=== PATIENT | female | born 1980 | race Caucasian/White ===

== ENCOUNTER → 2018-02-12 09:01 | Outpatient (CLI) | payer BC, SELFPAY ==
--- NOTE | 2018-02-12 09:05 | RAD_ITS ---
STUDY: X-RAY CHEST REASON FOR EXAM: Female, 37 years old. Congestion. TECHNIQUE: PA and lateral views of the chest. COMPARISON: None. FINDINGS: The lungs are clear and expanded. There is no demonstrated pleural abnormality. Normal size heart. Normal mediastinum and juanis. Normal visualized pulmonary arteries. Normal visualized aortic arch and descending thoracic aorta. Normal visualized thoracic spine. Normal visualized ribs, clavicles, and shoulders. There is no demonstrated abnormality of the visualized soft tissue structures of the upper abdomen. RAD/Chest PA and Lateral IMPRESSION: Normal x-ray examination of the chest. Electronically Signed: Braydon Mahoney DO at 16:53 EDT Tel [phone], Service support ,
== END ==
PROVIDERS: Family Provider Internal Medicine; PCP Internal Medicine; Visit Provider Nurse Practitioner Gerontology
DX: R05 Cough (principal)
CPT/HCPCS: 71046

== ENCOUNTER → 2018-10-23 10:59 | Outpatient (CLI) | payer BC, SELFPAY ==
[2018-10-27 09:40] LABS: HPV Reflexed? NOT INDICATED
== END ==
PROVIDERS: Visit Provider Obstetrics & Gynecology
DX: Z12.4 Encounter for screening for malignant neoplasm of cervix (principal)
CPT/HCPCS: 88175; G0145

== ENCOUNTER → 2019-03-04 | Outpatient (CLI) | payer BC, SELFPAY ==
[2019-03-04 11:04] LABS: Progesterone Level 2.41 ng/mL (See Comment)
[2019-03-04 11:06] LABS: Estradiol 112.7 pg/mL
== END | disposition home or self-care (01) ==
LOC: WOBLAB 09:42
PROVIDERS: Visit Provider Obstetrics & Gynecology
DX: N92.5 Other specified irregular menstruation (principal); N92.6 Irregular menstruation, unspecified
CPT/HCPCS: 36415; 82670; 84144

== ENCOUNTER → 2019-07-05 09:12 | Outpatient (CLI) | payer BC, SELFPAY ==
[2019-07-05 11:03] LABS: Progesterone Level 6.29 ng/mL (See Comment)
== END ==
PROVIDERS: Visit Provider Obstetrics & Gynecology
DX: E28.8 Other ovarian dysfunction (principal); N92.6 Irregular menstruation, unspecified
CPT/HCPCS: 36415; 84144

== ENCOUNTER → 2020-05-17 09:42 | Outpatient (CLI) | payer BC, SELFPAY ==
[2020-05-17 11:43] LABS: hCG Titer Quant., Serum 31 mIU/mL (1-3)
[2020-05-17 13:48] LABS: Chlamydia Trachomatis by PCR Negative (Negative); Neisserai gonorrhoeae by PCR Negative (Negative); Probe Check PASS; Sample Adequacy Control PASS; Specimen Processing Control PASS
== END ==
PROVIDERS: Visit Provider Obstetrics & Gynecology
DX: Z12.4 Encounter for screening for malignant neoplasm of cervix (principal); N92.6 Irregular menstruation, unspecified
CPT/HCPCS: 36415; 84702; 87491; 87591

== ENCOUNTER → 2020-05-19 09:40 | Outpatient (CLI) | payer BC, SELFPAY ==
[2020-05-19 10:37] LABS: hCG Titer Quant., Serum 40 mIU/mL (1-3)
== END ==
PROVIDERS: Visit Provider Obstetrics & Gynecology
DX: N92.6 Irregular menstruation, unspecified (principal); Z32.01 Encounter for pregnancy test, result positive
CPT/HCPCS: 36415; 84702

== ENCOUNTER → 2020-05-26 08:35 | Outpatient (CLI) | payer BC, SELFPAY ==
[2020-05-26 11:02] LABS: hCG Titer Quant., Serum 1 mIU/mL (1-3)
== END ==
PROVIDERS: Visit Provider Obstetrics & Gynecology
DX: N92.6 Irregular menstruation, unspecified (principal); Z32.01 Encounter for pregnancy test, result positive
CPT/HCPCS: 36415; 84702

== ENCOUNTER → 2020-08-29 08:40 | Outpatient (CLI) | payer BC, SELFPAY ==
[2020-08-29 13:08] LABS: Progesterone Level 23.74 ng/mL (See Comment)
== END ==
PROVIDERS: Visit Provider Obstetrics & Gynecology
DX: Z34.81 Encounter for supervision of other normal pregnancy, first trimester (principal); Z79.899 Other long term (current) drug therapy
CPT/HCPCS: 36415; 84144

== ENCOUNTER → 2020-09-01 15:48 | Outpatient (CLI) | payer BC, SELFPAY ==
[2020-09-01 17:00] LABS: Absolute Lymphocyte Count 3.16 X10^3/uL (0.83-4.51); Absolute Neutrophil Count 8.6 X10^3/uL (2.0-7.7); Basophil# 0.05 X10^3/uL; Basophil% 0.4 % (0-1); Eosinophil# 0.12 X10^3/uL; Eosinophils% 0.9 % (0-5); Hematocrit 40.1 % (37-47); Hemoglobin 12.9 g/dL (12.0-15.0); Lymphocyte # 3.16 X10^3/ul (4.0); Mean Corp Hgb Conc 32.2 g/dL (32-36); Mean Corpuscular Hgb 28.5 pg (27.0-32.0); Mean Corpuscular Volume 88.5 fL (81-99); Mean Platelet Vol. 9.7 fl (6.2-12.0); Monocyte# 1.12 X10^3/uL; Monocyte% 8.5 % (0-10); NRBC Flagged by Analyzer 0 % (0-5); Neutrophil # 8.59 X10^3/uL (2.7-7.7); Neutrophil % 65.4 % (47-70); Platelet Count 406 K/mm3 (150-450); RBC Distribution Width CV 15.5 % (11.6-14.6); RBC Distribution Width SD 50.5 fl (35.1-43.9); Red Blood Count 4.53 M/mm3 (4.2-5.4); White Blood Count 13.2 K/mm3 (4.4-11.0)
[2020-09-01 17:03] LABS: Color, Urine Yellow (Yellow); Glucose, Dipstick Normal (Normal); Ketone-Dipstick Negative (Negative); Leukocyte Esterase-Dipstick Negative /ul (Negative); Nitrite-Dipstick Negative (Negative); Occult Blood-Urine 150 /ul (Negative); Protein-Dipstick Negative (Negative); Specific Gravity, Urine 1.015 (1.002-1.030); Urine Bilirubin Dipstick Negative (Negative); Urine Clarity Sl. Cloudy (Clear); Urine Urobilinogen Normal (Normal)
[2020-09-01 17:41] LABS: Amphetamine Urine VISTA NEGATIVE (<1000 ng/mL); Barbiturate Urine VISTA NEGATIVE (< 200 ng/mL); Benzodiazepine Urine VISTA NEGATIVE (< 200 ng/mL); Cocaine Urine VISTA NEGATIVE (< 300 ng/mL); Ecstacy Urine VISTA NEGATIVE (< 500 ng/mL); Methadone Urine VISTA NEGATIVE (< 300 ng/mL); PCP Urine VISTA NEGATIVE (< 25 ng/mL); THC Urine VISTA NEGATIVE (< 50 ng/mL); Vista UDS pH Range 6
[2020-09-01 17:44] LABS: Thyroid Stim Hormone (TSH) 0.22 uIU/mL (0.358-3.74)
[2020-09-02 10:13] LABS: HIV - WCH Non-Reactive (Nonreactive); Hepatitis B Surface Antigen Non-Reactive (Nonreactive); Hepatitis C Antibody Non-Reactive (Nonreactive); Rubella IgG 216.9 IU/mL
[2020-09-07 03:02] LABS: Prenatal RPR NONREACTIVE (NONREACTIVE)
[2020-09-08 09:08] LABS: Chlamydia By Nucleic Acid AMP Negative (Negative)
[2020-09-08 09:43] LABS: Gonococcus By Nucleic Acid AMP Negative (Negative)
== END ==
PROVIDERS: Visit Provider Obstetrics & Gynecology
DX: Z34.81 Encounter for supervision of other normal pregnancy, first trimester (principal); Z11.3 Encounter for screening for infections with a predominantly sexual mode of transmission
CPT/HCPCS: 36415; 80307; 81002; 84443; 85025; 86703; 86762; 86803; 87340; 87491; 87591

== ENCOUNTER → 2020-09-15 08:37 | Outpatient (CLI) | payer BC, SELFPAY ==
[2020-09-15 11:03] LABS: Free T3 2.7 pg/mL (2.18-3.98); T4 Free Direct 0.95 ng/dL (0.76-1.46); Thyroid Stim Hormone (TSH) 0.35 uIU/mL (0.358-3.74)
== END ==
PROVIDERS: Visit Provider Obstetrics & Gynecology
DX: Z34.81 Encounter for supervision of other normal pregnancy, first trimester (principal); R94.6 Abnormal results of thyroid function studies
CPT/HCPCS: 36415; 84439; 84443; 84481

== ENCOUNTER → 2020-09-29 14:28 | Outpatient (CLI) | payer BC, SELFPAY ==
[2020-09-29 16:16] LABS: Glucose Challenge Gest 1H 50g 181 mg/dL (70-140)
== END ==
PROVIDERS: Visit Provider Obstetrics & Gynecology
DX: Z34.82 Encounter for supervision of other normal pregnancy, second trimester (principal)
CPT/HCPCS: 36415; 82950

== ENCOUNTER → 2020-10-11 06:45 | Outpatient (CLI) | payer BC, SELFPAY ==
[2020-10-11 08:19] LABS: Glucose GTT-Gestational 1 Hr 161 mg/dL (<190)
[2020-10-11 08:33] LABS: Glucose GTT-Gestation. Fasting 87 mg/dL (<105)
[2020-10-11 09:30] LABS: Glucose GTT-Gestational 2 Hr 159 mg/dL (<165)
[2020-10-11 10:58] LABS: Glucose GTT-Gestational 3 Hr 132 L (<145)
== END ==
PROVIDERS: Referring Provider Obstetrics & Gynecology; Visit Provider Obstetrics & Gynecology
DX: O24.912 Unspecified diabetes mellitus in pregnancy, second trimester (principal); Z3A.00 Weeks of gestation of pregnancy not specified
CPT/HCPCS: 36415; 82951; 82952

== ENCOUNTER → 2021-01-05 14:30 | Outpatient (CLI) | payer OTHER, SELFPAY ==
[2021-01-05 15:40] LABS: Hematocrit 34.3 % (37-47); Mean Corp Hgb Conc 32.1 g/dL (32-36); Mean Corpuscular Hgb 27.4 pg (27.0-32.0); Mean Corpuscular Volume 85.5 fL (81-99); Mean Platelet Vol. 10.2 fl (6.2-12.0); Platelet Count 373 K/mm3 (150-450); RBC Distribution Width CV 15.4 % (11.6-14.6); RBC Distribution Width SD 47.6 fl (35.1-43.9); Red Blood Count 4.01 M/mm3 (4.2-5.4); White Blood Count 8.7 K/mm3 (4.4-11.0)
[2021-01-05 15:48] LABS: Glucose Challenge Gest 1H 50g 184 mg/dL (70-140)
== END ==
PROVIDERS: Visit Provider Student in an Organized Health Care Education/Training Program
DX: Z34.83 Encounter for supervision of other normal pregnancy, third trimester (principal)
CPT/HCPCS: 36415; 82950; 85027

== ENCOUNTER → 2021-03-02 | Outpatient (CLI) | payer OTHER, SELFPAY | END | disposition home or self-care (01) | LOC: LABSPEC 15:41 | PROVIDERS: Visit Provider Student in an Organized Health Care Education/Training Program | DX: Z36.85 Encounter for antenatal screening for Streptococcus B (principal) | CPT/HCPCS: 87077; 87081; 87186 ==

== ENCOUNTER → 2021-03-12 17:16 | Outpatient (CLI) | payer OTHER, SELFPAY | PROVIDERS: Referring Provider Student in an Organized Health Care Education/Training Program; Visit Provider Student in an Organized Health Care Education/Training Program | DX: Z03.818 Encounter for observation for suspected exposure to other biological agents ruled out (principal) | CPT/HCPCS: 87635; C9803; U0002 ==

== ENCOUNTER 2021-03-21 05:10 | Inpatient (IN) | payer OTHER, SELFPAY ==
[2021-03-21] VITALS (23 sets, daily range): BP systolic 105–153; BP diastolic 55–85; PULSE 94–127; RESP 12–25; TEMP 36.2–36.8; O2SAT 95–100; BMI 45.2
[2021-03-21] MEDS: Lactated Ringers 1,000 ML 999 ML IV (05:35)
[2021-03-21] MEDS: Acetaminophen 500 MG Tablet 1000 MG PO ×3 (05:55→17:47)
[2021-03-21 06:01] LABS: Absolute Lymphocyte Count 1.81 X10^3/uL (0.83-4.51); Absolute Neutrophil Count 4.6 X10^3/uL (2.0-7.7); Basophil# 0.03 X10^3/uL; Basophil% 0.4 % (0-1); Eosinophils% 1.3 % (0-5); Hematocrit 36.6 % (37-47); Hemoglobin 11.7 g/dL (12.0-15.0); Lymphocyte # 1.81 X10^3/ul (0.83-4.51); Lymphocyte % 24.3 % (19-41); Mean Corpuscular Hgb 27.5 pg (27.0-32.0); Mean Corpuscular Volume 85.9 fL (81-99); Mean Platelet Vol. 10.4 fl (6.2-12.0); Monocyte# 0.81 X10^3/uL; Monocyte% 10.9 % (0-10); NRBC Flagged by Analyzer 0 % (0-5); Neutrophil % 61.8 % (47-70); Platelet Count 288 K/mm3 (150-450); RBC Distribution Width SD 53.4 fl (35.1-43.9); Red Blood Count 4.26 M/mm3 (4.2-5.4); White Blood Count 7.5 K/mm3 (4.4-11.0)
[2021-03-21 06:11] LABS: Bedside Glucose 171 mg/dL (70-110)
[2021-03-21] MEDS: Lactated Ringers 1,000 ML 150 ML IV (06:45)
[2021-03-21] MEDS: Sodium Citrate/Citric Acid 30 ML UDC PO (07:13)
--- NOTE | 2021-03-21 07:15 | PCM.HP.OB ---
HPI - General General Date of Admission: 03/21/21 HPI Narrative 40-year-old G3, P1 at 39/0 weeks, MILAGRO 03/28/2021 by LMP, admitted for repeat section and bilateral tubal sterilization. Denies leaking of fluid, contractions, vaginal bleeding. Reports movement. Denies headache, vision changes, chest pain, dyspnea, nausea or vomiting, diarrhea/constipation, fevers. complicated by: advanced maternal age, elevated 1 hour refused 3-hour treated as GDMA1, polyhydramnios, GBS positive, obesity OB History G1: 40w c/s G2: SAB G3: current [facility] Medical History (Updated 03/21/21 @ 07:[address] Leigh Brito, DO) Gestational diabetes Home Medications elderberry fruit [Elderberry] PO DAILY 03/21/21 [History Last Taken 03/20/21] magnesium 500 mg PO DAILY 03/21/21 [History Last Taken 03/19/21] Allergy/AdvReac Type Severity Reaction Status Date / Time codeine AdvReac Nausea/Vom/ Verified 03/21/21 05:34 Diarrhea oxycodone HCl [From Percocet] AdvReac Nausea/Vom/ Verified 03/21/21 05:34 Diarrhea Surgical History Previous section Social History Smoking Status: Former smoker History 3 Elective abortions Hx Para 1 Spontaneous abortions 1 Hx # Term Pregnancies 1 Ectopic pregnancies Hx # Pregnancies Multiple births # of living children 1 NST FHR Rate Baby A Baseline: Pending ROS Constitutional Constitutional: Reports systems reviewed and no addt'l complaints, except as documented Eyes Eyes: Reports systems reviewed and no addt'l complaints, except as documented ENT HEENT: Reports systems reviewed and no addt'l complaints, except as documented Cardiovascular Cardiovascular: Reports systems reviewed and no addt'l complaints, except as documented Respiratory/Chest Respiratory/Chest: Reports systems reviewed and no addt'l complaints, except as documented Gastrointestinal Gastrointestinal: Reports systems reviewed and no addt'l complaints, except as documented Genitourinary Genitourinary: Reports systems reviewed and no addt'l complaints, except as documented Musculoskeletal Musculoskeletal: Reports systems reviewed and no addt'l complaints, except as documented Neurologic Neurologic: Reports systems reviewed and no addt'l complaints, except as documented Psychiatric Psychiatric: Reports systems reviewed and no addt'l complaints, except as documented Hematologic/Lymphatic Hematologic/Lymphatic: Reports systems reviewed and no addt'l complaints, except as documented Allergic/Immunologic Allergic/Immunologic: Reports systems reviewed and no addt'l complaints, except as documented Vital Signs Vital Signs Vital Signs: 03/21/21 05:57 Temperature 97.8 F Temperature Source Temporal Pulse Rate 105 H Respiratory Rate 16 Blood Pressure 153/85 H Blood Pressure Mean 107 Blood Pressure Source Monitor Blood Pressure Position Semi-Fowlers Blood Pressure Location Left Arm Pulse Ox 96 Oxygen Delivery Method Room Air Physical Exam Const alert, oriented x3 and no apparent distress HEENT normocephalic Head and Scalp: atraumatic Eyes PERRL Neck full ROM Resp normal respiratory effort and clear to auscultation bilaterally Cardio regular rate and regular rhythm GI normal to inspection, nondistended, normoactive bowel sounds GI Narrative: gravid Extremity normal to inspection, full ROM and no pedal edema Skin no rashes or lesions noted Psych mental status grossly normal and affect normal Assessment & Plan Assessment/Plan (1) Obesity affecting : Status: Acute Code(s): O99.210 - Obesity complicating , unspecified trimester Plan: 40-year-old G3, P1 at 39/0 weeks, MIL[place]RO 03/28/2021 by LMP, admitted for repeat section and bilateral tubal sterilization. 2 gm ancef preop. GDMA1 - glucose testing per protocol. (2) Advanced maternal age (AMA), 40 years or greater: Status: Acute
--- NOTE | 2021-03-21 07:23 | PCM.OPRPT ---
Report of Operation Date of Procedure: 03/21/21 Pre-Operative Diagnosis: Arcos intrauterine at term, gestational diabetes A1, advanced maternal age, desires tubal sterilization Post-Operative Diagnosis: Arcos intrauterine at term, gestational diabetes A1, advanced maternal age, desires tubal sterilization Surgery/Procedure Performed:: Repeat section and bilateral salpingectomy Type of Anesthesia: Spinal Specimen's removed: Bilateral fallopian tubes Estimated Blood Loss (mL): 800cc Fluids Replaced: 1000cc Description of Procedure: Indications/Risks/Benefits: 40 yo at 39/0w presenting for repeat section and bilateral tubal ligation. Risks/benefits/alternatives discussed. Risks include, but are not limited to: risk of bleeding to the point of transfusion, infection, injury to surrounding tissues (bowel/bladder requiring prolonged sorensen catheter use), VTE, ICU admission, risk of regret of tubal sterilization. Patient aware and consented. Procedure: Patient taken to the operating room and spinal anesthesia placed. Placed in supine position with left lateral tilt. Prepped and draped in the usual sterile fashion. Pfannensteil incision made with scalpel and carried down through subcutaneous tissue. Fascia knicked on either side of the midline and extended bilaterally with Dave scissors. Diane clamps used to grasp superior fascial edge which was tented up and underlying rectus muscle was dissected off bluntly and using Dave scissors. Clamps moved to inferior fascial edge which was tented up and underlying rectus muscles dissected off in similar fashion. Rectus muscles at midline with hemostats and peritoneum entered with Metzenbaum scissors, extended bluntly. Bladder blade placed. Vesicouterine peritoneum identified and bladder flap created with Metzenbaum scissors. Low transverse uterine incision made with scalpel extended bluntly, amniotomy clear fluid. Hand placed into the uterus, head elevated in the with the assistance of gentle fundal pressure delivered followed by body. Nuchal cord x1 loose, delivered through. Cord clamped and cut baby handed to nursing. Spontaneous delivery of placenta. Uterus exteriorized and cleared of all clots with a lap. Uterine incision closed with running locking stitch and second horizontal imbricating stitch. Right fallopian tube identified from cornua to fimbriated end. Fallopian tube removed with LigaSure. Left fallopian tube identified from cornua to fimbriated end and removed with LigaSure. Hemostatic mesosalpinx. Uterine incision was hemostatic. Uterus replaced into the abdomen. Pelvis cleared of all clots. Peritoneum closed with a running stitch. Fascia closed with running stitch. Subcutaneous tissue closed with running stitch. Skin closed with a running subcuticular stitch. The end of the procedure all needle lap and sponge counts were correct x3. Urine output: 100 cc clear urine. Apgars: 8/9 Complications None Admit VTE Documentation VTE Mechan Device Prophylaxis: SCD's
--- NOTE | 2021-03-21 07:24 | PCM.DC ---
Discharge Instructions Outpatient Procedure Reason For Visit: CSECTION/DELIVERY Diet Discharge Diet: No restrictions Activity Discharge Activity: Return to Normal Activity, May not drive while taking narcotic pain medications. and May Shower May resume sexual activity in: 4-6 weeks Weight Bearing Status: Weight bearing as tolerated Lifting Restrictions: no more than 20-25 pounds Dressing / Incision Call your doctor if your incision/area has: Continuous Slow Oozing, Sudden Increased Bleeding, Increased Pain/ Swelling, Increased Redness and Foul Smelling Discharge Call your doctor if you observe: Fever of 101 or Higher, Inability to urinate, Inability to have a bowel movement, Using more than one pad per hour, Shortness of breath, Swelling in the ankles and Uncontrolled pain Remove Dressing in: 1 week Cleanse incision/area with: Soap & Water and Keep Dressing Clean & Dry Follow Up Care Please Follow Up With: Leigh Brito When: 2 week post operative, 6 week Test Results: Test results from this visit will be discussed in further detail at your follow-up appointment, if applicable. Discharge Plan Admission Admit Date/Time: 03/21/21 05:10 Primary Reason for Your Visit: Repeat section Attending Provider: Leigh Brito Primary Care Provider: Care Physician,No Primary Discharge Orders/Prescriptions Prescriptions: New tramadol 50 mg Tablet 50 mg PO Q6H PRN (Reason: Pain Score 6-10) 5 Days Qty: 20 RF: 0 Continued magnesium 500 mg Tablet 500 mg PO DAILY RF: 0 elderberry fruit 200 mg Capsule PO DAILY RF: 0 Referrals / Follow Up: Care Physician,No Primary [Primary Care Provider] - Disposition Disposition (needs filled in before D/C Order can be placed): Home, self care
[2021-03-21] MEDS: Oxytocin 30 units/NS 500 ml 30 UNITS/500 ML IV.SOLN 167 UNITS IV (09:05)
[2021-03-21] MEDS: Ketorolac 30 MG/ML Syringe IV ×3 (09:53→22:21)
[2021-03-21 10:20] LABS: Bedside Glucose 111 mg/dL (70-110)
--- NOTE | 2021-03-21 11:24 | FALS_PTH ---
PATIENT: KRYSTAL CHOI LOC: [facility] U#:[id number] AGE/SX: 40/F ROOM: WP005 RE03/21/[address]: Dr. Leigh Brito DO : 1980 BED: 1 DIS: 03/23/2021 SPEC #: [id number] RECD: 03/21/21 11:45 STATUS: CAROLANN REMary #: [id number] CASSANDRA: 03/21/21 11:[address]: Leigh Brito DEPT: SURGICAL PATHOLOGY RECD BY: Haris Yun ENTERED: 03/21/21 13:20 SP TYPE: FALL TUBES OTHR DR: Lashon Primary Care Phys Tissues: Fallopian tube Procedures: Surgery Specimen Level II HEADER OPERATION: Tubal ligation PRE-OP DIAGNOSIS: Sterilization TISSUE SUBMITTED: Fallopian tubes, suture in left tube MICROSCOPIC DIAGNOSIS Right and left fallopian tubes, bilateral salpingectomies: Right fallopian tube ? Complete section, no pathologic change. Left fallopian tube ? Complete section with benign paratubal cyst. AM:nadja 03/22/2021 MICROSCOPIC DESCRIPTION Slides are reviewed. GROSS DESCRIPTION Received in fixative is one container labeled with the patient's name and designated bilateral fallopian tubes, suture in left tube. The specimen consists of bilateral fallopian tubes including fimbrial ends. The right fallopian tube measures 6.5 cm in length and 0.5 cm in diameter and left fallopian tube measures 5 cm in length and 0.5 cm in diameter. Sections reveal unremarkable cut surfaces. Fixture Repairer Fabricator sections are submitted in two cassettes as follows: 1 ? right fallopian tube, 2 ? left fallopian tube. / PILI:nadja 03/21/21 TC:5 CPT: 31461,98949
[2021-03-21] MEDS: Senna/Docusate Sodium 1 Tablet PO (11:33)
[2021-03-21 11:47] LABS: Pathology Specimen OB SEE PATHOLOGY REPORT
[2021-03-21] MEDS: Lactated Ringers 1,000 ML 100 ML IV (12:16)
[2021-03-21] MEDS: 0.9% Saline Lock 10 ML Syringe IV ×2 (14:26→22:21)
[2021-03-22 00:34] VITALS: BP 115/52; PULSE 76; RESP 16; O2SAT 95
[2021-03-22] MEDS: Acetaminophen 500 MG Tablet 1000 MG PO ×5 (00:37→23:50)
[2021-03-22 03:44] VITALS: BP 100/51; PULSE 92; RESP 18; O2SAT 96
[2021-03-22] MEDS: Ketorolac 30 MG/ML Syringe IV (03:47)
[2021-03-22] MEDS: 0.9% Saline Lock 10 ML Syringe IV (03:48)
[2021-03-22 05:36] LABS: Bedside Glucose 77 mg/dL (70-110)
[2021-03-22 05:37] LABS: Hematocrit 30.2 % (37-47); Hemoglobin 9.5 g/dL (12.0-15.0); Mean Corp Hgb Conc 31.5 g/dL (32-36); Mean Corpuscular Hgb 27.3 pg (27.0-32.0); Mean Corpuscular Volume 86.8 fL (81-99); Mean Platelet Vol. 10.6 fl (6.2-12.0); Platelet Count 254 K/mm3 (150-450); RBC Distribution Width CV 17.1 % (11.6-14.6); RBC Distribution Width SD 54.3 fl (35.1-43.9); Red Blood Count 3.48 M/mm3 (4.2-5.4); White Blood Count 9.9 K/mm3 (4.4-11.0)
[2021-03-22 06:08] VITALS: PULSE 96; RESP 16; O2SAT 96
--- NOTE | 2021-03-22 07:32 | PCM.PN.OB ---
Subjective Subjective: Postop day 1. Feeling well, pain controlled. Bottle feeding. Objective Data Objective Data Vital Signs: Vital Signs Temp Pulse Resp BP Pulse Ox 97.3 F L 96 16 100/51 L 96 03/21/21 19:58 03/22/21 06:08 03/22/21 06:08 03/22/21 03:44 03/22/21 06:08 Oxygen Delivery Method Room Air Weight: 112.264 kg Body Mass Index (BMI) 45.2 Intake & Output: Intake and Output for Last 24 Hours 03/20/21 03/21/21 03/22/21 23:59 23:59 23:59 Intake Total 2793.33 / 2793.33 Output Total 1125 / 1125 Balance 1668.33 / 1668.33 Lab / Micro Data Result Diagrams: 03/22/21 05:25 Labs: Laboratory Results - last 24 hr 03/21/21 03/22/21 03/22/21 10:16 05:24 05:25 WBC 9.9 RBC 3.48 L Hgb 9.5 L Hct 30.2 L MCV 86.8 MCH 27.3 MCHC 31.5 L RDW Std Deviation 54.3 H RDW Coeff of Kelsey 17.1 H Plt Count 254 MPV 10.6 POC Glucose 111 H 77 ROS Constitutional Constitutional: Denies fever(s) Cardiovascular Cardiovascular: Denies chest pain or dyspnea Respiratory/Chest Respiratory/Chest: Denies tachypnea or wheezing Gastrointestinal Gastrointestinal: Denies constipation or diarrhea Musculoskeletal Musculoskeletal: Denies difficulty walking Physical Exam Const alert, oriented x3 and no apparent distress HEENT normocephalic Head and Scalp: atraumatic Resp normal respiratory effort Cardio regular rate GI normal to inspection, nondistended, normoactive bowel sounds GI Narrative: Uterus 2 cm below umbilicus. Dressing clean and dry. Extremity normal to inspection and no pedal edema Skin no rashes or lesions noted Neuro Motor Exam: muscle tone normal throughout Psych mental status grossly normal and affect normal Assessment & Plan (1) Gestational diabetes: (2) Advanced maternal age (AMA), 40 years or greater: (3) Obesity affecting : (4) Delivery by section: PLAN: Postop day 1 status post repeat section with bilateral salpingectomy. Complicated by gestational diabetes A1 (fasting glucose within normal limits this morning. Will need 2-hour GTT ), obesity. Acute blood loss anemia secondary to surgery. Vitals are stable. Home POD2 (5) Acute blood loss as cause of postoperative anemia:
[2021-03-22 07:58] VITALS: BP 117/63; PULSE 99; RESP 16; TEMP 36.9; O2SAT 100
[2021-03-22] MEDS: Ibuprofen 600 MG Tablet PO ×3 (09:56→21:30)
[2021-03-22] MEDS: Senna/Docusate Sodium 1 Tablet PO (09:57)
[2021-03-22] MEDS: Enoxaparin 40 MG/0.4 ML Syringe SC (09:58)
[2021-03-22] MEDS: traMADol 50 MG Tablet PO ×2 (13:37→21:30)
[2021-03-22 13:45] VITALS: BP 124/74; PULSE 90; RESP 18; TEMP 36.5; O2SAT 97
[2021-03-22 19:38] VITALS: BP 132/72; PULSE 92; RESP 16; TEMP 36.4; O2SAT 98
[2021-03-23 01:45] VITALS: BP 132/70; PULSE 89; RESP 18; TEMP 36.7; O2SAT 97
[2021-03-23] MEDS: Ibuprofen 600 MG Tablet PO ×2 (04:14→09:41)
[2021-03-23] MEDS: Acetaminophen 500 MG Tablet 1000 MG PO (05:51)
[2021-03-23 07:35] VITALS: BP 134/69; PULSE 91; RESP 18; TEMP 36.6; O2SAT 98
--- NOTE | 2021-03-23 08:20 | PCM.PN.OB ---
Subjective Subjective: POD#2. Pain controlled with medications. Lochia minimal. Objective Data Objective Data Vital Signs: Vital Signs Temp Pulse Resp BP Pulse Ox 98.0 F 89 18 132/70 H 97 03/23/21 01:45 03/23/21 01:45 03/23/21 01:45 03/23/21 01:45 03/23/21 01:45 Oxygen Delivery Method Room Air Weight: 112.264 kg Body Mass Index (BMI) 45.2 Intake & Output: Intake and Output for Last 24 Hours 03/21/21 03/22/21 03/23/21 23:59 23:59 23:59 Intake Total 2793.33 / 2793.33 Output Total 1125 / 1125 Balance 1668.33 / 1668.33 Lab / Micro Data Result Diagrams: 03/22/21 05:25 ROS Constitutional Constitutional: Denies fever(s) ENT HEENT: Denies dizziness Respiratory/Chest Respiratory/Chest: Denies cough or dyspnea Genitourinary Genitourinary: Denies difficulty urinating or dysuria Musculoskeletal Musculoskeletal: Denies muscle weakness Physical Exam Const alert, oriented x3 and no apparent distress HEENT normocephalic Head and Scalp: atraumatic Eyes PERRL Resp normal respiratory effort Cardio regular rate GI soft to palpation, non-tender and non-distended GI Narrative: dressing c/d, uterus 2 cm below umbilicus Extremity no pedal edema Skin no rashes or lesions noted Assessment & Plan (1) Acute blood loss as cause of postoperative anemia: (2) Delivery by section: (3) Gestational diabetes: (4) Advanced maternal age (AMA), 40 years or greater: (5) Obesity affecting : PLAN: POD#2 s/p repeat section and bilateral tubal ligation. Acute blood loss anemia secondary to surgery, vitals stable. Iron supplement at home. GDMA1 - will need 2hr GTT. Home today.
[2021-03-23] MEDS: Enoxaparin 40 MG/0.4 ML Syringe SC (09:40)
[2021-03-23] MEDS: Senna/Docusate Sodium 1 Tablet PO (09:42)
== END 2021-03-23 10:50 | disposition home or self-care (01) | DRG 784 ==
PROVIDERS: Admitting Provider Student in an Organized Health Care Education/Training Program; Visit Provider Student in an Organized Health Care Education/Training Program
PROC: 10D00Z1 Extraction of Products of Conception, Low, Open Approach (ICD-10-PCS; CPT 59514; principal; 2021-03-21 07:15)
DX: O34.219 Maternal care for unspecified type scar from previous cesarean delivery (principal); D62 Acute posthemorrhagic anemia; O24.420 Gestational diabetes mellitus in childbirth, diet controlled; O90.81 Anemia of the puerperium; O40.3XX0 Polyhydramnios, third trimester, not applicable or unspecified; O99.824 Streptococcus B carrier state complicating childbirth; O69.81X0 Labor and delivery complicated by cord around neck, without compression, not applicable or unspecified; O99.214 Obesity complicating childbirth; E66.9 Obesity, unspecified; Z3A.39 39 weeks gestation of pregnancy; Z37.0 Single live birth; Z79.82 Long term (current) use of aspirin; Z87.891 Personal history of nicotine dependence; Z30.2 Encounter for sterilization
CPT/HCPCS: 82962; 85025; 85027; 86850; 86900; 86901; 88302; 99218; J7120; A4216; G0378; J2405

== ENCOUNTER → 2021-10-10 | Outpatient (CLI) | payer OTHER, SELFPAY ==
[2021-10-17 11:40] LABS: HPV APTIMA, High Risk Negative (Negative)
== END | disposition home or self-care (01) ==
LOC: LABSPEC 09:39
PROVIDERS: Visit Provider Obstetrics & Gynecology
DX: Z12.4 Encounter for screening for malignant neoplasm of cervix (principal)
CPT/HCPCS: 87624; 88175; G0145

== ENCOUNTER → 2021-10-30 12:42 | Outpatient (CLI) | payer OTHER, SELFPAY ==
--- NOTE | 2021-10-30 12:44 | BI_ITS ---
MAMMOGRAPHY - BILATERAL SCREENING REASON FOR EXAM: Female, 41 years old. Routine annual screening examination. PERTINENT HISTORY: Aunt with breast cancer. TECHNIQUE: Digital bilateral breast tonja (3D mammographic acquisition) in the CC and MLO projections. 2-D mediolateral oblique (MLO) and craniocaudad (CC) views of both breasts were obtained. CAD: Full Field Digital Mammography with Computer Added Detection was performed. COMPARISON: Comparison is made with prior study dated 01/16/2017 FINDINGS: Breast Composition: The breasts are almost entirely fatty. There are no dominant masses or suspicious calcifications. Stable small benign-appearing bilateral axillary lymph nodes. No other significant abnormalities are identified. There has been no significant change since the prior study. BI/SCRN MAMM (CAD)W/TONJA BILAT IMPRESSION: Stable bilateral screening mammogram. Yearly follow-up mammogram recommended. (A) ASSESSMENT CATEGORY: BIRADS Category 2: Benign. A letter regarding these results will be sent to the patient by the facility within 30 days. Approximately 10% of breast cancers are not detected by mammography. A normal mammogram should not delay biopsy of a clinically suspicious abnormality. [id number] Electronically Signed: Kumar Riojas MD at 13:58 EST , Service support ,
== END ==
PROVIDERS: Referring Provider Obstetrics & Gynecology; Visit Provider Obstetrics & Gynecology
DX: Z12.31 Encounter for screening mammogram for malignant neoplasm of breast (principal); Z80.3 Family history of malignant neoplasm of breast
CPT/HCPCS: 77063; 77067

== ENCOUNTER 2022-02-12 16:31 | Outpatient (CLI) | payer BC, SELFPAY | END 2022-02-12 23:59 | disposition home or self-care (01) | PROVIDERS: Visit Provider Obstetrics & Gynecology | DX: Z12.4 Encounter for screening for malignant neoplasm of cervix (principal) | CPT/HCPCS: 88175; G0145 ==

== ENCOUNTER 2022-04-28 16:04 | Emergency (ER) | payer BC, SELFPAY ==
[2022-04-28 16:05] VITALS: BP 174/105; PULSE 125; RESP 14; TEMP 36.5; O2SAT 100; BMI 35.6
--- NOTE | 2022-04-28 16:20 | US_ITS ---
STUDY: ABDOMINAL ULTRASOUND - RIGHT UPPER QUADRANT REASON FOR VISIT: Female, 41 years old abdominal pain TECHNIQUE: Ultrasound evaluation of the right upper quadrant was performed with real-time and static barrett-scale imaging. TECHNICAL QUALITY: Adequate. COMPARISON: CT scan dated 09/12/2015 FINDINGS: This study is limited by the patient''s body habitus. Visualized liver parenchyma shows increased echogenicity. There is no gallbladder stone or polyp. No gallbladder wall thickening or pericholecystic fluid is seen. Sonographic Benoit''s sign has been reported negative. Common bile duct measures 0.3 cm in diameter. Visualized pancreatic head and portal vein are unremarkable. There is a questionable septated cystic lesion in the right kidney measuring up to 2.1 cm. No free fluid is seen in the Jang''s pouch. US/Gallbladder IMPRESSION: Limited study by the patient''s body habitus. Diffuse hepatic steatosis. No cholelithiasis. No biliary dilatation. A questionable 2.1 cm cystic lesion with internal septation in the right kidney. Dedicated MRI may be obtained to confirm. Electronically Signed: Maverick Jones MD at 18:18 EDT ,
--- NOTE | 2022-04-28 16:21 | EDS_ITS ---
HPI HPI - GI History of Present Illness Chief Complaint: Abd Pain Detail of Chief Complaint: Abdominal pain that started yesterday Informant: patient Abdominal Pain/Flank Pain Maximum Severity: 8/10 Narrative Narrative: Patient presents with abdominal pain that started yesterday. She states she is a continuous pain since yesterday afternoon that she rates an 8 out of 10. She has had nausea and dry heaves. She describes the pain as right upper quadrant radiating to the back and the right scapula. She has had similar pain in the past and has had some gallbladder attacks off and on. She saw a surgeon in 2019. Patient had a HIDA scan in 2015 that showed an ejection fraction of 10%. Patient states this pain does not seem to be made better or worse by eating. It is not positional. She has not had a fever. She denies urinary symptoms. Prior similar symptoms: Yes PFSH PFS Medical History (Updated 04/28/22 @ 20:[address] Herman Bustillo DO) Gestational diabetes Maternal anemia in , antepartum Spontaneous rupture of amiotic membranes Home Medications elderberry fruit PO DAILY 03/21/21 [History Last Taken 03/20/21] magnesium 500 mg PO DAILY 03/21/21 [History Last Taken 03/19/21] hydrocodone-acetaminophen 1 tab PO Q4H PRN PRN 2 Days #10 tablet 04/28/22 [Rx Last Taken Unknown] lorazepam [Ativan] 0.5 mg PO TID PRN 04/28/22 [History Last Taken Unknown] ondansetron 4 mg PO Q8H PRN PRN #10 tab 04/28/22 [Rx Last Taken Unknown] Allergy/AdvReac Type Severity Reaction Status Date / Time codeine AdvReac Nausea/Vom/ Verified 04/28/22 16:07 Diarrhea oxycodone HCl [From Percocet] AdvReac Nausea/Vom/ Verified 04/28/22 16:07 Diarrhea Surgical History Previous section Social History Smoking Status: Former smoker ROS ROS ED Constitutional Constitutional ED: Reports systems reviewed and no addt'l complaints, except as documented; Denies body ache(s), change in weight or chills Eyes Eyes: Denies acute decrease in peripheral vision, change in vision, double vision or loss of vision ENT ENT ED: Reports none; Denies ear pain, lip swelling, loss taste/smell, neck pain, otalgia or sore throat Cardiovascular Cardiovascular: Reports none; Denies abdominal pain, chest pain with activity, leg edema, lightheadedness, palpitations, rapid heart rate or syncope Respiratory/Chest Respiratory/Chest: Reports none; Denies change in mental status, dry cough, dyspnea, hemoptysis, shortness of breath at rest or shortness of breath with exertion Gastrointestinal Gastrointestinal: Reports none, abdominal pain and nausea; Denies change in stool character, diarrhea, hematemesis, hematochezia, melena, rectal bleeding or vomiting Genitourinary Genitourinary ED: Reports none; Denies abdominal discomfort, anuria, dysuria, genital pain or polyuria Musculoskeletal Musculoskeletal: Reports none; Denies arthralgias, back pain, difficulty walking, extremity pain, muscle weakness or myalgias Integumentary Reports none; Denies abscess or rash Neurologic Neurologic: Reports none; Denies abnormal gait, confusion, focal weakness, frequent falls, headache(s), loss of vision, numbness, paresthesias, radicular pain, vertigo or weakness Psychiatric Psychiatric: Reports systems reviewed and no addt'l complaints, except as documented and none; Denies behavioral changes, confusion, difficulty concentrating, hallucinations, suicidal ideation, tactile hallucinations or visual hallucinations Endocrine Endocrinology: Denies none, cold intolerance, excessive sweating, fatigue or heat intolerance Hematologic/Lymphatic Hematologic/Lymphatic: Reports none; Denies anemia, easy bleeding or easy bruising Allergic/Immunologic Allergic/Immunologic ED: Denies as per HPI, none, lip swelling, mouth swelling, throat swelling, tongue swelling or hives EXAM Physical Exam Const Vital Signs: 04/28/22 16:05 04/28/22 17:00 Temperature 97.7 F L Temperature Source Temporal Pulse Rate 125 H 115 H Respiratory Rate 14 16 Blood Pressure 174/105 H 158/84 H Blood Pressure Mean 128 108 Pulse Ox 100 100 Oxygen Delivery Method Room Air Room Air Positive well nourished and well developed General Appearance ED: well developed and NAD HEENT Reports TM's clear and moist mucous membranes normocephalic and atraumatic; Negative for trauma or tenderness Tympanic Membrane ED: Yes TM's clear Eyes PERRL and EOMs intact bilaterally General Eye ED: Negative for pale conjunctiva or scleral icterus Neck no lymphadenopathy, supple and no JVD General: Negative for tenderness Chest Wall inspection of chest normal and palpation of chest normal Chest: Negative for tenderness Resp normal respiratory effort and clear to auscultation bilaterally Effort and Inspection: Negative for respiratory distress or pain with movement Auscultation: Negative for rhonchi, wheezes or diminished lung sounds Cardio regular rate, regular rhythm, S1 normal heart sound, S2 normal heart sound and no murmurs Peripheral Pulses: pulses 2+ throughout GI normal to inspection, nondistended, normoactive bowel sounds, soft to palpation, non-distended and no masses GI Narrative: Tenderness palpation over the right upper quadrant with guarding. She got a positive Benoit sign. There is no rebound, rigidity, or frail signs. Palpation: tender Back/Spine no CVA tenderness and no thoracic nor lumbar tenderness Extremity normal to inspection General Extremety ED: Negative for edema General Extremity: Negative for edema Neuro oriented x3, CN's II-XII intact bilaterally, no sensory deficits noted and gait normal Sensorium / Orientation: awake, alert, oriented to person, oriented to place and oriented to time Motor Exam: strength 5/5 throughout and strength abnormal Psych mental status grossly normal Skin no rashes or lesions noted and no wounds MDM MDM MDM Narrative Medical decision making narrative: IV line established on arrival. Patient was given Dilaudid 1 mg IV. Patient had Zofran. Patient had good pain relief with that. Lab work-up was normal. LFTs were normal. Lipase was normal. Urinalysis was normal. Gallbladder ultrasound did not show gallstones or dilated bile ducts. Incidentally found to have possibly septated cyst on the right kidney for which an MRI was recommended. I did do a CT scan of the abdomen pelvis without contrast which showed some hepatic steatosis otherwise nothing significant. There is no evidence of cyst on CT. Case was discussed with general surgeon on-call whom the patient has seen in the past Dr. Carol Wakefield. At this point I will send patient home with a prescription for [place] for pain and some Zofran. Patient will follow up with Dr. Carol Wakefield if symptoms persist may need evaluated for cholecystectomy. Patient advised to return if fever, vomiting, worsening pain, or condition should worsen anyway. Lab Data Attestation: I reviewed the patient's lab results. Labs: Laboratory Results - last 24 hr 04/28/22 04/28/22 04/28/22 16:45 16:54 16:54 WBC 7.2 RBC 4.79 Hgb 12.8 Hct 40.1 MCV 83.7 MCH 26.7 L MCHC 31.9 L RDW Std Deviation 47.3 H RDW Coeff of Kelsey 15.5 H Plt Count 365 MPV 10.0 Immature Gran % (Auto) 0.400 Neut % (Auto) 62.9 Lymph % (Auto) 26.4 [place] % (Auto) 8.6 Eos % (Auto) 1.4 Baso % (Auto) 0.3 Absolute Neuts (auto) 4.5 Absolute Lymphs (auto) 1.90 Nucleated RBC % 0 Sodium 140 Potassium 4.3 Chloride 109 H Carbon Dioxide 23.0 Anion Gap 8 BUN 10 Creatinine 0.73 Estim Creat Clear Calc 80.21 Est GFR (MDRD) Af Amer 113 Est GFR (MDRD) Non-Af 94 BUN/Creatinine Ratio 13.8 Glucose 88 Calcium 8.9 Total Bilirubin 0.30 AST 28 ALT 21 Alkaline Phosphatase 82 Total Protein 7.2 Albumin 3.7 Globulin 3.5 Albumin/Globulin Ratio 1.1 Lipase 123 Serum , Qual Urine Color Yellow Urine Clarity Sl. Cloudy Urine pH 6.0 Ur Specific [place] 1.010 Urine Protein Negative Urine Glucose (UA) Normal Urine Ketones Negative Urine Occult Blood 50 H Urine Nitrite Negative Urine Bilirubin Negative Urine Urobilinogen Normal Ur Leukocyte Esterase Negative Urine RBC 0-5 SEEN Urine WBC 0 SEEN Ur Squamous Epith Cells 0-5 SEEN Urine Bacteria RARE Urine Mucus 0 SEEN 04/28/22 16:54 WBC RBC Hgb Hct MCV MCH MCHC RDW Std Deviation RDW Coeff of Kel[place] Plt Count MPV Immature Gran % (Auto) Neut % (Auto) Lymph % (Auto) [place] % (Auto) Eos % (Auto) Baso % (Auto) Absolute Neuts (auto) Absolute Lymphs (auto) Nucleated RBC % Sodium Potassium Chloride Carbon Dioxide Anion Gap BUN Creatinine Estim Creat Clear Calc Est GFR (MDRD) Af Amer Est GFR (MDRD) Non-Af BUN/Creatinine Ratio Glucose Calcium Total Bilirubin AST ALT Alkaline Phosphatase Total Protein Albumin Globulin Albumin/Globulin Ratio Lipase Serum , Qual NEGATIVE Urine Color Urine Clarity Urine pH Ur Specific [place] Urine Protein Urine Glucose (UA) Urine Ketones Urine Occult Blood Urine Nitrite Urine Bilirubin Urine Urobilinogen Ur Leukocyte Esterase Urine RBC Urine WBC Ur Squamous Epith Cells Urine Bacteria Urine Mucus Radiography Diagnostic Testing: Clinical Impression(s) from Imaging Studies Gallbladder Ultrasound 04/28/22 16:20 IMPRESSION: Limited study by the patient''s body habitus. Diffuse hepatic steatosis. No cholelithiasis. No biliary dilatation. A questionable 2.1 cm cystic lesion with internal septation in the right kidney. Dedicated MRI may be obtained to confirm. Electronically Signed: Maverick Jones MD at 18:18 EDT , Abdomen/Pelvis CT 04/28/22 18:27 IMPRESSION: Diffuse hepatic steatosis. Punctate nonobstructing stones in the bilateral kidneys. Electronically Signed: Maverick Jones MD at 19:53 EDT , Discharge Plan Triage Chief Complaint: Abd Pain ED Provider: Herman Bustillo Dx/Rx/DC Orders Clinical Impression: Abdominal pain Instructions: ED Abdominal Pain Unkn Cause Fem Prescriptions: New hydrocodone-acetaminophen [hydrocodone-acetaminophen] 1 TABLET tablet 1 tab PO Q4H PRN PRN (Reason: Pain) 2 Days Qty: 10 RF: 0 ondansetron [ondansetron] 4 MG tablet 4 mg PO Q8H PRN PRN (Reason: Nausea) Qty: 10 RF: 0 No Action magnesium 500 mg Tablet 500 mg PO DAILY RF: 0 elderberry fruit 200 mg Capsule PO DAILY RF: 0 lorazepam [Ativan] 0.5 mg Tablet 0.5 mg PO TID PRN (Reason: Anxiety) RF: 0 Primary Care Provider: Taty Pratt Referrals: Taty Pratt MD [Primary Care Provider] - Carol Wakefield MD [STAFF PHYSICIAN] - 3-5 Days
[2022-04-28 16:52] LABS: Color, Urine Yellow (Yellow); Glucose, Dipstick Normal (Normal); Ketone-Dipstick Negative (Negative); Leukocyte Esterase-Dipstick Negative /ul (Negative); Mucous, Urine 0 SEEN /hpf (<or=2+); Nitrite-Dipstick Negative (Negative); Occult Blood-Urine 50 /ul (Negative); Protein-Dipstick Negative (Negative); Urine Bilirubin Dipstick Negative (Negative); Urine Clarity Sl. Cloudy (Clear); Urine Urobilinogen Normal (Normal); White Blood Cells 0 SEEN /hpf (0-5)
[2022-04-28] MEDS: 0.9% Normal Saline 1,000 ML 125 ML IV (16:55)
[2022-04-28] MEDS: HYDROmorphone 1 MG/ML Syringe IV (16:56)
[2022-04-28] MEDS: Ondansetron 4 MG/2 ML Vial IV (16:56)
[2022-04-28 16:59] LABS: Bacteria RARE /hpf (None Seen); Red Blood Cells-Urine 0-5 SEEN /hpf (0-5); Squamous Epithelial Cells - UA 0-5 SEEN /hpf (5-10)
[2022-04-28 17:00] VITALS: BP 158/84; PULSE 115; RESP 16; O2SAT 100
[2022-04-28 17:00] LABS: Absolute Neutrophil Count 4.5 X10^3/uL (2.0-7.7); Basophil# 0.02 X10^3/uL; Basophil% 0.3 % (0-1); Eosinophils% 1.4 % (0-5); Hematocrit 40.1 % (37-47); Hemoglobin 12.8 g/dL (12.0-15.0); Lymphocyte % 26.4 % (19-41); Mean Corp Hgb Conc 31.9 g/dL (32-36); Mean Corpuscular Hgb 26.7 pg (27.0-32.0); Mean Corpuscular Volume 83.7 fL (81-99); Monocyte# 0.62 X10^3/uL; Monocyte% 8.6 % (0-10); NRBC Flagged by Analyzer 0 % (0-5); Neutrophil # 4.53 X10^3/uL (2.7-7.7); Neutrophil % 62.9 % (47-70); Platelet Count 365 K/mm3 (150-450); RBC Distribution Width CV 15.5 % (11.6-14.6); RBC Distribution Width SD 47.3 fl (35.1-43.9); Red Blood Count 4.79 M/mm3 (4.2-5.4); White Blood Count 7.2 K/mm3 (4.4-11.0)
[2022-04-28 17:20] LABS: Internal QC Validated? YES +Cl - CLEAR BKGD
[2022-04-28 17:24] LABS: Pregnancy, Serum, hCG Quali. NEGATIVE Negative
[2022-04-28 17:34] LABS: ALB/GLOB Ratio 1.1 RATIO (0.9-2.4); AST(SGOT) 28 U/L (15-37); Alanine Aminotransfer ALT/SGPT 21 U/L (13-56); Albumin, Serum 3.7 g/dL (3.2-5.0); Alkaline Phosphatase 82 U/L (45-117); Anion Gap 8 (5-15); BUN 10 mg/dL (7-18); BUN/Creat Ratio 13.8 RATIO (10-20); Calcium,Total 8.9 mg/dL (8.5-10.1); Chloride 109 mmol/L (98-107); Creatinine, Serum 0.73 mg/dL (0.55-1.02); EST Glomerular Filtration Rate 94 mL/min (>60); Est Glom Filt Rate - Afr Amer 113 mL/min (>60); Estimated Creatinine Clearance 80.21 ml/min; Globulin 3.5 g/dL (2.2-4.2); Glucose 88 mg/dL (74-106); Lipase 123 U/L (73-393); Potassium 4.3 mmol/L (3.5-5.1); Protein, Total 7.2 g/dL (6.4-8.2); Sodium Level 140 mmol/L (136-145)
--- NOTE | 2022-04-28 18:27 | CT_ITS ---
STUDY: CT ABDOMEN AND PELVIS WITHOUT CONTRAST REASON FOR EXAM: Female, 41 years old. abdominal pain RADIATION DOSAGE (If Supplied By Facility): CTDIvol = ( 21.16 ) mGy, DLP = ( 413670 ) mGycm TECHNIQUE: Transaxial images were obtained from the dome of the diaphragm to the symphysis pubis without oral contrast, and without intravenous contrast. Sagittal and coronal images were reconstructed. Individualized dose optimization techniques were used for this CT. COMPARISON: 09/12/2015 FINDINGS: Lung bases clear. Diffuse hepatic steatosis. Unremarkable spleen, pancreas, adrenals, and gallbladder on this unenhanced study. No definite cholelithiasis. Punctate nonobstructing stones in the bilateral kidneys. No radiopaque stone in the ureters. No hydroureteronephrosis on either side. Prior appendectomy. Bowel loops nonobstructed. No free air or free fluid. No adenopathy. No abdominal aortic aneurysm. Sections through the pelvis demonstrate no adnexal mass. No radiopaque stone in the urinary bladder. Mild multilevel thoracolumbar spondylosis. Small posterior disc bulges in the lower lumbar spine. CT/Abdomen/Pelvis without Cont IMPRESSION: Diffuse hepatic steatosis. Punctate nonobstructing stones in the bilateral kidneys. Electronically Signed: Maverick Jones MD at 19:53 EDT ,
[2022-04-28 20:21] VITALS: BP 142/92; PULSE 77; RESP 16; O2SAT 98
== END 2022-04-28 20:29 | disposition home or self-care (01) ==
LOC: ED 16:21
PROVIDERS: Emergency Provider Emergency Medicine; PCP Internal Medicine; Visit Provider Emergency Medicine
DX: R10.11 Right upper quadrant pain (principal); R11.2 Nausea with vomiting, unspecified; Z87.891 Personal history of nicotine dependence
CPT/HCPCS: 74176; 76705; 80053; 81001; 83690; 84703; 85025; 96361; 96374; 96375; 99282; J7030; A4216; J2405

== ENCOUNTER → 2022-05-15 | Outpatient (CLI) | payer BC, SELFPAY ==
--- NOTE | 2022-05-14 17:15 | ECC_PTH ---
PATIENT: KRYSTAL CHOI LOC: [facility] U#:[id number] AGE/SX: 41/F ROOM: RE05/15/[address]: Dr. Abril Pineda MD : 1980 BED: DIS: 05/15/2022 SPEC #: [id number] RECD: 05/15/22 11:08 STATUS: CAROLANN SHAH #: [id number] CASSANDRA: 05/14/22 17:[address]: Abril Healy DEPT: SURGICAL PATHOLOGY RECD BY: Haris Yun ENTERED: 05/15/22 11:29 SP TYPE: ECC OTHR DR: Dr. Taty Pratt MD Tissues: Endocervical Procedures: Surgery Specimen Level IV HEADER OPERATION: Colposcopy PRE-OP DIAGNOSIS: Unsatisfactory pap x2, negative HRHPV TISSUE SUBMITTED: Endocervical curettings MICROSCOPIC DIAGNOSIS Endocervix, curettings: Strips of benign superficial endocervix. AM:nadja 05/16/2022 MICROSCOPIC DESCRIPTION Slides are reviewed. GROSS DESCRIPTION Received is one container labeled with the patient's name and not further designated. The specimen consists of multiple irregular fragments of lyons mucoid tissue that in aggregate measure 2 x 2 x 0.1 cm. The specimen is totally submitted in one cassette. / SJ:nadja 05/15/2022 TC:5 [facility]: [id number]
== END | disposition home or self-care (01) ==
LOC: LABSPEC 10:10
PROVIDERS: PCP Internal Medicine; Visit Provider Obstetrics & Gynecology
DX: R87.615 Unsatisfactory cytologic smear of cervix (principal)
CPT/HCPCS: 88305

== ENCOUNTER → 2023-01-08 | Outpatient (CLI) | payer BC, SELFPAY ==
[2023-01-08 17:36] LABS: Estradiol 37.9 pg/mL; Follicle Stimulating Hormone 4.5 mIU/mL; Luteinizing Hormone 2.2 mIU/mL
[2023-01-08 18:22] LABS: HIV - WCH Non-Reactive (Nonreactive); Hepatitis B Surface Antibody Non-Reactive; Syphilis Antibodies Non-reactive
[2023-01-10 07:08] LABS: HEPATITIS B SURFACE AG Negative (Negative); Hep C Antibodies Non Reactive (Non Reactive); Hepatitis A IgM Antibody Negative (Negative); Hepatitis B Core AB IgM Negative (Negative)
[2023-01-10 19:51] LABS: Hepatitis A AB, Total Positive (Negative)
[2023-01-15 21:40] LABS: HPV APTIMA, High Risk Negative (Negative)
== END | disposition home or self-care (01) ==
LOC: WOBLAB 16:09
PROVIDERS: PCP Internal Medicine; Visit Provider Student in an Organized Health Care Education/Training Program
DX: Z12.4 Encounter for screening for malignant neoplasm of cervix (principal); Z11.3 Encounter for screening for infections with a predominantly sexual mode of transmission; R10.2 Pelvic and perineal pain
CPT/HCPCS: 36415; 80074; 82670; 83001; 83002; 84144; 86703; 86706; 86708; 86780; 87624; 88175; G0145

== ENCOUNTER → 2023-01-31 | Outpatient (CLI) | payer BC, SELFPAY ==
--- NOTE | 2023-01-30 16:36 | BI_ITS ---
MAMMOGRAPHY - BILATERAL SCREENING 3-D TOMOSYNTHESIS REASON FOR EXAM: Female, 42 years old. Routine screening PERTINENT HISTORY: Aunt with breast cancer.. TECHNIQUE: 2-D mammograms and 3-D Tomosynthesis of the breast (s) were performed. CAD was performed. COMPARISON: 10/30/2021 FINDINGS: The breast composition is almost entirely fat. Scattered benign calcifications are seen. No dense spiculated masses or suspicious microcalcifications are identified. No architectural distortion is identified. There is no skin thickening or retraction. There has been no significant change since the prior study. BI/SCRN MAMM (CAD)W/TONJA BILAT IMPRESSION: No mammographic signs of malignancy. Routine yearly mammograms recommended. ASSESSMENT CATEGORY: BIRADS Category 1: Negative. A letter regarding these results will be sent to the patient by the facility within 30 days. FOLLOW UP RECOMMENDATION: Yearly follow up mammogram recommended. (A) Approximately 10% of breast cancers are not detected by mammography. A normal mammogram should not delay biopsy of a clinically suspicious abnormality. Electronically Signed: Mark Song MD at 7:47 EDT ,
== END | disposition home or self-care (01) ==
LOC: OPBI 07:30
PROVIDERS: PCP Internal Medicine; Referring Provider Student in an Organized Health Care Education/Training Program; Visit Provider Student in an Organized Health Care Education/Training Program
DX: Z12.31 Encounter for screening mammogram for malignant neoplasm of breast (principal)
CPT/HCPCS: 77063; 77067

== ENCOUNTER 2023-06-08 05:05 | Emergency (ER) | payer BC, SELFPAY ==
[2023-06-08 05:05] VITALS: BP 155/88; PULSE 99; RESP 18; TEMP 36.7; O2SAT 99; BMI 41.5
--- NOTE | 2023-06-08 05:14 | CT_ITS ---
EXAM: CT ABDOMEN AND PELVIS WITHOUT INTRAVENOUS CONTRAST CLINICAL INDICATION: Kidney Stone TECHNIQUE: Helically acquired images were obtained of the abdomen and pelvis without intravenous contrast. This CT exam was performed using one or more of the following dose reduction techniques: automated exposure control, adjustment of the mA and/or kV according to patient size, and/or use of iterative reconstruction technique. RADIATION DOSE: CTDIvol = 21.88 mGy, DLP = 1055.01 mGy-cmContrast: COMPARISON: April 28, 2022. FINDINGS: LOWER THORAX: Unremarkable. Lung bases are clear. No cardiomegaly. No significant pericardial effusion. ABDOMEN: LIVER: Hepatomegaly, right lobe is 20.3 cm in length. GALLBLADDER AND BILE DUCTS: Unremarkable. No calcified gallstones. No gallbladder distention or wall edema. No intra- or extrahepatic biliary ductal dilation. PANCREAS: Unremarkable. No focal cystic mass. SPLEEN: Unremarkable. Normal size without focal cystic or solid mass. ADRENALS: Unremarkable. No nodules. KIDNEYS AND URETERS: Slight right hydronephrosis and 3.5 mm x 3.6 mm stone in the proximal left ureter. The stone was previously in the right upper pole kidney. Left renal pelvis is 1 cm AP. Unremarkable mid to distal ureters and bladder. Tiny nonobstructing stone in the lower pole of the left kidney. STOMACH AND BOWEL: Minimal new extensive material and gas in the stomach. Minimal small bowel content. Mild gas and stool in the right colon, multiple collapse segments of mid to distal colon, mild gas and stool in the rectosigmoid. No stomach or bowel distention. No focal inflammatory change. PELVIS: APPENDIX: Appendectomy clips. BLADDER: Unremarkable. REPRODUCTIVE: Unremarkable as visualized. No mass. ABDOMEN and PELVIS: INTRAPERITONEAL SPACE: Unremarkable. No ascites or other fluid collection. No free air. BONES/JOINTS: Vacuum disc and moderate disc space narrowing at L5-S1, minimal posterior spondylosis or bulging disc margin calcification at L4-5, stable. No suspicious lytic or blastic abnormality. SOFT TISSUES: Slight fat in the umbilicus. No discrete abdominal or pelvic wall hernia. VASCULATURE: Unremarkable. Abdominal aorta is non-dilated. LYMPH NODES: Unremarkable. No enlarged lymph nodes. CT/Abdomen/Pelvis without Cont IMPRESSION: 1. Slight acute right hydronephrosis to the level of a 3.6 mm stone in the proximal right ureter. The stone was previously in the right upper pole kidney. 2. Left nephrolithiasis, stable. 3. Stable hepatomegaly. Appendectomy. Mild degenerative spine changes. Electronically Signed: Henny Mix MD at 6:16 EDT ,
--- NOTE | 2023-06-08 05:14 | EX.ED.DYSGE1 ---
HPI History of Present Illness Chief Complaint: Flank Pain Detail of Chief Complaint: Right flank pain Informant: patient Onset/Context/Timing Onset: Today Context: Sudden Onset Timing: Waxes and wanes Current Severity: Severe Maximum Severity: Severe Narrative Narrative: Patient presents with right-sided back pain. She got up at 2 AM to do some work in her kitchen. She had sudden onset of nausea and severe pain to her right flank region. She had nausea but no vomiting. She took 2 Aleve and try to take a hot bath without improvement. She denies history of kidney stone. [facility] Medical History (Updated 06/08/23 @ 06:[address] Rachel Ward MD) Gestational diabetes Maternal anemia in , antepartum Spontaneous rupture of amiotic membranes Home Medications elderberry fruit 200 mg capsule PO DAILY supplement 03/21/21 [History Last Taken 03/20/21] magnesium 500 mg tablet 500 mg PO DAILY migraine prevention 03/21/21 [History Last Taken 03/19/21] hydrocodone-acetaminophen 5-325mg 5mg-325mg 1 tab PO Q4H PRN PRN Pain 2 days #10 TABLETS 04/28/22 [Rx Last Taken Unknown] lorazepam 0.5 mg tablet (Ativan) 0.5 mg PO TID PRN Anxiety 04/28/22 [History Last Taken Unknown] ondansetron 4 mg disintegrating tablet 4 mg PO Q8H PRN PRN Nausea #10 tabs 04/28/22 [Rx Last Taken Unknown] hydrocodone-acetaminophen 5-325mg 5mg-325mg 1 tab PO Q6H PRN PRN Pain 3 days #12 TABLETS 06/08/23 [Rx Last Taken Unknown] ibuprofen 800 mg tablet 800 mg PO Q8H PRN pain #20 tabs 06/08/23 [Rx Last Taken Unknown] ondansetron 4 mg disintegrating tablet 4 mg PO Q8H PRN PRN Nausea #10 tabs 06/08/23 [Rx Last Taken Unknown] tamsulosin 0.4 mg capsule (Flomax) 0.4 mg PO DAILY #10 caps 06/08/23 [Rx Last Taken Unknown] Allergy/AdvReac Type Severity Reaction Status Date / Time codeine AdvReac Nausea/Vom/ Verified 06/08/23 05:08 Diarrhea oxycodone HCl [From Percocet] AdvReac Nausea/Vom/ Verified 06/08/23 05:08 Diarrhea Surgical History (Updated 06/08/23 @ 05:[address] Rachel Ward MD) H/O bilateral salpingectomy Previous section Social History Smoking Status: Former smoker ROS ROS ED Constitutional Constitutional ED: Denies chills or fever(s) Eyes Eyes: Denies change in vision or discharge from eye(s) ENT ENT ED: Denies discharge from eye(s), rhinorrhea or sore throat Cardiovascular Cardiovascular: Denies chest pain or palpitations Respiratory/Chest Respiratory/Chest: Denies cough or dyspnea Gastrointestinal Gastrointestinal: Reports nausea; Denies abdominal pain or vomiting Genitourinary Genitourinary ED: Denies dysuria Musculoskeletal Musculoskeletal: Reports back pain; Denies extremity pain Integumentary Denies Abrasions or rash Neurologic Neurologic: Denies headache(s) or weakness Psychiatric Psychiatric: Denies anxiety or depression Allergic/Immunologic Allergic/Immunologic ED: Denies lip swelling or urticaria EXAM Physical Exam Const Vital Signs: 06/08/23 05:05 Temperature 98.1 F Temperature Source Oral Pulse Rate 99 Respiratory Rate 18 Blood Pressure 155/88 H Blood Pressure Mean 110 Pulse Ox 99 Oxygen Delivery Method Room Air Positive well nourished and well developed General Appearance ED: well developed HEENT Reports moist mucous membranes Eyes PERRL and EOMs intact bilaterally Neck no lymphadenopathy Chest Wall inspection of chest normal and palpation of chest normal Resp normal respiratory effort and clear to auscultation bilaterally Cardio regular rate and regular rhythm GI non-tender Auscultation: hypoactive bowel sounds Palpation: soft Back/Spine General Back: CVA tenderness right Extremity normal to inspection Neuro oriented x3 and no sensory deficits noted Motor Exam: strength 5/5 throughout Psych mental status grossly normal Skin no rashes or lesions noted MDM MDM MDM Narrative Medical decision making narrative: Patient is given Dilaudid, Toradol, Zofran, IV fluids. Labwork obtained to evaluate for leukocytosis, anemia, and electrolyte derangement. Urinalysis obtained to evaluate for infection/hematuria. CT flank obtained to evaluate for kidney stone. Lab Data Attestation: I reviewed the patient's lab results. Labs: Laboratory Results - last 24 hr 06/08/23 06/08/23 05:21 05:29 WBC 8.2 RBC 4.51 Hgb 12.2 Hct 37.4 MCV 82.9 MCH 27.1 MCHC 32.6 RDW Std Deviation 44.9 H RDW Coeff of Kelsey 14.9 H Plt Count 349 MPV 9.7 Immature Gran % (Auto) 0.500 Neut % (Auto) 62.8 Lymph % (Auto) 22.5 [place] % (Auto) 11.6 H Eos % (Auto) 2.1 Baso % (Auto) 0.5 Absolute Neuts (auto) 5.1 Absolute Lymphs (auto) 1.84 Nucleated RBC % 0 Sodium 139 Potassium 4.1 Chloride 109 H Carbon Dioxide 25.0 Anion Gap 5 BUN 15 Creatinine 0.81 Estim Creat Clear Calc 71.56 Est GFR (MDRD) Af Amer 100 Est GFR (MDRD) Non-Af 82 BUN/Creatinine Ratio 18.6 Glucose 108 H Calcium 8.9 Urine Color Yellow Urine Clarity Clear Urine pH 7.0 Ur Specific [place] 1.005 Urine Protein Negative Urine Glucose (UA) Normal Urine Ketones Negative Urine Occult Blood 250 H Urine Nitrite Negative Urine Bilirubin Negative Urine Urobilinogen Normal Ur Leukocyte Esterase Negative Urine RBC 0-5 SEEN Urine WBC 0 SEEN Ur Squamous Epith Cells 0-5 SEEN Urine Bacteria RARE Urine Mucus 0 SEEN Radiography Diagnostic Testing: Clinical Impression(s) from Imaging Studies Abdomen/Pelvis CT 06/08/23 05:14 IMPRESSION: 1. Slight acute right hydronephrosis to the level of a 3.6 mm stone in the proximal right ureter. The stone was previously in the right upper pole kidney. 2. Left nephrolithiasis, stable. 3. Stable hepatomegaly. Appendectomy. Mild degenerative spine changes. Electronically Signed: Henny Mix MD at 6:16 EDT , Treatment and Re-Evaluation :: CBC was normal white count 8.2 with a hemoglobin of 12.2. Chemistry studies unremarkable with normal renal function. Urinalysis reveals no evidence of infection. 0-5 red cells noted on microscopic exam. CT scan of flank reveals a 3.6 mm stone in the proximal right ureter with slight hydronephrosis. On repeat evaluation patient resting comfortably. Test results discussed with patient and at bedside. She will be given prescriptions for ibuprofen, [place], Zofran, and Flomax. She will be referred to Dr. Winter for follow-up as needed. Return instructions are given. Discharge Plan Triage Chief Complaint: Flank Pain ED Provider: Rachel Ward Dx/Rx/DC Orders Clinical Impression: Kidney stone on right side Instructions: ED Kidney Stone w/ Colic Prescriptions: New ibuprofen 800 mg tablet 800 mg PO Q8H PRN (Reason: pain) Qty: 20 0RF hydrocodone-acetaminophen 5-325 mg tablet 1 tab PO Q6H PRN PRN (Reason: Pain) 3 Days Qty: 12 0RF ondansetron 4 mg tablet,disintegrating 4 mg PO Q8H PRN PRN (Reason: Nausea) Qty: 10 0RF tamsulosin [Flomax] 0.4 mg capsule 0.4 mg PO DAILY Qty: 10 0RF No Action magnesium 500 mg Tablet 500 mg PO DAILY elderberry fruit 200 mg Capsule PO DAILY lorazepam [Ativan] 0.5 mg Tablet 0.5 mg PO TID PRN (Reason: Anxiety) hydrocodone-acetaminophen [hydrocodone-acetaminophen] 1 TABLET tablet 1 tab PO Q4H PRN PRN (Reason: Pain) 2 Days Qty: 10 0RF ondansetron [ondansetron] 4 MG tablet 4 mg PO Q8H PRN PRN (Reason: Nausea) Qty: 10 0RF Primary Care Provider: Taty Pratt Referrals: Taty Pratt MD [Primary Care Provider] - Bonny Winter MD [Med Staff - Active Staff] - As Needed Disposition Disposition: Home, Self Care
[2023-06-08] MEDS: Ondansetron 4 MG/2 ML Vial IV (05:20)
[2023-06-08] MEDS: 0.9% Normal Saline 1,000 ML 250 ML IV (05:20)
[2023-06-08] MEDS: Ketorolac 30 MG/ML Syringe IV (05:20)
[2023-06-08] MEDS: HYDROmorphone 0.5 MG/0.5 ML SYRINGE IV (05:21)
[2023-06-08 05:29] LABS: Absolute Lymphocyte Count 1.84 X10^3/uL (0.83-4.51); Absolute Neutrophil Count 5.1 X10^3/uL (2.0-7.7); Basophil# 0.04 X10^3/uL; Basophil% 0.5 % (0-1); Eosinophil# 0.17 X10^3/uL; Eosinophils% 2.1 % (0-5); Hematocrit 37.4 % (37-47); Hemoglobin 12.2 g/dL (12.0-15.0); Lymphocyte # 1.84 X10^3/ul (0.83-4.51); Lymphocyte % 22.5 % (19-41); Mean Corp Hgb Conc 32.6 g/dL (32-36); Mean Corpuscular Hgb 27.1 pg (27.0-32.0); Mean Corpuscular Volume 82.9 fL (81-99); Mean Platelet Vol. 9.7 fl (6.2-12.0); Monocyte# 0.95 X10^3/uL; Monocyte% 11.6 % (0-10); NRBC Flagged by Analyzer 0 % (0-5); Neutrophil # 5.12 X10^3/uL (2.7-7.7); Neutrophil % 62.8 % (47-70); Platelet Count 349 K/mm3 (150-450); RBC Distribution Width CV 14.9 % (11.6-14.6); RBC Distribution Width SD 44.9 fl (35.1-43.9); Red Blood Count 4.51 M/mm3 (4.2-5.4); White Blood Count 8.2 K/mm3 (4.4-11.0)
[2023-06-08 05:34] LABS: Mucous, Urine 0 SEEN /hpf (<or=2+); White Blood Cells 0 SEEN /hpf (0-5)
[2023-06-08 05:38] LABS: Color, Urine Yellow (Yellow); Glucose, Dipstick Normal (Normal); Ketone-Dipstick Negative (Negative); Leukocyte Esterase-Dipstick Negative /ul (Negative); Nitrite-Dipstick Negative (Negative); Occult Blood-Urine 250 /ul (Negative); Protein-Dipstick Negative (Negative); Specific Gravity, Urine 1.005 (1.002-1.030); Urine Bilirubin Dipstick Negative (Negative); Urine Clarity Clear (Clear); Urine Urobilinogen Normal (Normal)
[2023-06-08 06:10] LABS: Anion Gap 5 (5-15); BUN 15 mg/dL (7-18); BUN/Creat Ratio 18.6 RATIO (10-20); Calcium,Total 8.9 mg/dL (8.5-10.1); Chloride 109 mmol/L (98-107); Creatinine, Serum 0.81 mg/dL (0.55-1.02); EST Glomerular Filtration Rate 82 mL/min (>60); Est Glom Filt Rate - Afr Amer 100 mL/min (>60); Estimated Creatinine Clearance 71.56 ml/min; Glucose 108 mg/dL (74-106); Potassium 4.1 mmol/L (3.5-5.1); Sodium Level 139 mmol/L (136-145)
[2023-06-08 06:11] LABS: Bacteria RARE /hpf (None Seen); Red Blood Cells-Urine 0-5 SEEN /hpf (0-5); Squamous Epithelial Cells - UA 0-5 SEEN /hpf (5-10)
== END 2023-06-08 07:13 | disposition home or self-care (01) ==
PROVIDERS: Emergency Provider Emergency Medicine; PCP Internal Medicine; Visit Provider Emergency Medicine
DX: N13.2 Hydronephrosis with renal and ureteral calculous obstruction (principal); Z87.891 Personal history of nicotine dependence
CPT/HCPCS: 74176; 80048; 81001; 85025; 96361; 96374; 96375; 99283; J7030; J2405

== ENCOUNTER → 2024-11-02 | Outpatient (CLI) | payer BC, SELFPAY | END | disposition home or self-care (01) | LOC: LABSPEC 15:12 | PROVIDERS: PCP Internal Medicine; Referring Provider Otolaryngology; Visit Provider Otolaryngology | DX: J02.9 Acute pharyngitis, unspecified (principal) | CPT/HCPCS: 87070 ==

== ENCOUNTER 2024-11-12 11:19 | Emergency (ER) | payer BC, SELFPAY ==
[2024-11-12 11:19] VITALS: BP 183/101; PULSE 123; RESP 18; TEMP 36.6; O2SAT 99; BMI 42.8
--- NOTE | 2024-11-12 11:50 | CT_ITS ---
STUDY: CT ABDOMEN AND PELVIS WITHOUT CONTRAST REASON FOR EXAM: Female, 44 years old. Pain RADIATION DOSAGE (If Supplied By Facility): CTDIvol = ( 23.51 ) mGy, DLP = ( 1133.70 ) mGycm TECHNIQUE: Transaxial images were obtained from the dome of the diaphragm to the symphysis pubis without oral contrast, and without intravenous contrast. Sagittal and coronal images were reconstructed. Individualized dose optimization techniques were used for this CT. COMPARISON: June 08, 2023 FINDINGS: The visualized lung bases are unremarkable. The visualized portions of the heart are within normal limits. There is hepatomegaly with diffuse hepatic enlargement. Normal gallbladder and extrahepatic biliary system. Normal spleen. Normal pancreas. Normal bilateral adrenal glands. There is a 0.2 cm stone of the right kidney. There are 0.1 and 0.2 cm stones of the left kidney. There is mild left hydronephrosis and perinephric stranding. There is 0.2 cm left proximal ureteral stone. Normal visualized stomach. Normal small intestine. Normal colon. There are surgical clips in the region of the appendix consistent with a prior appendectomy. Normal abdominal aorta. Normal inferior vena cava. Normal retroperitoneum. Normal urinary bladder. There is an IUD in the uterus. There is no free fluid in the abdomen or pelvis. Normal abdominal wall. There is mild degenerative change of the spine. CT/Abdomen/Pelvis without Cont IMPRESSION: Bilateral renal stones. Left proximal ureteral stone with hydronephrosis. Hepatomegaly. No biliary dilatation. Electronically Signed: Koffi Gaitan MD at 13:14 EST ,
[2024-11-12] MEDS: Ondansetron 4 MG/2 ML Vial IV (12:00)
[2024-11-12] MEDS: 0.9% Normal Saline (1000mL) 1,000 ML 999 ML IV (12:00)
--- NOTE | 2024-11-12 12:00 | EX.ED.DYSGE1 ---
HPI <NAHID Hamilton - Last Filed: 11/12/24 13:49> History of Present Illness Chief Complaint: Flank Pain Narrative Narrative: Patient a 44-year-old female with no significant medical history presents to the emerged department for left-sided flank pain. Pay states she woke up this morning, had some aching in her back. She is some generalized stretching, ice and heat. Patient states that roughly 2 hours ago, the pain became much more severe radiating to her left abdomen. Patient does have history of a kidney stone greater than 1.5 years ago. Patient is here for evaluation. States to have some nausea however no significant vomiting. PFS <NAHID Hamilton - Last Filed: 11/12/24 13:49> [facility], [facility] Medical History (Updated 11/12/24 @ 13:46 by NAHID Hamilton) Gestational diabetes Maternal anemia in , antepartum Spontaneous rupture of amiotic membranes Home Medications ?Medication ?Instructions ?Recorded ?Last Taken ?Type elderberry fruit 200 mg capsule PO DAILY supplement 03/21/21 03/20/21 History magnesium 500 mg tablet 500 mg PO DAILY migraine prevention 03/21/21 03/19/21 History hydrocodone-acetaminophen 5-325mg 1 tab PO Q4H PRN PRN Pain 2 days 04/28/22 Unknown Rx 5mg-325mg #10 TABLETS lorazepam 0.5 mg tablet (Ativan) 0.5 mg PO TID PRN Anxiety 04/28/22 Unknown History ondansetron 4 mg disintegrating 4 mg PO Q8H PRN PRN Nausea #10 tabs 04/28/22 Unknown Rx tablet hydrocodone-acetaminophen 5-325mg 1 tab PO Q6H PRN PRN Pain 3 days 06/08/23 Unknown Rx 5mg-325mg #12 TABLETS ibuprofen 800 mg tablet 800 mg PO Q8H PRN pain #20 tabs 06/08/23 Unknown Rx ondansetron 4 mg disintegrating 4 mg PO Q8H PRN PRN Nausea #10 tabs 06/08/23 Unknown Rx tablet tamsulosin 0.4 mg capsule (Flomax) 0.4 mg PO DAILY #10 caps 06/08/23 Unknown Rx hydrocodone-acetaminophen 5-325mg 1 tab PO Q6H PRN PRN Pain 3 days 11/12/24 Unknown Rx 5mg-325mg #10 TABLETS ondansetron 4 mg disintegrating 4 mg PO Q8H PRN PRN Nausea #10 tabs 11/12/24 Unknown Rx tablet tamsulosin 0.4 mg capsule (Flomax) 0.4 mg PO DAILY #7 caps 11/12/24 Unknown Rx Allergy/AdvReac Type Severity Reaction Status Date / Time codeine AdvReac Nausea/Vom/ Verified 11/12/24 11:21 Diarrhea oxycodone HCl (From Percocet) AdvReac Nausea/Vom/ Verified 11/12/24 11:21 Diarrhea Surgical History (Updated 06/08/23 @ 05:[address] Rachel Ward MD) H/O bilateral salpingectomy Previous section Social History Smoking Status: Former smoker ROS <BLANQUITA HamiltonC - Last Filed: 11/12/24 13:49> ROS ED ROS Narrative Constitutional: Negative for fever, chills, weight loss, weakness Eyes: Negative for vision loss, vision change, double vision ENT: Negative for any sore throat, ear pain, congestion Cardiovascular: Negative for any chest pain, tightness, palpitations Respiratory: Negative for any cough, sputum production, hemoptysis, dyspnea, dyspnea on exertion, orthopnea Gastrointestinal: Negative for any abdominal pain, vomiting, diarrhea, constipation, blood in stool, blood in vomit. Positive for left-sided flank pain, left-sided abdominal pain : Negative for any urinary frequency, dysuria, retention, blood in urine Muscle skeletal: Negative for any neck pain, back pain Neurological: Negative for any headache, syncope, dizziness Skin: Negative for any rashes, itching, abrasions, lacerations Psychiatric: Negative for any depression, anxiety, stress, suicidal ideation, homicidal ideation Hematologic: Negative for any excessive bruising, easy bleeding EXAM <NAHID Hamilton - Last Filed: 11/12/24 13:49> Physical Exam Narrative Exam Narrative: Vital signs reviewed. On my initial evaluation, patient did seem to be in mild distress. Patient does have pain to the left flank that radiates to the front. HEET: Head normocephalic atraumatic, TMs clear bilaterally. Posterior pharynx is clear, moist mucous membranes. Nares clear bilaterally. Neck: Supple with no lymphadenopathy or tenderness. No signs of meningismus. Cardiac: Regular rate and rhythm no murmurs gallops or rubs, equal peripheral pulses bilaterally. Respiratory: Lungs clear to auscultation bilaterally. No chest tenderness. Abdomen: Soft, nontender, nondistended. No abdominal bruit or pulsatile masses. No hepatosplenomegaly Extremities: No peripheral edema, no signs of gross trauma or deformity. Active full range of motion of all extremities. Neuro: Cranial nerves II through XII intact, no focal neurological deficits. Skin: Clean dry and intact with no rash, purpura, petechiae, vesicles or pustules. Backs/flank: Positive left-sided CVA tenderness no midline spinal tenderness, no deformity. Psych: Normal mood and affect. No SI, HI or acute psychosis. Const Vital Signs: 11/12/24 11:19 11/12/24 13:19 Temperature 97.8 F Temperature Source Oral Pulse Rate 123 H 110 H Respiratory Rate 18 16 Blood Pressure 183/101 H 168/97 H Blood Pressure Mean 128 120 Pulse Ox 99 98 Oxygen Delivery Method Room Air Room Air Positive well nourished, well developed and obese General Appearance ED: well developed Nutritional Appearance: obese <Dr. Ben Bobo DO - Last Filed: 11/12/24 13:57> Physical Exam Const Vital Signs: 11/12/24 11:19 11/12/24 13:19 Temperature 97.8 F Temperature Source Oral Pulse Rate 123 H 110 H Respiratory Rate 18 16 Blood Pressure 183/101 H 168/97 H Blood Pressure Mean 128 120 Pulse Ox 99 98 Oxygen Delivery Method Room Air Room Air MDM <NAHID Hamilton - Last Filed: 11/12/24 13:49> [facility] Lab Data Labs: Laboratory Results - last 24 hr 11/12/24 11/12/24 11:40 12:56 WBC 11.5 H RBC 5.14 Hgb 13.7 Hct 44.2 MCV 86.0 MCH 26.7 L MCHC 31.0 L RDW Std Deviation 49.1 H RDW Coeff of Kelsey 15.6 H Plt Count 370 MPV 10.0 Immature Gran % (Auto) 1.700 H Neut % (Auto) 64.9 Lymph % (Auto) 21.4 Toombs % (Auto) 9.7 Eos % (Auto) 1.9 Baso % (Auto) 0.4 Absolute Neuts (auto) 7.5 Absolute Lymphs (auto) 2.46 Nucleated RBC % 0 Sodium 138 Potassium 3.8 Chloride 108 H Carbon Dioxide 22.0 Anion Gap 7 BUN 18 Creatinine 1.12 H Estim Creat Clear Calc 73.43 Est GFR (MDRD) Af Amer 68 Est GFR (MDRD) Non-Af 56 L BUN/Creatinine Ratio 16.1 Glucose 90 Calcium 8.8 Total Bilirubin 0.20 AST 21 ALT 20 Alkaline Phosphatase 95 Total Protein 7.5 Albumin 3.3 Globulin 4.2 Albumin/Globulin Ratio 0.8 L Lipase 52 Urine Color Yellow Urine Clarity Sl. Cloudy Urine pH 7.0 Ur Specific Roselle 1.010 Urine Protein 15 H Urine Glucose (UA) Normal Urine Ketones Negative Urine Occult Blood 150 H Urine Nitrite Negative Urine Bilirubin Negative Urine Urobilinogen Normal Ur Leukocyte Esterase Negative Urine RBC 0-5 SEEN Urine WBC 0 SEEN Ur Squamous Epith Cells 0-5 SEEN Urine Bacteria 0 SEEN Urine Mucus 0 SEEN Radiography Diagnostic Testing: Clinical Impression(s) from Imaging Studies Abdomen/Pelvis CT 11/12/24 11:50 IMPRESSION: Bilateral renal stones. Left proximal ureteral stone with hydronephrosis. Hepatomegaly. No biliary dilatation. Electronically Signed: Koffi Gaitan MD at 13:14 EST , Treatment and Re-Evaluation :: Differential diagnosis includes however is not limited to: Obstructing uropathy, back to kidney stone, UTI, pyelonephritis, muscle strain Patient on my initial evaluation did appear to be in mild distress secondary to left-sided flank pain. Presenting to the emergency department for left-sided flank pain that started earlier this morning. Patient will receive a kidney stone workup including a CT scan of the abdomen pelvis, IV fluids, Zofran morphine Toradol. Urinalysis will also be obtained. Patient did have history of hysterectomy. All radiologic examinations were read, reviewed by the emergency department attending. From these reads, a plan of care will be put in place. Patient reevaluation has improved. Patient CBC shows a slight leukocytosis with a white blood count 11.5. Patient's chemistry shows slight bump in her creatinine at 1.12, chloride 108, no transaminitis, negative lipase. Patient did request more pain medicine, I did provide the patient with 1 mg of Dilaudid. Patient responded well. Patient's CT scan of the abdomen pelvis shows bilateral renal stones. Left proximal ureteral stone with hydronephrosis. Patient's urinalysis was negative for any infection. At this time, I do believe the patient would be stable for discharge. Patient may of passed her stone. Patient be given prescription for [place], Flomax, nausea medicine. She is instructed to follow-up with urology. All questions answered, patient was given strict return precaution. <Dr. Ben Bobo, DO - Last Filed: 11/12/24 13:57> [facility] Narrative Medical decision making narrative: I have personally performed a face to face assessment of the patient and have reviewed the MAGEN Note. I performed a substantive portion of the visit including all aspects of the following. My anderson findings include: History: Patient presents with left flank pain that began today. Patient states it feels similar to prior kidney stones. Patient states it started out as a dull pain in her left flank area. Patient states it became sharp later in the day. Patient states nothing makes it better and nothing makes it worse. Patient denies any fevers or chills. Patient denies any dysuria or hematuria. Patient admits to some nausea but denies any vomiting. Exam: Vital signs are stable except for an elevated blood pressure of 183/101 and a tachycardia of 123. Patient is in no acute distress. Oral mucosa is pink and moist. Neck is supple. Trachea is midline. There is no JVD. Heart was regular and tachycardic. Lungs are clear and equal bilaterally. Abdomen is soft. Bowel sounds are normal. There is some mild left CVA tenderness. There is no rebound or guarding noted. Cranial nerves II through XII are intact. There are no focal motor or sensory deficits noted. Medical Decision Making: Differential diagnosis includes ureteral calculus, pyelonephritis, diverticulitis, pancreatitis, ovarian cyst, and urinary tract infection. CBC will be obtained to assess for leukocytosis and anemia. Comprehensive metabolic profile will be obtained to assess for electrolyte abnormality, hepatic function, and renal function. Lipase will be obtained to assess for pancreatitis. Urinalysis will be obtained to assess for urinary tract infection and hematuria. CT scan of the abdomen and pelvis will be obtained to assess for ureteral calculus and diverticulitis. Patient was given IV fluids, morphine, Zofran, and Toradol. CBC was reviewed. There is a mild leukocytosis of 11.5. The remainder is within normal limits. Comprehensive metabolic profile was reviewed and was essentially within normal limits. Lipase was reviewed and was normal at 52. Urinalysis was reviewed. There is no evidence of urinary tract infection or hematuria. CT scan of the abdomen and pelvis was obtained. There is a 2 mm left proximal ureteral calculus. There is hydronephrosis. There are bilateral renal calculi. This was interpreted by the radiologist was also independently reviewed by myself. Patient was advised of her findings. Patient was given prescription for Flomax and [place]. Patient was instructed to drink plenty of fluids. Patient was instructed to follow-up with her primary care physician in 5 to 7 days. Patient understood and was agreeable with the plan. All questions were answered. Lab Data Labs: Laboratory Results - last 24 hr 11/12/24 11/12/24 11:40 12:56 WBC 11.5 H RBC 5.14 Hgb 13.7 Hct 44.2 MCV 86.0 MCH 26.7 L MCHC 31.0 L RDW Std Deviation 49.1 H RDW Coeff of Kelsey 15.6 H Plt Count 370 MPV 10.0 Immature Gran % (Auto) 1.700 H Neut % (Auto) 64.9 Lymph % (Auto) 21.4 Toombs % (Auto) 9.7 Eos % (Auto) 1.9 Baso % (Auto) 0.4 Absolute Neuts (auto) 7.5 Absolute Lymphs (auto) 2.46 Nucleated RBC % 0 Sodium 138 Potassium 3.8 Chloride 108 H Carbon Dioxide 22.0 Anion Gap 7 BUN 18 Creatinine 1.12 H Estim Creat Clear Calc 73.43 Est GFR (MDRD) Af Amer 68 Est GFR (MDRD) Non-Af 56 L BUN/Creatinine Ratio 16.1 Glucose 90 Calcium 8.8 Total Bilirubin 0.20 AST 21 ALT 20 Alkaline Phosphatase 95 Total Protein 7.5 Albumin 3.3 Globulin 4.2 Albumin/Globulin Ratio 0.8 L Lipase 52 Urine Color Yellow Urine Clarity Sl. Cloudy Urine pH 7.0 Ur Specific [place] 1.010 Urine Protein 15 H Urine Glucose (UA) Normal Urine Ketones Negative Urine Occult Blood 150 H Urine Nitrite Negative Urine Bilirubin Negative Urine Urobilinogen Normal Ur Leukocyte Esterase Negative Urine RBC 0-5 SEEN Urine WBC 0 SEEN Ur Squamous Epith Cells 0-5 SEEN Urine Bacteria 0 SEEN Urine Mucus 0 SEEN Radiography Diagnostic Testing: Clinical Impression(s) from Imaging Studies Abdomen/Pelvis CT 11/12/24 11:50 IMPRESSION: Bilateral renal stones. Left proximal ureteral stone with hydronephrosis. Hepatomegaly. No biliary dilatation. Electronically Signed: Koffi Gaitan MD at 13:14 EST , Discharge Plan Triage Chief Complaint: Flank Pain ED Midlevel Provider: Deon Lees ED Provider: Ben Bobo Dx/Rx/DC Orders Clinical Impression: Kidney stone, Acute flank pain Instructions: ED Kidney Stone with Pain Prescriptions: New hydrocodone-acetaminophen 5-325 mg tablet 1 tab PO Q6H PRN PRN (Reason: Pain) 3 Days Qty: 10 0RF tamsulosin [Flomax] 0.4 mg capsule 0.4 mg PO DAILY Qty: 7 0RF ondansetron 4 mg tablet,disintegrating 4 mg PO Q8H PRN PRN (Reason: Nausea) Qty: 10 0RF No Action magnesium 500 mg Tablet 500 mg PO DAILY elderberry fruit 200 mg Capsule PO DAILY lorazepam [Ativan] 0.5 mg Tablet 0.5 mg PO TID PRN (Reason: Anxiety) hydrocodone-acetaminophen [hydrocodone-acetaminophen] 1 TABLET tablet 1 tab PO Q4H PRN PRN (Reason: Pain) 2 Days Qty: 10 0RF ondansetron [ondansetron] 4 MG tablet 4 mg PO Q8H PRN PRN (Reason: Nausea) Qty: 10 0RF ibuprofen 800 mg tablet 800 mg PO Q8H PRN (Reason: pain) Qty: 20 0RF hydrocodone-acetaminophen 5-325 mg tablet 1 tab PO Q6H PRN PRN (Reason: Pain) 3 Days Qty: 12 0RF ondansetron 4 mg tablet,disintegrating 4 mg PO Q8H PRN PRN (Reason: Nausea) Qty: 10 0RF tamsulosin [Flomax] 0.4 mg capsule 0.4 mg PO DAILY Qty: 10 0RF Primary Care Provider: Taty Pratt Referrals: Taty Pratt MD [Primary Care Provider] - Bonny Winter MD [Med Staff - Active Staff] - Activity Restrictions/Additional Instructions: Please follow-up outpatient. Return for any worsening pain, fever chills nausea vomiting Print Language: Chinese Disposition Disposition: Home, Self Care
[2024-11-12] MEDS: Ketorolac 15 MG/ML Vial IV (12:01)
[2024-11-12] MEDS: Morphine 4 MG/ML Syringe IV (12:01)
[2024-11-12 12:03] LABS: Absolute Lymphocyte Count 2.46 X10^3/uL (0.83-4.51); Absolute Neutrophil Count 7.5 X10^3/uL (2.0-7.7); Basophil# 0.05 X10^3/uL; Basophil% 0.4 % (0-1); Eosinophil# 0.22 X10^3/uL; Eosinophils% 1.9 % (0-5); Hematocrit 44.2 % (37-47); Hemoglobin 13.7 g/dL (12.0-15.0); Lymphocyte # 2.46 X10^3/ul (0.83-4.51); Lymphocyte % 21.4 % (19-41); Mean Corpuscular Hgb 26.7 pg (27.0-32.0); Monocyte# 1.11 X10^3/uL; Monocyte% 9.7 % (0-10); NRBC Flagged by Analyzer 0 % (0-5); Neutrophil # 7.45 X10^3/uL (2.7-7.7); Neutrophil % 64.9 % (47-70); Platelet Count 370 K/mm3 (150-450); RBC Distribution Width CV 15.6 % (11.6-14.6); RBC Distribution Width SD 49.1 fl (35.1-43.9); Red Blood Count 5.14 M/mm3 (4.2-5.4); White Blood Count 11.5 K/mm3 (4.4-11.0)
[2024-11-12 12:18] LABS: ALB/GLOB Ratio 0.8 RATIO (0.9-2.4); AST(SGOT) 21 U/L (15-37); Alanine Aminotransfer ALT/SGPT 20 U/L (13-56); Albumin, Serum 3.3 g/dL (3.2-5.0); Alkaline Phosphatase 95 U/L (45-117); Anion Gap 7 (5-15); BUN 18 mg/dL (7-18); BUN/Creat Ratio 16.1 RATIO (10-20); Calcium,Total 8.8 mg/dL (8.5-10.1); Chloride 108 mmol/L (98-107); Creatinine, Serum 1.12 mg/dL (0.55-1.02); EST Glomerular Filtration Rate 56 mL/min (>60); Est Glom Filt Rate - Afr Amer 68 mL/min (>60); Estimated Creatinine Clearance 73.43 ml/min; Globulin 4.2 g/dL (2.2-4.2); Glucose 90 mg/dL (74-106); Lipase 52 U/L (13-75); Potassium 3.8 mmol/L (3.5-5.1); Protein, Total 7.5 g/dL (6.4-8.2); Sodium Level 138 mmol/L (136-145)
[2024-11-12 13:00] LABS: Bacteria 0 SEEN /hpf (None Seen); Mucous, Urine 0 SEEN /hpf (<or=2+); White Blood Cells 0 SEEN /hpf (0-5)
[2024-11-12 13:07] LABS: Color, Urine Yellow (Yellow); Glucose, Dipstick Normal (Normal); Ketone-Dipstick Negative (Negative); Leukocyte Esterase-Dipstick Negative /ul (Negative); Nitrite-Dipstick Negative (Negative); Occult Blood-Urine 150 /ul (Negative); Protein-Dipstick 15 mg/dl (Negative); Urine Bilirubin Dipstick Negative (Negative); Urine Clarity Sl. Cloudy (Clear); Urine Urobilinogen Normal (Normal)
[2024-11-12 13:15] LABS: Red Blood Cells-Urine 0-5 SEEN /hpf (0-5); Squamous Epithelial Cells - UA 0-5 SEEN /hpf (5-10)
[2024-11-12 13:19] VITALS: BP 168/97; PULSE 110; RESP 16; O2SAT 98
[2024-11-12] MEDS: HYDROmorphone 1 MG/ML Syringe IV (13:34)
== END 2024-11-12 13:57 | disposition home or self-care (01) ==
PROVIDERS: Nurse Practitioner; Emergency Provider Emergency Medicine; PCP Internal Medicine; Visit Provider Emergency Medicine
DX: N13.2 Hydronephrosis with renal and ureteral calculous obstruction (principal); Z87.891 Personal history of nicotine dependence
CPT/HCPCS: 74176; 80053; 81001; 83690; 85025; 96361; 96374; 96375; 99283; A4216; J2405

== ENCOUNTER 2025-05-19 19:45 | Emergency (ER) | payer OTHER, BC, SELFPAY ==
[2025-05-19 19:46] VITALS: BP 184/113; PULSE 122; RESP 24; TEMP 36.4; O2SAT 99; BMI 44.3
[2025-05-19 21:45] VITALS: BP 166/87; PULSE 108; RESP 18; O2SAT 96
[2025-05-19 23:00] VITALS: BP 139/86; O2SAT 96
[2025-05-19 23:30] VITALS: BP 138/89; PULSE 74; RESP 15; TEMP 36.8; O2SAT 100
== END 2025-05-19 23:31 | disposition home or self-care (01) ==
PROVIDERS: Emergency Provider Emergency Medicine; PCP Internal Medicine; Referring Provider Emergency Medicine; Visit Provider Emergency Medicine
DX: R10.2 Pelvic and perineal pain (principal); F17.290 Nicotine dependence, other tobacco product, uncomplicated; Z97.5 Presence of (intrauterine) contraceptive device
CPT/HCPCS: 99282

== ENCOUNTER → 2025-09-02 | Outpatient (CLI) | payer OTHER, BC, SELFPAY ==
--- NOTE | 2025-09-02 07:38 | US_ITS ---
PROCEDURE: ABD LIMITED W/ ELASTOGRAPHY REASON FOR EXAM: FATTY LIVER COMPARISON: Prior CT scan dated November 12, 2024. TECHNIQUE: Procedure Code: [id number] Modality: US Procedure: ABD LIMITED W/ ELASTOGRAPHY Right upper quadrant abdominal ultrasound. Ruthie ElastQ Imaging shear wave elastography for non-invasive assessment of liver tissue stiffness. Ruthie EPIQ Elite. FINDINGS: LIVER: Size: Unremarkable Length: 16.5 cm Echotexture: Diffusely echogenic suggesting fatty infiltration Contour: Normal Lesions: None identified Elastography: EQI Med: 3 kPa EQI Med Andres: 1 m/s IQR/Med: 27.5 %* GALLBLADDER: Small amount of sludge is seen within the gallbladder lumen. No evidence of gallstones. COMMON BILE DUCT: Normal measuring 3.9 mm . PANCREAS: Normal The right kidneys of normal size and echotexture. There are 2 cysts in the midportion of the right kidney. The larger measures 1.3 cm 1.4 cm x 1 cm. There are 2 nonobstructive right intrarenal calculi. No right upper quadrant ascites. US/ABD Limited w/ Elastography IMPRESSION: Fatty infiltration of the liver. No evidence of hepatic fibrosis. Small right renal cysts and nonobstructive right intrarenal calculi. Sludge is seen within the gallbladder lumen. Reference Values: SRU <1.37 m/s (5.7kPa): No to mild fibrosis 1.37 m/s - 2.2 m/s: Moderate to severe fibrosis >2.2 m/s (15kPa): Significant fibrosis / cirrhosis METAVIR Score F2 or higher: 1.34 m/s (5.7kPa) F3 or higher: 1.55 m/s (7.3kPa) F4: 1.80 m/s (10kPa) * If the IQR/Med is >30%, the variance in the measurements is a large and the a ccuracy of the measurement may be in question. Reading Location: [place] [id number]
--- OUTSIDE RECORDS SUMMARY | 2025-09-02 07:39 | XMS RPT_ITS | CCD ---
Author Organization [facility] CliniSynj Care Team Providers Care Voice Instructor Name Role Phone Beatrice Rogel Unavailable Ruben Landin Unavailable Rabia Cuello Unavailable Osmar Peralta Unavailable Unavailable Chioma Maria Unavailable Unavailable Unavailable Unavailable Yahir Raygoza MD Primary Care Provider Yahir Raygoza MD Primary Care Provider Yahir Raygoza MD Primary Care Provider Yahir Raygoza MD Primary Care Provider Denbow PA-C, Mamie L Unavailable [phone] Older GRANTS AND CONTRACTS ASSISTANT.FLOOR SPACE ALLOCATOR, Elysia Unavailable Bogner PA-C, Aditi Unavailable Denbow PA-C, Mamie L Unavailable Bogmary PA-C, Aditi Unavailable Dr. Yahir Raygoza MD Primary Care Provider Dr. Rod Bates MD Referring Provider [phone] Dr. Rod Bates MD Emergency Provider [phone] GANTA, YAHIR Primary Care Unavailable MITCHELL, LORENZA Attending Unavailable GANTA, YAHIR Primary Care Unavailable MITCHELL, LORENZA Referring Unavailable GANTA, YAHIR Primary Care Unavailable MITCHELL, LORENZA Referring Unavailable GANTA, YAHIR Primary Care Unavailable MITCHELL, LORENZA Referring Unavailable GANTA, YAHIR Primary Care Unavailable PLOTTS, PENNY Attending Unavailable GANTA, YAHIR Primary Care Unavailable PLOTTS, PENNY Attending Unavailable GANTA, YAHIR Primary Care Unavailable PLOTTS, PENNY Referring Unavailable GANTA, YAHIR Primary Care Unavailable GAN, YAHIR Primary Care Unavailable LORENZA MITCHELL Attending Unavailable GANTA, YAHIR Primary Care Unavailable Ben Bobo Attending Unavailable Ganta, Yahir Primary Care Unavailable Rod Bates Attending Unavailable Rod Bates Referring Unavailable Ganta, Yahir Primary Care Unavailable Ruben Landin Attending Unavailable Ruben Landin Referring Unavailable Ganta, Yahir Primary Care Unavailable Ganta, Yahir Primary Care Unavailable Hector Silverio Attending Unavailable Hector Silverio Referring Unavailable Allergies Allergy Classification Reported Allergen(s) Allergy Type Date of Onset Reaction(s) Facility (20 sources) Acetaminophen / oxyCODONE; Translations: [OXYCODONE-ACETAM INOPHEN] Drug Allergy 3 Vomiting [facility] Work Phone: (20 sources) Erythromycin; Translations: [ERYTHROMYCIN] Drug Allergy 3 Hives [facility] Work Phone: (20 sources) Seasonal allergy; Translations: [SEASONAL ALLERGIES] Allergy to substance 2 Other: See Comments [facility] (20 sources) Codeine; Translations: [CODEINE] Drug Allergy 6 Other: See Comments, Unknown [facility] (7 sources) oxyCODONE; Translations: [oxycodone HCl] Drug Allergy 1 Nausea/Vom/Diar ignacio [facility] (1 source) Codeine Drug Allergy 5 [facility] Repository Medications Current Medications Medication Drug Class(es) Dates Sig (Normalized) Sig (Original) acetaminophen 325 mg / HYDROcodone bitartrate 5 mg oral tablet (8 sources) Opioid Agonist Start: 06-08-2023 take 1 tablet by mouth every six hours as needed for pain Hydrocodone-Aceta minophen 5-325 mg tablet Active 1 {tbl} PO EVERY 6 HOURS NEEDED as needed for Pain 10 3 0 November 12, 2024 Calculus of kidney Calculus of kidney Start: 06-08-2023 take 1 tablet by gray th every six hours as needed Hydrocodone-Acetaminophen Active 1 TABLE T PO EVERY 6 HOURS NEEDED 12 3 June 08, 2023 Start: 04-28-2022 take 1 tablet by gray th every four hours as needed for pain Hydrocodone-Acetaminophen 1 TABLET table t Active 1 {tbl} PO EVERY 4 HOURS NEEDED as needed for Pain 10 2 April 28, 2022 Abdominal pain Unspecified abdominal pain Start: 04-28-2022 take 1 tablet by gray th every four hours as needed Hydrocodone-Acetaminophen Active 1 TABLE T PO EVERY 4 HOURS NEEDED 10 2 April 28, 2022 amoxicillin 500 mg oral capsule (1 source) Penicillin-class Antibacterial Start: 01-21-2023 End: 01-31-2023 take 1 capsule by mouth twice daily amoxicillin (POLYMOX, AMOXIL) 500 mg capsule Indications: Strep throat Take 1 capsule by mouth twice daily for 10 days. 20 capsule 0 01/21/2023 01/31/2023 Active Comment on above: Take 1 capsule by mo uth twice daily for 10 days. amoxicillin 875 mg / clavulanate 125 mg oral tablet (4 sources) Penicillin-class Antibacterial Start: 10-09-2024 End: 10-14-2024 take 1 tablet by mouth twice daily amoxicillin-clavu lanate potassium (AUGMENTIN) 875-125 mg per tablet Indications: Bacterial sinusitis Take 1 tablet by mouth two times a day for 5 days. 10 tablet 10/09/2024 10/14/2024 Active Start: 02-07-2024 End: 02-14-2024 take 1 tablet by mouth twice daily amoxicillin-clavulanate potassium (AUGMENTIN) 875-125 mg per tablet Indications: Rhinosinusitis Take 1 tablet by mouth two times a day for 7 days. 14 tablet 0 02/07/2024 02/14/2024 Active Start: 09-01-2022 End: 09-08-2022 take 1 tablet by mouth twice daily amoxicillin-clavulanic acid (AUGMENTIN) 875-125 mg per tablet Take 1 tablet by mouth twice daily for 7 days. 14 tablet 0 09/01/2022 09/08/2022 Active Start: 03-28-2016 End: 04-01-2016 take 1 tablet by mouth twice daily AUGMENTIN, 875-125MG (Oral Tablet) 1 (on e) Tablet Tablet bid for 10 days Quantity: 20 {Tablet} Refills: 0 Ordered: 01-Apr-2016 Beatrice Rogel DO, DO, Kathleen Start : 28-Mar-2016 End : 01-Apr-2016 Discontinued Comment on above: Take 1 tablet by gray twice daily for 7 days. Take 1 tablet by gray two times a day for 7 days. cephalexin 500 mg oral capsule (3 sources) Cephalosporin Antibacterial Start: 04-07-20 End: 04-14-20 take 1 capsule by mouth twice daily cephALEXin (KEFLEX) 500 mg capsule Take 1 capsule by mouth twice daily for 7 days. 14 capsule 0 04/07/2022 04/14/2022 Active Comment on above: Take 1 capsule by [facility] twice daily for 7 days. doxycycline hyclate 100 mg oral tablet (8 sources) Tetracycline-class Drug Start: 06-15-20 End: 03-07-20 take 2 tablets by mouth once daily doxycycline (VIBRA-TABS) 100 mg tablet Take 2 tablets by mouth once daily. 2 tablet 06/15/2024 03/07/2025 Discontinued (Discontinued by Patient) ELDERBERRY FRUIT (6 sources) Start: 03-21-20 Elderberry Fruit Active PO DAILY March 21, 2021 5:36am Start: 03-21-2021 take 1 capsule by mo [facility] once daily Elderberry Fruit 200 mg Capsule Active PO DAILY March 21, 2021 12:00am supplement Start: 03-21-2021 Elderberry Fru it Active PO DAILY March 21, 2021 12:00am Start: 03-21-2021 Elderberry Fru it Active PO DAILY March 20, 2021 11:00pm fluconazole 150 mg oral tablet (3 sources) Azole Antifungal Start: 09-01-2022 End: 09-01-2022 fluconazole (DIFLUCAN) 150 mg tablet Take 1 tablet by mouth one time only for 1 dose. Repeat in 3 days as needed. 2 tablet 0 09/01/2022 09/01/2022 Active Start: 09-25-2015 End: 10-02-2015 take 1 tablet by mouth once daily DIFLUCAN, 100MG (Oral Tablet) 1 Tablet qd for 7 days Quantity: 7 {Tablet} Refills: 0 Ordered: 25-Sep-2015 Doreen Cueva Start : 25-Sep-2015 End : 02-Oct-2015 Inactive Start: 08-16-2013 End: 10-12-2014 take 1 tablet by mouth once daily DIFLUCAN, 150MG (Oral Tablet) 1 Tablet qd for 0 days Quantity: 1 {Tablet} Refills: 0 Ordered: 12-Oct-2014 Chioma Ravi FILIBERTO Start : 16-Aug-2013 End : 12-Oct-2014 Inactive Comment on above: Take 1 tablet by gray th one time only for 1 dose. Repeat in 3 days as needed. fluticasone propionate 0.05 mg/actuat metered dose nasal spray (20 sources) Corticosteroid Start: 9 take 2 spray(s) by mouth once daily fluticasone (FLONASE) 50 mcg/actuation nasal spray Indications: Fluid level behind tympanic membrane of both ears Use 2 Sprays in each nostril once daily. Rinse mouth after use. 1 Bottle 1 12/02/2018 Active End: 10-22-2022 FLUTICASONE PROPIONATE (FLON ASE NASAL) Use in the nose. 0 10/22/2022 Discontinued (Course of therapy completed) FLUTICASONE PROP IONATE (FLONASE NASAL) Use in the nose. 0 Active Comment on above: Use in the nose. Use 2 Sprays in each nostril once daily. Rinse mouth after use. ibuprofen 800 mg oral tablet (2 sources) Nonsteroidal Anti-inflammatory Drug Start: take 1 tablet by mouth every eight hours as needed for pain Ibuprofen 800 mg tablet Active 800 mg PO Q8H as needed for pain 20 0 June 08, 2023 12:00am iv contrast (will be provided with radiology test) (1 source) Start: End: iv contrast (will be provided with radiology test) CT kidney wow Inject, intravenously, once for 1 dose.No IV access, insert saline lock prior to the beginning of sedation, infusion, injection of imaging exam. Discontinue saline lock post exam. If Pt. has a central line or IVAD, may access for administration according to line specific nursing protocol. Once exam is complete flush line and de-access according to line specific nursing protocol in the CT contrast administration guidelines link. 1 Each 0 05/01/2022 05/02/2022 Active Comment on above: CT kidney wow Inject , intravenously, once for 1 dose.No IV access, insert saline lock prior to the beginning of sedation, infusion, injection of imaging exam. Discontinue saline lock post exam. If Pt. has a central line or IVAD, may access for administration according to line specific nursing protocol. Once exam is complete flush line and de-access according to line specific nursing protocol in the CT contrast administration guidelines link. levonorgestrel 0.864165 mg/hr intrauterine system (14 sources) Progestin, Progestin-containing Intrauterine Device Start: 023 levonorgestrel (MIRENA) 21 mcg/24 hours (8 yrs) 52 mg IUD Indications: Menorrhagia with regular cycle , Dysmenorrhea , Encounter for IUD insertion 1 Each by INTRAUTERINE route as directed. 1 Each 11/04/2023 Active Comment on above: 1 Each by INTRAUTERI NE route as directed. LORazepam 0.5 mg oral tablet (18 sources) Benzodiazepine Start: 016 take 1 tablet by mouth three times daily as needed for anxiety Lorazepam (Ativan) 0.5 mg Tablet Active 0.5 mg PO THREE TIMES A DAY as needed for Anxiety April 28, 2022 12:00am Start: 09-04-2016 End: 04-01-2023 take 1 tablet by mouth twice daily as needed LORazepam (ATIVAN) 0.5 mg Indications: Anxiety , Panic attacks Take 1 tablet by mouth twice daily as needed for up to 90 days. 20 tablet 0 01/01/2023 04/01/2023 Active Start: 09-04-2016 End: 09-26-2022 take 0.5 tablet by mouth once daily as needed LORazepam (ATIVAN) 0.5 mg Indications: Anxiety Take 0.5 tablets by mouth once daily as needed for up to 30 days. 15 tablet 0 08/27/2022 09/26/2022 Active Comment on above: dx anxiety Take 0.5 tablets by mouth once daily as needed for up to 30 days. Take 1 tablet by gray th as needed. Take 1 tablet by gray th twice daily as needed for up to 90 days. Magnesium (6 sources) Start: 03-21-2021 take 500 mg by mouth once daily Magnesium Active 500 MG PO DAILY March 21, 2021 5:36am Start: 03-21-2021 take 1 tablet by gray th once daily Magnesium 500 mg Tablet Active 500 mg PO DAILY March 21, 2021 12:00am migraine prevention Start: 03-21-2021 take 500 mg by mouth once celso y Magnesium Active 500 MG PO DAILY March 21, 2021 12:00am Start: 03-21-2021 take 500 mg by mouth once celso y Magnesium Active 500 MG PO DAILY March 20, 2021 11:00pm magnesium glycinate 100 mg o ral tablet (20 sources) Magnesium Glycin ate 100 mg tab Take 500 mg by mouth as needed. Takes up to 500mg prn Active Magnesium Glycin ate 100 mg tab Take 200 mg by mouth DAILY AT 6 PM. Takes up to 400mg prn 0 Active Comment on above: Take 200 mg by mouth DAILY AT 6 PM. Takes up to 400mg prn Take 500 mg by mouth as needed. Takes up to 500mg prn Multivitamin capsule (20 sources) take 1 capsule by mouth once daily Multivitamin capsule Take 1 capsule by mouth once daily. Active take 1 capsule by mouth once amparo ly Multivitamin capsule Take 1 capsule by mouth once daily. 0 Active Comment on above: Take 1 capsule by mo uth once daily. nitrofurantoin, macrocrystals 25 mg / nitrofurantoin, monohydrate 75 mg oral capsule (1 source) Nitrofuran Antibacterial Start: 2021 End: 2021 take 1 capsule by mouth twice daily at mealtime nitrofurantoin monohydrate and macrocrystal (MACROBID) 100 mg capsule Take 1 capsule by mouth twice daily with meals for 7 days. 14 capsule 0 04/16/2022 04/23/2022 Active Comment on above: Take 1 capsule by mo ut twice daily with meals for 7 days. omeprazole 20 mg delayed release oral capsule (9 sources) Proton Pump Inhibitor Start: 2023 take 1 capsule by mouth once daily before breakfast omeprazole (PRILOSEC) 20 mg capsule Indications: Gastroesophageal reflux disease, unspecified whether esophagitis present Take 1 capsule by mouth daily before breakfast. 11/16/2024 Active ondansetron 4 mg disintegrating oral tablet (8 sources) Serotonin-3 Receptor Antagonist Start: 2021 take 1 tablet by mouth every eight hours as needed for nausea Ondansetron 4 mg tablet,disintegrating Active 4 mg PO EVERY 8 HOURS NEEDED as needed for Nausea 10 0 November 12, 2024 1:00am phentermine hydrochloride 37.5 mg oral tablet (5 sources) Sympathomimetic Amine Anorectic Start: 2021 End: 2022 take 1 tablet by mouth once daily Phentermine HCl (ADIPEX-P) 37.5 mg tablet Indications: Obesity without serious comorbidity, unspecified classification, unspecified obesity type Take 1 tablet by mouth once daily for 30 days. 30 tablet 0 11/27/2022 12/27/2022 Active Comment on above: Take 1 tablet by gray once daily for 30 days. predniSONE 50 mg oral tablet (4 sources) Start: 2023 End: 2023 take 1 tablet by mouth once daily predniSONE (DELTASONE) 50 mg Indications: Bacterial sinusitis Take 1 tablet by mouth once daily for 5 days. 5 tablet 10/09/2024 10/14/2024 Active Start: 02-07-2024 End: 02-12-2024 take 1 tablet by mouth once daily predniSONE (DELTASONE) 20 mg tablet Indications: Rhinosinusitis Take 1 tablet by mouth once daily for 5 days. 5 tablet 0 02/07/2024 02/12/2024 Active Start: 09-01-2022 End: 09-06-2022 take 2 tablets by mouth once daily predniSONE (DELTASONE) 20 mg tablet Take 2 tablets by mouth once daily for 5 days. 10 tablet 0 09/01/2022 09/06/2022 Active Start: 04-19-2016 End: 04-30-2016 PREDNISONE, 20MG (Oral Table t) 1 (one) Tablet 1 tab bid x 3days, 1/2 tab bid x 4days, 1/2 tab qd x 4days for 11 days Quantity: 12 {Tablet} Refills: 0 Ordered: 19-Apr-2016 Doreen Cueva Start : 19-Apr-2016 End : 30-Apr-2016 Inactive Comments: take with food Comment on above: take with food Take 2 tablets by mo [facility] once daily for 5 days. Take 1 tablet by gray once daily for 5 days. tamsulosin hydrochloride 0.4 mg oral capsule (3 sources) alpha-Adrenergic Katie Start: 06-08-20 take 1 capsule by mouth once daily Tamsulosin (Flomax) 0.4 mg capsule Active 0.4 mg PO DAILY 7 0 November 12, 2024 1:00am traMADol hydrochloride 50 mg oral tablet (1 source) Opioid Agonist Start: 03-23-20 take 50 mg by mouth every six hours Tramadol Active 50 MG PO EVERY 6 HOURS 05 04March 23, 2021 8:16am triamcinolone acetonide 1 mg/ml topical cream (2 sources) Corticosteroid Start: 05-13-20 End: 05-23-20 triamcinolone acetonide (KENALOG) 0.1 % cream Indications: Toxic effect of venom of other arthropod, accidental (unintentional), initial encounter Apply 1 application to affected area twice daily for 10 days. Apply to affected area. Location: leg rash. 15 g 0 05/13/2022 05/23/2022 Active Comment on above: Apply 1 application to affected area twice daily for 10 days. Apply to affected area. Location: leg rash. Completed/Discontinued Medications Medication Drug Class(es) Dates Sig (Normalized) Sig (Original) ascorbic acid 1000 mg oral tablet (16 sources) Vitamin C End: 10-22-2022 Ascorbic Acid 1,000 mg tablet Take 1,000 mg by mouth as needed. 0 10/22/2022 Discontinued (Course of therapy completed) Comment on above: Take 1,000 mg by gray th once daily. Take 1,000 mg by gray th as needed. azithromycin 250 mg oral tablet (1 source) Macrolide Antimicrobial Start: 10-12-2014 End: 04-20-2015 take 1 tablet by mouth once daily ZITHROMAX Z-JONO, 250MG (Oral Tablet) tad Tablet qd for 0 days Quantity: 1 {Package} Refills: 0 Ordered: 20-Apr-2015 Chioma Ravi LPN Start : 12-Oct-2014 End : 20-Apr-2015 Inactive bifidobacterium animalis [id number] unt / lactobacillus acidophilus [id number] unt oral capsule (1 source) Start: 09-12-2015 End: 10-12-2015 take 1 capsule by mouth once daily PROBIOTIC (Oral Capsule) 1 (one) Capsule daily for 30 days Quantity: 30 {Capsule} Refills: 0 Ordered: 24-Oct-2015 Loco Corona CNP Start : 12-Sep-2015 End : 12-Oct-2015 Inactive cefdinir 300 mg oral capsule (1 source) Cephalosporin Antibacterial Start: 04-01-2016 End: 04-08-2016 take 1 capsule by mouth twice daily CEFDINIR, 300MG (Oral Capsule) 1 (one) Capsule bid for 7 days Quantity: 14 {Capsule} Refills: 0 Ordered: 01-Apr-2016 Chioma Ravi LPN Start : 01-Apr-2016 End : 08-Apr-2016 Inactive cetirizine hydrochloride 10 mg oral capsule (20 sources) Histamine-1 Receptor Antagonist Start: 07-23-2013 End: 09-12-2015 ZYRTEC ALLERGY, 10MG (Oral Capsule) 1 Capsule prn for 30 days Refills: 0 Ordered: 12-Sep-2015 Kevangiorgio DE LOS SANTOSNamita Start : 23-Jul-2013 End : 12-Sep-2015 Discontinued CETIRIZINE HCL ( ZYRTEC ORAL) Take 10 mg by mouth as needed (allergies). Active CETIRIZINE HCL ( ZYRTEC ORAL) Take by mouth. 0 Active Comment on above: Take by mouth. Take 10 mg by mouth once daily. ciprofloxacin 500 mg oral tablet (2 sources) Quinolone Antimicrobial Start: 04-28-20 End: 05-05-20 take 1 tablet by mouth twice daily Ciprofloxacin HCl 500 MG Oral Tablet 1 (one) Tablet PO BID for 7 days Quantity: 14 {Tablet} Refills: 0 Ordered: 28-Apr-2017 Chioma Maria Start : 28-Apr-2017 End : 05-May-2017 Inactive Start: 07-14-2015 End: 07-21-2015 CIPROFLOXACIN HCL, 0.3% (Oph thalmic Solution) 1 (one) Solution 1 drop bid to affected eye for 7 days Quantity: 1 {Bottle} Refills: 0 Ordered: 14-Jul-2015 Doreen Cueva Start : 14-Jul-2015 End : 21-Jul-2015 Inactive citalopram 10 mg oral tablet (1 source) Serotonin Reuptake Inhibitor Start: 10-02-2016 End: 10-02-2016 take 1 tablet by mouth once daily CeleXA 10 MG Oral Tablet 1 (one) Tablet uad for 0 days Quantity: 30 {Tablet} Refills: 1 Ordered: 02-Oct-2016 Beatrice Rogel DO, DO, Kathleen Start : 02-Oct-2016 End : 02-Oct-2016 Inactive Comments: 1 qd x 2 week and then increase to 20 mg 1 qd. Comment on above: 1 qd x 2 week and th en increase to 20 mg 1 qd. desoximetasone 2.5 mg/ml topical cream (1 source) Corticosteroid Start: 01-06-2014 End: 06-08-2015 TOPICORT, 0.25% (External Cream) 1 (one) tsp tsp bid prn --use sparingly for 0 days Quantity: 15 {Gram} Refills: 0 Ordered: 08-Jun-2015 ABIODUN La Start : 06-Jan-2014 End : 08-Jun-2015 Inactive DULoxetine 30 mg delayed release oral capsule (1 source) Serotonin and Norepinephrine Reuptake Inhibitor Start: 06-23-2015 End: 09-12-2015 CYMBALTA, 30MG (Oral Capsule Delayed Release Particles) 1 (one) Capsule DR Part Capsule DR Part take one daily x 1 week then increase to 2 daily for 0 days Quantity: 60 {Capsule} Refills: 1 Ordered: 12-Sep-2015 Namita Okeefe LPN Start : 23-Jun-2015 End : 12-Sep-2015 Discontinued 21 day ethinyl estradiol 0.719963 mg/hr / etonogestrel 0.005 mg/hr vaginal ring (2 sources) Progestin, Estrogen Start: 11-08-2016 End: 02-12-2018 NuvaRing 0.12-0.015 MG/24HR Vaginal Ring 1 (one) Ring q 30 days for 30 days Quantity: 1 {Ring} Refills: 11 Ordered: 12-Feb-2018 Osmar Peralta Start : 08-Nov-2016 End : 12-Feb-2018 Inactive End: 01-03-2016 NUVARING, 0.12-0.015MG/24HR (Vaginal Ring) uad qd (0.12-0.015 MG/24HR) End : 03-Jan-2016 Discontinued LEVONORGESTREL-ETHINYL ESTRAD, 0.1-20MG-MCG (Oral Tablet) (1 source) Progestin, Estrogen, Progestin-containing Intrauterine Device Start: 07-23-2013 End: 06-08-2015 take 1 tablet by mouth once daily LEVONORGESTREL-ETHINYL ESTRAD, 0.1-20MG-MCG (Oral Tablet) 1 Tablet qd for 30 days Refills: 0 Ordered: 08-Jun-2015 ABIODUN La Start : 23-Jul-2013 End : 08-Jun-2015 Inactive 12 hr guaiFENesin 600 mg extended release oral tablet (1 source) Start: 11-24-2015 End: 01-03-2016 MUCINEX, 600MG (Oral Tablet Extended Release 12 Hour) 1 (one) Tablet ER 12HR Tablet ER 12HR bid for 0 days Quantity: 30 {Tablet} Refills: 0 Ordered: 03-Jan-2016 Namita Okeefe LPN Start : 24-Nov-2015 End : 03-Jan-2016 Discontinued Herbal Complex No.174 (ECHINACEA & GOLDENSEAL) 450 mg cap (16 sources) End: 10-22-2022 Herbal Complex No.174 (ECHINACEA & GOLDENSEAL) 450 mg cap Take by mouth twice daily. 0 10/22/2022 Discontinued (Course of therapy completed) Herbal Complex N o.174 (ECHINACEA & GOLDENSEAL) 450 mg cap Take by mouth twice daily. 0 Active Comment on above: Take by mouth twice daily. Lactobacillus acidophilus (20 sources) End: 10-16-2023 LACTOBACILLUS ACIDOPHILUS (PROBIOTIC ORAL) Take by mouth. 500 million bacillius coagulans takes 4 daily 0 10/16/2023 Discontinued LACTOBACILLUS AC IDOPHILUS (PROBIOTIC ORAL) Take by mouth. 500 million bacillius coagulans takes 4 daily 0 Active Comment on above: Take by mouth. 500 m illion bacillius coagulans takes 4 daily levoFLOXacin 500 mg oral tablet (1 source) Quinolone Antimicrobial Start: End: take 1 tablet by mouth once daily LevoFLOXacin 500 MG Oral Tablet 1 (one) Tablet PO DAILY for 10 days Quantity: 10 {Tablet} Refills: 0 Ordered: 12-Feb-2018 Chioma Maria Start : 12-Feb-2018 End : 22-Feb-2018 Inactive loratadine 10 mg oral tablet (16 sources) Start: 019 End: take 1 tablet by mouth once daily as needed loratadine (CLARITIN) 10 mg tablet Indications: Fluid level behind tympanic membrane of both ears Take 1 tablet by mouth once daily as needed. 30 tablet 2 12/02/2018 10/22/2022 Discontinued (Course of therapy completed) Comment on above: Take 1 tablet by gray th once daily as needed. meclizine hydrochloride 25 mg chewable tablet (1 source) Antiemetic Start: 015 End: take 1 tablet by mouth every six hours as needed MECLIZINE HCL, 25MG (Oral Tablet Chewable) 1 (one) Tablet Chewable every 6hours prn for 0 days Quantity: 10 {Tablet} Refills: 0 Ordered: 23-Jun-2015 Maldonado DE LOS SANTOSNamita Start : 08-Jun-2015 End : 23-Jun-2015 Discontinued metoclopramide 10 mg oral tablet (1 source) Dopamine-2 Receptor Antagonist Start: 016 METOCLOPRAMIDE HCL, 10MG (Oral Tablet) 1 (one) Tablet Tablet with migraine med when have for 0 days Quantity: 20 {Tablet} Refills: 0 Ordered: 19-Mar-2016 Chioma Ravi LPN Start : 19-Mar-2016 Active metroNIDAZOLE 0.0075 mg/mg vaginal gel (1 source) Nitroimidazole Antimicrobial Start: 013 End: METROGEL-VAGINAL, 0.75% (Vaginal Gel) 1 Applicatorful q hs for 5 days for 5 days Refills: 0 Ordered: 09-Aug-2013 Dianne Rankin MD Start : 03-Aug-2013 End : 08-Aug-2013 Inactive Comments: called to [facility] 08-03-13 lori Comment on above: called to [facility] 08-03-13 tuliojennifer MULTIVITAMINS (Oral Capsule) (1 source) Start: End: take 1 capsule by mouth once daily MULTIVITAMINS (Oral Capsule) 1 (one) Capsule daily for 30 days Quantity: 30 {Capsule} Refills: 0 Ordered: 24-Oct-2015 Cj EDWARDS Brittany Start : 12-Sep-2015 End : 12-Oct-2015 Inactive OTC NUTRITIONAL SUPPLEMENT (16 sources) End: 022 OTC NUTRITIONAL SUPPLEMENT 2 tablets twice daily. Symplex-F 0 10/22/2022 Discontinued (Course of therapy completed) OTC NUTRITIONAL SUPPLEMENT 2 tablets twice daily. Symplex-F 0 Active Comment on above: 2 tablets twice celso y. Symplex-F OTC PRODUCT (16 sources) End: 10-22-2022 OTC PRODUCT 2 capsules twice daily. Minchex 0 10/22/2022 Discontinued (Course of therapy completed) OTC PRODUCT 2 ca psules twice daily. Minchex 0 Active Comment on above: 2 capsules twice amparo ly. Minchex phenazopyridine hydrochloride 200 mg oral tablet (17 sources) Start: 09-16-20 16 End: 10-22-20 22 take 1 tablet by mouth every eight hours as needed phenazopyridine (PYRIDIUM, GERIDIUM) 200 mg tablet Take 1 tablet by mouth three times daily as needed (for urinary irritation). 60 tablet 6 09/16/2016 10/22/2022 Discontinued (Course of therapy completed) Start: 07-12-2016 End: 11-08-2016 take 1 tablet by mouth every eight hours Pyridium 200 MG Oral Tablet 1 (one) Tablet q 8hrs for 0 days Quantity: 12 {Tablet} Refills: 0 Ordered: 08-Nov-2016 Amador DE LOS SANTOSDannien Antonio Start : 12-Jul-2016 End : 08-Nov-2016 Inactive Comment on above: Take 1 tablet by gray th three times daily as needed (for urinary irritation). Progesterone (16 sources) Progesterone End: 10-22-2022 PROGESTERONE 10% (100 MG/ML) CREAM Apply to affected area. Compounded Rx taking Days 3-11 taking 30mg, days 11/13 taking 60mg 0 10/22/2022 Discontinued (Course of therapy completed) PROGESTERONE 10% (100 MG/ML) CREAM Apply to affected area. Compounded Rx taking Days 3-11 taking 30mg, days 11/13 taking 60mg 0 Active Comment on above: Apply to affected ar ea. Compounded Rx taking Days 3-11 taking 30mg, days 11/13 taking 60mg promethazine hydrochloride 25 mg oral tablet (1 source) Phenothiazine Start: 015 End: 015 take 1 tablet by mouth every eight hours as needed PROMETHAZINE HCL, 25MG (Oral Tablet) 1 (one) Tablet q 8 hr prn for 0 days Quantity: 20 {Tablet} Refills: 0 Ordered: 23-Jun-2015 Slarb FILIBERTOPasqualea Start : 08-Jun-2015 End : 23-Jun-2015 Discontinued rizatriptan 5 mg oral tablet (1 source) Serotonin-1b and Serotonin-1d Receptor Agonist Start: 017 take 1 tablet by mouth every two hours Maxalt 5 MG Oral Tablet 1 (one) Tablet onset of migraine may repeat in 2 hours for 0 days Quantity: 10 {Tablet} Refills: 1 Ordered: 31-Oct-2017 Beatrice Rogel DO, DO, Kathleen Start : 31-Oct-2017 Active sertraline 50 mg oral tablet (1 source) Serotonin Reuptake Inhibitor Start: End: take 0.5 tablet by mouth once daily, then take 1 tablet by mouth once daily Zoloft 50 MG Oral Tablet 1 (one) Tablet qd for 0 days Quantity: 30 {Tablet} Refills: 0 Ordered: 09-Sep-2016 Pebbles Beatrice MAR Pebbles Beatrice MAR Start : 16-Aug-2016 End : 09-Sep-2016 Discontinued Comments: 1/2tab qd x 1 week then 1 tab qd Comment on above: 1/2tab qd x 1 week t hen 1 tab qd sulfamethoxazole 800 mg / trimethoprim 160 mg oral tablet (1 source) Dihydrofolate Reductase Inhibitor Antibacterial, Sulfonamide Antimicrobial Start: End: take 1 tablet by mouth twice daily Bactrim DS 800-160 MG Oral Tablet 1 (one) Tablet bid for 10 days Quantity: 20 {Tablet} Refills: 0 Ordered: 12-Jul-2016 Chioma Ravi LPN Start : 12-Jul-2016 End : 22-Jul-2016 Inactive therapeutic multivitamin (THERA) tablet (10 sources) Start: take 1 tablet by mouth once daily therapeutic multivitamin (THERA) tablet Take 1 tablet by mouth once daily. 0 03/18/2016 Active Comment on above: Take 1 tablet by [facility] once daily. 24 hr tolterodine tartrate 4 mg extended release oral capsule (17 sources) Cholinergic Muscarinic Antagonist Start: End: take 1 capsule by mouth once daily tolterodine ER (DETROL LA) 4 mg 24 hr capsule Take 1 capsule by mouth once daily. 30 capsule 6 09/16/2016 10/22/2022 Discontinued (Course of therapy completed) take 1 capsule by [facility] every twenty-four hours Tolterodine Tartrate ER 4 MG Oral Capsul e Extended Release 24 Hour qd (4 MG) Inactive Comment on above: Take 1 capsule by [facility] once daily. vortioxetine 10 mg oral tablet (18 sources) Start: 05-09-2017 End: 10-22-2022 take 1 tablet by mouth once daily Trintellix 10 MG Oral Tablet 1 (one) Tablet qd for 0 days Quantity: 30 {Tablet} Refills: 4 Ordered: 12-Feb-2018 Osmar Peralta Start : 09-May-2017 End : 12-Feb-2018 Inactive Start: 11-08-2016 End: 05-09-2017 take 1 tablet by mouth once daily Trintellix 5 MG Oral Tablet 1 (one) Tablet Tablet qd for 30 days Quantity: 90 {Tablet} Refills: 3 Ordered: 09-May-2017 Chioma Ravi LPN Start : 08-Nov-2016 End : 09-May-2017 Inactive Comment on above: Take by mouth. Problems Active Problems Problem Classification Problem Date Documented Da te Episodic/Chronic Acute posthemorrhagic anemia (6 sources) Anemia following acute postoperative blood loss; Translations: [Acute posthemorrhagic anemia] 03-22-2021 Episodic Administrative/social admission (2 sources) Medical examinations/reports status; Translations: [Worried well] Resolved: 5 06-08-2015 Episodic Allergic reactions (3 sources) Contact dermatitis due to poison kai; Translations: [Eczema] Resolved: 6 05-09-2017 Episodic Anxiety disorders (13 sources) Anxiety; Translations: [Anxiety state] Resolved: 6 02-12-2018 Chronic Comment on above: stable Bacterial infection; unspecified site (1 source) Infection due to Escherichia coli; Translations: [STEC (Shiga toxin-producing Escherichia coli)] 02-12-2018 Episodic Biliary tract disease (2 sources) Cholecystitis; Translations: [Cholecystitis, unspecified] Episodic Calculus of urinary tract (3 sources) Kidney stone; Translations: [Calculus of kidney] 06-08-2023 Episodic Cardiac dysrhythmias (2 sources) Tachycardia; Translations: [Tachycardia] 02-12-2018 Episodic Complication of device; implant or graft (20 sources) Catheter-associated urinary tract infection; Translations: [Infection and inflammatory reaction due to indwelling urethral catheter, initial encounter] Onset: 5 10-18-2015 Episodic Conditions associated with dizziness or vertigo (2 sources) Vertigo; Translations: [Vertigo] Resolved: 6 03-19-2016 Episodic Comment on above: will get antivert. u se antinausea Diabetes mellitus without complication (1 source) Abnormal glucose tolerance test; Translations: [Abnormal glucose tolerance test (Renamed from Abnormal glucose tolerance test (GTT))] 02-12-2018 Episodic Diabetes or abnormal glucose tolerance complicating ; childbirth; or the puerperium (6 sources) Gestational diabetes mellitus; Translations: [Gestational diabetes mellitus in , unspecified control] 03-22-2021 Episodic Endometriosis (1 source) Uterine adenomyosis; Translations: [Adenomyosis] 03-07-2025 Chronic Esophageal disorders (1 source) Gastroesophageal reflux disease; Translations: [Gastro-esophageal reflux disease without esophagitis] 11-16-2024 Chronic Gastrointestinal hemorrhage (3 sources) Blood in stool; Translations: [Melena] Resolved: 5 06-08-2015 Episodic Comment on above: ??? 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] Onset: 3 Resolved: 6 02-12-2018 Chronic Immunizations and screening for infectious disease (6 sources) Need for prophylactic vaccination and inoculation against influenza; Translations: [Viral screening status] Episodic Menstrual disorders (2 sources) Menorrhagia; Translations: [Excessive and frequent menstruation with regular cycle] 10-16-2023 Chronic Neoplasms of unspecified nature or uncertain behavior (2 sources) Thrombocytosis; Translations: [Thrombocythemia] Episodic Nutritional deficiencies (1 source) Vitamin D deficiency; Translations: [Vitamin D deficiency, unspecified] Chronic Other and unspecified benign neoplasm (1 source) Polyp of colon; Translations: [Colon polyps] 02-12-2018 Episodic Comment on above: next scope due in ma y Other complications of ; puerperium affecting management of mother (6 sources) Deliveries by ; Translations: [Delivery by section] 03-22-2021 Episodic Other complications of ; puerperium affecting management of mother (6 sources) Advanced maternal age ; Translations: [ with maternal age 40 years or more] 03-21-2021 Episodic Other complications of (5 sources) Anemia during - baby not yet delivered; Translations: [Anemia complicating , unspecified trimester] 03-21-2021 Chronic Other complications of (6 sources) Maternal obesity complicating , childbirth and the puerperium, antepartum; Translations: [Obesity complicating , unspecified trimester] 03-21-2021 Chronic Other complications of (1 source) Anemia of ; Translations: [Anemia complicating , unspecified trimester] 03-21-2021 Chronic Other diseases of kidney and ureters (1 source) Acquired renal cystic disease; Translations: [Cyst of kidney, acquired] Episodic Other diseases of kidney and ureters (1 source) Hydronephrosis with renal and ureteral calculous obstruction; Translations: [Hydronephrosis] 11-16-2024 Episodic Other endocrine disorders (1 source) Empty sella syndrome; Translations: [Empty sella] 02-12-2018 Chronic Other liver diseases (1 source) Fatty (change of) liver, not elsewhere classified; Translations: [Fatty (change of) liver, not elsewhere classified] Onset: 5 Chronic Other liver diseases (4 sources) Hepatomegaly; Translations: [Large liver] 02-12-2018 Episodic Comment on above: etiology ? ct scan d idnt state fatty -- does have IR shape -which would coincide-- could be side effect of ocp/nuva ring -- pt removed already - ing Dr Emanuel for opinion Other lower respiratory disease (4 sources) Cough; Translations: [Cough] Resolved: 6 02-12-2018 Episodic Other nutritional; endocrine; and metabolic disorders (4 sources) Body mass index 30+ - obesity; Translations: [BMI 32.0-32.9,adult] 02-12-2018 Chronic Other nutritional; endocrine; and metabolic disorders (1 source) Metabolic syndrome X; Translations: [Insulin resistance] 02-12-2018 Chronic Other nutritional; endocrine; and metabolic disorders (1 source) Morbid obesity; Translations: [Morbid (severe) obesity due to excess calories] Chronic Other nutritional; endocrine; and metabolic disorders (20 sources) Obesity; Translations: [Obesity, unspecified] Onset: 5 03-10-2015 Chronic Other nutritional; endocrine; and metabolic disorders (1 source) Hypomagnesemia; Translations: [Hypomagnesemia] Chronic Other nutritional; endocrine; and metabolic disorders (1 source) Childhood obesity; Translations: [Other obesity due to excess calories] Chronic Other nutritional; endocrine; and metabolic disorders (1 source) Severe obesity; Translations: [Class 3 severe obesity without serious comorbidity with body mass index (BMI) of 40.0 to 44.9 in adult, unspecified obesity type (HCC)] 11-16-2024 Chronic Other nutritional; endocrine; and metabolic disorders (1 source) Weight gain; Translations: [Weight gain] 02-12-2018 Episodic Other upper respiratory disease (2 sources) Seasonal allergy Chronic Other upper respiratory disease (1 source) Seasonal allergic rhinitis; Translations: [Seasonal allergies] 02-12-2018 Chronic Comment on above: stable Other upper respiratory disease (20 sources) Allergic rhinitis; Translations: [Allergic rhinitis, unspecified] Onset: 2 08-31-2012 Chronic Other upper respiratory disease (1 source) Nasal sinus problem; Translations: [Sinus pressure] 02-12-2018 Episodic Other upper respiratory disease (1 source) Pain in throat; Translations: [Pain in throat] Episodic Other upper respiratory infections (2 sources) Chronic sinusitis, unspecified; Translations: [Unspecified sinusitis (chronic)] 02-07-2024 Chronic Poisoning by nonmedicinal substances (1 source) Poisoning due to arthropod venom; Translations: [Toxic effect of venom of other arthropod, accidental (unintentional), initial encounter] Episodic Residual codes; unclassified (1 source) Tobacco user; Translations: [Tobacco abuse] 02-12-2018 Chronic Comment on above: weaning and down to 1cig /day Residual codes; unclassified (1 source) FH: Diabetes mellitus; Translations: [Family history of diabetes mellitus] 02-12-2018 Episodic Residual codes; unclassified (1 source) Needs influenza immunization; Translations: [Need for prophylactic vaccination and inoculation against influenza] 02-12-2018 Episodic Residual codes; unclassified (1 source) Family history of diabetes mellitus Episodic Residual codes; unclassified (1 source) FH: Multiple sclerosis; Translations: [Family history of multiple sclerosis (Renamed from Family history of MS (multiple sclerosis))] 02-12-2018 Episodic Residual codes; unclassified (3 sources) Family history of breast cancer; Translations: [Family history of malignant neoplasm of breast] 07-26-2024 Episodic Residual codes; unclassified (1 source) Heavy feeling; Translations: [Other general symptoms and signs] 06-06-2025 Episodic Superficial injury; contusion (1 source) Tick bite; Translations: [Insect bite of other specified part of neck, initial encounter] 06-15-2024 Episodic Thyroid disorders (9 sources) Thyroid nodule; Translations: [Multinodular goiter] 02-12-2018 Chronic Comment on above: grandmother had thyr oid removed, mother on standard process (thyroid) stable Unclassified (3 sources) Abnormal glucose tolerance test (Renamed from Abnormal glucose tolerance test (GTT)) Unclassified (20 sources) Unclassified (9 sources) Tobacco abuse Unclassified (5 sources) Colon polyps Unclassified (3 sources) Insulin resistance Unclassified (3 sources) Multiple thyroid nodules Unclassified (2 sources) BMI 39.0-39.9,adult Unclassified (1 source) BMI 34.0-34.9,adult Unclassified (20 sources) Increased frequency of urination; Translations: [Frequency] Onset: 5 10-18-2015 Unclassified (1 source) Adenomyosis; Translations: [Adenomyosis] Onset: 5 Urinary tract infections (2 sources) Urinary tract infectious disease; Translations: [UTI (urinary tract infection)] 02-12-2018 Episodic Past or Other Problems Problem Classification Problem Date Documented Da te Episodic/Chronic Abdominal pain (20 sources) Acute abdominal pain; Translations: [Generalized abdominal pain] Onset: 03-22-2015 Resolved: 05-09-2017 05-09-2017 Episodic Comment on above: when eat wheat resolved Contraceptive and procreative management (20 sources) Oral contraception; Translations: [Encounter for surveillance of contraceptive pills] Onset: 01-12-2013 01-12-2013 Episodic Gastrointestinal hemorrhage (1 source) Blood-tinged feces; Translations: [Blood in stool] Resolved: 05-09-2017 05-09-2017 Genitourinary symptoms and ill-defined conditions (20 sources) Urinary frequency; Translations: [Increased frequency of urination] Onset: 10-18-2015 Resolved: 11-08-2016 05-09-2017 Episodic Inflammation; infection of eye (except that caused by tuberculosis or sexually transmitteddisease) (20 sources) Conjunctivitis; Translations: [Acute atopic conjunctivitis] Onset: 08-31-2012 Resolved: 03-19-2016 03-19-2016 Episodic Influenza (2 sources) Influenza Mycoses (2 sources) Candidiasis; Translations: [Candidiasis of vulva and vagina] Resolved: 06-08-2015 10-06-2015 Episodic Nausea and vomiting (20 sources) Nausea; Translations: [Nausea] Onset: 03-22-2015 Resolved: 06-08-2015 06-08-2015 Episodic Nonmalignant breast conditions (3 sources) Mastodynia of bilateral breasts; Translations: [Mastodynia] Onset: 02-01-2025 09-07-2024 Episodic Other gastrointestinal disorders (1 source) Alteration in bowel elimination; Translations: [Change in bowel habits] Resolved: 06-08-2015 06-08-2015 Episodic Other gastrointestinal disorders (1 source) Diarrhea; Translations: [Diarrhea, unspecified type] Resolved: 05-09-2017 05-09-2017 Episodic Other nervous system disorders (20 sources) Fontaine's palsy; 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] Onset: 01-12-2013 01-12-2013 Episodic Other and delivery including normal (1 source) ; Translations: [] Resolved: 06-08-2015 06-08-2015 Episodic Other screening for suspected conditions (not mental disorders or infectious disease) (8 sources) Imaging of biliary tract abnormal; Translations: [Abnormal results of function studies of other organs and systems] Onset: 11-20-2024 Episodic Other skin disorders (1 source) Eruption; Translations: [Rash] Resolved: 06-08-2015 06-08-2015 Episodic Comment on above: i still thihk yeast wiht secondary moist inflam rxn Other skin disorders (3 sources) Localized swelling, mass and lump, left upper limb; Translations: [Localized superficial swelling, mass, or lump] Onset: 02-01-2025 07-26-2024 Episodic Other upper respiratory disease (1 source) Disorder of upper respiratory system; Translations: [Upper respiratory disease] Resolved: 06-08-2015 06-08-2015 Episodic Other upper respiratory infections (11 sources) Sinusitis; Translations: [Acute sinusitis] Onset: 12-02-2024 Resolved: 05-09-2017 05-09-2017 Episodic Residual codes; unclassified (20 sources) Tobacco user; Translations: [Tobacco use] Onset: 03-10-2015 03-10-2015 Episodic Residual codes; unclassified (1 source) Family history of malignant neoplasm of breast; Translations: [Family history of breast cancer] Onset: 02-01-2025 Episodic Unclassified (4 sources) Unspecified Diagnosis Resolved: 03-19-2016 03-19-2016 Unclassified (1 source) Family history of multiple sclerosis (V17.2) Unclassified (3 sources) Yeast infection of the vagina (112.1) Unclassified (1 source) Annual physical exam (V70.0) Unclassified (1 source) Deliveries (Parity); Translations: [Deliveries (Parity)] 02-12-2018 Comment on above: 1 Unclassified (2 sources) Yeast Infection: Candidiasis of Unspecified Site (112.9) Unclassified (1 source) Unclassified (1 source) Change in bowel habits Unclassified (1 source) Upper respiratory disease Unclassified (1 source) Pregnancies (); Translations: [Pregnancies ()] 02-12-2018 Comment on above: 1. Unclassified (1 source) Rash Unclassified (2 sources) Weight gain Unclassified (1 source) Viral infection Unclassified (2 sources) ANXIETY STATE, UNSPECIFIED (300.00) Unclassified (1 source) Abdominal Pain,General (789.07) Unclassified (2 sources) SINUSITIS, ACUTE NOS (461.9) Unclassified (3 sources) Finding of lymph node; Translations: [Lymph node symptom] Resolved: 11-08-2016 05-09-2017 Comment on above: shoddy and not notic able Unclassified (2 sources) Abdominal Pain,RUQ(789.01) Unclassified (1 source) Sinus pressure Unclassified (1 source) Empty sella Unclassified (1 source) Poison kai Unclassified (1 source) STEC (Shiga toxin-producing Escherichia coli) Unclassified (1 source) BMI 32.0-32.9,adult Unclassified (1 source) Diarrhea, unspecified type Unclassified (1 source) Abdominal pain, acute Unclassified (6 sources) Spontaneous rupture of amiotic membranes 03-21-2021 Unclassified (1 source) Axillary mass, left 02-01-2025 Unclassified (2 sources) Patient encounter status 03-07-2025 Viral infection (1 source) Viral disease; Translations: [Viral infection] Resolved: 03-19-2016 03-19-2016 Episodic Comment on above: use flonase has at h ome NEGATED: Highlighted row has been ruled out!Unclassified (1 source) Problem Onset: 01-06-2014 01-06-2014 Results Test Name Value Interpretation Reference Range Facility US FEMALE PELVIS TRANSVAGon 06-07-2025 US FEMALE PELVIS TRANSVAG * * *Final Report* * * DATE OF EXAM: Jun 07 2025 7:44AM [id number] - US FEMALE PELVIS TRANSVAG / PROCEDURE REASON: Intrauterine contraceptive device threads lost, initial encounter * * * * Physician Interpretation * * * * EXAMINATION: FEMALE PELVIC ULTRASOUND CLINICAL HISTORY: Intrauterine contraceptive device threads lost, initial encounter , 44 years old. Patient with history of IUD. TECHNIQUE: Sonography of the pelvis was performed by transvaginal and transabdominal (limited) techniques. Images were obtained and stored in a permanent archive. MQ: [id number] COMPARISON: 03/09/2015 CT abdomen pelvis RESULT: Uterus: -Size: 9 x 4.3 x 4.9 cm -Orientation: Anteverted -Endometrial echo complex: Evaluation of the endometrium was adequate. Intrauterine device appropriately positioned within the endometrial canal. The endometrial echo complex measured 0.4 cm. -Cervix: Nabothian cysts present, otherwise unremarkable. -Adenomyosis assessment: There are no sonographic findings of adenomyosis. -Fibroids: There are no fibroids. Right Ovary: 6.2 x 3.7 x 3.9 cm - 4.5 x 3.1 x 3.6 cm simple cyst (O-RADS 2). Left Ovary: 2.4 x 1.3 x 1.9 cm - Normal sonographic appearance. Free Fluid: No abnormal free fluid is present. IMPRESSION: IUD appears appropriately positioned within the uterus. 4.5 cm simple RIGHT ovary cyst (O-RADS 2). No follow-up recommended in a premenopausal patient. Ultrasound O-RADS Follow-Up Recommendations: - Imaging: No additional imaging is advised for this finding. - Clinical: Advise Retail Salesperson follow-up if needed for management of clinical issues. Care Asst: PSCB Transcribe Date/Time: Jun 10 2025 6:12A Dictated by : HEIKE HINES MD This examination was interpreted and the report reviewed and electronically signed by: HEIKE HINES MD on Jun 10 2025 6:14AM EST [id number] N Normal [facility] CNOVon 06-06-2025 CNOV Office Visit (OBGYWM ) RACHEL CHOI ([id number]) 1980 F Date Time Provider Department 06/06/25 2:00 PM PENNY BEE During your visit today, we recorded the following information about you: Blood pressure Weight 124/84 110.7 kg Penny Bee APRN.CNM 06/06/2025 2:43 PM Signed Debt Collector offered: Patient declines. Rachel Choi is a 44 year old female who presents for problem visit extreme cramping for 3 week(s). Was seen at [facility] ED for possible prolapse. Had a "lump" vaginal exam at ER was wnl. IUD still in place per ER physician. No pelvic US completed while in ER. Not currently having any pain or discomfort but things feel "bigger" down there. Feels like there "is a ball/ bulge/ heaviness in vaginal area. 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 Comments: Sexual Activity: Yes; Male Contraception: Tubal Ligation PAST MEDICAL HISTORY Diagnosis Date Adenomyosis Allergic rhinitis Class 3 severe obesity without serious comorbidity with body mass index (BMI) of 40.0 to 44.9 in adult, unspecified obesity type (HCC) Colon polyps Constipation during Endometriosis Gastroesophageal reflux disease, unspecified whether esophagitis present History of colposcopy 05/14/2021 with ECC-normal Hydronephrosis with urinary obstruction due to renal calculus 11/16/2024 Multiple thyroid nodules Obesity Psychiatric disorder ANXIETY Psychiatric disorder anxiety Tobacco abuse Uterine fibroid PAST SURGICAL HISTORY Procedure Laterality Date DELIVERY ONLY , low transverse DELIVERY ONLY 2020 COLONOSCOPY 06/2019 COLONOSCOPY FLX DX W/COLLJ SPEC WHEN PFRMD 03/22/2015 Colonoscopy ESOPHAGOGASTRODUODENO SCOPY TRANSORAL DIAGNOSTIC 03/22/2015 EGD LAPAROSCOPIC APPENDECTOMY 1995 w/ lysis of adhesions LIGATE FALLOPIAN TUBE Bilateral 03/21/2021 PAST SURGICAL HISTORY OF 2001 laparoscopy with lysis of adhesions. FAMILY HISTORY Problem Relation Age of Onset Anxiety disorder Mother other (ulcers) Mother Breast Cancer Mother hers-2 other (ulcers) Father hiatal hernia other (acid reflux) Sister other (IBS) Brother digestive issues Diabetes Maternal Grandmother Cancer Maternal Grandfather lung Cancer Paternal Grandmother lung cancer Cancer Paternal Grandfather bladder cancer No Known Problems Son Breast Cancer Maternal Aunt hers-2 Anesthesia Problems No Family History Social History Tobacco Use Smoking status: Former Current packs/day: 0.00 Types: Cigarettes Start date: 02/23/2014 Quit date: 02/23/2019 Years since quittin.2 Smokeless tobacco: Never Tobacco comments: Currently smoking 1cigarette a day Vaping Use Vaping status: Some Days Substances: Nicotine Devices: Pre-filled or refillable cartridge, Juul 3% Substance Use Topics Alcohol use: No Drug use: No Current Outpatient Medications Medication Sig omeprazole (PRILOSEC) 20 mg capsule Take 1 capsule by mouth daily before breakfast. levonorgestrel (MIRENA) 21 mcg/24 hours (8 yrs) 52 mg IUD 1 Each by INTRAUTERINE route as directed. Magnesium Glycinate 100 mg tab Take 500 mg by mouth as needed. Takes up to 500mg prn fluticasone (FLONASE) 50 mcg/actuation nasal spray Use 2 Sprays in each nostril once daily. Rinse mouth after use. CETIRIZINE HCL (ZYRTEC ORAL) Take 10 mg by mouth as needed (allergies). Multivitamin capsule Take 1 capsule by mouth once daily. No current facility-administered medications for this visit. Allergies As of Date: 06/06/2025 Allergen Noted Reaction CODEINE 09/04/2016 Other: See Comments and Unknown ERYTHROMYCIN 01/12/2013 Hives PERCOCET [OXYCODONE-ACETAMINOP HEN]01/12/2013 Vomiting SEASONAL ALLERGIES 08/31/2012 Other: See Comments Fully Assessed 03/07/2025 REVIEW OF SYSTEMS Abdomen: No bloating, early satiety, indigestion, or increased flatulence. No abdominal pain, nausea, vomiting, diarrhea, or constipation. Bladder: No dysuria, gross hematuria, urinary frequency, urinary urgency, or incontinence. Breast: No breast lumps, nipple d/c, overlying skin changes, redness or skin retraction. Expanded ROS: N/A Allergies and current medication updated:Yes SENSITIVE EXAM: The sensitive examination was discussed with the Patient or Patient's Authorized Soft Metals Hand Engraver. As applicable, any other physician, advance practice provider, medical student, or other health professional student that will be observing or involved in the sensitive examination for educational or training purposes was discussed with the Patient or Authorized Soft Metals Hand Engraver. The Patient or Authorized Soft Metals Hand Engraver has agreed to proceed with the sensitive examination. (Sensitive examination includes inspection and/or palpation of the breasts, pe (more content not included)... Normal [facility] Emergency Department Summary on 05-19-2025 Emergency Department Summary [facility] Medical Records Department [address] [place] [address] Emergency Department Summary 05/19/25 MR#: [id number] Acct: [id number] Name: RACHEL CHOI Rep #: [id number] : 1980 44 From: Rod Bates MD PCP: Dr. Yahir Raygoza MD Status:REG ER Location: ED HPI HPI - Female History of Present Illness Chief Complaint: Female C/O Informant: patient Pain Pain: Positive for Pelvic Pain Current Severity: Mild Maximum Severity: Mild Bleeding Issue: Negative for Vaginal bleeding Associated Symptoms Associated Symptoms: Negative for Dysuria, Frequency, Urgency or Hematuria Narrative Narrative: 44-year-old female history of tubal ligation, appendectomy and C-sections x 2. States on Friday night she picked up her dog weighs about 40 pounds felt discomfort in her lower abdomen. The next day she had some cramping. Denies any vaginal bleeding or discharge. Denies any dysuria or hematuria or urinary frequency. Denies any fever. No nausea, vomiting or diarrhea. Normal bowel movements. Prior similar symptoms: No Recent Illness/Hospitalizati on: No PFSH PFSH Medical History Gestational diabetes Maternal anemia in , antepartum Spontaneous rupture of amiotic membranes Home Medications ???Medication ???Instructions ???Recorded ???Last Taken ???Type elderberry fruit 200 mg capsule PO DAILY supplement 03/21/2103/20 History magnesium 500 mg tablet 500 mg PO DAILY migraine preventio n 03/21/21 03/19/21 History hydrocodone-acetamino phen 5-325mg 1 tab PO Q4H PRN PRN Pain 2 days 04/28/22 Unknown Rx 5mg-325mg #10 TABLETS lorazepam 0.5 mg tablet (Ativan) 0.5 mg PO TID PRN Anxiety 04/28/22 Unknown History ondansetron 4 mg disintegrating 4 mg PO Q8H PRN PRN Nausea #10 tab s 04/28/22 Unknown Rx tablet hydrocodone-acetamino phen 5-325mg 1 tab PO Q6H PRN PRN Pain 3 days 06/08/23 Unknown Rx 5mg-325mg #12 TABLETS ibuprofen 800 mg tablet 800 mg PO Q8H PRN pain #20 tabs Unknown Rx ondansetron 4 mg disintegrating 4 mg PO Q8H PRN PRN Nausea #10 tab s 06/08/23 Unknown Rx tablet tamsulosin 0.4 mg capsule (Flomax) 0.4 mg PO DAILY #10 caps 3 Unknown Rx hydrocodone-acetamino phen 5-325mg 1 tab PO Q6H PRN PRN Pain 3 days 11/12/24 Unknown Rx 5mg-325mg #10 TABLETS ondansetron 4 mg disintegrating 4 mg PO Q8H PRN PRN Nausea #10 tab s 11/12/24 Unknown Rx tablet tamsulosin 0.4 mg capsule (Flomax) 0.4 mg PO DAILY #7 caps 11/12/24 Unknown Rx Allergy/AdvReac Type Severity Reaction Status Date / Time codeine AdvReac Nausea/Vom/ Verified 05/19/25 19:45 Diarrhea oxycodone HCl (From Percocet) AdvReac Nausea/Vom/ Verified 05/19/25 19:45 Diarrhea Surgical History H/O bilateral salpingectomy Previous section Social History Smoking Status: Current every day smoker tobacco type: e-cigarettes ROS ROS ED ROS Narrative Lower abdominal pelvic pain. Constitutional Constitutional ED: Denies fever(s) Eyes Eyes: Denies blurry vision ENT ENT ED: Denies ear pain Cardiovascular Cardiovascular: Denies chest pain Respiratory/Chest Respiratory/Chest: Denies cough or dyspnea Gastrointestinal Gastrointestinal: Reports abdominal pain; Denies constipation, diarrhea, melena, nausea or vomiting Genitourinary Genitourinary ED: Denies dysuria or hematuria Musculoskeletal Musculoskeletal: Denies arthralgias Integumentary Denies abscess Neurologic Neurologic: Denies headache(s) Psychiatric Psychiatric: Denies anxiety Endocrine Endocrinology: Denies heat intolerance Hematologic/Lymphatic Hematologic/Lymphatic : Denies easy bleeding, easy bruising or lymphadenopathy Allergic/Immunologic Allergic/Immunologic ED: Denies mouth swelling, tongue swelling or urticaria EXAM Physical Exam Narrative Exam Narrative: 44-year-old female vital signs stable afebrile. Initial blood pressure elevated 184 113. H EENT exam pupils round react light. Mytrex members. Neck nontender no JVD. No lymphadenopathy. Lungs clear to auscultation bilateral. Heart tachycardic 110 no murmur. Chest wall and ribs nontender. Abdomen soft, nontender, nondistended normal bowel sounds without peritoneal signs. She has no abdominal or suprapubic tenderness. There is no bruising. No hernia or mass. Right upper and right lower quadrant are nontender. No obstruction. Moving all 4 extremities. Normal strength. Normal range of motion. When she lifts both her legs up when she is doing the leg lift she has no abdominal pain. Neurologically she is awake alert. Answer questions following commands. Back nontender. Very benign exam completely nontender abdo (more content not included)... Normal [facility] 05-18-2025 [facility] Telephone (UROOpenSiloWS) RACHEL CHOI ([id number]) 1980 F Date Time Provider Department 05/18/25 EMIL GRUBER During your visit today, we recorded the following information about you: Manisha Burgess LPN 05/18/2025 9:16 AM Signed Called patient. No answer- left message and informed sending MyChart message. Manisha Burgess LPN Allergies As of Date: 05/18/2025 Noted Allergy Reaction CODEINE 09/04/2016 14 - Other: See Comments 16 - Unknown ERYTHROMYCIN 01/12/2013 4 - Hives PERCOCET (OXYCODONE-ACETAMINOP HEN)01/12/2013 11 - Vomiting SEASONAL ALLERGIES 08/31/2012 14 - Other: See Comments Comments: Cats Dogs Dust mites trees (January, February and March) weeds (June, July and August) ragweed (June, July and August) Date Reviewed: 03/07/2025 Reviewed by: Stephen Edward MA - Fully Assessed Reason for Visit: Appointment [186] Prescriptions as of 05/18/2025 - omeprazole (PRILOSEC) 20 mg capsule Take 1 capsule by mouth daily before breakfast. - levonorgestrel (MIRENA) 21 mcg/24 hours (8 yrs) 52 mg IUD 1 Each by INTRAUTERINE route as directed. - Magnesium Glycinate 100 mg tab Take 500 mg by mouth as needed. Takes up to 500mg prn - fluticasone (FLONASE) 50 mcg/actuation nasal spray Use 2 Sprays in each nostril once daily. Rinse mouth after use. - CETIRIZINE HCL (ZYRTEC ORAL) Take 10 mg by mouth as needed (allergies). - Multivitamin capsule Take 1 capsule by mouth once daily. 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 CNOVon 03-07-2025 CNOV Office Visit (OBGYWM ) RACHEL CHOI ([id number]) 1980 F Date Time Provider Department 03/07/25 8:15 AM PENNY BEE OBGYWM During your visit today, we recorded the following information about you: Blood pressure Weight Height 134/88 108.4 kg 1.575 m Penny Bee APRN.CNM 03/07/2025 8:39 AM Signed Debt Collector offered: Patient declines. Rachel is a 44 year old who presents for an annual gynecologic exam with complaints, cramping no better since IUD placement 11/04/2023 . Periods / bleeding has stopped since Mirena IUD placed. Menses: no menses - Mirena IUD Period symptoms: N/A Sexually active: Yes Contraception: IUD and Tubal Ligation HPV vaccine: No HPV:negative Last pap smear: 02/05/2023 History of abnormal pap: No Bothersome pelvic pain: extreme cramping Last mammogram: 2024normal OB History Gravida3 Para2 Term0 Preterm0 AB1 Living0 SAB1 IAB0 Ectopic0 Multiple0 Live Births0 Problem Relation Age of Onset Anxiety disorder Mother other (ulcers) Mother other (ulcers) Father hiatal hernia other (acid reflux) Sister other (IBS) Brother digestive issues Diabetes Maternal Grandmother Cancer Maternal Grandfather lung Cancer Paternal Grandmother lung cancer Cancer Paternal Grandfather bladder cancer No Known Problems Son Anesthesia Problems No Family History SOCIAL HISTORY Social History Tobacco Use Smoking status: Former Current packs/day: 0.00 Types: Cigarettes Start date: 02/23/2014 Quit date: 02/23/2019 Years since quittin.0 Smokeless tobacco: Never Tobacco comments: Currently smoking 1cigarette a day Vaping Use Vaping status: Some Days Substances: Nicotine Devices: Pre-filled or refillable cartridge, Juul 3% Substance Use Topics Alcohol use: No Drug use: No REVIEW OF SYSTEMS Abdomen: No abdominal pain, nausea, vomiting, diarrhea, or constipation. No bloating, early satiety, indigestion, or increased flatulence. Bladder: No dysuria, gross hematuria, urinary frequency, urinary urgency, or incontinence. Breast: No breast lumps, nipple d/c, overlying skin changes, redness or skin retraction. Allergies and current medication updated:Yes SENSITIVE EXAM: The sensitive examination was discussed with the Patient or Patient's Authorized Soft Metals Hand Engraver. As applicable, any other physician, advance practice provider, medical student, or other health professional student that will be observing or involved in the sensitive examination for educational or training purposes was discussed with the Patient or Authorized Soft Metals Hand Engraver. The Patient or Authorized Soft Metals Hand Engraver has agreed to proceed with the sensitive examination. (Sensitive examination includes inspection and/or palpation of the breasts, pelvis, prostate and anorectal regions). EXAM: BP 134/88 Ht 5' 2" (1.58m) Wt 239 lb (108.4kg) LMP 06/15/2024 BMI 43.70 kg/(m2). GENERAL: pleasant, female in no apparent distress HEENT: Normocephalic, atraumatic, mucus membranes moist, and no lesions NECK: Supple and full range of motion DERMATOLOGY: Normal, without lesions, non-icteric, and non-hirsute BREAST: soft, non-tender, symmetric, no dominant mass, normal nipple-areolar complex, no lymphadenopathy, no nipple discharge, and fibrocystic changes CHEST: Normal inspiratory effort ABDOMEN: soft, non-tender, and no masses PELVIC: external genitalia normal, normal Bartholin's glands, urethra, [place]'s glands, no vulvar lesions, no cervical lesions, good vaginal support, physiologic discharge present, normal appearing perineal body and perianal region, IUD strings visible BIMANUAL: uterus normal size, shape and consistency, no adnexal masses, non-tender, and no cervical motion tenderness RECTOVAGINAL: deferred. NEURO: alert and oriented x3,exam grossly non-focal EXTREMITIES: normal ASSESSMENT/PLAN: 1) Health maintenance: Pap/HPV up to date. Mammogram up to date . Lipids/glucose: followed by PCP 2) Contraception: IUD- Mirena 3) STD screening: Declined STD check. 4) Discussed diagnosis of adenomyosis- Patient hand out provided and questions answered. Patient aware only treatment is hysterectomy. Pleased with current IUD. Follow up one year or sooner as needed Penny Bee APRN.CNM Allergies As of Date: 03/07/2025 Noted Allergy Reaction CODEINE 09/04/2016 14 - Other: See Comments 16 - Unknown ERYTHROMYCIN 01/12/2013 4 - Hives PERCOCET (OXYCODONE-ACETAMINOP HEN)01/12/2013 11 - Vomiting SEASONAL ALLERGIES 08/31/2012 14 - Other: See Comments Comments: Cats Dogs Dust mites trees (January, February and March) weeds (June, July and August) ragweed (June, July and August) Date Reviewed: 03/07/2025 Reviewed by: Stephen Edward MA - Fully Assessed Reason for Visit: Well Woman [1463] Primary Visit (more content not included)... Normal [facility] DBT Breast - bilateral diagn ostic for implanton 02-01-2025 IMPRESSION: There is no mammographic or sonographic evidence of malignancy in either breast. Return to annual screening mammogram is recommended. Annual mammogram will be due in 1 year. BI-RADS Category 1: Negative RISK: Based on the Tyrer-Cuzick (TC) risk assessment model, this patient has a 15.4% lifetime risk of developing breast cancer, meaning they are at average risk for developing breast cancer. However, this is only an estimate based on available history provided on the patient's questionnaire. We encourage all patients to talk with their providers about these results, further recommendations for managing breast health, and appropriate supplemental screening options if the patient has dense breast tissue. Interpreting Radiologist: Ashley Sharp M.D. Electronically signed on: 02/01/2025 Care Asst: DON Transcripaige Date/Time: Feb 01 2025 7:53A Dictated by: ASHLEY SHARP MD This examination was interpreted and the report reviewed and electronically signed by: ASHLEY SHARP MD on Feb 01 2025 9:01AM [facility] DIVISION OF RADIOLOGY * * *Final Report* * * DATE OF EXAM: Feb 01 2025 8:05AM [id number] - [facility] DIAG W TONJA MORALES / PROCEDURE REASON: Pain of both breasts * * * * Physician Interpretation * * * * RESULT: [facility] [address] [place] [address] #[id number] - [facility] DIAG W TONJA MORALES #[id number] - [facility] US BREAST LTD LT #[id number] - [facility] US BREAST LTD RT HISTORY: 44 year-old patient seen for diagnostic evaluation of area of clinical concern in both breasts. Patient states no personal history of breast cancer. The patient has a family history of breast cancer. COMPARISON STUDIES: The present examination has been compared to a prior imaging study dated 12/01/2023 (mammogram). MAMMOGRAM TECHNIQUE: The study was acquired using full field digital technology and interpreted from soft copy. Digital Breast Tomosynthesis (DBT) images were obtained and used to assist in the interpretation of this examination. MAMMOGRAM FINDINGS: The breasts are almost entirely fatty. No suspicious masses, calcifications or other abnormalities are seen in either breast. There are no significant interval changes. ULTRASOUND TECHNIQUE: Targeted ultrasound of the indicated area was performed. Lester scale images were saved. ULTRASOUND FINDINGS: There are no suspicious findings in the imaged area. DIVISION OF RADIOLOGY Provider, [facility] - 02/01/2025 * * *Final Report* * * DATE OF EXAM: Feb 01 2025 8:05AM [facility] 0627 - [facility] DIAG W TONJA MORALES / PROCEDURE REASON: Pain of both breasts * * * * Physician Interpretation * * * * RESULT: [facility] [address] [id number] #[id number] - [facility] DIAG W TONJA MORALES #[id number] - [facility] US BREAST LTD LT #[id number] - [facility] US BREAST LTD RT HISTORY: 44 year-old patient seen for diagnostic evaluation of area of clinical concern in both breasts. Patient states no personal history of breast cancer. The patient has a family history of breast cancer. COMPARISON STUDIES: The present examination has been compared to a prior imaging study dated 12/01/2023 (mammogram). MAMMOGRAM TECHNIQUE: The study was acquired using full field digital technology and interpreted from soft copy. Digital Breast Tomosynthesis (DBT) images were obtained and used to assist in the interpretation of this examination. MAMMOGRAM FINDINGS: The breasts are almost entirely fatty. No suspicious masses, calcifications or other abnormalities are seen in either breast. There are no significant interval changes. ULTRASOUND TECHNIQUE: Targeted ultrasound of the indicated area was performed. Lester scale images were saved. ULTRASOUND FINDINGS: There are no suspicious findings in the imaged area. IMPRESSION IMPRESSION: There is no mammographic or sonographic evidence of malignancy in either breast. Return to annual screening mammogram is recommended. Annual mammogram will be due in 1 year. BI-RADS Category 1: Negative RISK: Based on the Tyrer-Cuzick (TC) risk assessment model, this patient has a 15.4% lifetime risk of developing breast cancer, meaning they are at average risk for developing breast cancer. However, this is only an estimate based on available history provided on the patient's questionnaire. We encourage all patients to talk with their providers about these results, further recommendations for managing breast health, and appropriate supplemental screening options if the patient has dense breast tissue. Interpreting Radiologist: Ashley Sharp M.D. Electronically signed on: 02/01/2025 Care Asst: DON Transcribe Date/Time: Feb 01 2025 7:53A Dictated by: ASHLEY SHARP MD This examination was interpreted and the report reviewed and electronically signed by: ASHLEY SHARP MD on Feb 01 2025 9:01AM EST [facility] DIAG W TONJA BILon 2024 [facility] DIAG W TONJA MORALES * * *Final Report* * * DATE OF EXAM: Feb 01 2025 8:05AM [facility] 0627 - [facility] DIAG W TONJA MORALES / PROCEDURE REASON: Pain of both breasts * * * * Physician Interpretation * * * * RESULT: [facility] [address] [id number] #[id number] - [facility] DIAG W TONJA MORALES #[id number] - [facility] US BREAST LTD LT #[id number] - [facility] US BREAST LTD RT HISTORY: 44 year-old patient seen for diagnostic evaluation of area of clinical concern in both breasts. Patient states no personal history of breast cancer. The patient has a family history of breast cancer. COMPARISON STUDIES: The present examination has been compared to a prior imaging study dated 12/01/2023 (mammogram). MAMMOGRAM TECHNIQUE: The study was acquired using full field digital technology and interpreted from soft copy. Digital Breast Tomosynthesis (DBT) images were obtained and used to assist in the interpretation of this examination. MAMMOGRAM FINDINGS: The breasts are almost entirely fatty. No suspicious masses, calcifications or other abnormalities are seen in either breast. There are no significant interval changes. ULTRASOUND TECHNIQUE: Targeted ultrasound of the indicated area was performed. Lester scale images were saved. ULTRASOUND FINDINGS: There are no suspicious findings in the imaged area. IMPRESSION: There is no mammographic or sonographic evidence of malignancy in either breast. Return to annual screening mammogram is recommended. Annual mammogram will be due in 1 year. BI-RADS Category 1: Negative RISK: Based on the Tyrer-Cuzick (TC) risk assessment model, this patient has a 15.4% lifetime risk of developing breast cancer, meaning they are at average risk for developing breast cancer. However, this is only an estimate based on available history provided on the patient's questionnaire. We encourage all patients to talk with their providers about these results, further recommendations for managing breast health, and appropriate supplemental screening options if the patient has dense breast tissue. Interpreting Radiologist: Ashley Sharp M.D. Electronically signed on: 02/01/2025 Care Asst: DON Transcribe Date/Time: Feb 01 2025 7:53A Dictated by: ASHLEY SHARP MD This examination was interpreted and the report reviewed and electronically signed by: ASHLEY SHARP MD on Feb 01 2025 9:01AM EST [id number] Normal [facility] US BREAST LTD LTon 02-01 [facility] US BREAST LTD LT * * *Final Report* * * DATE OF EXAM: Feb 01 2025 8:50AM [id number] - [facility] US BREAST LTD LT / PROCEDURE REASON: multiple diagnoses * * * * Physician Interpretation * * * * [place] [address] #[id number] - [facility] [place] [facility] #[id number] - [facility] US BREAST LTD LT #[id number] - [facility] BREAST LTD RT HISTORY: 44 year-old patient seen for diagnostic evaluation of area of clinical concern in both breasts. Patient states no personal history of breast cancer. The patient has a family history of breast cancer. COMPARISON STUDIES: The present examination has been compared to a prior imaging study dated 12/01/2023 (mammogram). MAMMOGRAM TECHNIQUE: The study was acquired using full field digital technology and interpreted from soft copy. Digital Breast Tomosynthesis (DBT) images were obtained and used to assist in the interpretation of this examination. MAMMOGRAM FINDINGS: The breasts are almost entirely fatty. No suspicious masses, calcifications or other abnormalities are seen in either breast. There are no significant interval changes. ULTRASOUND TECHNIQUE: Targeted ultrasound of the indicated area was performed. Lester scale images were saved. ULTRASOUND FINDINGS: There are no suspicious findings in the imaged area. IMPRESSION: There is no mammographic or sonographic evidence of malignancy in either breast. Return to annual screening mammogram is recommended. Annual mammogram will be due in 1 year. BI-RADS Category 1: Negative RISK: Based on the Tyrer-Cuzick (TC) risk assessment model, this patient has a 15.4% lifetime risk of developing breast cancer, meaning they are at average risk for developing breast cancer. However, this is only an estimate based on available history provided on the patient's questionnaire. We encourage all patients to talk with their providers about these results, further recommendations for managing breast health, and appropriate supplemental screening options if the patient has dense breast tissue. Interpreting Radiologist: Ashley Sharp M.D. Electronically signed on: 02/01/2025 Care Asst: DON Transcribe Date/Time: Feb 01 2025 8:35A Dictated by : ASHLEY SHARP MD This examination was interpreted and the report reviewed and electronically signed by: ASHLEY SHARP MD on Feb 01 2025 9:01AM EST [id number] Normal [facility] US BREAST LTD RTon 02-01 [facility] US BREAST LTD RT * * *Final Report* * * DATE OF EXAM: Feb 01 2025 8:51AM [id number] - [facility] BREAST LTD RT / PROCEDURE REASON: multiple diagnoses * * * * Physician Interpretation * * * * [facility] [address] [address] [place] [address] #[id number] - [facility] [place] #[id number] - [facility] US BREAST LTD LT #[id number] - [facility] US BREAST LTD RT HISTORY: 44 year-old patient seen for diagnostic evaluation of area of clinical concern in both breasts. Patient states no personal history of breast cancer. The patient has a family history of breast cancer. COMPARISON STUDIES: The present examination has been compared to a prior imaging study dated 12/01/2023 (mammogram). MAMMOGRAM TECHNIQUE: The study was acquired using full field digital technology and interpreted from soft copy. Digital Breast Tomosynthesis (DBT) images were obtained and used to assist in the interpretation of this examination. MAMMOGRAM FINDINGS: The breasts are almost entirely fatty. No suspicious masses, calcifications or other abnormalities are seen in either breast. There are no significant interval changes. ULTRASOUND TECHNIQUE: Targeted ultrasound of the indicated area was performed. Lester scale images were saved. ULTRASOUND FINDINGS: There are no suspicious findings in the imaged area. IMPRESSION: There is no mammographic or sonographic evidence of malignancy in either breast. Return to annual screening mammogram is recommended. Annual mammogram will be due in 1 year. BI-RADS Category 1: Negative RISK: Based on the Tyrer-Cuzick (TC) risk assessment model, this patient has a 15.4% lifetime risk of developing breast cancer, meaning they are at average risk for developing breast cancer. However, this is only an estimate based on available history provided on the patient's questionnaire. We encourage all patients to talk with their providers about these results, further recommendations for managing breast health, and appropriate supplemental screening options if the patient has dense breast tissue. Interpreting Radiologist: Ashley Sharp M.D. Electronically signed on: 02/01/2025 Care Asst: DON Transcribe Date/Time: Feb 01 2025 8:34A Dictated by : ASHLEY SHARP MD This examination was interpreted and the report reviewed and electronically signed by: ASHLEY SHARP MD on Feb 01 2025 9:01AM EST [id number] Normal [facility] No Panel InformationOrdered By: Ccf Provider on 02-01-2025 [facility] No Panel Informationon 02-01 Radiology Study observation (narrative) [facility] US Breast - left limitedon 0 02-01-2025 IMPRESSION: There is no mammographic or sonographic evidence of malignancy in either breast. Return to annual screening mammogram is recommended. Annual mammogram will be due in 1 year. BI-RADS Category 1: Negative RISK: Based on the Tyrer-Cuzick (TC) risk assessment model, this patient has a 15.4% lifetime risk of developing breast cancer, meaning they are at average risk for developing breast cancer. However, this is only an estimate based on available history provided on the patient's questionnaire. We encourage all patients to talk with their providers about these results, further recommendations for managing breast health, and appropriate supplemental screening options if the patient has dense breast tissue. Interpreting Radiologist: Ashley Sharp M.D. Electronically signed on: 02/01/2025 Care Asst: DON Transcribe Date/Time: Feb 01 2025 8:35A Dictated by : ASHLEY SHARP MD This examination was interpreted and the report reviewed and electronically signed by: ASHLEY SHARP MD on Feb 01 2025 9:01AM [facility] DIVISION OF RADIOLOGY * * *Final Report* * * DATE OF EXAM: Feb 01 2025 8:50AM [facility] 0593 - [facility] [employer] BREAST LTD LT / PROCEDURE REASON: multiple diagnoses * * * * Physician Interpretation * * * * [place] [address] #[id number] - [facility] [place] NIELSEN #[id number] - [facility] US BREAST LTD LT #[id number] - [facility] US BREAST LTD RT HISTORY: 44 year-old patient seen for diagnostic evaluation of area of clinical concern in both breasts. Patient states no personal history of breast cancer. The patient has a family history of breast cancer. COMPARISON STUDIES: The present examination has been compared to a prior imaging study dated 12/01/2023 (mammogram). MAMMOGRAM TECHNIQUE: The study was acquired using full field digital technology and interpreted from soft copy. Digital Breast Tomosynthesis (DBT) images were obtained and used to assist in the interpretation of this examination. MAMMOGRAM FINDINGS: The breasts are almost entirely fatty. No suspicious masses, calcifications or other abnormalities are seen in either breast. There are no significant interval changes. ULTRASOUND TECHNIQUE: Targeted ultrasound of the indicated area was performed. Lester scale images were saved. ULTRASOUND FINDINGS: There are no suspicious findings in the imaged area. DIVISION OF RADIOLOGY Provider, Ede paris [place] - 02/01/2025 * * *Final Report* * * DATE OF EXAM: Feb 01 2025 8:50AM [facility] 0593 - [facility] [employer] BREAST LTD LT / PROCEDURE REASON: multiple diagnoses * * * * Physician Interpretation * * * * [place] [address] #[id number] - [facility] [place] EVANGELISTA MORALES #[id number] - [facility] [employer] BREAST LTD LT #[id number] - [facility] [employer] BREAST LTD RT HISTORY: 44 year-old patient seen for diagnostic evaluation of area of clinical concern in both breasts. Patient states no personal history of breast cancer. The patient has a family history of breast cancer. COMPARISON STUDIES: The present examination has been compared to a prior imaging study dated 12/01/2023 (mammogram). MAMMOGRAM TECHNIQUE: The study was acquired using full field digital technology and interpreted from soft copy. Digital Breast Tomosynthesis (DBT) images were obtained and used to assist in the interpretation of this examination. MAMMOGRAM FINDINGS: The breasts are almost entirely fatty. No suspicious masses, calcifications or other abnormalities are seen in either breast. There are no significant interval changes. ULTRASOUND TECHNIQUE: Targeted ultrasound of the indicated area was performed. Lester scale images were saved. ULTRASOUND FINDINGS: There are no suspicious findings in the imaged area. IMPRESSION IMPRESSION: There is no mammographic or sonographic evidence of malignancy in either breast. Return to annual screening mammogram is recommended. Annual mammogram will be due in 1 year. BI-RADS Category 1: Negative RISK: Based on the Tyrer-Cuzick (TC) risk assessment model, this patient has a 15.4% lifetime risk of developing breast cancer, meaning they are at average risk for developing breast cancer. However, this is only an estimate based on available history provided on the patient's questionnaire. We encourage all patients to talk with their providers about these results, further recommendations for managing breast health, and appropriate supplemental screening options if the patient has dense breast tissue. Interpreting Radiologist: Ashley Sharp M.D. Electronically signed on: 02/01/2025 Care Asst: DON Myersripaige Date/Time: Feb 01 2025 8:35A Dictated by : ASHLEY SHARP MD This examination was interpreted and the report reviewed and electronically signed by: ASHLEY SHARP MD on Feb 01 2025 9:01AM EST [facility] Breast - right limitedon 02-01-2025 IMPRESSION: There is no mammographic or sonographic evidence of malignancy in either breast. Return to annual screening mammogram is recommended. Annual mammogram will be due in 1 year. BI-RADS Category 1: Negative RISK: Based on the Tyrer-Cuzick (TC) risk assessment model, this patient has a 15.4% lifetime risk of developing breast cancer, meaning they are at average risk for developing breast cancer. However, this is only an estimate based on available history provided on the patient's questionnaire. We encourage all patients to talk with their providers about these results, further recommendations for managing breast health, and appropriate supplemental screening options if the patient has dense breast tissue. Interpreting Radiologist: Ashley Sharp M.D. Electronically signed on: 02/01/2025 Care Asst: DON Dill Date/Time: Feb 01 2025 8:34A Dictated by : ASHLEY SHARP MD This examination was interpreted and the report reviewed and electronically signed by: ASHLEY SHARP MD on Feb 01 2025 9:01AM [facility] DIVISION OF RADIOLOGY * * *Final Report* * * DATE OF EXAM: Feb 01 2025 8:51AM [facility] 0594 - [facility] US BREAST LTD RT / PROCEDURE REASON: multiple diagnoses * * * * Physician Interpretation * * * * [address] [address] [place] [address] #[id number] - [facility] [place] EVANGELISTA MORALES #[id number] - [facility] US BREAST LTD LT #[id number] - [facility] US BREAST LTD RT HISTORY: 44 year-old patient seen for diagnostic evaluation of area of clinical concern in both breasts. Patient states no personal history of breast cancer. The patient has a family history of breast cancer. COMPARISON STUDIES: The present examination has been compared to a prior imaging study dated 12/01/2023 (mammogram). MAMMOGRAM TECHNIQUE: The study was acquired using full field digital technology and interpreted from soft copy. Digital Breast Tomosynthesis (DBT) images were obtained and used to assist in the interpretation of this examination. MAMMOGRAM FINDINGS: The breasts are almost entirely fatty. No suspicious masses, calcifications or other abnormalities are seen in either breast. There are no significant interval changes. ULTRASOUND TECHNIQUE: Targeted ultrasound of the indicated area was performed. Lester scale images were saved. ULTRASOUND FINDINGS: There are no suspicious findings in the imaged area. DIVISION OF RADIOLOGY Provider, [facility] - 02/01/2025 * * *Final Report* * * DATE OF EXAM: Feb 01 2025 8:51AM [facility] 0594 - [facility] US BREAST LTD RT / PROCEDURE REASON: multiple diagnoses * * * * Physician Interpretation * * * * [place] [address] #[id number] - [facility] DIAG W T[place]JA MORALES #[id number] - [facility] [employer] BREAST LTD LT #[id number] - [facility] US BREAST LTD RT HISTORY: 44 year-old patient seen for diagnostic evaluation of area of clinical concern in both breasts. Patient states no personal history of breast cancer. The patient has a family history of breast cancer. COMPARISON STUDIES: The present examination has been compared to a prior imaging study dated 12/01/2023 (mammogram). MAMMOGRAM TECHNIQUE: The study was acquired using full field digital technology and interpreted from soft copy. Digital Breast Tomosynthesis (DBT) images were obtained and used to assist in the interpretation of this examination. MAMMOGRAM FINDINGS: The breasts are almost entirely fatty. No suspicious masses, calcifications or other abnormalities are seen in either breast. There are no significant interval changes. ULTRASOUND TECHNIQUE: Targeted ultrasound of the indicated area was performed. Lester scale images were saved. ULTRASOUND FINDINGS: There are no suspicious findings in the imaged area. IMPRESSION IMPRESSION: There is no mammographic or sonographic evidence of malignancy in either breast. Return to annual screening mammogram is recommended. Annual mammogram will be due in 1 year. BI-RADS Category 1: Negative RISK: Based on the Tyrer-Cuzick (TC) risk assessment model, this patient has a 15.4% lifetime risk of developing breast cancer, meaning they are at average risk for developing breast cancer. However, this is only an estimate based on available history provided on the patient's questionnaire. We encourage all patients to talk with their providers about these results, further recommendations for managing breast health, and appropriate supplemental screening options if the patient has dense breast tissue. Interpreting Radiologist: Ashley Sharp M.D. Electronically signed on: 02/01/2025 Care Asst: DON Transcribe Date/Time: Feb 01 2025 8:34A Dictated by : ASHLEY SHARP MD This examination was interpreted and the report reviewed and electronically signed by: ASHLEY SHARP MD on Feb 01 2025 9:01AM EST [facility] Basic metabolic 2000 panelon 11-20-2024 Anion gap [Moles/Vol] 13 mmol/L Normal 8-15 [facility] Comment on above: Order Comment: Speci men Type: BLOOD SPECIMENOrdering Facility: [facility] Address: [address] [place] [address] Performed By: #### 2 4321-2 ####[facility] LABIA [id number] [place] [address] [place] Calcium [Mass/Vol] 8.9 mg/dL Normal 8.5-10.2 [facility] Comment on above: Order Comment: Speci men Type: BLOOD SPECIMENOrdering Facility: [facility] Address: [address] [id number] Performed By: #### 2 4321-2 ####[facility] LABCLIA [id number] [place] [id number] [place] Chloride [Moles/Vol] 102 mmol/L Normal 98-107 [facility] Comment on above: Order Comment: Speci men Type: BLOOD SPECIMENOrdering Facility: [facility] Address: [address] [place] [address] Performed By: #### 2 4321-2 ####[facility] LABCLIA [id number] [place] [address] [place] CO2 [Moles/Vol] 22 mmol/L Normal 22-[address] [facility] Comment on above: Order Comment: Speci men Type: BLOOD SPECIMENOrdering Facility: [facility] Address: [address] [place] [address] Performed By: #### 2 4321-2 ####[facility] LABIA [id number] [place] [address] [place] Creatinine [Mass/Vol] 0.68 mg/dL Normal 0.58-0.96 [facility] Comment on above: Order Comment: Speci men Type: BLOOD SPECIMENOrdering Facility: [facility] Address: [address] [place] [address] Performed By: #### 2 4321-2 ####[facility] [id number] [place] [address] [place] Creatinine and Glomerular filtration rate.predicted panel (S/P/Bld) 110 mL/min/1.73m??? Normal >=[address] [facility] Comment on above: Order Comment: Speci men Type: BLOOD SPECIMENOrdering Facility: [facility] Address: [address] [place] [address] Result Comment: Elif mated Glomerular Filtration Rate (eGFR) is calculated using the 2020 CKD-EPI creatinine equation. This equation utilizes serum creatinine, sex, and age as parameters. The creatinine assay has traceable calibration to isotope dilution-mass spectrometry. Refer to KDIGO guidelines for clinical interpretation. In patients with unstable renal function, e.g. those with acute kidney injury, the eGFR may not accurately reflect actual GFR. Performed By: #### 2 4321-2 ####[facility] LABIA [id number] [place] [address] [place] Glucose [Mass/Vol] 84 mg/dL Normal 74-99 [facility] Comment on above: Order Comment: Speci men Type: BLOOD SPECIMENOrdering Facility: [facility] Address: [address] [id number] Result Comment: The [place] Diabetes Association (ADA) provides guidance for cutoff values for fasting glucose and random glucose. The ADA defines fasting as no caloric intake for at least 8 hours. Fasting plasma glucose results between 100 to 125 mg/dL indicate increased risk for diabetes (prediabetes). Fasting plasma glucose results greater than or equal to 126 mg/dL meet the criteria for diagnosis of diabetes. In the absence of unequivocal hyperglycemia, results should be confirmed by repeat testing. In a patient with classic symptoms of hyperglycemia or hyperglycemic crisis, random plasma glucose results greater than or equal to 200 mg/dL meet the criteria for diagnosis of diabetes. Reference: Standards of Medical Care in Diabetes 2016, [place] Diabetes Association. Diabetes Care. 2016.39(Suppl 1). Performed By: #### 2 4321-2 ####[facility] LABCLIA [id number] [place] [address] [place] Potassium [Moles/Vol] 4.2 mmol/L Normal 3.7-5.1 [facility] Comment on above: Order Comment: Speci men Type: BLOOD SPECIMENOrdering Facility: [facility] Address: [address] [place], [place] [address] Performed By: #### 2 4321-2 ####[facility] LABCLIA [id number] [place] [address] [place] Sodium [Moles/Vol] 137 mmol/L Normal 136-144 [facility] Comment on above: Order Comment: Speci men Type: BLOOD SPECIMENOrdering Facility: [facility] Address: [address] [id number] Performed By: #### 2 4321-2 ####[facility] LABCLIA [id number] [place] [address] [place] Urea nitrogen [Mass/Vol] 12 mg/dL Normal 7-[address] [facility] Comment on above: Order Comment: Speci men Type: BLOOD SPECIMENOrdering Facility: [facility] Address: [address] [place] [address] Performed By: #### 2 4321-2 ####[facility] LABCAYETANO [id number] [facility] [id number] [id number] [place] CNOVon 11-16-2024 CNOV Office Visit (INTMWS ) RACHEL CHOI ([id number]) 1980 F Date Time Provider Department 11/16/24 7:00 AM LORENZA MITCHELL INTMWS During your visit today, we recorded the following information about you: Pulse Respiration Blood pressure Weight 93/minute 16/minute 130/82 106 kg Lorenza Mitchell APRN.BIOSOLIDS MANAGEMENT TECHNICIAN 11/16/2024 8:04 AM Signed SUBJECTIVE: Depression Screening Never done Anxiety Screening Never done Hepatitis C Screening Never done HIV Screening Never done Hepatitis B Vaccine(1 of 3 - 19+ 3-dose series) Never done DTaP,Tdap,Td Vaccine(2 - Td or Tdap) due on 06/01/2024 Covid-19 Vaccine(2023- season) due on 07/18/2024 Mammogram Screening due on 12/01/2024 HPI Rachel A Deon is a 44 year old female. PMH significant for ACTIVE PROBLEM LIST Acute Atopic Conjunctivitis Allergic Rhinitis, Cause Unspecified Migraine, Menstrual Fontaine's Palsy Uses Oral Contraception Tobacco Abuse Obesity Nausea Alone Abdominal Pain, Unspecified Site Hematuria Frequency Urinary Tract Infection Associated With Catheterization of Urinary Tract (Hcc) (Hcc) Frequency of Micturition Dysuria Presents today regarding GERD. Notes for the last couple of months having GERD related sugary foods and increased breads 1-2 times per week, awakening from sleep with this. Taking aloe vera extract 2oz, repeat through day up to 8 oz/day. Seems to help somewhat. Heartburn: yes Reflux: yes at night a couple of times per week awakening her from sleep Abdominal pain: epigastric pain noted Nausea: no Vomiting: no Diarrhea: no Constipation:no BRBPR: no Black tarry: no On arrival notes that she was seen at [facility] 11/12/2024 for renal calculus. She presented with flank pain with radiation to abdomen and nause 2 hours prior to arrival. Notes prior renal calculus ~1.[address] abdomen pelvis showed bilaterl renal calculus with left proximal ureteral stone with hydronephrosis. Mild leukocytosis on labs,creatinine increased at 1.12. Urinalysis was negative. Treated with Basom, Flomax and nausea mediction.She reports that the kidney stone passed while in the ER. Reports that the stone was sent for analysis at the hospital. She was advised to follow-up with urology, Dr. Bain. She reports no dysuria urgency frequency hematuria or flank pain. Not taking flomax o other medications due to not needing them. Review of Systems Constitutional: Negative. Hematological: Negative for adenopathy. Objective BP 130/82 Pulse 93 Resp 16 Wt 106 kg (233 lb 11 oz) LMP 06/15/2024 (Exact Date) BMI 42.74 kg/m? Physical Exam Vitals and nursing note reviewed. Constitutional: Appearance: Normal appearance. HENT: Head: Normocephalic and atraumatic. Eyes: Conjunctiva/sclera: Conjunctivae normal. Cardiovascular: Rate and Rhythm: Normal rate. Pulmonary: Effort: Pulmonary effort is normal. Musculoskeletal: Right lower leg: No edema. Left lower leg: No edema. Skin: General: Skin is warm and dry. Neurological: General: No focal deficit present. Mental Status: She is alert and oriented to person, place, and time. ALLERGIES Allergen Reactions Codeine Other: See Comments, Unknown Erythromycin Hives Percocet [Oxycodone* Vomiting Seasonal Allergies Other: See Comments Cats Dogs Dust mites trees (January, February and March) weeds (June, July and August) ragweed (June, July and August) Medications levonorgestrel (MIRENA) 21 mcg/24 hours (8 yrs) 52 mg IUD 1 Each by INTRAUTERINE route as directed. Magnesium Glycinate 100 mg tab Take 500 mg by mouth as needed. Takes up to 500mg prn fluticasone (FLONASE) 50 mcg/actuation nasal spray Use 2 Sprays in each nostril once daily. Rinse mouth after use. (Patient taking differently: Use 2 Sprays in each nostril as needed for cold/allergy symptoms. Rinse mouth after use.) CETIRIZINE HCL (ZYRTEC ORAL) Take 10 mg by mouth as needed (allergies). Multivitamin capsule Take 1 capsule by mouth once daily. doxycycline (VIBRA-TABS) 100 mg tablet Take 2 tablets by mouth once daily. (Patient not taking: Reported on 07/26/2024) PAST MEDICAL HISTORY Diagnosis Date Allergic rhinitis Colon polyps Constipation during Endometriosis History of colposcopy 05/14/2021 with ECC-normal Multiple thyroid nodules Obesity Psychiatric disorder ANXIETY Psychiatric disorder anxiety Tobacco abuse Uterine fibroid Social History Tobacco Use Smoking status: Former Current packs/day: 0.00 Types: Cigarettes Start date: 02/23/2014 Quit date: 02/23/2019 Years since quittin.7 Smokeless tobacco: Never Tobacco comments: Currently smoking 1cigarette a day Vaping Use Vaping status: Some Days Substances: Nicotine Devices: Pre-filled or refillable cartridge, Juul 3% Substance Use Topics Alcohol use: No Drug use: (more content not included)... Normal [facility] Abdomen/Pelvis without Conto n 11-12-2024 Abdomen/Pelvis without Cont [facility] Imaging Services [address] [place] [id number] Abdomen/Pelvis without Cont MR#: [id number] Acct: [id number] Name: RACHEL CHOI Rep #: [id number] : 1980 F 44 From: Koffi Gaitan MD PCP: Dr. Yahir Raygoza MD Status: REG ER Study: Abdomen/Pelvis without Cont Date of Exam: 10/18 06/09 Exam# [id number] Ordering Dr: Deon Lees PHARMACY LABORATORY TECHNICIAN-C [id number] STUDY: CT ABDOMEN AND PELVIS WITHOUT CONTRAST REASON FOR EXAM: Female, 44 years old. Pain RADIATION DOSAGE (If Supplied By Facility): CTDIvol = ( 23.51 ) mGy, DLP = ( 1133.70 ) mGycm TECHNIQUE: Transaxial images were obtained from the dome of the diaphragm to the symphysis pubis without oral contrast, and without intravenous contrast. Sagittal and coronal images were reconstructed. Individualized dose optimization techniques were used for this CT. COMPARISON: June 08, 2023 FINDINGS: The visualized lung bases are unremarkable. The visualized portions of the heart are within normal limits. There is hepatomegaly with diffuse hepatic enlargement. Normal gallbladder and extrahepatic biliary system. Normal spleen. Normal pancreas. Normal bilateral adrenal glands. There is a 0.2 cm stone of the right kidney. There are 0.1 and 0.2 cm stones of the left kidney. There is mild left hydronephrosis and perinephric stranding. There is 0.2 cm left proximal ureteral stone. Normal visualized stomach. Normal small intestine. Normal colon. There are surgical clips in the region of the appendix consistent with a prior appendectomy. Normal abdominal aorta. Normal inferior vena cava. Normal retroperitoneum. Normal urinary bladder. There is an IUD in the uterus. There is no free fluid in the abdomen or pelvis. Normal abdominal wall. There is mild degenerative change of the spine. CT/Abdomen/Pelvis without Cont IMPRESSION: Bilateral renal stones. Left proximal ureteral stone with hydronephrosis. Hepatomegaly. No biliary dilatation. Electronically Signed: Koffi Gaitan MD at 13:14 [facility] Reading Location ID and State: [facility] / [place] , Service support , CC: NAHID Lees; Dr. Yahir Raygoza MD Care Asst: Signed Normal [facility] CBC W/Diff, Automatedon 12-2 Absolute Lymph 2.46 X10 3/uL Normal 0.83-4.51 [facility] Comment on above: Performed By: #### L 100.0100, L500.4050, L501.2450 #### [facility] [address] [place], [address] Absolute Neut 7.5 X10 3/uL Normal 2.0-7.7 [facility] Comment on above: Performed By: #### L 100.0100, L500.4050, L501.2450 #### [facility] [address] [place], [address] Basophils/100 WBC (Bld) 0.4 % Normal 0-1 [facility] Comment on above: Performed By: #### L 100.0100, L500.4050, L501.2450 #### [facility] [address] [place], [address] Eosinophils/100 WBC (Bld) 1.9 % Normal 0-5 [facility] Comment on above: Performed By: #### L 100.0100, L500.4050, L501.2450 #### [facility] [address] [place], [address] Erythrocyte distribution width (RBC) [Ratio] 15.6 % High 11.6-14.6 [facility] Comment on above: Performed By: #### L 100.0100, L500.4050, L501.2450 #### [facility] [address] [place], [address] Hematocrit (Bld) [Volume fraction] 44.2 % Normal 37-47 [facility] Comment on above: Performed By: #### L 100.0100, L500.4050, L501.2450 #### [facility] [address] [place], [address] Hemoglobin (Bld) [Mass/Vol] 13.7 g/dL Normal 12.0-15.0 [facility] Comment on above: Performed By: #### L 100.0100, L500.4050, L501.2450 #### [facility] [address] [place], [address] IG% 1.700 High 0.0-0.9 [facility] Comment on above: Result Comment: IG% - Immature Granulocytes (promyelocytes, myelocytes and metamyelocytes) > 1% indicates that a LEFT SHIFT is Present. Performed By: #### L 100.0100, L500.4050, L501.2450 #### [facility] [address] [place], [address] Lymphocytes/100 WBC (Bld) 21.4 % Normal 19-41 [facility] Comment on above: Performed By: #### L 100.0100, L500.4050, L501.2450 #### [facility] [address] [place], [address] MCH (RBC) [Entitic mass] 26.7 pg Low 27.0-32.0 [facility] Comment on above: Performed By: #### L 100.0100, L500.4050, L501.2450 #### [facility] [address] [place], [address] MCHC (RBC) [Mass/Vol] 31.0 g/dL Low 32-36 [facility] Comment on above: Performed By: #### L 100.0100, L500.4050, L501.2450 #### [facility] [address] [place], [address] MCV (RBC) [Entitic vol] 86.0 fL Normal 81-99 [facility] Comment on above: Performed By: #### L 100.0100, L500.4050, L501.2450 #### [facility] [address] [place], [address] Monocytes/100 WBC (Bld) 9.7 % Normal 0-10 [facility] Comment on above: Performed By: #### L 100.0100, L500.4050, L501.2450 #### [facility] [address] [place], [address] Neutrophils/100 WBC (Bld) 64.9 % Normal 47-70 [facility] Comment on above: Performed By: #### L 100.0100, L500.4050, L501.2450 #### [facility] [address] [place], [address] Nucleated RBC (Bld) [#/Vol] 0 10*3/uL Normal 0-5 [facility] Comment on above: Performed By: #### L 100.0100, L500.4050, L501.2450 #### [facility] [address] [place], [address] Platelet mean volume (Bld) [Entitic vol] 10.0 fL Normal 6.2-12.0 [facility] Comment on above: Performed By: #### L 100.0100, L500.4050, L501.2450 #### [facility] [address] [place], [address] Platelets (Bld) [#/Vol] 370 10*3/uL Normal 150-450 [facility] Comment on above: Performed By: #### L 100.0100, L500.4050, L501.2450 #### [facility] [address] [place], [address] RBC (Bld) [#/Vol] 5.14 10*6/uL Normal 4.2-5.4 [facility] Comment on above: Performed By: #### L 100.0100, L500.4050, L501.2450 #### [facility] [address] [place], [address] RDW SD 49.1 fl High 35.1-43.9 [facility] Comment on above: Performed By: #### L 100.0100, L500.4050, L501.2450 #### [facility] [address] [place], [address] WBC (Bld) [#/Vol] 11.5 10*3/uL High 4.4-11.0 [facility] Comment on above: Performed By: #### L 100.0100, L500.4050, L501.2450 #### [facility] [address] [place], [address] Comprehensive Metabolic Prof ilon 11-12-2024 Albumin [Mass/Vol] 3.3 g/dL Normal 3.2-5.0 [facility] Comment on above: Performed By: #### L 100.0100, L500.4050, L501.2450 #### [facility] [address] [place], [address] Albumin/Globulin [Mass ratio] 0.8 {ratio} Low 0.9-2.4 [facility] Comment on above: Performed By: #### L 100.0100, L500.4050, L501.2450 #### [facility] [address] [place], [address] ALK P 95 U/L Normal 45-117 [facility] Comment on above: Performed By: #### L 100.0100, L500.4050, L501.2450 #### [facility] [address] [place], [address] ALT [Catalytic activity/Vol] 20 U/L Normal 13-56 [facility] Comment on above: Performed By: #### L 100.0100, L500.4050, L501.2450 #### [facility] [address] [place], [address] AST [Catalytic activity/Vol] 21 U/L Normal 15-37 [facility] Comment on above: Performed By: #### L 100.0100, L500.4050, L501.2450 #### [facility] [address] [place], [address] Bilirubin [Mass/Vol] 0.20 mg/dL Normal 0.20-1.00 [facility] Comment on above: Result Comment: For patients on eltrombopag therapy, use of Dimension Talmo TBIL is not recommended. Performed By: #### L 100.0100, L500.4050, L501.2450 #### [facility] [address] [place], [address] BUN/CRE 16.1 RATIO Normal 10-20 [facility] Comment on above: Performed By: #### L 100.0100, L500.4050, L501.2450 #### [facility] [address] [place], [address] CA,Total 8.8 mg/dL Normal 8.5-10.1 [facility] Comment on above: Performed By: #### L 100.0100, L500.4050, L501.2450 #### [facility] [address] [place], [address] Chloride [Moles/Vol] 108 mmol/L High 98-107 [facility] Comment on above: Performed By: #### L 100.0100, L500.4050, L501.2450 #### [facility] [address] [place], [address] CO2 [Moles/Vol] 22.0 mmol/L Normal 21.0-32.0 [facility] Comment on above: Performed By: #### L 100.0100, L500.4050, L501.2450 #### [facility] [address] [place], [address] Creatinine [Mass/Vol] 1.12 mg/dL High 0.55-1.02 [facility] Comment on above: Result Comment: The validity of the calculated GFR GFRAA in patients over 70 years has not been determined. Clinical correlation is essential. Performed By: #### L 100.0100, L500.4050, L501.2450 #### [facility] [address] [place], [address] ECRCL 73.43 ml/min Normal [facility] Comment on above: Performed By: #### L 100.0100, L500.4050, L501.2450 #### [facility] [address] [place], [address] EST GFR - AA 68 mL/min Normal >60 [facility] Comment on above: Result Comment: Afri can [place] GFR Calc Performed By: #### L 100.0100, L500.4050, L501.2450 #### [facility] [address] [place], [address] GAP 7 Normal 5-15 [facility] Comment on above: Performed By: #### L 100.0100, L500.4050, L501.2450 #### [facility] [address] [place], [address] GFR/1.73 sq M.predicted among non-blacks MDRD (S/P/Bld) [Vol rate/Area] 56 mL/min/{1.73_m2} Low >60 [facility] Comment on above: Result Comment: Non- GFR Calc Performed By: #### L 100.0100, L500.4050, L501.2450 #### [facility] [address] [place], [address] Globulin (S) [Mass/Vol] 4.2 g/dL Normal 2.2-4.2 [facility] Comment on above: Performed By: #### L 100.0100, L500.4050, L501.2450 #### [facility] [address] [place], [address] Glucose [Mass/Vol] 90 mg/dL Normal 74-106 [facility] Comment on above: Performed By: #### L 100.0100, L500.4050, L501.2450 #### [facility] [address] [place], [address] Potassium [Moles/Vol] 3.8 mmol/L Normal 3.5-5.1 [facility] Comment on above: Performed By: #### L 100.0100, L500.4050, L501.2450 #### [facility] [address] [place], [address] Sodium [Moles/Vol] 138 mmol/L Normal 136-145 [facility] Comment on above: Performed By: #### L 100.0100, L500.4050, L501.2450 #### [facility] [address] [place], [address] T PROT 7.5 g/dL Normal 6.4-8.2 [facility] Comment on above: Performed By: #### L 100.0100, L500.4050, L501.2450 #### [facility] [address] [place], [address] Urea nitrogen [Mass/Vol] 18 mg/dL Normal 7-18 [facility] Comment on above: Performed By: #### L 100.0100, L500.4050, L501.2450 #### [facility] [address] [place], [address] Emergency Department Summary on 11-12-2024 Emergency Department Summary [facility] Medical Records Department [address] [place] [address] Emergency Department Summary 11/12/24 MR#: [id number] Acct: [id number] Name: RACHEL CHOI Rep #: [id number] : 1980 44 From: [facility]on [facility] PCP: Dr. Yahir Raygoza MD Status:DEP ER Location: ED HPI History of Present Illness Chief Complaint: Flank Pain Narrative Narrative: Patient a 44-year-old female with no significant medical history presents to the emerged department for left-sided flank pain. Pay states she woke up this morning, had some aching in her back. She is some generalized stretching, ice and heat. Patient states that roughly 2 hours ago, the pain became much more severe radiating to her left abdomen. Patient does have history of a kidney stone greater than 1.5 years ago. Patient is here for evaluation. States to have some nausea however no significant vomiting. [facility] Medical History (Updated 11/12/24 @ 13:46 by NAHID Hamilton) Gestational diabetes Maternal anemia in , antepartum Spontaneous rupture of amiotic membranes Home Medications ???Medication ???Instructions ???Recorded ???Last Taken ???Type elderberry fruit 200 mg capsule PO DAILY supplement 03/21/21 03/20/21 History magnesium 500 mg tablet 500 mg PO DAILY migraine prevention 03/21/21 03/19/21 History hydrocodone-acetamino phen 5-325mg 1 tab PO Q4H PRN PRN Pain 2 days 04/28/22 Unknown Rx 5mg-325mg #10 TABLETS lorazepam 0.5 mg tablet (Ativan) 0.5 mg PO TID PRN Anxiety 04/28/22 Unknown History ondansetron 4 mg disintegrating 4 mg PO Q8H PRN PRN Nausea #10 tabs 04/28/22 Unknown Rx tablet hydrocodone-acetamino phen 5-325mg 1 tab PO Q6H PRN PRN Pain 3 days 06/08/23 Unknown Rx 5mg-325mg #12 TABLETS ibuprofen 800 mg tablet 800 mg PO Q8H PRN pain #20 tabs 06/08/23 Unknown Rx ondansetron 4 mg disintegrating 4 mg PO Q8H PRN PRN Nausea #10 tabs 06/08/23 Unknown Rx tablet tamsulosin 0.4 mg capsule (Flomax) 0.4 mg PO DAILY #10 caps 06/08/23 Unknown Rx hydrocodone-acetamino phen 5-325mg 1 tab PO Q6H PRN PRN Pain 3 days 11/12/24 Unknown Rx 5mg-325mg #10 TABLETS ondansetron 4 mg disintegrating 4 mg PO Q8H PRN PRN Nausea #10 tabs 11/12/24 Unknown Rx tablet tamsulosin 0.4 mg capsule (Flomax) 0.4 mg PO DAILY #7 caps 11/12/24 Unknown Rx Allergy/AdvReac Type Severity Reaction Status Date / Time codeine AdvReac Nausea/Vom/ Verified 11/12/24 11:21 Diarrhea oxycodone HCl (From Percocet) AdvReac Nausea/Vom/ Verified 11/12/24 11:21 Diarrhea Surgical History (Updated 06/08/23 @ 05:[address] Rachel Ward MD) H/O bilateral salpingectomy Previous section Social History Smoking Status: Former smoker ROS ROS ED ROS Narrative Constitutional: Negative for fever, chills, weight loss, weakness Eyes: Negative for vision loss, vision change, double vision ENT: Negative for any sore throat, ear pain, congestion Cardiovascular: Negative for any chest pain, tightness, palpitations Respiratory: Negative for any cough, sputum production, hemoptysis, dyspnea, dyspnea on exertion, orthopnea Gastrointestinal: Negative for any abdominal pain, vomiting, diarrhea, constipation, blood in stool, blood in vomit. Positive for left-sided flank pain, left-sided abdominal pain : Negative for any urinary frequency, dysuria, retention, blood in urine Muscle skeletal: Negative for any neck pain, back pain Neurological: Negative for any headache, syncope, dizziness Skin: Negative for any rashes, itching, abrasions, lacerations Psychiatric: Negative for any depression, anxiety, stress, suicidal ideation, homicidal ideation Hematologic: Negative for any excessive bruising, easy bleeding EXAM Physical Exam Narrative Exam Narrative: Vital signs reviewed. On my initial evaluation, patient did seem to be in mild distress. Patient does have pain to the left flank that radiates to the front. HEET: Head normocephalic atraumatic, TMs clear bilaterally. Posterior pharynx is clear, moist mucous membranes. Nares clear bilaterally. Neck: Supple with no lymphadenopathy or tenderness. No signs of meningismus. Cardiac: Regular rate and rhythm no murmurs gallops or rubs, equal peripheral pulses bilaterally. Respiratory: Lungs clear to auscultation bilaterally. No chest tenderness. Abdomen: Soft, nontender, nondistended. No abdominal bruit or pulsatile masses. No hepatosplenomegaly Extremities: No peripheral edema, no signs of gross trauma or deformity. Active full range of motion of all extremities. Neuro: Cranial nerves II through XII intact, no focal neurological deficits. Skin: Clean dry and intact with no rash, purpura, petechiae, vesicles or pustules. Backs/flank: Positive left-sided CVA tenderness no midline (more content not included)... Normal [facility] Lipaseon 11-12-2024 Lipase [Catalytic activity/Vol] 52 U/L Normal 13-75 [facility] Comment on above: Result Comment: Lubna hartman note: LIPASE revised reference range effective 23. New Lipase methodology. Expected to produce lower values than the previous assay method. NEW Reference Range: 13 - 75 U/L Performed By: #### L 100.0100, L500.4050, L501.2450 #### [facility] [address] [place], [address] Urinalysis, Completeon 11-12 EPI,SQUAMOUS 0-5 SEEN Normal 5-10 [facility] Comment on above: Order Comment: CLEAN CATCH Performed By: #### L 400.0001 #### [facility] [address] [place], [address] RBC 0-5 SEEN Normal 0-5 [facility] Comment on above: Order Comment: CLEAN CATCH Performed By: #### L 400.0001 #### [facility] [address] [place], [address] BACTERIA 0 SEEN Normal None Seen [facility] Comment on above: Order Comment: CLEAN CATCH Performed By: #### L 400.0001 #### [facility] [address] [place], [address] Mucus Ql (Urine sed) 0 SEEN Normal [facility] Comment on above: Order Comment: CLEAN CATCH Performed By: #### L 400.0001 #### [facility] [address] [place], [address] WBC 0 SEEN Normal 0-5 [facility] Comment on above: Order Comment: CLEAN CATCH Performed By: #### L 400.0001 #### [facility] [address] [place], [address] Culture, Throaton 11-04-2024 CUT Mixed normal throat olvin. No Haemophilus, Streptococcus pneumoniae, beta-hemolytic Streptococcus group A,or Staphylococcus aureus isolated. Normal [facility] Comment on above: Performed By: #### M 100.1000 #### [facility] [address] [place], [address] [facility] 10[facility]09[facility] RACHEL CHOI ([id number]) 1980 F Date Time Provider Department 10/09/24 8:30 AM EFREN PUTNAM [facility] During your visit today, we recorded the following information about you: Temperature Pulse Respiration Blood pressure 98.6 degrees 118/minute 18/minute 134/82 Weight 104.9 kg Efren Putnam APRN.FLOOR SPACE ALLOCATOR 10/09/2024 8:32 AM Signed This note was created using [employer]. Subjective Rachel hCoi is a 44 year old female. HPI About twice a year pt develops a sinus infection. She starts using Zyrtec and Flonase. She developed symptoms about two weeks ago. Including sinus congestion, ear pressure, and sore throat. She follow with ENT who will see her in about two weeks. Review of Systems Constitutional: Negative for fever. HENT: Positive for ear pain, sinus pressure, sinus pain and sore throat. Neurological: Positive for headaches. Objective BP 134/82 Pulse 118 Temp 37 ?C (98.6 ?F) Resp 18 Wt 104.9 kg (231 lb 4.2 oz) LMP 06/15/2024 (Exact Date) SpO2 99% BMI 42.30 kg/m? Physical Exam Vitals and nursing note reviewed. Constitutional: General: She is not in acute distress. Appearance: Normal appearance. She is not ill-appearing. HENT: Head: Normocephalic. Right Ear: Tympanic membrane normal. Left Ear: Tympanic membrane normal. Mouth/Throat: Mouth: Mucous membranes are moist. Pharynx: No oropharyngeal exudate or posterior oropharyngeal erythema. Eyes: Conjunctiva/sclera: Conjunctivae normal. Cardiovascular: Rate and Rhythm: Normal rate and regular rhythm. Pulmonary: Effort: Pulmonary effort is normal. Breath sounds: Normal breath sounds. Musculoskeletal: General: Normal range of motion. Cervical back: Normal range of motion. Skin: General: Skin is warm and dry. Neurological: General: No focal deficit present. Mental Status: She is alert. Psychiatric: Mood and Affect: Mood normal. Behavior: Behavior normal. Assessment and Plan ASSESSMENT/PLAN: 1. Bacterial sinusitis - ICD9: 473.9, 041.9, ICD10: J32.9, B96.89 - Will begin treatment with as per antibiotic as written, see orders - The patient should also be given warm salt water gargles, throat lozenges and/or OTC throat spray as needed and will continue to use her home Flonase and antihistamine for the first 5-7 days of treatment. - Supportive care with plenty of fluids, rest, and analgesia prn. - AMOXICILLIN 875 MG-POTASSIUM CLAVULANATE 125 MG TABLET - PREDNISONE 50 MG TABLET Efren Putnam APRN.FLOOR SPACE ALLOCATOR Allergies As of Date: 10/09/2024 Noted Allergy Reaction CODEINE 09/04/2016 14 - Other: See Comments 16 - Unknown ERYTHROMYCIN 01/12/2013 4 - Hives PERCOCET (OXYCODONE-ACETAMINOP HEN)01/12/2013 11 - Vomiting SEASONAL ALLERGIES 08/31/2012 14 - Other: See Comments Comments: Cats Dogs Dust mites trees (January, February and March) weeds (June, July and August) ragweed (June, July and August) Date Reviewed: 10/09/2024 Reviewed by: Efren Putnam APRN.FLOOR SPACE ALLOCATOR - Fully Assessed Reason for Visit: Sinus Problem [99] Cmt: sinus and ear pressure x 2 weeks Primary Visit Diagnosis:Bacterial sinusitis [J32.9, B96.89] Order(s):amoxicillin- clavulanate potassium (AUGMENTIN) 875-125 mg per tabletTake 1 tablet by mouth two times a day for 5 days.Disp: 10 tabletRfl: 0 predniSONE (DELTASONE) 50 mgTake 1 tablet by mouth once daily for 5 days.Disp: 5 tabletRfl: 0 Prescriptions as of 10/09/2024 - amoxicillin-clavulana te potassium (AUGMENTIN) 875-125 mg per tablet Take 1 tablet by mouth two times a day for 5 days. - predniSONE (DELTASONE) 50 mg Take 1 tablet by mouth once daily for 5 days. - doxycycline (VIBRA-TABS) 100 mg tablet Take 2 tablets by mouth once daily. - levonorgestrel (MIRENA) 21 mcg/24 hours (8 yrs) 52 mg IUD 1 Each by INTRAUTERINE route as directed. - Magnesium Glycinate 100 mg tab Take 500 mg by mouth as needed. Takes up to 500mg prn - fluticasone (FLONASE) 50 mcg/actuation nasal spray Use 2 Sprays in each nostril once daily. Rinse mouth after use. - CETIRIZINE HCL (ZYRTEC ORAL) Take 10 mg by mouth as needed (allergies). - Multivitamin capsule Take 1 capsule by mouth once daily. 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 Normal [facility] CNOVon 07-26-2024 CNOV Office Visit ([facility] ) RACHEL CHOI ([id number]) 1980 F Date Time Provider Department 07/26/24 7:00 AM LORENZA MITCHELL During your visit today, we recorded the following information about you: Pulse Respiration Blood pressure Weight 98/minute 16/minute 127/79 105 kg Lorenza Mitchell, GRANTS AND CONTRACTS ASSISTANT.BIOSOLIDS MANAGEMENT TECHNICIAN 07/26/2024 7:34 AM Signed SUBJECTIVE: Depression Screening Never done Anxiety Screening Never done Hepatitis C Screening Never done HIV Screening Never done Hepatitis B Vaccine(1 of 3 - 19+ 3-dose series) Never done DTaP,Tdap,Td Vaccine(2 - Td or Tdap) due on 06/01/2024 Covid-19 Vaccine(3 - season) due on 07/18/2024 Influenza Vaccine(1) due on 07/18/2024 Mammogram Screening due on 12/01/2024 HPI Rachel Choi is a 43 year old female. PMH significant for ACTIVE PROBLEM LIST Acute Atopic Conjunctivitis Allergic Rhinitis, Cause Unspecified Migraine, Menstrual Fontaine's Palsy Uses Oral Contraception Tobacco Abuse Obesity Nausea Alone Abdominal Pain, Unspecified Site Hematuria Frequency Urinary Tract Infection Associated With Catheterization of Urinary Tract (Hcc) (Hcc) Frequency of Micturition Dysuria Presents today noting pain and small mass in the left axilla this weekend. No recent illness or injury reported. No breast masses noted. She notes changing from deodorant antiperspirant about 1 month ago. Notes mother has recently diagnosed breast cancer, HER2+. She is undergoing additional genetic testing. She is concerned about possible breast cancer. Screening mammogram November 2023 was benign. Review of Systems Constitutional: Negative. Hematological: Negative for adenopathy. Objective BP 127/79 Pulse 98 Resp 16 Wt 105 kg (231 lb 7.7 oz) LMP 06/15/2024 (Exact Date) BMI 42.34 kg/m? Physical Exam Vitals and nursing note reviewed. Constitutional: Appearance: Normal appearance. HENT: Head: Normocephalic and atraumatic. Eyes: Conjunctiva/sclera: Conjunctivae normal. Cardiovascular: Rate and Rhythm: Normal rate. Pulmonary: Effort: Pulmonary effort is normal. Chest: Comments: No mass appreciated left breast, breast tissue left upper outer breast left axilla area palpated at left axilla, no palpable mass Musculoskeletal: Right lower leg: No edema. Left lower leg: No edema. Skin: General: Skin is warm and dry. Neurological: General: No focal deficit present. Mental Status: She is alert and oriented to person, place, and time. ALLERGIES Allergen Reactions Codeine Other: See Comments, Unknown Erythromycin Hives Percocet [Oxycodone* Vomiting Seasonal Allergies Other: See Comments Cats Dogs Dust mites trees (January, February and March) weeds (June, July and August) ragweed (June, July and August) levonorgestrel (MIRENA) 21 mcg/24 hours (8 yrs) 52 mg IUD 1 Each by INTRAUTERINE route as directed. Magnesium Glycinate 100 mg tab Take 500 mg by mouth as needed. Takes up to 500mg prn CETIRIZINE HCL (ZYRTEC ORAL) Take 10 mg by mouth as needed (allergies). Multivitamin capsule Take 1 capsule by mouth once daily. doxycycline (VIBRA-TABS) 100 mg tablet Take 2 tablets by mouth once daily. (Patient not taking: Reported on 07/26/2024) fluticasone (FLONASE) 50 mcg/actuation nasal spray Use 2 Sprays in each nostril once daily. Rinse mouth after use. (Patient taking differently: Use 2 Sprays in each nostril as needed for cold/allergy symptoms. Rinse mouth after use.) PAST MEDICAL HISTORY No date: Allergic rhinitis No date: Colon polyps No date: Constipation Comment: during No date: Endometriosis 05/14/2021: History of colposcopy Comment: with ECC-normal No date: Multiple thyroid nodules No date: Obesity No date: Psychiatric disorder Comment: ANXIETY No date: Psychiatric disorder Comment: anxiety No date: Tobacco abuse No date: Uterine fibroid Social History Tobacco Use Smoking status: Former Current packs/day: 0.00 Types: Cigarettes Start date: 02/23/2014 Quit date: 02/23/2019 Years since quittin.4 Smokeless tobacco: Never Tobacco comments: Currently smoking 1cigarette a day Vaping Use Vaping status: Some Days Substances: Nicotine Devices: Pre-filled or refillable cartridge, Juul 3% Substance Use Topics Alcohol use: No Drug use: No ASSESSMENT/PLAN: 1. Axillary mass, left - ICD9: 782.2, ICD10: R22.32 (primary diagnosis) - [facility] LEFT - US BREAST LTD LEFT 2. Family history of breast cancer - ICD9: V16.3, ICD10: Z80.3 - [facility] LEFT - US BREAST LTD LEFT Endorse completing a diagnostic mammogram and ultrasound left breast at her earliest convenience to exclude breast cancer. Lorenza Mitchell APRN.BIOSOLIDS MANAGEMENT TECHNICIAN Medical Decision Making: Problems: Low: Acute, uncomplicated illness or injury Data: Unique test(s) ordered: 2 Medical Decision Making Lev (more content not included)... Normal [facility] CNOVon 06-15-2024 CNOV Office Visit (UCWSTR ) RACHEL CHOI ([id number]) 1980 F Date Time Provider Department 06/15/24 10:00 AM JASMIN MARTINEZ [facility] During your visit today, we recorded the following information about you: Temperature Pulse Respiration Blood pressure 98.4 degrees 112/minute 18/minute 147/86 Weight Last Period 106 kg 06/15/24 Jasmin Martinez APRN.FLOOR SPACE ALLOCATOR 06/15/2024 12:02 PM Signed This note was created using [employer]. Subjective Rachel Mary Choi is a 43 year old female. 43 year old female with PMH [place] Palsy presents for insect bite. Acute onset this morning. Nape of neck Endorses that she pulled off a tick +redness at bite sight +tenderness Unsure of how long tick has been present for. I feel feverish inside" but denies fever. Denies chills. Denies malaise or fatigue Denies skin rash or lesions. 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 States "worried about Lyme disease" The history is provided by the patient. No foreign language interpreter was used. Trauma This is a new problem. The current episode started today. The problem occurs constantly. The problem has been unchanged. Pertinent negatives include no abdominal pain, anorexia, arthralgias, change in bowel habit, chest pain, chills, congestion, coughing, diaphoresis, fatigue, fever, headaches, joint swelling, myalgias, nausea, neck pain, numbness, rash, sore throat, swollen glands, urinary symptoms, vertigo, visual change, vomiting or weakness. Nothing aggravates the symptoms. She has tried nothing for the symptoms. The treatment provided no relief. PAST MEDICAL HISTORY Diagnosis Date Allergic rhinitis Colon polyps Constipation during Endometriosis History of colposcopy 05/14/2021 with ECC-normal Multiple thyroid nodules Obesity Psychiatric disorder ANXIETY Psychiatric disorder anxiety Tobacco abuse Uterine fibroid PAST SURGICAL HISTORY Procedure Laterality Date DELIVERY ONLY , low transverse DELIVERY ONLY 2020 COLONOSCOPY 06/2019 COLONOSCOPY FLX DX W/COLLJ SPEC WHEN PFRMD 03/22/2015 Colonoscopy ESOPHAGOGASTRODUODENO SCOPY TRANSORAL DIAGNOSTIC 03/22/2015 EGD LAPAROSCOPIC APPENDECTOMY 1995 w/ lysis of adhesions LIGATE FALLOPIAN TUBE Bilateral 03/21/2021 PAST SURGICAL HISTORY OF 2001 laparoscopy with lysis of adhesions. ALLERGIES Codeine, Erythromycin, Percocet [Oxycodone-Acetaminop hen], and Seasonal Allergies MEDICATIONS levonorgestrel (MIRENA) 21 mcg/24 hours (8 yrs) 52 mg IUD 1 Each by INTRAUTERINE route as directed. Magnesium Glycinate 100 mg tab Take 500 mg by mouth as needed. Takes up to 500mg prn fluticasone (FLONASE) 50 mcg/actuation nasal spray Use 2 Sprays in each nostril once daily. Rinse mouth after use. (Patient taking differently: Use 2 Sprays in each nostril as needed for cold/allergy symptoms. Rinse mouth after use.) CETIRIZINE HCL (ZYRTEC ORAL) Take 10 mg by mouth as needed (allergies). Multivitamin capsule Take 1 capsule by mouth once daily. doxycycline (VIBRA-TABS) 100 mg tablet Take 2 tablets by mouth once daily. FAMILY HISTORY Problem Relation Age of Onset Anxiety disorder Mother other (ulcers) Mother other (ulcers) Father hiatal hernia other (acid reflux) Sister other (IBS) Brother digestive issues Diabetes Maternal Grandmother Cancer Maternal Grandfather lung Cancer Paternal Grandmother lung cancer Cancer Paternal Grandfather bladder cancer No Known Problems Son Anesthesia Problems No Family History Social History Tobacco Use Smoking status: Former Years: 5 Types: Cigarettes Quit date: 02/23/2019 Years since quittin.3 Smokeless tobacco: Never Tobacco comments: Currently smoking 1cigarette a day Vaping Use Vaping Use: Some days Substances: Nicotine Devices: Pre-filled or refillable cartridge, Juul 3% Substance Use Topics Alcohol use: No Drug use: No Review of Systems Constitutional: Negative for activity change, appetite change, chills, diaphoresis, fatigue and fever. HENT: Negative for congestion and sore throat. Eyes: Negative for photophobia, pain, discharge, redness and itching. Respiratory: Negative for apnea, cough, choking and chest tightness. Cardiovascular: Negative for chest pain, palpitations and leg swelling. Gastrointestinal: Negative for abdominal pain, anorexia, change in bowel habit, diarrhea, nausea and vomiting. Musculoskeletal: Negative for arthralgias, back pain, gait problem, joint swelling, myalgias and neck pain. Skin: Negative for color change, pallor, rash and wound. Allergic/Immunologic: Negative for environmental allergies, food allergies and immunocompromised state. Neurological: Negative for dizziness, vertigo, facial asymmetry, weakness, light-headedness, numbness and headaches. Hematological: Negative for adenopathy. Does not bruise/bleed easily. Psy (more content not included)... Normal [facility] Absolute lymphocyte countOrd ered By: Rachel Ward on 06-08-2023 Lymphocytes Auto (Unsp spec) [#/Vol] 1.84 10*3/uL 0.83-4.51 [facility] Basophil percentageOrdered B y: Rachel Ward on 06-08-2023 Basophil percentage 0 SEEN /hpf 0-5 [facility] Basophils/100 WBC (Bld) 0.5 % 0-1 [facility] Chloride [Moles/Vol] 109 mmol/L 98-107 [facility] Eosinophils/100 WBC (Bld) 2.1 % 0-5 [facility] Glucose [Mass/Vol] 108 mg/dL 74-106 [facility] Comment on above: Fasting Glucose resu lt from 100 to 125 mg/dL suggests IMPAIRED HOMEOSTASIS per A.D.A. criteria. Neutrophils (Bld) [#/Vol] 5.1 10*3/uL 2.0-7.7 [facility] Neutrophils/100 WBC (Bld) 62.8 % 47-70 [facility] Potassium [Moles/Vol] 4.1 mmol/L 3.5-5.1 [facility] Comment on above: Moderate Hemolysis, Result may be falsely increased. Sodium [Moles/Vol] 139 mmol/L 136-145 [facility] WBC (Bld) [#/Vol] 8.2 10*3/uL 4.4-11.0 [facility] Bilirubin Test strip Ql (U)O rdered By: Rachel Ward on 06-08-2023 Bilirubin Ql (U) Negative Negative [facility] Blood erythrocytes count (nu mber/volume)Ordered By: Rachel Ward on 06-08-2023 RBC (Bld) [#/Vol] 4.51 10*6/uL 4.2-5.4 [facility] Blood hemoglobin measurement (mass/volume)Ordered By: Rachel Ward on 06-08-2023 Hemoglobin (Bld) [Mass/Vol] 12.2 g/dL 12.0-15.0 [facility] Blood lymphocytes/100 leukoc ytesOrdered By: Rachel Ward on 06-08-2023 Lymphocytes/100 WBC (Bld) 22.5 % 19-41 [facility] Blood monocytes/100 leukocyt esOrdered By: Rachel Ward on 06-08-2023 Monocytes/100 WBC (Bld) 11.6 % 0-10 [facility] Blood platelet mean volumeOr dered By: Rachel Ward on 06-08-2023 Platelet mean volume (Bld) [Entitic vol] 9.7 fL 6.2-12.0 [facility] Determination of erythrocyte mean corpuscular volume (MCV)Ordered By: Rachel Ward on 06-08-2023 MCV (RBC) [Entitic vol] 82.9 fL 81-99 [facility] Hematocrit Auto (Bld) [Volum e fraction]Ordered By: Rachel Ward on 06-08-2023 Hematocrit (Bld) [Volume fraction] 37.4 % 37-47 [facility] Ketones Test strip Ql (U)Ord ered By: Rachel Ward on 06-08-2023 Ketones Ql (U) Negative Negative [facility] Laboratory - Chemistry and C hemistry - challengeOrdered By: Rachel Ward on 06-08-2023 CO2 [Moles/Vol] 25.0 mmol/L 21.0-32.0 [facility] Urea nitrogen/Creatinine [Mass ratio] 18.6 mg/mg 10-20 [facility] Laboratory - Hematology and Cell countsOrdered By: Rachel Ward on 06-08-2023 Erythrocyte distribution width (RBC) [Entitic vol] 44.9 fL 35.1-43.9 [facility] Erythrocyte distribution width (RBC) [Ratio] 14.9 % 11.6-14.6 [facility] Immature granulocytes/100 WBC (Bld) 0.500 % 0.0-0.9 [facility] Comment on above: IG% - Immature Granu locytes (promyelocytes, myelocytes and metamyelocytes) > 1% indicates that a LEFT SHIFT is Present. MCH (RBC) [Entitic mass] 27.1 pg 27.0-32.0 [facility] Nucleated RBC/100 WBC (Bld) [Ratio] 0 % 0-5 [facility] MCHC Auto (RBC) [Mass/Vol]Or dered By: Rachel Ward on 06-08-2023 MCHC (RBC) [Mass/Vol] 32.6 g/dL 32-36 [facility] Mucus LM Ql (Urine sed)Order ed By: Rachel Ward on 06-08-2023 Mucus Ql (Urine sed) 0 SEEN /hpf [facility] Nitrite Test strip Ql (U)Ord ered By: Rachel Ward on 06-08-2023 Nitrite Ql (U) Negative Negative [facility] No Panel InformationOrdered By: aRchel Ward on 06-08-2023 Estimated Creatinine Clearance Calc 71.56 ml/min [facility] Estimated GFR (MDRD) Amer 100 mL/min >60 [facility] Comment on above: GFR Calc Estimated GFR (MDRD) Non-Af Amer 82 mL/min >60 [facility] Comment on above: Non- GFR Calc Platelets bldOrdered By: Arleth Ward on 06-08-2023 Platelets (Bld) [#/Vol] 349 10*3/uL 150-450 [facility] Protein Test strip Ql (U)Ord ered By: Rachel Ward on 06-08-2023 Protein Ql (U) Negative Negative [facility] Serum or plasma calcium elizabeth urement (mass/volume)Ordered By: Rachel Ward on 06-08-2023 Calcium [Mass/Vol] 8.9 mg/dL 8.5-10.1 [facility] Serum or plasma creatinine m easurement (mass/volume)Ordered By: Rachel Ward on 06-08-2023 Creatinine [Mass/Vol] 0.81 mg/dL 0.55-1.02 [facility] Comment on above: The validity of the calculated GFR & GFRAA in patients over 70 years has not been determined. Clinical correlation is essential. Serum or plasma urea nitroge n measurement (mass/volume)Ordered By: Rachel Ward on 06-08-2023 Urea nitrogen [Mass/Vol] 15 mg/dL 7-18 [facility] Squamous epithelial cells de tection in urine sediment by light microscopyOrdered By: Rachel Ward on 06-08-2023 Epithelial cells.squamous LM Ql (Urine sed) 0-5 SEEN /hpf 5-10 [facility] Thin prep Papanicolaou smear with manual screeningOrdered By: Rachel Ward on 06-08-2023 Thin prep Papanicolaou smear with manual screening 5 5-15 [facility] Urine blood detectionOrdered By: Rachel Ward on 06-08-2023 RBC Ql (U) 250 /ul Negative [facility] RBC Ql (U) 0-5 SEEN /hpf 0-5 [facility] Urine clarityOrdered By: Arleth Ward on 06-08-2023 Clarity (U) Clear Clear [facility] Urine color determinationOrd ered By: Rachel Ward on 06-08-2023 Color (U) Yellow Yellow [facility] Urine glucose detectionOrder ed By: Rachel Ward on 06-08-2023 Glucose Ql (U) Normal mg/dl Normal [facility] Urine leukocyte esterase det ection by dipstickOrdered By: Rachel Ward on 06-08-2023 Leukocyte esterase Test strip Ql (U) Negative Negative [facility] Urine pHOrdered By: Rachel Ward on 06-08-2023 pH (U) 7.0 [pH] 5.0 - 8.0 [facility] Urine sediment bacteria coun t by microscopy (number/high power field)Ordered By: Rachel Ward on 06-08-2023 Bacteria LM.HPF (Urine sed) [#/Area] RARE /hpf None Seen [facility] Urine specific gravity measu rementOrdered By: Rachel Ward on 06-08-2023 Specific gravity (U) [Rel density] 1.005 1.002-1.030 [facility] Urobilinogen Auto test strip Ql (U)Ordered By: Rachel Ward on 06-08-2023 Urobilinogen Ql (U) Normal mg/dl Normal [facility] STREP A MOLECULAR (POC)on Procedural Control Valid [facility] Strep A (POCT) Positive Abnormal Negative [facility] Cervical or vagninal specime n microscopic examination by cytology stain (reported asOrdered By: Dr. Tang on 01-08-2023 Cytology report Cyto stain Doc (Cvx/Vag) Comment . [facility] Comment on above: The Pap smear is a s creening test designed to aid in thedetection of premalignant and malignant conditions of theuterine cervix. It is not a diagnostic procedure andshould not be used as the sole means of detecting cervicalcancer. Both false-positive and false-negative reports dooccur. Detection in cervical specim en of any of human papilloma virus (HPV) 16, 18, 31, 33,Ordered By: Dr. Tang on 01-08-2023 HPV 16+18+31+33+35+39+45+5 1+52+56+58+59+66+68 DNA Probe+sig amp Ql (Cvx) Negative Negative [facility] Comment on above: This nucleic acid am plification test detects fourteen high- risk HPV types (16,18,31,33,35,39,45,51,52,56,58,59,66,68)without differentiation. HIV 1 and HIV-2 antibody ass ay with HIV-1 p24 antigen detectionOrdered By: Dr. Tang on 01-08-2023 HIV 1+2 Ab+HIV1 p24 Ag IA Ql Non-Reactive Nonreactive [facility] Laboratory - CytologyOrdered By: Dr. Tang on 01-08-2023 Crusher Loader Equipment Operator Cyto stain Nom (Cvx/Vag) [ID] Comment . [facility] Comment on above: Eboni Winter, Cyto technologist (ASCP) Laboratory - Miscellaneous t estsOrdered By: Dr. Tang on 01-08-2023 Service comment (Unsp spec) [Interp] Comment . [facility] Comment on above: This liquid based Th inPrep(R) pap test was screened withthe use of an image guided system. Service comment (Unsp spec) [Interp] . . [facility] Liquid-based cerv Pap + CT/G C by EVELINA w reflex to high-risk HPV for ASCUSOrdered By: Dr. Tang on 01-08-2023 Cytology report Cyto stain.thin prep Doc (Cvx/Vag) Comment . [facility] Comment on above: Criteria not met, HP V Genotype not performed.Performed at: [facility] [id number] Director: Dacia Terry MD, Phone: [phone] at: =G - [facility] [address] [id number] Director: Dacia Terry MD, Phone: [phone] No Panel InformationOrdered By: Dr. Tang on 01-08-2023 Follicle Stimulating Hormone 4.5 mIU/mL [facility] Comment on above: NORMAL REFERENCE RAN GES FEMALE FOLLICULAR 2.3 - 12.6 mIU/mL MID-CYCLE PEAK 5.2 - 17.5 mIU/mL LUTEAL 1.7 - 12.9 mIU/mL POST-MENOPAUSAL ON MHT 5.9 - 72.8 mIU/mL NOT ON MHT 12.7 - 132.2 mlU/mL MALE 0.7 - 10.8 mIU/mL Hepatitis A Antibody Total Positive Negative [facility] Comment on above: Performed at: [facility] [place], [place] [id number] Director: Ruben Doty PhD, Phone: [phone] Hepatitis A IgM Antibody Negative Negative [facility] Hepatitis B Core IgM Antibody Negative Negative [facility] Hepatitis C Antibody (EIA) Non-Reactive Non Reactive [facility] Hepatitis C Antibody Comment Comment . [facility] Comment on above: Not infected with HC V unless early or acute infection issuspected (which may be delayed in an immunocompromisedindividual), or other evidence exists to indicate HCVinfection. Luteinizing Hormone 2.2 mIU/mL [facility] Comment on above: NORMAL REFERENCE RAN GES FEMALE FOLLICULAR 1.9 - 26.2 mIU/mL MID-CYCLE PEAK 22.8 - 76.1 mIU/mL LUTEAL 0.6 - 16.6 mIU/mL POST-MENOPAUSAL ON MHT 1.1 - 52.4 mIU/mL NOT ON MHT 8.6 - 61.8 mIU/mL MALE 1.2 - 10.6 mIU/mL Pathology report final diagnosis Narrative Comment . [facility] Comment on above: NEGATIVE FOR INTRAEP ITHELIAL LESION OR MALIGNANCY. Serum Treponema species anti body detectionOrdered By: Dr. Tang on 01-08-2023 Treponema sp Ab Ql (S) Non-Reactive [facility] Serum hepatitis B virus surf alban antibody IgG detectionOrdered By: Dr. Tang on 01-08-2023 HBV surface IgG Ql (S) Non-Reactive [facility] Comment on above: Non Reactive: Incons istent with immunity less than <10 mIU/mL Reactive: Consistent with immunity greater than or equal to 10 mIU/mL Serum or plasma estradiol (E 2) measurement (mass/volume)Ordered By: Dr. Tang on 01-08-2023 E2 [Mass/Vol] 37.9 pg/mL [facility] Comment on above: NORMAL REFERENCE RAN GES FEMALE FOLLICULAR 21.4 - 164.8 pg/mL MID-CYCLE PEAK 49.9 - 367.2 pg/mL LUTEAL 40.2 - 259.0 pg/mL POST-MENOPAUSAL ON MHT <11.0 - 462.1 pg/mL NOT ON MHT <11.0 - 58.3 pg/mL MALE <11.0 - 52.5 pg/mL NOTE:[employer] HAS CONFIRMED THE DRUG FULVETRANT (FASLODEX) MAY CAUSE FALSELY ELEVATED ESTRADIOL RESULTS WHEN USING THIS TEST METHOD. IF PATIENT IS TAKING FULVESTRANT AN ALTERNATIVE METHOD SHOULD BE USED TO DETERMINE ESTRADIOL CONCENTRATION. Serum or plasma hepatitis B virus surface antigen detection by immunoassayOrdered By: Dr. Tang on 01-08-2023 HBV surface Ag IA Ql Negative Negative [facility] Serum or plasma progesterone measurement (mass/volume)Ordered By: Dr. Tang on 01-08-2023 Progesterone [Mass/Vol] 0.90 ng/mL See Comment [facility] Comment on above: Progesterone Referen ce Table: UNITS Female: Follicular 0.15 - 1.40 ng/mL Luteal 3.34 - 25.56 ng/mL Mid-luteal 4.44 - 28.03 ng/mL Postmenopausal 0.0 - 0.73 ng/mL : 1st Trimester 11.22 - 90.00 ng/mL 2nd Trimester 25.55 - 89.40 ng/mL 3rd Trimester 48.40 -422.50 ng/mL STREP A MOLECULAR (POC)on Procedural Control Valid [facility] Strep A (POCT) Negative Negative [facility] Absolute lymphocyte counton 04-28-2022 Lymphocytes Auto (Unsp spec) [#/Vol] 1.90 10*3/uL 0.83-4.51 [facility] Work Phone: Basophil percentageon 2021 Basophils/100 WBC (Bld) 0.3 % 0-1 [facility] Work Phone: Bilirubin [Mass/Vol] 0.30 mg/dL 0.20-1.00 [facility] Work Phone: Comment on above: For patients on eltr ombopag therapy, use of Dimension Talmo TBIL is not recommended. Chloride [Moles/Vol] 109 mmol/L 98-107 [facility] Work Phone: Eosinophils/100 WBC (Bld) 1.4 % 0-5 [facility] Work Phone: Glucose [Mass/Vol] 88 mg/dL 74-106 [facility] Work Phone: Neutrophils (Bld) [#/Vol] 4.5 10*3/uL 2.0-7.7 [facility] Work Phone: Neutrophils/100 WBC (Bld) 62.9 % 47-70 [facility] Work Phone: Potassium [Moles/Vol] 4.3 mmol/L 3.5-5.1 [facility] Work Phone: Comment on above: Moderate Hemolysis, Result may be falsely increased. Protein [Mass/Vol] 7.2 g/dL 6.4-8.2 [facility] Work Phone: Sodium [Moles/Vol] 140 mmol/L 136-145 [facility] Work Phone: WBC (Bld) [#/Vol] 7.2 10*3/uL 4.4-11.0 [facility] Work Phone: Basophil percentage 0 SEEN [facility] Work Phone: Beta hCG serum qualon 2021 Beta HCG ( test) Ql Negative [facility] Work Phone: Bilirubin Test strip Ql (U)o n 04-28-2022 Bilirubin Ql (U) Negative Negative [facility] Work Phone: Blood erythrocytes count (nu mber/volume)on 04-28-2022 RBC (Bld) [#/Vol] 4.79 10*6/uL 4.2-5.4 [facility] Work Phone: Blood hemoglobin measurement (mass/volume)on 04-28-2022 Hemoglobin (Bld) [Mass/Vol] 12.8 g/dL 12.0-15.0 [facility] Work Phone: Blood lymphocytes/100 leukoc yteson 04-28-2022 Lymphocytes/100 WBC (Bld) 26.4 % 19-41 [facility] Work Phone: Blood monocytes/100 leukocyt eson 04-28-2022 Monocytes/100 WBC (Bld) 8.6 % 0-10 [facility] Work Phone: Blood platelet mean volumeon 04-28-2022 Platelet mean volume (Bld) [Entitic vol] 10.0 fL 6.2-12.0 [facility] Work Phone: Determination of erythrocyte mean corpuscular volume (MCV)on 04-28-2022 MCV (RBC) [Entitic vol] 83.7 fL 81-99 [facility] Work Phone: Hematocrit Auto (Bld) [Volum e fraction]on 04-28-2022 Hematocrit (Bld) [Volume fraction] 40.1 % 37-47 [facility] Work Phone: Ketones Test strip Ql (U)on 04-28-2022 Ketones Ql (U) Negative Negative [facility] Work Phone: Laboratory - Chemistry and C hemistry - challengeon 04-28-2022 ALP [Catalytic activity/Vol] 82 U/L 45-117 [facility] Work Phone: ALT [Catalytic activity/Vol] 21 U/L 13-56 [facility] Work Phone: CO2 [Moles/Vol] 23.0 mmol/L 21.0-32.0 [facility] Work Phone: Globulin (S) [Mass/Vol] 3.5 g/dL 2.2-4.2 [facility] Work Phone: Lipase [Catalytic activity/Vol] 123 U/L 73-393 [facility] Work Phone: Urea nitrogen/Creatinine [Mass ratio] 13.8 mg/mg 10-20 [facility] Work Phone: Laboratory - Hematology and Cell countson 04-28-2022 Erythrocyte distribution width (RBC) [Entitic vol] 47.3 fL 35.1-43.9 [facility] Work Phone: Erythrocyte distribution width (RBC) [Ratio] 15.5 % 11.6-14.6 [facility] Work Phone: Immature granulocytes/100 WBC (Bld) 0.400 % 0.0-0.9 [facility] Work Phone: Comment on above: IG% - Immature Granu locytes (promyelocytes, myelocytes and metamyelocytes) > 1% indicates that a LEFT SHIFT is Present. MCH (RBC) [Entitic mass] 26.7 pg 27.0-32.0 [facility] Work Phone: Nucleated RBC/100 WBC (Bld) [Ratio] 0 % 0-5 [facility] Work Phone: MCHC Auto (RBC) [Mass/Vol]on 04-28-2022 MCHC (RBC) [Mass/Vol] 31.9 g/dL 32-36 [facility] Work Phone: Mucus LM Ql (Urine sed)on Mucus Ql (Urine sed) 0 SEEN /hpf [facility] Work Phone: Nitrite Test strip Ql (U)on 04-28-2022 Nitrite Ql (U) Negative Negative [facility] Work Phone: No Panel Informationon 04-28 Estimated Creatinine Clearance Calc 80.21 ml/min [facility] Work Phone: Estimated GFR (MDRD) Amer 113 mL/min >60 [facility] Work Phone: Comment on above: GFR Calc Estimated GFR (MDRD) Non-Af Amer 94 mL/min >60 [facility] Work Phone: Comment on above: Non- GFR Calc Platelets bldon 04-28-2022 Platelets (Bld) [#/Vol] 365 10*3/uL 150-450 [facility] Work Phone: Protein Test strip Ql (U)on 04-28-2022 Protein Ql (U) Negative Negative [facility] Work Phone: Serum or plasma albumin elizabeth urement (mass/volume)on 04-28-2022 Albumin [Mass/Vol] 3.7 g/dL 3.2-5.0 [facility] Work Phone: Serum or plasma albumin/glob ulin mass ratioon 04-28-2022 Albumin/Globulin [Mass ratio] 1.1 {ratio} 0.9-2.4 [facility] Work Phone: Serum or plasma calcium elizabeth urement (mass/volume)on 04-28-2022 Calcium [Mass/Vol] 8.9 mg/dL 8.5-10.1 [facility] [facility] Work Phone: Serum or plasma creatinine m easurement (mass/volume)on 04-28-2022 Creatinine [Mass/Vol] 0.73 mg/dL 0.55-1.02 [facility] [facility] Work Phone: Comment on above: The validity of the calculated GFR & GFRAA in patients over 70 years has not been determined. Clinical correlation is essential. Serum or plasma urea nitroge n measurement (mass/volume)on 04-28-2022 Urea nitrogen [Mass/Vol] 10 mg/dL 7-18 [facility] Work Phone: Squamous epithelial cells de tection in urine sediment by light microscopyon 04-28-2022 Epithelial cells.squamous LM Ql (Urine sed) 0-5 SEEN /hpf [facility] Work Phone: Thin prep Papanicolaou smear with manual screeningon 04-28-2022 Thin prep Papanicolaou smear with manual screening 28 U/L 15-37 [facility] Work Phone: Comment on above: Moderate Hemolysis, Result may be falsely increased. Thin prep Papanicolaou smear with manual screening 8 5-15 [facility] Work Phone: Urine blood detectionon 04-17 RBC Ql (U) 50 /ul Negative [facility] Work Phone: RBC Ql (U) 0-5 SEEN /hpf [facility] Work Phone: Urine clarityon 04-28-2022 Clarity (U) Sl. Cloudy Clear [facility] Work Phone: Urine color determinationon 04-28-2022 Color (U) Yellow Yellow [facility] Work Phone: Urine glucose detectionon Glucose Ql (U) Normal mg/dl Normal [facility] Work Phone: Urine leukocyte esterase det ection by dipstickon 04-28-2022 Leukocyte esterase Test strip Ql (U) Negative Negative [facility] Work Phone: Urine pHon 04-28-2022 pH (U) 6.0 [pH] [facility] Work Phone: Urine sediment bacteria coun t by microscopy (number/high power field)on 04-28-2022 Bacteria LM.HPF (Urine sed) [#/Area] RARE /hpf None Seen [facility] Work Phone: Urine specific gravity measu rementon 04-28-2022 Specific gravity (U) [Rel density] 1.010 [facility] Work Phone: Urobilinogen Auto test strip Ql (U)on 04-28-2022 Urobilinogen Ql (U) Normal mg/dl Normal [facility] Work Phone: UA DIP, URINE (POC)on 2021 BILIRUBIN UA (POCT) Negative Negative [facility] CLARITY UA (POCT) Clear [facility] COLOR UA (POCT) Yellow [facility] GLUCOSE UA (POCT) Negative Negative mg/dL [facility] HEMOGLOBIN/BLOOD UA (POCT) Moderate Abnormal Negative [facility] KETONE UA (POCT) Negative Negative mg/dL [facility] LEUKOCYTES UA (POCT) Negative Negative [facility] NITRITE UA (POCT) Negative Negative [facility] PH UA (POCT) 6.0 4.5 - 8.0 [facility] Protein Ql (U) Negative Negative mg/dL [facility] SPECIFIC GRAVITY UA (POCT) 1.020 1.005 - 1.030 [facility] UROBILINOGEN UA (POCT) 0.2 E.U./dL Debby l E.U./dL [facility] UA DIP, URINE (POC)on 2021 BILIRUBIN UA (POCT) Negative Negative [facility] CLARITY UA (POCT) Clear [facility] COLOR UA (POCT) Yellow [facility] GLUCOSE UA (POCT) Negative Negative mg/dL [facility] HEMOGLOBIN/BLOOD UA (POCT) Small Abnormal Negative [facility] KETONE UA (POCT) Negative Negative mg/dL [facility] LEUKOCYTES UA (POCT) Trace Abnormal Negative [facility] NITRITE UA (POCT) Negative Negative [facility] PH UA (POCT) 7.5 4.5 - 8.0 [facility] Protein Ql (U) Negative Negative mg/dL [facility] SPECIFIC GRAVITY UA (POCT) 1.010 1.005 - 1.030 [facility] UROBILINOGEN UA (POCT) 0.2 E.U./dL Debby l E.U./dL [facility] Cervical or vagninal specime n microscopic examination by cytology stain (reported ason 02-12-2022 Cytology report Cyto stain Doc (Cvx/Vag) Comment [facility] Work Phone: Comment on above: The Pap smear is a s creening test designed to aid in thedetection of premalignant and malignant conditions of theuterine cervix. It is not a diagnostic procedure andshould not be used as the sole means of detecting cervicalcancer. Both false-positive and false-negative reports dooccur. Laboratory - Cytologyon 01-16 Crusher Loader Equipment Operator Cyto stain Nom (Cvx/Vag) [ID] Comment [facility] Work Phone: Comment on above: Shakila lópez, Special Crimes Investigator (ASCP) Recommended follow-up Cyto stain Nom (Cvx/Vag) Comment [facility] Work Phone: Comment on above: Suggest follow up as clinically appropriate. Laboratory - Miscellaneous t estson 02-12-2022 Service comment (Unsp spec) [Interp] TNP [facility] Work Phone: Comment on above: Test not performedTh e Thin Prep(R) Bag Patcher was unable to read this specimen.Therefore a manual review was performed.Performed at: [address] [id number] Director: Dacia Terry MD, Phone: [phone] Service comment (Unsp spec) [Interp] . [facility] Work Phone: No Panel Informationon 02-12 Pap Smear Specimen Adequacy Comment [facility] Work Phone: Comment on above: Specimen processed a nd examined but unsatisfactory for evaluation ofepithelial abnormality because of insufficient cellularity. Pathology report final diagnosis Narrative Comment [facility] Work Phone: Comment on above: UNSATISFACTORY FOR E VALUATION.SPECIMEN REPROCESSED FOR INTERPRETATION. Blood Glucose , Office ([phone])Ordered By: Chioma Ravi on 10-31-2017 Glucose Glucometer (BldC) [Moles/Vol] 95 1 Normal [facility] Work Phone: HgA1C , Office ([phone])Ordere d By: Chioma Ravi on 10-31-2017 HbA1c (Bld) [Mass fraction] 5.5 % Normal 4.6 - 7.1 [facility] Work Phone: Blood Glucose , Office ([phone])Ordered By: Chioma Ravi on 05-09-2017 Glucose Glucometer (BldC) [Moles/Vol] 109 1 Normal [facility] Work Phone: CBC, PLATELETS & AUT DIFF ([phone])Ordered By: Drive In Waiter/Waitress on 05-09-2017 Basophils (Bld) [#/Vol] 0.0 {x10E3/uL} Normal 0.0-0.2 [facility] Work Phone: Comment on above: PATIENT WAS FASTINGP ERFORMED BY: [employer]70 [facility] [id number] Basophils/100 WBC (Bld) 0 % Normal [facility] Work Phone: Comment on above: PATIENT WAS FASTINGP ERFORMED BY: [employer]70 SmartSky NetworksE[facility] [id number] Eosinophils (Bld) [#/Vol] 0.1 {x10E3/uL} Normal 0.0-0.4 [facility] Work Phone: Comment on above: PATIENT WAS FASTINGP ERFORMED BY: MobGoldErlanger [facility] [id number] Eosinophils/100 WBC (Bld) 2 % Normal [facility] Work Phone: Comment on above: PATIENT WAS FASTINGP ERFORMED BY: [facility] Tiwtdj5843 [address]z RoadDublin [place] [id number] Erythrocyte distribution width (RBC) [Ratio] 15.0 % Normal 12.3-15.4 [facility] Work Phone: Comment on above: PATIENT WAS FASTINGP ERFORMED BY: [facility] Xaqmhr5526 [address] RoadDublin [place] [id number] Hematocrit (Bld) [Volume fraction] 40.1 % Normal 34.0-46.6 [facility] Work Phone: Comment on above: PATIENT WAS FASTINGP ERFORMED BY: [facility] Tpgwnf9543 [address] RoadDublin [place] [id number] Hemoglobin (Bld) [Mass/Vol] 13.0 g/dL Normal 11.1-15.9 [facility] Work Phone: Comment on above: PATIENT WAS FASTINGP ERFORMED BY: [facility] Xsylfw8966 [address] RoadDublin [place] [id number] Immature granulocytes (Bld) [#/Vol] 0.0 {x10E3/uL} Normal 0.0-0.1 [facility] Work Phone: Comment on above: PATIENT WAS FASTINGP ERFORMED BY: [facility] Bpaslc2292 [address] RoadDublin [place] [id number] Immature granulocytes/100 WBC (Bld) 0 % Normal [facility] Work Phone: Comment on above: PATIENT WAS FASTINGP ERFORMED BY: [facility] Rvhpth2687 [address] RoadDublin [place] [id number] Lymphocytes (Bld) [#/Vol] 2.5 {x10E3/uL} Normal 0.7-3.1 [facility] Work Phone: Comment on above: PATIENT WAS FASTINGP ERFORMED BY: [facility] Vydvsj8324 [address] RoadDublin [place] [id number] Lymphocytes/100 WBC (Bld) 37 % Normal [facility] Work Phone: Comment on above: PATIENT WAS FASTINGP ERFORMED BY: LabSelect [facility]ty Hospital[address] [facility] [place] [id number] MCH (RBC) [Entitic mass] 27.8 pg Normal 26.6-33.0 [facility] Work Phone: Comment on above: PATIENT WAS FASTINGP ERFORMED BY: [facility]Select [facility] [facility]in [place] [id number] MCHC (RBC) [Mass/Vol] 32.4 g/dL Normal 31.5-35.7 [facility] prehensive Internal Medicine Work Phone: Comment on above: PATIENT WAS FASTINGP ERFORMED BY: [facility] [facility]in [place] [id number] MCV (RBC) [Entitic vol] 86 fL Normal 79-97 [facility] Work Phone: Comment on above: PATIENT WAS FASTINGP ERFORMED BY: [facility] Zuljof[address] [facility] [id number] Monocytes (Bld) [#/Vol] 0.6 {x10E3/uL} Normal 0.1-0.9 [facility] Work Phone: Comment on above: PATIENT WAS FASTINGP ERFORMED BY: [facility] [facility]in [place] [id number] Monocytes/100 WBC (Bld) 9 % Normal [facility] Work Phone: Comment on above: PATIENT WAS FASTINGP ERFORMED BY: [facility] [facility] [id number] Neutrophils (Bld) [#/Vol] 3.6 {x10E3/uL} Normal 1.4-7.0 [facility] Work Phone: Comment on above: PATIENT WAS FASTINGP ERFORMED BY: [facility] [facility]in [place] [id number] Neutrophils/100 WBC (Bld) 52 % Normal [facility] Work Phone: Comment on above: PATIENT WAS FASTINGP ERFORMED BY: TIO Ramirez6[address] RoadAlleghany Healthin [place] [id number] Platelets (Bld) [#/Vol] 380 {x10E3/uL} Abnormal 150-379 [facility] Work Phone: Comment on above: PATIENT WAS FASTINGP ERFORMED BY: TIO Benavideslin6370 [address] Roadblin [place] [id number] RBC (Bld) [#/Vol] 4.68 {x10E6/uL} Normal 3.77-5.28 [facility] Work Phone: Comment on above: PATIENT WAS FASTINGP ERFORMED BY: TIO Ramirez[address] [facility] Hospitalblin [place] [id number] WBC (Bld) [#/Vol] 6.8 {x10E3/uL} Normal 3.4-10.8 [facility] Work Phone: Comment on above: PATIENT WAS FASTINGP ERFORMED BY: TIO Ramirez[address] [facility]in [place] [id number] HgA1C , Office ([phone])Ordere d By: Chioma Ravi on 05-09-2017 HbA1c (Bld) [Mass fraction] 5.2 % Normal 4.6 - 7.1 [facility] Work Phone: LIPID PANEL ([phone])Ordered B y: Drive In Waiter/Waitress on 05-09-2017 Cholesterol [Mass/Vol] 160 mg/dL Normal 100-199 [facility] Work Phone: Comment on above: PATIENT WAS FASTINGP ERFORMED BY: TIO LabMarita BenavidesDgsllb[address] [facility]in [place] [id number] Cholesterol in HDL [Mass/Vol] 73 mg/dL Normal [facility] Work Phone: Comment on above: PATIENT WAS FASTINGP ERFORMED BY: TIO LabMarita BenavidesRmsccp3314 [address] RoadDublin [place] [id number] Cholesterol in LDL [Mass/Vol] 71 mg/dL Normal 0-99 [facility] Work Phone: Comment on above: PATIENT WAS FASTINGP ERFORMED BY: TIO PaizCo Hnzsqr3975 [address] RoadDublin [place] [id number] Cholesterol in LDL/Cholesterol in HDL [Mass ratio] 1.0 {ratio_units} Normal 0.0-3.2 [facility] Work Phone: Comment on above: LDL/HDL Ratio Men Wo men 1/2 Avg.Risk 1.0 1.5 Avg.Risk 3.6 3.2 2X Avg.Risk 6.2 5.0 3X Avg.Risk 8.0 6.1 PATIENT WAS FASTINGP ERFORMED BY: TIO LabConancy BenavidesZqaskl2116 [address] RoadDublin [place] [id number] Cholesterol in VLDL [Mass/Vol] 16 mg/dL Normal 5-40 [facility] Work Phone: Comment on above: PATIENT WAS FASTINGP ERFORMED BY: TIO LabConancy BenavidesFxluyg8383 [address] RoadDublin [place] [id number] Triglyceride [Mass/Vol] 80 mg/dL Normal 0-149 [facility] Work Phone: Comment on above: PATIENT WAS FASTINGP ERFORMED BY: TIO LabCo Ywminw[address] [facility] Hospitalblin [place] [id number] METABOLIC PANEL, COMPREHENSI VE ([phone])Ordered By: Drive In Waiter/Waitress on 05-09-2017 Albumin [Mass/Vol] 4.0 g/dL Normal 3.5-5.5 [facility] Work Phone: Comment on above: PATIENT WAS FASTINGP ERFORMED BY: TIO LabCo Kwsune2250 [address] Roadblin [place] [id number] Albumin/Globulin [Mass ratio] 1.5 {ratio} Normal 1.2-2.2 [facility] Work Phone: Comment on above: PATIENT WAS FASTINGP ERFORMED BY: TIO [facility] Jlzuwt6111 [address] RoadDublin [place] [id number] ALP [Catalytic activity/Vol] 62 [iU]/L Normal 39-117 [facility] Work Phone: Comment on above: PATIENT WAS FASTINGP ERFORMED BY: TIO [facility] Wropaq9420 [address] RoadDublin [place] [id number] ALT [Catalytic activity/Vol] 12 [iU]/L Normal 0-32 [facility] Work Phone: Comment on above: PATIENT WAS FASTINGP ERFORMED BY: [facility] Jrymdq3522 [address] RoadDublin [place] [id number] AST [Catalytic activity/Vol] 16 [iU]/L Normal 0-40 [facility] Work Phone: Comment on above: PATIENT WAS FASTINGP ERFORMED BY: [facility] Sewfcg3468 [address] RoadDublin [place] [id number] Bilirubin [Mass/Vol] mg/dL Normal 0.0-1.2 [facility] Work Phone: Comment on above: PATIENT WAS FASTINGP ERFORMED BY: [facility] Glhfot7228 [address] RoadDublin [place] [id number] Calcium [Mass/Vol] 9.3 mg/dL Normal 8.7-10.2 [facility] Work Phone: Comment on above: PATIENT WAS FASTINGP ERFORMED BY: [facility] Ctrdlh6114 [address] RoadDublin [place] [id number] Chloride [Moles/Vol] 105 mmol/L Normal 96-106 [facility] Work Phone: Comment on above: PATIENT WAS FASTINGP ERFORMED BY: [facility] Qbrkuq0014 [address] RoadDublin [place] [id number] CO2 [Moles/Vol] 20 mmol/L Normal 18-29 [facility] Work Phone: Comment on above: PATIENT WAS FASTINGP ERFORMED BY: [facility] Llmlcg4865 [address] RoadDublin [place] [id number] Creatinine [Mass/Vol] 0.76 mg/dL Normal 0.57-1.00 [facility] Work Phone: Comment on above: PATIENT WAS FASTINGP ERFORMED BY: [facility] Qhodzf0511 [address] RoadDublin [place] [id number] GFR/1.73 sq M predicted among blacks CKD-EPI (S/P/Bld) [Vol rate/Area] 117 mL/min/1.73 Normal [facility] Work Phone: Comment on above: PATIENT WAS FASTINGP ERFORMED BY: TIO [facility] Ttqikq5177 [address] RoadDublin [place] [id number] GFR/1.73 sq M predicted among non-blacks CKD-EPI (S/P/Bld) [Vol rate/Area] 101 mL/min/1.73 Normal [facility] Work Phone: Comment on above: PATIENT WAS FASTINGP ERFORMED BY: TIO [facility] Rehqoq5554 [address] RoadDublin [place] [id number] Globulin (S) [Mass/Vol] 2.7 g/dL Normal 1.5-4.5 [facility] Work Phone: Comment on above: PATIENT WAS FASTINGP ERFORMED BY: TIO [facility] Qtbmym2632 [address] RoadDublin [place] [id number] Glucose [Mass/Vol] 90 mg/dL Normal 65-99 [facility] Work Phone: Comment on above: PATIENT WAS FASTINGP ERFORMED BY: TIO [facility] Kevdlg6395 [address] RoadDublin [place] [id number] Potassium [Moles/Vol] 5.2 mmol/L Normal 3.5-5.2 [facility] Work Phone: Comment on above: PATIENT WAS FASTINGP ERFORMED BY: CB [facility] Lriuqi9100 [address] RoadDublin [place] [id number] Protein [Mass/Vol] 6.7 g/dL Normal 6.0-8.5 [facility] Work Phone: Comment on above: PATIENT WAS FASTINGP ERFORMED BY: CB [facility] Jjrwzr9115 [address] RoadDublin [place] [id number] Sodium [Moles/Vol] 140 mmol/L Normal 134-144 [facility] Work Phone: Comment on above: PATIENT WAS FASTINGP ERFORMED BY: CB [facility] Eohtrk4844 [address] RoadDublin [place] [id number] Urea nitrogen [Mass/Vol] 12 mg/dL Normal 6-20 [facility] Work Phone: Comment on above: PATIENT WAS FASTINGP ERFORMED BY: [facility] [facility] [id number] Urea nitrogen/Creatinine [Mass ratio] 16 mg/mg Normal 9-23 [facility] Work Phone: Comment on above: PATIENT WAS FASTINGP ERFORMED BY: [facility] [facility] [id number] MARZENA CULTURE-STOOL ([id number])Ord ered By: Drive In Waiter/Waitress on 04-23-2017 Bacteria identified Cx Nom (Unsp spec) NCI Normal [facility] Work Phone: Comment on above: No Campylobacter spe cies isolated. PATIENT NOT FASTINGP ERFORMED BY: [place] [id number] [facility] [id number] Information: SRC:ST SRC:ST Bacteria identified Cx Nom (Unsp spec) NSS Normal [facility] Work Phone: Comment on above: No Salmonella or Mesha gella recovered. PATIENT NOT FASTINGP ERFORMED BY: [place] [id number] [facility] [id number] Information: SRC:ST SRC:ST Campylobacter sp identified Org specific cx Nom (Stl) Final report Normal Comprehens [facility] Work Phone: Comment on above: PATIENT NOT FASTINGP ERFORMED BY: [facility] [facility] [id number] Information: SRC:ST SRC:ST E. coli shiga-like toxin IA Ql (Stl) Positive Abnormal [facility] Work Phone: Comment on above: . PATIENT NOT FASTINGP ERFORMED BY: [facility] [facility] [id number] Information: SRC:ST SRC:ST Salmonella and Shigella sp identified Org specific cx Nom (Stl) Final report Normal [facility] Work Phone: Comment on above: PATIENT NOT FASTINGP ERFORMED BY: [facility] Vliwyq1632 [address] RoadDublin [place] [id number] Information: SRC:ST SRC:ST Clostridium difficile Toxin A+B, EIA ([id number])Ordered By: Drive In Waiter/Waitress on 04-23-2017 C. difficile toxin A+B IA Ql (Stl) Negative Normal [facility] Work Phone: Comment on above: PATIENT NOT FASTINGP ERFORMED BY: CB [facility] Gmtltv4146 [address] RoadDublin [place] [id number] LEUKOCYTE COUNT, FECAL ([phone] 5)Ordered By: Drive In Waiter/Waitress on 04-23-2017 WBC LM Ql (Stl) Final report Normal Compreh ensive [facility] Work Phone: Comment on above: PATIENT NOT FASTINGP ERFORMED BY: [facility] Xuteif1810 [address] RoadDublin [place] [id number] WBC LM Ql (Stl) NWBC Normal Comprehen sive [facility] Work Phone: Comment on above: No white blood cells seen. PATIENT NOT FASTINGP ERFORMED BY: [facility] Xqhkqr5688 [address] RoadDublin [place] [id number] OCCULT BLOOD FECES SCREEN ([phone])Ordered By: Drive In Waiter/Waitress on 04-23-2017 Lower GI hemoglobin IA Ql (Stl) Positive Abnormal [facility] Work Phone: Comment on above: PATIENT NOT FASTINGP ERFORMED BY: [facility] Dpcpkb8829 [address] RoadDublin [place] [id number] OVA & PARASITE DIR SMEAR ([phone])Ordered By: Drive In Waiter/Waitress on 04-23-2017 Ova and parasites identified Concentration Nom (Stl) NOCP Normal [facility] Work Phone: Comment on above: No ova, cysts, or pa rasites seen. PATIENT NOT FASTINGP ERFORMED BY: CB [facility] Turidz1166 [address] RoadDublin [place] [id number] Ova and parasites identified LM Nom (Unsp spec) Final report Normal [facility] Work Phone: Comment on above: These results were o btained using wet preparation(s) and trichromestained smear. This test does not include testing for Cryptosporidiumparvum, Cyclospora, or Microsporidia. PATIENT NOT FASTINGP ERFORMED BY: [facility] Awfmqo[address] [facility]blin [place] [id number] CBC, PLATELETS & AUT DIFF ([phone])Ordered By: Drive In Waiter/Waitress on 04-22-2017 Basophils (Bld) [#/Vol] 0.0 {x10E3/uL} Normal 0.0-0.2 [facility] Work Phone: Comment on above: PATIENT NOT FASTINGP ERFORMED BY: [facility] Tlnlhb1479 [address] RoadAlleghany Healthin [place] [id number] Basophils/100 WBC (Bld) 0 % Normal [facility] Work Phone: Comment on above: PATIENT NOT FASTINGP ERFORMED BY: [facility] Krnpng[address] Revance TherapeuticsVidant Pung[facility] Hospital [id number] Eosinophils (Bld) [#/Vol] 0.1 {x10E3/uL} Normal 0.0-0.4 [facility] Work Phone: Comment on above: PATIENT NOT FASTINGP ERFORMED BY: [facility] Dmitng[address] Revance TherapeuticsAlleghany Healthin [place] [id number] Eosinophils/100 WBC (Bld) 1 % Normal [facility] Work Phone: Comment on above: PATIENT NOT FASTINGP ERFORMED BY: [facility] Dwgqqp[address] [facility] [id number] Erythrocyte distribution width (RBC) [Ratio] 14.9 % Normal 12.3-15.4 [facility] Work Phone: Comment on above: PATIENT NOT FASTINGP ERFORMED BY: [facility] Lyzuup0172 [address] RoadAlleghany Healthin [place] [id number] Hematocrit (Bld) [Volume fraction] 42.0 % Normal 34.0-46.6 [facility] Work Phone: Comment on above: PATIENT NOT FASTINGP ERFORMED BY: [facility] Ppyrhu3664 [address] Roadblin [place] [id number] Hemoglobin (Bld) [Mass/Vol] 13.4 g/dL Normal 11.1-15.9 [facility] Work Phone: Comment on above: PATIENT NOT FASTINGP ERFORMED BY: TIO LabConancy BenavidesDuhjrj8831 [address] Roadblin [place] [id number] Immature granulocytes (Bld) [#/Vol] 0.0 {x10E3/uL} Normal 0.0-0.1 [facility] Work Phone: Comment on above: PATIENT NOT FASTINGP ERFORMED BY: CB [facility] Upjsgv8312 [address] RoadAlleghany Healthin [place] [id number] Immature granulocytes/100 WBC (Bld) 0 % Normal [facility] Work Phone: Comment on above: PATIENT NOT FASTINGP ERFORMED BY: LabAsh Ydbhgf[address] [facility] [place] [id number] Lymphocytes (Bld) [#/Vol] 1.8 {x10E3/uL} Normal 0.7-3.1 [facility] Work Phone: Comment on above: PATIENT NOT FASTINGP ERFORMED BY: [facility] Xttqrs[address] [facility] [place] [id number] Lymphocytes/100 WBC (Bld) 20 % Normal [facility] Work Phone: Comment on above: PATIENT NOT FASTINGP ERFORMED BY: [facility] Zybjud[address] [facility] [id number] MCH (RBC) [Entitic mass] 27.9 pg Normal 26.6-33.0 [facility] Work Phone: Comment on above: PATIENT NOT FASTINGP ERFORMED BY: [facility] Rzuwty[address] [facility] [place] [id number] MCHC (RBC) [Mass/Vol] 31.9 g/dL Normal 31.5-35.7 [facility] Work Phone: Comment on above: PATIENT NOT FASTINGP ERFORMED BY: LabCoSaint Barnabas Behavioral Health CenterYrhcea[address] [facility] [place] [id number] MCV (RBC) [Entitic vol] 87 fL Normal 79-97 Comprehensive Internal Medicine Work Phone: Comment on above: PATIENT NOT FASTINGP ERFORMED BY: TIO [facility] Cjggrv4640 Gómez RoadDublin [place] [id number] Monocytes (Bld) [#/Vol] 0.7 {x10E3/uL} Normal 0.1-0.9 [facility] Work Phone: Comment on above: PATIENT NOT FASTINGP ERFORMED BY: CB [facility] Khdfug2469 Gó[address]z RoadDublin [place] [id number] Monocytes/100 WBC (Bld) 7 % Normal [facility] Work Phone: Comment on above: PATIENT NOT FASTINGP ERFORMED BY: TIO [facility] Kbkrxa8167 [address]z RoadDublin [place] [id number] Neutrophils (Bld) [#/Vol] 6.5 {x10E3/uL} Normal 1.4-7.0 [facility] Work Phone: Comment on above: PATIENT NOT FASTINGP ERFORMED BY: TIO [facility] Cnymit9504 [address]z RoadDublin [place] [id number] Neutrophils/100 WBC (Bld) 72 % Normal [facility] Work Phone: Comment on above: PATIENT NOT FASTINGP ERFORMED BY: TIO LabConancy BenavidesXgiseu5268 [address] RoadDublin [place] [id number] Platelets (Bld) [#/Vol] 347 {x10E3/uL} Normal 150-379 [facility] Work Phone: Comment on above: PATIENT NOT FASTINGP ERFORMED BY: CB [facility] Movhnq5302 [address] RoadDublin [place] [id number] RBC (Bld) [#/Vol] 4.81 {x10E6/uL} Normal 3.77-5.28 Co [facility] Internal Medicine Work Phone: Comment on above: PATIENT NOT FASTINGP ERFORMED BY: TIO [facility] Ejqnit1018 [address] RoadDublin [place] [id number] WBC (Bld) [#/Vol] 9.0 {x10E3/uL} Normal 3.4-10.8 [facility] Internal Medicine Work Phone: Comment on above: PATIENT NOT FASTINGP ERFORMED BY: CB [facility] Tswhva5405 [address] RoadDublin [place] [id number] METABOLIC PANEL, COMPREHENSI VE (53766)Ordered By: Drive In Waiter/Waitress on 04-22-2017 Albumin [Mass/Vol] 4.0 g/dL Normal 3.5-5.5 [facility] Internal Medicine Work Phone: Comment on above: PATIENT NOT FASTINGP ERFORMED BY: CB [facility] Kcnktp3638 [address] RoadDublin [place] [id number] Albumin/Globulin [Mass ratio] 1.4 {ratio} Normal 1.2-2.2 [facility] Internal Medicine Work Phone: Comment on above: PATIENT NOT FASTINGP ERFORMED BY: CB [facility] Xihokb0091 [address] RoadDublin [place] [id number] ALP [Catalytic activity/Vol] 70 [iU]/L Normal 39-117 [facility] Work Phone: Comment on above: PATIENT NOT FASTINGP ERFORMED BY: CB [facility] Yxxlfq8770 [address] RoadDublin [place] [id number] ALT [Catalytic activity/Vol] 16 [iU]/L Normal 0-32 [facility] Work Phone: Comment on above: PATIENT NOT FASTINGP ERFORMED BY: CB [facility] Atitsq9873 [address] RoadDublin [place] [id number] AST [Catalytic activity/Vol] 21 [iU]/L Normal 0-40 [facility] Work Phone: Comment on above: PATIENT NOT FASTINGP ERFORMED BY: CB [facility] Cqlxta0413 [address] RoadDublin [place] [id number] Bilirubin [Mass/Vol] mg/dL Normal 0.0-1.2 [facility] Internal Medicine Work Phone: Comment on above: PATIENT NOT FASTINGP ERFORMED BY: CB [facility] Wfkatr6152 [address] RoadDublin [place] [id number] Calcium [Mass/Vol] 9.0 mg/dL Normal 8.7-10.2 [facility] Internal Medicine Work Phone: Comment on above: PATIENT NOT FASTINGP ERFORMED BY: TIO [facility] Oekcux1869 [address] RoadDublin [place] [id number] Chloride [Moles/Vol] 105 mmol/L Normal 96-106 Comp [facility]erens[facility] Internal Medicine Work Phone: Comment on above: PATIENT NOT FASTINGP ERFORMED BY: CB [facility] Wplkht7169 [address] RoadDublin [place] [id number] CO2 [Moles/Vol] 18 mmol/L Normal 18-29 [facility] Internal Medicine Work Phone: Comment on above: PATIENT NOT FASTINGP ERFORMED BY: CB [facility] Tkswhy7061 [address] RoadDublin [place] [id number] Creatinine [Mass/Vol] 0.75 mg/dL Normal 0.57-1.00 [facility] Internal Medicine Work Phone: Comment on above: PATIENT NOT FASTINGP ERFORMED BY: CB [facility] Twmwty5869 [address] RoadDublin [place] [id number] GFR/1.73 sq M predicted among blacks CKD-EPI (S/P/Bld) [Vol rate/Area] 119 mL/min/1.73 Normal [facility] Work Phone: Comment on above: PATIENT NOT FASTINGP ERFORMED BY: CB [facility] Wxxexs7469 [address] RoadDublin [place] [id number] GFR/1.73 sq M predicted among non-blacks CKD-EPI (S/P/Bld) [Vol rate/Area] 103 mL/min/1.73 Normal [facility] Work Phone: Comment on above: PATIENT NOT FASTINGP ERFORMED BY: CB [facility] Ekhtpq3831 [address] RoadDublin [place] [id number] Globulin (S) [Mass/Vol] 2.9 g/dL Normal 1.5-4.5 [facility] Work Phone: Comment on above: PATIENT NOT FASTINGP ERFORMED BY: CB [facility] Xpdzlj1369 [address] RoadDublin [place] [id number] Glucose [Mass/Vol] 82 mg/dL Normal 65-99 [facility] Internal Medicine Work Phone: Comment on above: PATIENT NOT FASTINGP ERFORMED BY: CB [facility] Dflubh8156 [address] RoadDublin [place] [id number] Potassium [Moles/Vol] 4.8 mmol/L Normal 3.5-5.2 [facility] Internal Medicine Work Phone: Comment on above: PATIENT NOT FASTINGP ERFORMED BY: CB [facility] Ynpfvb9644 [address]Dublin [place] [id number] Protein [Mass/Vol] 6.9 g/dL Normal 6.0-8.5 [facility] Internal Medicine Work Phone: Comment on above: PATIENT NOT FASTINGP ERFORMED BY: CB [facility] Igzjjl7703 [address] RoadDublin [place] [id number] Sodium [Moles/Vol] 142 mmol/L Normal 134-144 [facility] Internal Medicine Work Phone: Comment on above: PATIENT NOT FASTINGP ERFORMED BY: CB [facility] Kkhbvx1532 [address]Dublin [place] [id number] Urea nitrogen [Mass/Vol] 12 mg/dL Normal 6-20 [facility] Internal Medicine Work Phone: Comment on above: PATIENT NOT FASTINGP ERFORMED BY: CB [facility] Sbiboo8991 [address] RoadDublin [place] [id number] Urea nitrogen/Creatinine [Mass ratio] 16 mg/mg Normal 9-23 [facility] Internal Medicine Work Phone: Comment on above: PATIENT NOT FASTINGP ERFORMED BY: CB [facility] Wmviyg4428 [address] RoadDublin [place] [id number] T3, FREE (TRIDOTHYRONINE) ([phone])Ordered By: Drive In Waiter/Waitress on 04-22-2017 Free T3 [Mass/Vol] 3.3 pg/mL Normal 2.0-4.4 [facility] Internal Medicine Work Phone: Comment on above: PATIENT NOT FASTINGP ERFORMED BY: CB [facility] Btcbdk6554 [address] RoadDublin [place] [id number] T4, FREE (THYROXINE) (78380) Ordered By: Drive In Waiter/Waitress on 04-22-2017 Free T4 [Mass/Vol] 0.97 ng/dL Normal 0.82-1.77 Compre [facility] Internal Medicine Work Phone: Comment on above: PATIENT NOT FASTINGP ERFORMED BY: [facility] Benvaw[address] [employer] Pte Ltdin [place] [id number] TSH (63689)Ordered By: Systmateusz m Ladle Cleaner on 04-22-2017 TSH Qn 0.545 {uIU/mL} Normal 0.450-4.500 Comprehen [facility] Internal Medicine Work Phone: Comment on above: PATIENT NOT FASTINGP ERFORMED BY: CB [facility] Tyjeic[address] [facility] [id number] HgA1C , Office (55712)Ordere d By: Doreen Cueva on 11-08-2016 HbA1c (Bld) [Mass fraction] 5.2 % Normal 4.6 - 7.1 [facility] Work Phone: URINE MARZENA CULTURE-IDENTIFICA [place] (42752)Ordered By: Drive In Waiter/Waitress on 07-12-2016 Bacteria identified Cx Nom (U) NG36 Normal [facility] Work Phone: Comment on above: No growth in 36 - 48 hours. PATIENT NOT FASTINGP ERFORMED BY: [facility] Ehunbf20[address] [facility] [id number] Information: [id number] Bacteria identified Cx Nom (U) Final report Normal [facility] Work Phone: Comment on above: PATIENT NOT FASTINGP ERFORMED BY: [facility] Bfpanx[address] [facility] [id number] Information: [id number] Urinalysis, Office (71962)Or dered By: Chioma Ravi on 07-12-2016 Bilirubin Ql (U) Negative Normal Comprehe [facility] Internal Medicine Work Phone: Glucose Test strip (U) [Mass/Vol] Negative Normal [facility] Work Phone: Hemoglobin Ql (U) Hemolyzed Small Normal [facility] Internal Medicine Work Phone: Ketones Ql (U) Negative Normal Comprehens binta Internal Medicine Work Phone: Leukocyte esterase Test strip Ql (U) Negative Normal [facility] Work Phone: Nitrite Ql (U) Negative Normal Comprehens binta Internal Medicine Work Phone: pH (U) 7 [pH] Normal [facility] Work Phone: Protein Ql (U) Negative Normal Comprehens [facility] Internal Medicine Work Phone: Specific gravity (U) [Rel density] 1.015 1 Normal [facility] Internal Medicine Work Phone: Urobilinogen (24H U) [Mass/Time] Normal Normal [facility] Internal Medicine Work Phone: T3, FREE (TRIDOTHYRONINE) ([phone])Ordered By: Drive In Waiter/Waitress on 12-01-2015 Free T3 [Mass/Vol] 3.2 pg/mL Normal 2.0-4.4 [facility] Internal Medicine Work Phone: Comment on above: PATIENT NOT FASTINGP ERFORMED BY: TIO [employer] Ccdaav8543 [facility] [id number] T4, FREE (THYROXINE) (13792) Ordered By: Drive In Waiter/Waitress on 12-01-2015 Free T4 [Mass/Vol] 0.93 ng/dL Normal 0.82-1.77 [facility] Internal Medicine Work Phone: Comment on above: PATIENT NOT FASTINGP ERFORMED BY: TIO [facility]relrp Cqdeef5334 [facility] [id number] Information: [id number] TSH (23954)Ordered By: Syste m Ladle Cleaner on 12-01-2015 TSH Qn 0.653 {uIU/mL} Normal 0.450-4.500 [facility] Internal Medicine Work Phone: Comment on above: PATIENT NOT FASTINGP ERFORMED BY: TIO Labezzai - how to arabiarp Bzvalo4692 [facility] [id number] PT (Prothrobim Time) (87767) Ordered By: Drive In Waiter/Waitress on 09-22-2015 INR Coag (PPP) [Relative time] 0.9 {INR} Normal 0.8-1.2 [facility] Work Phone: Comment on above: Reference interval i s for non-anticoagulated patients. . Suggested INR therapeutic range for Vitamin K antagonist therapy: Standard Dose (moderate intensity therapeutic range): 2.0 - 3.0 Higher intensity therapeutic range 2.5 - 3.5 PATIENT NOT FASTINGP ERFORMED BY: [facility] [facility] [id number] Information: [id number] PT Coag (PPP) [Time] 9.6 {sec} Normal 9.1-12.0 [facility] Internal Medicine Work Phone: Comment on above: PATIENT NOT FASTINGP ERFORMED BY: S[facility] SITEUniversity HospitalSuwexe[address] [facility] [id number] Information: [id number] PTT (Activated Partial Throm boplastin Time) (70237)Ordered By: Drive In Waiter/Waitress on 09-22-2015 aPTT Coag (PPP) [Time] 28 {sec} Normal 24-33 Co [facility] Internal Medicine Work Phone: Comment on above: This test has not be en validated for monitoring unfractionated heparintherapy. aPTT-based therapeutic ranges for unfractionated heparintherapy have not been established. For general guidelines onHeparin monitoring, refer to the [facility] Directory of Services. PATIENT NOT FASTINGP ERFORMED BY: [facility] [facility] [id number] URINE [place]ZE[place] CULTURE-IDENTIF[place] (95607)Ordered By: Drive In Waiter/Waitress on 09-22-2015 Bacteria identified Cx Nom (U) Final report Normal [facility] Work Phone: Comment on above: PATIENT NOT FASTINGP ERFORMED BY: [facility] [facility] [id number] Bacteria identified Cx Nom (U) MUG Normal [facility] Work Phone: Comment on above: Mixed urogenital tobias ra10,000-25,000 colony forming units per mL PATIENT NOT FASTINGP ERFORMED BY: TIO [facility] PharmaceuticsV[facility] [id number] Urinalysis, Office (42009)on 09-22-2015 Bilirubin Ql (U) Negative Normal Comprehe nsive Internal Medicine Work Phone: Glucose Test strip (U) [Mass/Vol] Negative Normal [facility] Work Phone: Hemoglobin Ql (U) Hemolyzed Small Normal Co mprehensive Internal Medicine Work Phone: Ketones Ql (U) Negative Normal Comprehens binta Internal Medicine Work Phone: Leukocyte esterase Test strip Ql (U) Negative Normal [facility] Work Phone: Nitrite Ql (U) Negative Normal Comprehens binta Internal Medicine Work Phone: pH (U) 7 [pH] Normal [facility] Work Phone: Protein Ql (U) Negative Normal Comprehens binta Internal Medicine Work Phone: Specific gravity (U) [Rel density] 1.015 1 Normal [facility] Work Phone: Urobilinogen (24H U) [Mass/Time] Normal Normal [facility] Work Phone: Lipid Panel (36491)Ordered B y: Drive In Waiter/Waitress on 09-15-2015 Cholesterol [Mass/Vol] 168 mg/dL Normal 100-199 Co [facility] kirkwoodehensive Internal Medicine Work Phone: Comment on above: Please note refere nce interval change today; PATIENT WAS F ASTINGPERFORMED BY: TIO Offerial70 [facility] HealthcareV[facility] [id number] Information: [id number] Cholesterol in HDL [Mass/Vol] 60 mg/dL Normal [facility] Work Phone: Comment on above: According to ATP-III Guidelines, HDL-C >59 mg/dL is considered anegative risk factor for CHD. today; PATIENT WAS F ASTINGPERFORMED BY: TIO [facility]ologic PharmaceuticsDublin [place] [id number] Information: [id number] Cholesterol in LDL [Mass/Vol] 85 mg/dL Normal 0-99 [facility] Work Phone: Comment on above: Please note refere nce interval change today; PATIENT WAS F ASTINGPERFORMED BY: [facility] [facility] [id number] Information: [id number] Cholesterol in LDL/Cholesterol in HDL [Mass ratio] 1.4 {ratio_units} Normal 0.0-3.2 [facility] Work Phone: Comment on above: LDL/HDL Ratio Men Wo men 1/2 Avg.Risk 1.0 1.5 Avg.Risk 3.6 3.2 2X Avg.Risk 6.2 5.0 3X Avg.Risk 8.0 6.1 today; PATIENT WAS F ASTINGPERFORMED BY: [place] [address]04[address] [facility] [id number] Information: [id number] Cholesterol in VLDL [Mass/Vol] 23 mg/dL Normal 5-40 [facility] Work Phone: Comment on above: today; PATIENT WAS F ASTINGPERFORMED BY: [facility] [facility] [id number] Information: [id number] Triglyceride [Mass/Vol] 115 mg/dL Normal 0-149 [facility] Work Phone: Comment on above: Please note refere nce interval change today; PATIENT WAS F ASTINGPERFORMED BY: [facility] Jonvtv[address] [facility] [id number] Information: [id number] EXEEQ-EQKODYPRWDS-QLNES (821 05)Ordered By: Drive In Waiter/Waitress on 09-13-2015 AFP.tumor marker [Mass/Vol] 1.6 ng/mL Normal 0.0-8.3 [facility] Work Phone: Comment on above: Apoorva ECLIA methodol ogy PATIENT NOT FASTINGP ERFORMED BY: [facility] [facility] [id number] HEPATIC FUNCTION PANEL (8007 6)Ordered By: Drive In Waiter/Waitress on 09-13-2015 Bilirubin.direct [Mass/Vol] 0.06 mg/dL Normal 0.00-0.40 [facility] Work Phone: Comment on above: PATIENT NOT FASTINGP ERFORMED BY: [address] [id number] HEPATITIS PANEL (67377)Order ed By: Drive In Waiter/Waitress on 09-13-2015 HAV IgM IA Ql Negative Normal Comprehensi ve Internal Medicine Work Phone: Comment on above: PATIENT NOT FASTINGP ERFORMED BY: [place] 1190470 [facility] [id number] HBV core IgM IA Ql Negative Normal Compre hensive Internal Medicine Work Phone: Comment on above: PATIENT NOT FASTINGP ERFORMED BY: [place] 1190470 [facility] [id number] HBV surface Ag IA Ql Negative Normal Comp rehensive Internal Medicine Work Phone: Comment on above: PATIENT NOT FASTINGP ERFORMED BY: [facility] [facility] [id number] HCV Ab Signal/Cutoff IA [Rel units/Vol] {ratio} Normal 0.0-0.9 [facility] Work Phone: Comment on above: Negative: < 0.8 Inde terminate: 0.8 - 0.9 Positive: > 0.9 . In order to reduce the incidence of a false positive result, the CDC recommends that all s/co ratios between 1.0 and 10.9 be confirmed by a more specific supplemental or PCR testing. [facility] offers HCV Ab w/Reflex to Verification test #258784. PATIENT NOT FASTINGP ERFORMED BY: [facility] [facility] [id number] Metabolic Panel, Comprehensi ve (47093)Ordered By: Drive In Waiter/Waitress on 09-13-2015 Albumin [Mass/Vol] 4.2 g/dL Normal 3.5-5.5 [facility] Internal Medicine Work Phone: Comment on above: PATIENT NOT FASTINGP ERFORMED BY: TIO LabConancy RamirezXoqcug[address] [facility] [id number] Information: [id number] Albumin/Globulin [Mass ratio] 1.4 {ratio} Normal 1.1-2.5 [facility] Work Phone: Comment on above: PATIENT NOT FASTINGP ERFORMED BY: TIO [employer] Ztvtht74[address] [facility] [id number] Information: [id number] ALP [Catalytic activity/Vol] 69 [iU]/L Normal 39-117 [facility] Work Phone: Comment on above: PATIENT NOT FASTINGP ERFORMED BY: TIO [facility]Three [facility] Iccoxt022[address] [facility] [id number] Information: [id number] ALT [Catalytic activity/Vol] 8 [iU]/L Normal 0-32 [facility] Work Phone: Comment on above: PATIENT NOT FASTINGP ERFORMED BY: TIO Cop[place] Pmrbar[address] [facility] [id number] Information: [id number] AST [Catalytic activity/Vol] 14 [iU]/L Normal 0-40 [facility] Work Phone: Comment on above: PATIENT NOT FASTINGP ERFORMED BY: TIO LabCo Tbkjvs80[address] [facility] [id number] Information: [id number] Bilirubin [Mass/Vol] mg/dL Normal 0.0-1.2 [facility] Internal Medicine Work Phone: Comment on above: PATIENT NOT FASTINGP ERFORMED BY: TIO LabCo Udcftc[address] [facility] [id number] Information: [id number] Calcium [Mass/Vol] 9.6 mg/dL Normal 8.7-10.2 [facility] Internal Medicine Work Phone: Comment on above: PATIENT NOT FASTINGP ERFORMED BY: CB [facility] Mtxqyi1418 Gó[address] RoadAlleghany Healthin [place] [id number] Information: [id number] Chloride [Moles/Vol] 105 mmol/L Normal 97-108 Comp rehensive Internal Medicine Work Phone: Comment on above: PATIENT NOT FASTINGP ERFORMED BY: CB [facility] Nzgfxl[address] [facility]in [place] [id number] Information: [id number] CO2 [Moles/Vol] 21 mmol/L Normal 18-29 [facility] Internal Medicine Work Phone: Comment on above: PATIENT NOT FASTINGP ERFORMED BY: CB [facility] Oifpvu3557 [address] [facility] [id number] Information: [id number] Creatinine [Mass/Vol] 0.78 mg/dL Normal 0.57-1.00 [facility] Work Phone: Comment on above: PATIENT NOT FASTINGP ERFORMED BY: CB [facility] Rjvrkx[address]94 [address] [facility] [id number] Information: [id number] GFR/1.73 sq M predicted among blacks CKD-EPI (S/P/Bld) [Vol rate/Area] 114 mL/min/1.73 Normal [facility] Work Phone: Comment on above: PATIENT NOT FASTINGP ERFORMED BY: CB [facility] Mzbhfl[address]203 [address] [facility] [id number] Information: [id number] GFR/1.73 sq M predicted among non-blacks CKD-EPI (S/P/Bld) [Vol rate/Area] 99 mL/min/1.73 Normal [facility] Work Phone: Comment on above: PATIENT NOT FASTINGP ERFORMED BY: CB [facility] Arsngb[address]95 [address] [facility] [id number] Information: [id number] Globulin (S) [Mass/Vol] 3.1 g/dL Normal 1.5-4.5 [facility] Internal Medicine Work Phone: Comment on above: PATIENT NOT FASTINGP ERFORMED BY: TIO Ramirez[address] [facility] [id number] Information: [id number] Glucose [Mass/Vol] 96 mg/dL Normal 65-99 [facility] Internal Medicine Work Phone: Comment on above: PATIENT NOT FASTINGP ERFORMED BY: TIO LabMarita BenavidesRrtpez7[address] [facility] [id number] Information: [id number] Potassium [Moles/Vol] 4.9 mmol/L Normal 3.5-5.2 [facility] Internal Medicine Work Phone: Comment on above: PATIENT NOT FASTINGP ERFORMED BY: TIO Copeland Hsdssr[address] [facility] [id number] Information: [id number] Protein [Mass/Vol] 7.3 g/dL Normal 6.0-8.5 [facility] Internal Medicine Work Phone: Comment on above: PATIENT NOT FASTINGP ERFORMED BY: TIO Benavideslin[address] [facility] [id number] Information: [id number] Sodium [Moles/Vol] 142 mmol/L Normal 134-144 [facility] Internal Medicine Work Phone: Comment on above: PATIENT NOT FASTINGP ERFORMED BY: TIO CopelandJames Ville [address] [facility] [id number] Information: [id number] Urea nitrogen [Mass/Vol] 9 mg/dL Normal 6-20 [facility] Internal Medicine Work Phone: Comment on above: PATIENT NOT FASTINGP ERFORMED BY: TIO LabAsh Yzqiaa7[address] [facility] [id number] Information: [id number] Urea nitrogen/Creatinine [Mass ratio] 12 mg/mg Normal 8-20 [facility] Internal Medicine Work Phone: Comment on above: PATIENT NOT FASTINGP ERFORMED BY: Tipzu [facility] Mxwttl[address] [employer] Pte LtdErlanger [facility] [id number] Information: [id number] URINE MARZENA CULTURE-IDENTIFICA [place] (19505)Ordered By: Drive In Waiter/Waitress on 09-13-2015 Bacteria identified Cx Nom (U) MUG Normal [facility] Work Phone: Comment on above: Mixed urogenital tobias ra1,000 Colonies/mL PATIENT NOT FASTINGP ERFORMED BY: [facility]zu [facility] Zcrtvj[address]27 [address] [employer] Pte LtdErlanger [facility] [id number] Information: [id number] Bacteria identified Cx Nom (U) Final report Normal [facility] Work Phone: Comment on above: PATIENT NOT FASTINGP ERFORMED BY: Tipzu Labezzai - how to arabiarp Dxtkmn3025 [facility] [id number] Information: [id number] Urinalysis, Office (44584)Or dered By: Namita Okeefe on 09-12-2015 Bilirubin Ql (U) Negative Normal Comprehe nsive Internal Medicine Work Phone: Glucose Test strip (U) [Mass/Vol] Negative Normal [facility] Work Phone: Hemoglobin Ql (U) Non Hemolyzed Moderate Normal [facility] Work Phone: Ketones Ql (U) Negative Normal Comprehens binta Internal Medicine Work Phone: Leukocyte esterase Test strip Ql (U) Negative Normal [facility] Work Phone: Nitrite Ql (U) Negative Normal Comprehens binta Internal Medicine Work Phone: pH (U) 7.0 [pH] Normal [facility] Work Phone: Protein Ql (U) Negative Normal Comprehens binta Internal Medicine Work Phone: Specific gravity (U) [Rel density] 1.010 1 Normal [facility] Work Phone: Urobilinogen (24H U) [Mass/Time] Normal Normal [facility] Work Phone: CALCIFEDIOL (07189)Ordered B y: Drive In Waiter/Waitress on 06-23-2015 25-Hydroxyvitamin D2+25-Hydroxyvitamin D3 [Mass/Vol] 54.0 ng/mL Normal 30.0-100.0 [facility] Work Phone: Comment on above: Vitamin D deficiency has been defined by the [place] ofMedicine and an Endocrine Society practice guideline as alevel of serum 25-OH vitamin D less than 20 ng/mL (1,2).The Endocrine Society went on to further define vitamin Dinsufficiency as a level between 21 and 29 ng/mL (2).1. IOM ([place] of Medicine). 2010. Dietary reference intakes for calcium and D. [place]: The National Academies Press.2. Catherine MF, Leeann ZHOU, Ilia HUERTAS, et al. Evaluation, treatment, and prevention of vitamin D deficiency: an Endocrine Society clinical practice guideline. JCEM. 2010; 96(7):1911-30. PATIENT NOT FASTINGP ERFORMED BY: CB [facility] Zbhizh[address]Dublin [place] [id number] CBC & PLATELETS (AUTO) ([id number])Ordered By: Drive In Waiter/Waitress on 06-23-2015 Erythrocyte distribution width (RBC) [Ratio] 14.3 % Normal 12.3-15.4 [facility] Work Phone: Comment on above: PATIENT NOT FASTINGP ERFORMED BY: CB [facility] Hdpubz[address]Dublin [place] [id number] Information: [id number] Hematocrit (Bld) [Volume fraction] 44.3 % Normal 34.0-46.6 [facility] Work Phone: Comment on above: PATIENT NOT FASTINGP ERFORMED BY: CB [facility] Whahae25[address] RoadDublin [place] [id number] Information: [id number] Hemoglobin (Bld) [Mass/Vol] 14.3 g/dL Normal 11.1-15.9 [facility] Work Phone: Comment on above: PATIENT NOT FASTINGP ERFORMED BY: CB [facility] Ridskh[address] RoadDublin [place] [id number] Information: [id number] MCH (RBC) [Entitic mass] 28.8 pg Normal 26.6-33.0 [facility] Internal Medicine Work Phone: Comment on above: PATIENT NOT FASTINGP ERFORMED BY: TIO IzabelMarita Snnlnq95[address] [facility] [id number] Information: [id number] MCHC (RBC) [Mass/Vol] 32.3 g/dL Normal 31.5-35.7 [facility] Work Phone: Comment on above: PATIENT NOT FASTINGP ERFORMED BY: TIO Benavideslin[address] [facility] [id number] Information: [id number] MCV (RBC) [Entitic vol] 89 fL Normal 79-97 [facility] Internal Medicine Work Phone: Comment on above: PATIENT NOT FASTINGP ERFORMED BY: TIO Benavideslin[address] [facility] [id number] Information: [id number] Platelets (Bld) [#/Vol] 356 {x10E3/uL} Normal 150-379 [facility] Internal Medicine Work Phone: Comment on above: PATIENT NOT FASTINGP ERFORMED BY: TIO Benavideslin[address] [facility] [id number] Information: [id number] RBC (Bld) [#/Vol] 4.97 {x10E6/uL} Normal 3.77-5.28 [facility] Internal Medicine Work Phone: Comment on above: PATIENT NOT FASTINGP ERFORMED BY: TIO IzabelAshSaint Barnabas Behavioral Health CenterLxvtkf6[address] [facility] [id number] Information: [id number] WBC (Bld) [#/Vol] 6.9 {x10E3/uL} Normal 3.4-10.8 [facility] Work Phone: Comment on above: PATIENT NOT FASTINGP ERFORMED BY: CB [facility] [address] [facility] [id number] Information: [id number] TSH (THYROID STIMULATING HOR RADHA) ([id number])Ordered By: Drive In Waiter/Waitress on 06-23-2015 TSH Qn 0.477 {uIU/mL} Normal 0.450-4.500 [facility] Internal Medicine Work Phone: Comment on above: PATIENT NOT FASTINGP ERFORMED BY: CB [facility] Vuhuey3[address] [facility] [id number] HgA1C , Office ([id number])on HbA1c (Bld) [Mass fraction] 5.6 % Normal 4.6 - 7.1 [facility] Work Phone: HgA1C , Office ([id number])Ordere d By: Doreen Cueva on 07-23-2013 HbA1c (Bld) [Mass fraction] 5.3 % Normal 4.6 - 7.1 [facility] Work Phone: LIPID PANEL ([id number])Ordered B y: Drive In Waiter/Waitress on 07-23-2013 Cholesterol [Mass/Vol] 170 mg/dL Normal 100-199 [facility] Internal Medicine Work Phone: Comment on above: PATIENT WAS FASTINGP ERFORMED BY: TIO [facility] Iohhop7[address] [facility] [id number] Information: [id number] Cholesterol in HDL [Mass/Vol] 50 mg/dL Normal [facility] Work Phone: Comment on above: According to ATP-III Guidelines, HDL-C >59 mg/dL is considered anegative risk factor for CHD. PATIENT WAS FASTINGP ERFORMED BY: CB [facility] Hsubat9[address] [facility] [id number] Information: [id number] Cholesterol in LDL [Mass/Vol] 94 mg/dL Normal 0-99 [facility] Work Phone: Comment on above: PATIENT WAS FASTINGP ERFORMED BY: CB [facility] Elkfjj86[address] [facility] [id number] Information: [id number] Cholesterol in LDL/Cholesterol in HDL [Mass ratio] 1.9 {ratio_units} Normal 0.0-3.2 [facility] Work Phone: Comment on above: PATIENT WAS FASTINGP ERFORMED BY: [facility] Nxnxua09[address] [facility] [id number] Information: [id number] Cholesterol in VLDL [Mass/Vol] 26 mg/dL Normal 5-40 [facility] Work Phone: Comment on above: PATIENT WAS FASTINGP ERFORMED BY: [facility] Kxjpyd6[address] [facility] [id number] Information: [id number] Triglyceride [Mass/Vol] 132 mg/dL Normal 0-149 [facility] Work Phone: Comment on above: PATIENT WAS FASTINGP ERFORMED BY: [facility] Vscczc89[address] [facility] [id number] Information: [id number] Vital Signs Date Time Vital Sign Value Performing Clinician Facility 06-06-2025 13:57-0400 Body mass index (BMI) [Ratio] 44.63 kg/m2 Penny Bee APRN.CNM Work Phone: [facility] 06-06-2025 13:57-0400 Body weight 110.68 kg Penny Bee APRN.CNM Work Phone: [facility] 06-06-2025 13:57-0400 Diastolic blood pressure 84 mm[Hg] Penny Bee APRN.CNM Work Phone: [facility] 06-06-2025 13:57-0400 Systolic blood pressure 124 mm[Hg] Penny Bee APRN.CNM Work Phone: [facility] 05-19-2025 23:30-0400 Body temperature 98.2 [degF] Dr. Yahir Raygoza MD Work Phone: [facility] 05-19-2025 23:30-0400 Diastolic blood pressure 89 mm[Hg] Dr. Yahir Raygoza MD Work Phone: 3(772)434-609393 [place] [address] 05-19-2025 23:30-0400 Heart rate 74 /min Dr. Yahir Raygoza MD Work Phone: 3(209)332-656624 [place] [address] 05-19-2025 23:30-0400 Respiratory rate 15 /min Dr. Yahir Raygoza MD Work Phone: 0(771)609-656224 [place] [address] 05-19-2025 23:30-0400 SaO2% (BldA) [Mass fraction] 100 % Dr. Yahir Raygoza MD Work Phone: 0(193)[phone] [place] [address] 05-19-2025 23:30-0400 Systolic blood pressure 138 mm[Hg] Dr. Yahir Raygoza MD Work Phone: 8(234)686-450824 [place] [address] 05-19-2025 19:46-0400 Body height 157.[address] Yahir Raygoza MD Work Phone: 3(194)372-070024 [place] [address] 05-19-2025 19:46-0400 Body mass index (BMI) [Ratio] 44.3 kg/m2 Dr. Yahir Raygoza MD Work Phone: 0(717)074-307924 [place] [address] 05-19-2025 19:46-0400 Body weight [address] Yahir Raygoza MD Work Phone: 8(554)521-368924 [place] [address] 03-07-2025 07:47-0400 Body height 157.5 cm Penny Bee [employer]S ASSISTANT.CNM Work Phone: 7(144)[phone] [place] [address] 03-07-2025 07:47-0400 Body mass index (BMI) [Ratio] 43.71 kg/m2 Penny Bee [employer]S ASSISTANT.CNM Work Phone: 7(822)454-685876 [place] [address] 03-07-2025 07:47-0400 Body weight 108.41 kg Penny Bee [employer]S ASSISTANT.CNM Work Phone: [facility] 03-07-2025 07:47-0400 Diastolic blood pressure 88 mm[Hg] Penny Bee [employer] CONTRACTS ASSISTANT.CNM Work Phone: 0(710)[phone] [place] [address] 03-07-2025 07:47-0400 Systolic blood pressure 134 mm[Hg] ePnny Bee [employer] CONTRACTS ASSISTANT.CNM Work Phone: [facility] 11-16-2024 06:57-0500 Body mass index (BMI) [Ratio] 42.74 kg/m2 Lorenza Mitchell [employer] CONTRACTS ASSISTANT.BIOSOLIDS MANAGEMENT TECHNICIAN Work Phone: [facility] 11-16-2024 06:57-0500 Body weight 106 kg Lorenza Mitchell [employer]S ASSISTANT.BIOSOLIDS MANAGEMENT TECHNICIAN Work Phone: [facility] 11-16-2024 06:57-0500 Diastolic blood pressure 82 mm[Hg] Lorenza Mitchell [employer] CONTRACTS ASSISTANT.BIOSOLIDS MANAGEMENT TECHNICIAN Work Phone: [facility] 11-16-2024 06:57-0500 Heart rate 93 /min Lorenza Mitchell [employer] CONTRACTS ASSISTANT.BIOSOLIDS MANAGEMENT TECHNICIAN Work Phone: [facility] 11-16-2024 06:57-0500 Respiratory rate 16 /min Lorenza Mitchell [employer] CONTRACTS ASSISTANT.BIOSOLIDS MANAGEMENT TECHNICIAN Work Phone: [facility] 11-16-2024 06:57-0500 Systolic blood pressure 130 mm[Hg] Lorenza Mitchell [employer]S AND CONTRACTS ASSISTANT.BIOSOLIDS MANAGEMENT TECHNICIAN Work Phone: [facility] 10-09-2024 08:23-0500 Body mass index (BMI) [Ratio] 42.3 kg/m2 Efren Moomaw [employer] CONTRACTS ASSISTANT.FLOOR SPACE ALLOCATOR Work Phone: [facility] 10-09-2024 08:23-0500 Body temperature 98.6 [degF] Efren Moomaw [employer] CONTRACTS ASSISTANT.FLOOR SPACE ALLOCATOR Work Phone: [facility] 10-09-2024 08:23-0500 Body weight 104.9 kg Efren Moomaw [employer] CONTRACTS ASSISTANT.FLOOR SPACE ALLOCATOR Work Phone: [facility] 10-09-2024 08:23-0500 Diastolic blood pressure 82 mm[Hg] Efren Moomaw [employer] AND CONTRACTS ASSISTANT.FLOOR SPACE ALLOCATOR Work Phone: [facility] 10-09-2024 08:23-0500 Heart rate 118 /min Efren Moomaw [employer] CONTRACTS ASSISTANT.FLOOR SPACE ALLOCATOR Work Phone: [facility] 10-09-2024 08:23-0500 Respiratory rate 18 /min Efren Moomaw [employer]S AND CONTRACTS ASSISTANT.FLOOR SPACE ALLOCATOR Work Phone: [facility] 10-09-2024 08:23-0500 SaO2% (BldA) [Mass fraction] 99 % Efren Moomaw [employer] CONTRACTS ASSISTANT.FLOOR SPACE ALLOCATOR Work Phone: [facility] 10-09-2024 08:23-0500 Systolic blood pressure 134 mm[Hg] Efren Moomaw [employer] AND CONTRACTS ASSISTANT.FLOOR SPACE ALLOCATOR Work Phone: [facility] 07-26-2024 07:06-0400 Body mass index (BMI) [Ratio] 42.34 kg/m2 Lorenza Mitchell [employer] CONTRACTS ASSISTANT.BIOSOLIDS MANAGEMENT TECHNICIAN Work Phone: [facility] 07-26-2024 07:06-0400 Body weight 105 kg Lorenza Mitchell [employer]S AND CONTRACTS ASSISTANT.BIOSOLIDS MANAGEMENT TECHNICIAN Work Phone: [facility] 07-26-2024 07:06-0400 Diastolic blood pressure 79 mm[Hg] Lorenza Mitchell [employer] AND CONTRACTS ASSISTANT.BIOSOLIDS MANAGEMENT TECHNICIAN Work Phone: [facility] 07-26-2024 07:06-0400 Heart rate 98 /min Lorenza Mitchell [employer]S AND CONTRACTS ASSISTANT.BIOSOLIDS MANAGEMENT TECHNICIAN Work Phone: [facility] 07-26-2024 07:06-0400 Respiratory rate 16 /min Lorenza Mitchell [employer] AND CONTRACTS ASSISTANT.BIOSOLIDS MANAGEMENT TECHNICIAN Work Phone: [facility] 07-26-2024 07:06-0400 Systolic blood pressure 127 mm[Hg] Lorenza Mitchell [employer]S AND CONTRACTS ASSISTANT.BIOSOLIDS MANAGEMENT TECHNICIAN Work Phone: [facility] 06-15-2024 10:05-0400 Body mass index (BMI) [Ratio] 42.74 kg/m2 Jasmin Martinez [employer] CONTRACTS ASSISTANT.FLOOR SPACE ALLOCATOR Work Phone: [facility] 06-15-2024 10:05-0400 Body temperature 98.4 [degF] Jasmin Martinez [employer]S AND CONTRACTS ASSISTANT.FLOOR SPACE ALLOCATOR Work Phone: [facility] 06-15-2024 10:05-0400 Body weight 106 kg Jasmin Martinez [employer]S AND CONTRACTS ASSISTANT.FLOOR SPACE ALLOCATOR Work Phone: [facility] 06-15-2024 10:05-0400 Diastolic blood pressure 86 mm[Hg] Jasmin Martinez [employer]S AND CONTRACTS ASSISTANT.FLOOR SPACE ALLOCATOR Work Phone: [facility] 06-15-2024 10:05-0400 Heart rate 112 /min Jasmin Martinez [employer]S AND CONTRACTS ASSISTANT.FLOOR SPACE ALLOCATOR Work Phone: [facility] 06-15-2024 10:05-0400 Respiratory rate 18 /min Jasmin Martinez [employer]S AND CONTRACTS ASSISTANT.FLOOR SPACE ALLOCATOR Work Phone: [facility] 06-15-2024 10:05-0400 SaO2% (BldA) [Mass fraction] 99 % Jasmin Martinez [employer] AND CONTRACTS ASSISTANT.FLOOR SPACE ALLOCATOR Work Phone: [facility] 06-15-2024 10:05-0400 Systolic blood pressure 147 mm[Hg] Jasmin Martinez [employer] AND CONTRACTS ASSISTANT.FLOOR SPACE ALLOCATOR Work Phone: [facility] 02-07-2024 15:01-0400 Body temperature 97.5 [degF] Ivana Little [employer] AND CONTRACTS ASSISTANT.FLOOR SPACE ALLOCATOR Work Phone: [facility] 02-07-2024 15:01-0400 Body weight 106.9 kg Ivana Little APRN.FLOOR SPACE ALLOCATOR Work Phone: [facility] 02-07-2024 15:01-0400 Diastolic blood pressure 86 mm[Hg] Ivana Little [employer]S AND CONTRACTS ASSISTANT.FLOOR SPACE ALLOCATOR Work Phone: [facility] 02-07-2024 15:01-0400 Heart rate 111 /min Ivana Little [employer]S AND CONTRACTS ASSISTANT.FLOOR SPACE ALLOCATOR Work Phone: [facility] 02-07-2024 15:01-0400 Respiratory rate 20 /min Ivana Little [employer]S AND CONTRACTS ASSISTANT.FLOOR SPACE ALLOCATOR Work Phone: [facility] 02-07-2024 15:01-0400 SaO2% (BldA) [Mass fraction] 98 % Ivana Little [employer] AND CONTRACTS ASSISTANT.FLOOR SPACE ALLOCATOR Work Phone: [facility] 02-07-2024 15:01-0400 Systolic blood pressure 158 mm[Hg] Ivana Little APRN.FLOOR SPACE ALLOCATOR Work Phone: [facility] 10-16-2023 14:54-0500 Body height 157.5 cm Holly La MD Work Phone: [facility] 10-16-2023 14:54-0500 Body weight 105.23 kg Holly La MD Work Phone: [facility] 10-16-2023 14:54-0500 Diastolic blood pressure 86 mm[Hg] Holly La MD Work Phone: [facility] 10-16-2023 14:54-0500 Systolic blood pressure 144 mm[Hg] Holly La MD Work Phone: [facility] 06-08-2023 05:05-0400 Body height 157.48 cm [facility] 06-08-2023 05:05-0400 Body mass index (BMI) [Ratio] 41.5 kg/m2 [facility] 06-08-2023 05:05-0400 Body temperature 98.1 [degF] [facility] 06-08-2023 05:05-0400 Body weight 103.1 kg [facility] 06-08-2023 05:05-0400 Diastolic blood pressure 88 mm[Hg] [facility] 06-08-2023 05:05-0400 Heart rate 99 /min [facility] 06-08-2023 05:05-0400 Respiratory rate 18 /min [facility] 06-08-2023 05:05-0400 SaO2% (BldA) [Mass fraction] 99 % [facility] 06-08-2023 05:05-0400 Systolic blood pressure 155 mm[Hg] [facility] 01-21-2023 07:41-0500 Body temperature 98.8 [degF] Mildred Jason APRN.FLOOR SPACE ALLOCATOR Work Phone: [facility] 01-21-2023 07:41-0500 Body weight 102.33 kg Mildred Jason APRN.FLOOR SPACE ALLOCATOR Work Phone: [facility] 01-21-2023 07:41-0500 Diastolic blood pressure 80 mm[Hg] Mildred Praisler-Wood [employer]S AND CONTRACTS ASSISTANT.FLOOR SPACE ALLOCATOR Work Phone: [facility] 01-21-2023 07:41-0500 Heart rate 129 /min Mildred Praisler-Wood [employer]S AND CONTRACTS ASSISTANT.FLOOR SPACE ALLOCATOR Work Phone: [facility] 01-21-2023 07:41-0500 Respiratory rate 18 /min Mildred Praisler-Wood [employer]S AND CONTRACTS ASSISTANT.FLOOR SPACE ALLOCATOR Work Phone: [facility] 01-21-2023 07:41-0500 SaO2% (BldA) [Mass fraction] 99 % Mildred Praisler-Wood [employer] AND CONTRACTS ASSISTANT.FLOOR SPACE ALLOCATOR Work Phone: [facility] 01-21-2023 07:41-0500 Systolic blood pressure 136 mm[Hg] Mildred Praisler-Wood [employer]S AND CONTRACTS ASSISTANT.FLOOR SPACE ALLOCATOR Work Phone: [facility] 01-01-2023 17:49-0500 Diastolic blood pressure 74 mm[Hg] Yahir Raygoza MD Work Phone: [facility] 01-01-2023 17:49-0500 Systolic blood pressure 130 mm[Hg] Yahir Raygoza MD Work Phone: [facility] 01-01-2023 17:18-0500 Body height 157.5 cm Yahir Raygoza MD Work Phone: [facility] 01-01-2023 17:18-0500 Body temperature 98.49 [degF] Yahir Raygoza MD Work Phone: [facility] 01-01-2023 17:18-0500 Body weight 102.51 kg Yahir Raygoza MD Work Phone: [facility] 01-01-2023 17:18-0500 Heart rate 105 /min Yahir Raygoza MD Work Phone: [facility] 01-01-2023 17:18-0500 Respiratory rate 12 /min Yahir Raygoza MD Work Phone: [facility] 01-01-2023 17:18-0500 SaO2% (BldA) [Mass fraction] 98 % Yahir Raygoza MD Work Phone: [facility] 12-10-2022 08:47-0500 Body temperature 97.39 [degF] Krislyn Aberegg PA Work Phone: [facility] 12-10-2022 08:47-0500 Body weight 102.24 kg Krislyn Aberegg PA Work Phone: [facility] 12-10-2022 08:47-0500 Diastolic blood pressure 80 mm[Hg] Krislyn Aberegg PA Work Phone: [facility] 12-10-2022 08:47-0500 Heart rate 105 /min Krislyn Aberegg PA Work Phone: [facility] 12-10-2022 08:47-0500 Respiratory rate 18 /min Krislyn Aberegg PA Work Phone: [facility] 12-10-2022 08:47-0500 SaO2% (BldA) [Mass fraction] 98 % Krislyn Aberegg PA Work Phone: [facility] 12-10-2022 08:47-0500 Systolic blood pressure 122 mm[Hg] Krislyn Aberegg PA Work Phone: [facility] 11-27-2022 17:02-0500 Body height 157.5 cm Yahir Raygoza MD Work Phone: [facility] 11-27-2022 17:02-0500 Body temperature 98.71 [degF] Yahir Raygoza MD Work Phone: [facility] 11-27-2022 17:02-0500 Body weight 102.51 kg Yahir Raygoza MD Work Phone: [facility] 11-27-2022 17:02-0500 Diastolic blood pressure 74 mm[Hg] Yahir Raygoza MD Work Phone: [facility] 11-27-2022 17:02-0500 Heart rate 106 /min Yahir Raygoza MD Work Phone: [facility] 11-27-2022 17:02-0500 Respiratory rate 14 /min Yahir Raygoza MD Work Phone: [facility] 11-27-2022 17:02-0500 SaO2% (BldA) [Mass fraction] 96 % Yahir Raygoza MD Work Phone: [facility] 11-27-2022 17:02-0500 Systolic blood pressure 136 mm[Hg] Yahir Raygoza MD Work Phone: [facility] 10-29-2022 15:27-0500 Body height 157.5 cm Yahir Raygoza MD Work Phone: [facility] 10-29-2022 15:27-0500 Body temperature 99 [degF] Yahir Raygoza MD Work Phone: [facility] 10-29-2022 15:27-0500 Body weight 102.51 kg Yahir Raygoza MD Work Phone: [facility] 10-29-2022 15:27-0500 Diastolic blood pressure 76 mm[Hg] Yahir Raygoza MD Work Phone: [facility] 10-29-2022 15:27-0500 Heart rate 115 /min Yahir Raygoza MD Work Phone: [facility] 10-29-2022 15:27-0500 Respiratory rate 14 /min Yahir Raygoza MD Work Phone: [facility] 10-29-2022 15:27-0500 SaO2% (BldA) [Mass fraction] 97 % Yahir Raygoza MD Work Phone: [facility] 10-29-2022 15:27-0500 Systolic blood pressure 140 mm[Hg] Yahir Raygoza MD Work Phone: [facility] 10-22-2022 12:56-0500 Body weight 74.39 kg Pac 2 Work Phone: [facility] 09-14-2022 08:44-0400 Body height 157.5 cm Yahir Raygoza MD Work Phone: [facility] 09-14-2022 08:44-0400 Body temperature 98.8 [degF] Yahir Raygoza MD Work Phone: [facility] 09-14-2022 08:44-0400 Body weight 74.39 kg Yahir Raygoza MD Work Phone: [facility] 09-14-2022 08:44-0400 Diastolic blood pressure 80 mm[Hg] Yahir Raygoza MD Work Phone: [facility] 09-14-2022 08:44-0400 Heart rate 107 /min Yahir Raygoza MD Work Phone: [facility] 09-14-2022 08:44-0400 Respiratory rate 12 /min Yahir Raygoza MD Work Phone: [facility] 09-14-2022 08:44-0400 SaO2% (BldA) [Mass fraction] 95 % Yahir Raygoza MD Work Phone: [facility] 09-14-2022 08:44-0400 Systolic blood pressure 128 mm[Hg] Yahir Raygoza MD Work Phone: [facility] 09-01-2022 08:12-0400 Body temperature 97.39 [degF] Ade Jonatan [employer] CONTRACTS ASSISTANT.FLOOR SPACE ALLOCATOR Work Phone: [facility] 09-01-2022 08:12-0400 Body weight 103.33 kg Ade Jonatan [employer] AND CONTRACTS ASSISTANT.FLOOR SPACE ALLOCATOR Work Phone: [facility] 09-01-2022 08:12-0400 Diastolic blood pressure 80 mm[Hg] Ade Jonatan [employer]S AND CONTRACTS ASSISTANT.FLOOR SPACE ALLOCATOR Work Phone: [facility] 09-01-2022 08:12-0400 Heart rate 115 /min Ade Jonatan [employer]S AND CONTRACTS ASSISTANT.FLOOR SPACE ALLOCATOR Work Phone: [facility] 09-01-2022 08:12-0400 Respiratory rate 21 /min Ade Jonatan [employer]S AND CONTRACTS ASSISTANT.FLOOR SPACE ALLOCATOR Work Phone: [facility] 09-01-2022 08:12-0400 SaO2% (BldA) [Mass fraction] 98 % Ade Jonatan [employer] AND CONTRACTS ASSISTANT.FLOOR SPACE ALLOCATOR Work Phone: [facility] 09-01-2022 08:12-0400 Systolic blood pressure 128 mm[Hg] Ade Cheung APRN.FLOOR SPACE ALLOCATOR Work Phone: [facility] 05-13-2022 17:32-0400 Body temperature 97.59 [degF] Hector Black MD Work Phone: [facility] 05-13-2022 17:32-0400 Body weight 100.43 kg Hector Black MD Work Phone: [facility] 05-13-2022 17:32-0400 Diastolic blood pressure 82 mm[Hg] Hector Black MD Work Phone: [facility] 05-13-2022 17:32-0400 Heart rate 105 /min Hector Black MD Work Phone: [facility] 05-13-2022 17:32-0400 Respiratory rate 20 /min Hector Black MD Work Phone: [facility] 05-13-2022 17:32-0400 SaO2% (BldA) [Mass fraction] 97 % Hector Black MD Work Phone: [facility] 05-13-2022 17:32-0400 Systolic blood pressure 128 mm[Hg] Hector Black MD Work Phone: [facility] 05-03-2022 15:41-0400 Body height 157.5 cm Carol Montoya MD Work Phone: [facility] 05-03-2022 15:41-0400 Body temperature 97.9 [degF] Carol Montoya MD Work Phone: [facility] 05-03-2022 15:41-0400 Body weight 101.15 kg Carol Montoya MD Work Phone: [facility] 05-03-2022 15:41-0400 Diastolic blood pressure 74 mm[Hg] Carol Montoya MD Work Phone: [facility] 05-03-2022 15:41-0400 Heart rate 111 /min Carol Montoya MD Work Phone: [facility] 05-03-2022 15:41-0400 SaO2% (BldA) [Mass fraction] 99 % Carol Montoya MD Work Phone: [facility] 05-03-2022 15:41-0400 Systolic blood pressure 132 mm[Hg] Carol Montoya MD Work Phone: [facility] 05-01-2022 15:45-0400 Body height 157.5 cm Yahir Raygoza MD Work Phone: [facility] 05-01-2022 15:45-0400 Body temperature 97.59 [degF] Yahir Raygoza MD Work Phone: [facility] 05-01-2022 15:45-0400 Body weight 101.61 kg Yahir Raygoza MD Work Phone: [facility] 05-01-2022 15:45-0400 Diastolic blood pressure 72 mm[Hg] Yahir Raygoza MD Work Phone: [facility] 05-01-2022 15:45-0400 Heart rate 122 /min Yahir Raygoza MD Work Phone: [facility] 05-01-2022 15:45-0400 Respiratory rate 14 /min Yahir Raygoza MD Work Phone: [facility] 05-01-2022 15:45-0400 SaO2% (BldA) [Mass fraction] 98 % Yahir Raygoza MD Work Phone: [facility] 05-01-2022 15:45-0400 Systolic blood pressure 122 mm[Hg] Yahir Raygoza MD Work Phone: [facility] 04-28-2022 20:21-0400 Diastolic blood pressure 92 mm[Hg] [facility] Work Phone: 04-28-2022 20:21-0400 Heart rate 77 /min [facility] Work Phone: 04-28-2022 20:21-0400 Respiratory rate 16 /min [facility] Work Phone: 04-28-2022 20:21-0400 SaO2% (BldA) [Mass fraction] 98 % [facility] Work Phone: 04-28-2022 20:21-0400 Systolic blood pressure 142 mm[Hg] [facility] Work Phone: 04-28-2022 16:05-0400 Body height 157.48 cm [facility] Work Phone: 04-28-2022 16:05-0400 Body mass index (BMI) [Ratio] 35.6 kg/m2 [facility] Work Phone: 04-28-2022 16:05-0400 Body temperature 97.7 [degF] [facility] Work Phone: 04-28-2022 16:05-0400 Body weight 88.45 kg [facility] Work Phone: 04-16-2022 17:38-0400 Body temperature 98.49 [degF] Db [place] [employer] Work Phone: [facility] 04-16-2022 17:38-0400 Body weight 102.06 kg Db [place] [employer] Work Phone: [facility] 04-16-2022 17:38-0400 Diastolic blood pressure 72 mm[Hg] Db [place] [employer]IST[employer] Work Phone: [facility] 04-16-2022 17:38-0400 Heart rate 110 /min Db [place] [employer]IST[employer] Work Phone: [facility] 04-16-2022 17:38-0400 Respiratory rate 18 /min Db [place] [employer]IST[employer] Work Phone: [facility] 04-16-2022 17:38-0400 SaO2% (BldA) [Mass fraction] 97 % Db [place] [employer] ASSIST[employer] Work Phone: [facility] 04-16-2022 17:38-0400 Systolic blood pressure 122 mm[Hg] [facility] [employer] ASSISTANT.[employer] Work Phone: [facility] 04-07-2022 08:30-0400 Body temperature 98.1 [degF] [facility] [employer] ASSISTANT.[employer] Work Phone: [facility] 04-07-2022 08:30-0400 Body weight 101.15 kg [facility] [employer] ASSIST[employer] Work Phone: [facility] 04-07-2022 08:30-0400 Diastolic blood pressure 78 mm[Hg] [facility] [employer] ASSIST[employer] Work Phone: [facility] 04-07-2022 08:30-0400 Heart rate 112 /min [facility] [employer]IST[employer] Work Phone: [facility] 04-07-2022 08:30-0400 Respiratory rate 16 /min [facility] [employer] ASSIST[employer] Work Phone: [facility] 04-07-2022 08:30-0400 SaO2% (BldA) [Mass fraction] 98 % [facility] [employer] ASSIST[employer] Work Phone: [facility] 04-07-2022 08:30-0400 Systolic blood pressure 118 mm[Hg] [facility] [employer] ASSIST[employer] Work Phone: [facility] 02-14-2022 08:11-0400 Body height 159.2 cm Yahir Raygoza MD Work Phone: [facility] 02-14-2022 08:11-0400 Body temperature 98.01 [degF] Yaihr Raygoza MD Work Phone: [facility] 02-14-2022 08:11-0400 Body weight 102.06 kg Yahir Raygoza MD Work Phone: [facility] 02-14-2022 08:11-0400 Diastolic blood pressure 82 mm[Hg] Yahir Raygoza MD Work Phone: [facility] 02-14-2022 08:11-0400 Heart rate 89 /min Yahir Raygoza MD Work Phone: [facility] 02-14-2022 08:11-0400 Respiratory rate 16 /min Yahir Raygoza MD Work Phone: [facility] 02-14-2022 08:11-0400 SaO2% (BldA) [Mass fraction] 99 % Yahir Raygoza MD Work Phone: [facility] 02-14-2022 08:11-0400 Systolic blood pressure 124 mm[Hg] Yahir Raygoza MD Work Phone: [facility] 02-12-2018 08:05-0400 BMI (Body Mass Index) 39.59 kg/m2 Beatrice Rogel [facility] Work Phone: 02-12-2018 08:05-0400 Body Temperature 97.8 [degF] Beatrice Rogel [facility] Work Phone: 02-12-2018 08:05-0400 Body weight 101.38 kg Beatrice Rogel [facility] Work Phone: 02-12-2018 08:05-0400 BP Diastolic 78 mm[Hg] Beatrice Rogel [facility] Work Phone: Comment on above: Patient Position: Sitting; Cuff Location : Left Arm; Cuff Size: Standard 02-12-2018 08:05-0400 BP Systolic 122 mm[Hg] Beatrice Rogel [facility] Work Phone: Comment on above: Patient Position: Sitting; Cuff Location : Left Arm; Cuff Size: Standard 02-12-2018 08:05-0400 BSA (Body Surface Area) 2.03 m2 Beatrice Rogel [facility] Work Phone: 02-12-2018 08:05-0400 Height 160.02 cm Beatrice Rogel [facility] Work Phone: 02-12-2018 08:05-0400 Pulse (Heart Rate) 118 /min Beatrice Rogel [facility] Work Phone: Comment on above: Pattern: Regular 02-12-2018 08:05-0400 Pulse Oximetry 98 % [facility] Work Phone: Comment on above: Room air 02-12-2018 08:05-0400 Respiratory Rate 18 /min Beatrice Rog[facility] Work Phone: Comment on above: Pattern: Unlabored 10-31-2017 07:04-0500 BMI (Body Mass Index) 39.59 kg/m2 Beatrice Rogel [facility] Work Phone: 10-31-2017 07:04-0500 Body weight 101.38 kg Beatrice Rog[facility] Work Phone: 10-31-2017 07:04-0500 BP Diastolic 82 mm[Hg] Beatrice Rogel [facility] Work Phone: Comment on above: Patient Position: Sitting; Cuff Location : Left Arm; Cuff Size: Large 10-31-2017 07:04-0500 BP Systolic 118 mm[Hg] Beatrice Rogel [facility] Work Phone: Comment on above: Patient Position: Sitting; Cuff Location : Left Arm; Cuff Size: Large 10-31-2017 07:04-0500 BSA (Body Surface Area) 2.03 m2 Beatrice Rogel [facility] Work Phone: 10-31-2017 07:04-0500 Height 160.02 cm Beatrice Rogel [facility] Work Phone: 10-31-2017 07:04-0500 Pulse (Heart Rate) 102 /min Beatrice Rogel [facility] Work Phone: Comment on above: Pattern: Regular 10-31-2017 07:04-0500 Pulse Oximetry 99 % Beatrice Rog[facility] Work Phone: Comment on above: Room air 10-31-2017 07:04-0500 Respiratory Rate 18 /min Beatrice Rog[facility] Work Phone: Comment on above: Pattern: Unlabored 05-09-2017 07:05-0400 BMI (Body Mass Index) 37.07 kg/m2 Beatrice Rog[facility] Work Phone: 05-09-2017 07:05-0400 Body weight 94.92 kg Beatrice [facility] Work Phone: 05-09-2017 07:05-0400 BP Diastolic 78 mm[Hg] Beatrice Rogel [facility] Work Phone: Comment on above: Patient Position: Sitting; Cuff Location : Left Arm; Cuff Size: Large 05-09-2017 07:05-0400 BP Systolic 128 mm[Hg] Beatrice Rogel [facility] Work Phone: Comment on above: Patient Position: Sitting; Cuff Location : Left Arm; Cuff Size: Large 05-09-2017 07:05-0400 BSA (Body Surface Area) 1.97 m2 Beatrice Rogel [facility] Work Phone: 05-09-2017 07:05-0400 Height 160.02 cm Beatrice Rogel [facility] Work Phone: 05-09-2017 07:05-0400 Pulse (Heart Rate) 110 /min Beatrice Rogel [facility] Work Phone: Comment on above: Pattern: Regular 05-09-2017 07:05-0400 Pulse Oximetry 98 % Beatrice Rogel [facility] Work Phone: Comment on above: Room air 05-09-2017 07:05-0400 Respiratory Rate 18 /min Beatrice Rogel [facility] Work Phone: Comment on above: Pattern: Unlabored 04-22-2017 10:08-0400 BMI (Body Mass Index) 34.9 kg/m2 Beatrice Rogel [facility] Work Phone: 04-22-2017 10:08-0400 Body Temperature 99.3 [degF] Beatrice Rogel [facility] Work Phone: Comment on above: Method: Temporal 04-22-2017 10:08-0400 Body weight 89.36 kg Beatrice Rogel [facility] Work Phone: 04-22-2017 10:08-0400 BP Diastolic 80 mm[Hg] Beatrice Rogel [facility] Work Phone: Comment on above: Patient Position: Sitting; Cuff Location : Left Arm; Cuff Size: Standard 04-22-2017 10:08-0400 BP Systolic 130 mm[Hg] Beatrice Rogel [facility] Work Phone: Comment on above: Patient Position: Sitting; Cuff Location : Left Arm; Cuff Size: Standard 04-22-2017 10:08-0400 BSA (Body Surface Area) 1.92 m2 Beatrice Rogel [facility] Work Phone: 04-22-2017 10:08-0400 Height 160.02 cm Beatrice Rogel [facility] Work Phone: 04-22-2017 10:08-0400 Pulse (Heart Rate) 130 /min Beatrice Rogel [facility] Work Phone: Comment on above: Pattern: Regular 04-22-2017 10:08-0400 Pulse Oximetry 98 % Beatrice Rogel [facility] Work Phone: Comment on above: Room air 04-22-2017 10:08-0400 Respiratory Rate 16 /min Beatrice Rogel [facility] Work Phone: Comment on above: Pattern: Unlabored 11-08-2016 06:29-0500 BMI (Body Mass Index) 34.9 kg/m2 Beatrice Rogel [facility] Work Phone: 11-08-2016 06:29-0500 Body Temperature 98.3 [degF] Beatrice Rogel [facility] Work Phone: Comment on above: Method: Temporal 11-08-2016 06:29-0500 Body weight 89.36 kg Beatrice Rogel [facility] Work Phone: 11-08-2016 06:29-0500 BP Diastolic 76 mm[Hg] Beatrice Rogel [facility] Work Phone: Comment on above: Patient Position: Sitting; Cuff Location : Left Arm; Cuff Size: Standard 11-08-2016 06:29-0500 BP Systolic 130 mm[Hg] Beatrice Rogel [facility] Work Phone: Comment on above: Patient Position: Sitting; Cuff Location : Left Arm; Cuff Size: Standard 11-08-2016 06:29-0500 BSA (Body Surface Area) 1.92 m2 Beatrice Rogel [facility] Work Phone: 11-08-2016 06:29-0500 Height 160.02 cm Beatrice Rogel [facility] Work Phone: 11-08-2016 06:29-0500 Pulse (Heart Rate) 103 /min Beatrice Rogel [facility] Work Phone: Comment on above: Pattern: Regular 11-08-2016 06:29-0500 Pulse Oximetry 98 % Beatrice Rogel [facility] Work Phone: Comment on above: Room air 11-08-2016 06:29-0500 Respiratory Rate 16 /min Beatrice Rogel [facility] Work Phone: Comment on above: Pattern: Unlabored 07-12-2016 13:29-0400 BMI (Body Mass Index) 32.95 kg/m2 Beatrice Rogel [facility] Work Phone: 07-12-2016 13:29-0400 Body Temperature 97.6 [degF] Beatrice Rogel [facility] Work Phone: Comment on above: Method: Temporal 07-12-2016 13:29-0400 Body weight 84.37 kg Beatrice Rogel [facility] Work Phone: 07-12-2016 13:29-0400 BP Diastolic 86 mm[Hg] Beatrice Rogel [facility] Work Phone: Comment on above: Patient Position: Sitting; Cuff Location : Left Arm; Cuff Size: Large 07-12-2016 13:29-0400 BP Systolic 132 mm[Hg] Beat[facility] Rog[facility] Work Phone: Comment on above: Patient Position: Sitting; Cuff Location : Left Arm; Cuff Size: Large 07-12-2016 13:29-0400 BSA (Body Surface Area) 1.88 m2 Beatrice [facility] Work Phone: 07-12-2016 13:29-0400 Height 160.02 cm Beatrice Henley [facility] Work Phone: 07-12-2016 13:29-0400 Pulse (Heart Rate) 118 /min Beatrice Henley [facility] Work Phone: Comment on above: Pattern: Regular 07-12-2016 13:29-0400 Pulse Oximetry 98 % Beatrice Rogel [facility] Work Phone: Comment on above: Room air 07-12-2016 13:29-0400 Respiratory Rate 18 /min Beatrice Henley [facility] Work Phone: Comment on above: Pattern: Unlabored 03-28-2016 07:02-0400 BMI (Body Mass Index) 32.95 kg/m2 Beatrice Rogel [facility] Work Phone: 03-28-2016 07:02-0400 Body weight 84.37 kg Beatrice Rogel [facility] Work Phone: 03-28-2016 07:02-0400 BP Diastolic 90 mm[Hg] Beatrice Rogel [facility] Work Phone: Comment on above: Patient Position: Sitting; Cuff Location : Left Arm; Cuff Size: Large 03-28-2016 07:02-0400 BP Systolic 138 mm[Hg] Beatrice Rogel [facility] Work Phone: Comment on above: Patient Position: Sitting; Cuff Location : Left Arm; Cuff Size: Large 03-28-2016 07:02-0400 BSA (Body Surface Area) 1.88 m2 Beatrice Henley [facility] Work Phone: 03-28-2016 07:02-0400 Height 160.02 cm Betarice Henley [facility] Work Phone: 03-28-2016 07:02-0400 Pulse (Heart Rate) 102 /min Beatrice Henley [facility] Work Phone: Comment on above: Pattern: Regular 03-28-2016 07:02-0400 Pulse Oximetry 99 % Beatrice Henley [facility] Work Phone: Comment on above: Room air 03-28-2016 07:02-0400 Respiratory Rate 18 /min Beatrice Henley [facility] Work Phone: Comment on above: Pattern: Unlabored 03-19-2016 15:49-0400 BMI (Body Mass Index) 32.42 kg/m2 Beat[facility] Work Phone: 03-19-2016 15:49-0400 Body Temperature 97.4 [degF] Beatrice Rogel [facility] Work Phone: Comment on above: Method: Temporal 03-19-2016 15:49-0400 Body weight 83.01 kg Beatrice Henley [facility] Work Phone: 03-19-2016 15:49-0400 BP Diastolic 74 mm[Hg] Beatrice Rogel [facility] Work Phone: Comment on above: Patient Position: Sitting; Cuff Location : Left Arm; Cuff Size: Standard 03-19-2016 15:49-0400 BP Systolic 118 mm[Hg] Beatrice Rogel [facility] Work Phone: Comment on above: Patient Position: Sitting; Cuff Location : Left Arm; Cuff Size: Standard 03-19-2016 15:49-0400 BSA (Body Surface Area) 1.86 m2 Beatrice Henley [facility] Work Phone: 03-19-2016 15:49-0400 Height 160.02 cm Beatrice Rogel [facility] Work Phone: 03-19-2016 15:49-0400 Pulse (Heart Rate) 116 /min Beatrice Henley [facility] Work Phone: Comment on above: Pattern: Regular 03-19-2016 15:49-0400 Pulse Oximetry 99 % Beatrice Henley [facility] Work Phone: Comment on above: Room air 03-19-2016 15:49-0400 Respiratory Rate 18 /min Beatrice Rog[facility] Work Phone: Comment on above: Pattern: Unlabored 01-25-2016 07:06-0500 BMI (Body Mass Index) 32.46 kg/m2 Beatrice Rogel [facility] Work Phone: 01-25-2016 07:06-0500 Body weight 83.12 kg Beatrice Rogel [facility] Work Phone: 01-25-2016 07:06-0500 BP Diastolic 78 mm[Hg] Beatrice Rogel [facility] Work Phone: Comment on above: Patient Position: Sitting; Cuff Location : Left Arm; Cuff Size: Standard 01-25-2016 07:06-0500 BP Systolic 122 mm[Hg] Beatrice Rogel [facility] Work Phone: Comment on above: Patient Position: Sitting; Cuff Location : Left Arm; Cuff Size: Standard 01-25-2016 07:06-0500 BSA (Body Surface Area) 1.86 m2 Beatrice Rogel [facility] Work Phone: 01-25-2016 07:06-0500 Height 160.02 cm Beatrice Rogel [facility] Work Phone: 01-25-2016 07:06-0500 Pulse (Heart Rate) 105 /min Beatrice Rogel [facility] Work Phone: Comment on above: Pattern: Regular 01-25-2016 07:06-0500 Pulse Oximetry 98 % Beatrice Rogel [facility] Work Phone: Comment on above: Room air 01-25-2016 07:06-0500 Respiratory Rate 18 /min Beatrice Rogel [facility] Work Phone: Comment on above: Pattern: Unlabored 01-03-2016 14:01-0500 BMI (Body Mass Index) 32.84 kg/m2 Beatrice Rogel [facility] Work Phone: 01-03-2016 14:01-0500 Body Temperature 98.1 [degF] Beatrice Rogel [facility] Work Phone: 01-03-2016 14:01-0500 Body weight 84.09 kg Beatrice Rogel [facility] Work Phone: 01-03-2016 14:01-0500 BP Diastolic 80 mm[Hg] Beatrice Rogel [facility] Work Phone: Comment on above: Patient Position: Sitting; Cuff Location : Left Arm; Cuff Size: Standard 01-03-2016 14:01-0500 BP Systolic 116 mm[Hg] Beatrice Rogel [facility] Work Phone: Comment on above: Patient Position: Sitting; Cuff Location : Left Arm; Cuff Size: Standard 01-03-2016 14:01-0500 BSA (Body Surface Area) 1.87 m2 Beatrice Rogel [facility] Work Phone: 01-03-2016 14:01-0500 Height 160.02 cm Beatrice Rogel [facility] Work Phone: 01-03-2016 14:01-0500 Pulse (Heart Rate) 107 /min Beatrice Rogel [facility] Work Phone: Comment on above: Pattern: Regular 01-03-2016 14:01-0500 Pulse Oximetry 98 % Beatrice Rogel [facility] Work Phone: Comment on above: Room air 01-03-2016 14:01-0500 Respiratory Rate 18 /min Beatrice Rogel [facility] Work Phone: Comment on above: Pattern: Unlabored 12-15-2015 07:20-0500 BMI (Body Mass Index) 32.82 kg/m2 Beatrice Rogel [facility] Work Phone: 12-15-2015 07:20-0500 Body weight 84.03 kg Beatrice Rogel [facility] Work Phone: 12-15-2015 07:20-0500 BP Diastolic 62 mm[Hg] Beatrice Rogel [facility] Work Phone: Comment on above: Patient Position: Sitting; Cuff Location : Left Arm; Cuff Size: Large 12-15-2015 07:20-0500 BP Systolic 110 mm[Hg] Beatrice Rogel [facility] Work Phone: Comment on above: Patient Position: Sitting; Cuff Location : Left Arm; Cuff Size: Large 12-15-2015 07:20-0500 BSA (Body Surface Area) 1.87 m2 Beatrice Rogel [facility] Work Phone: 12-15-2015 07:20-0500 Height 160.02 cm Beatrice Rogel [facility] Work Phone: 12-15-2015 07:20-0500 Pulse (Heart Rate) 113 /min Beatrice Rogel [facility] Work Phone: Comment on above: Pattern: Regular 12-15-2015 07:20-0500 Pulse Oximetry 99 % Beatrice Rogel [facility] Work Phone: Comment on above: Room air 12-15-2015 07:20-0500 Respiratory Rate 18 /min Beatrice Rogel [facility] Work Phone: Comment on above: Pattern: Unlabored 12-01-2015 07:29-0500 BMI (Body Mass Index) 32.79 kg/m2 Beatrice Rogel [facility] Work Phone: 12-01-2015 07:29-0500 Body Temperature 98.6 [degF] Beatrice Rogel [facility] Work Phone: 12-01-2015 07:29-0500 Body weight 83.97 kg Beatrice Rogel [facility] Work Phone: 12-01-2015 07:29-0500 BP Diastolic 82 mm[Hg] Beatrice Rogel [facility] Work Phone: Comment on above: Patient Position: Sitting; Cuff Location : Left Arm; Cuff Size: Standard 12-01-2015 07:29-0500 BP Systolic 122 mm[Hg] Beatrice Rogel [facility] Work Phone: Comment on above: Patient Position: Sitting; Cuff Location : Left Arm; Cuff Size: Standard 12-01-2015 07:29-0500 BSA (Body Surface Area) 1.87 m2 Beatrice Rogel [facility] Work Phone: 12-01-2015 07:29-0500 Height 160.02 cm Beatrice Rogel [facility] Work Phone: 12-01-2015 07:29-0500 Pulse (Heart Rate) 117 /min Beatrice Rogel [facility] Work Phone: Comment on above: Pattern: Regular 12-01-2015 07:29-0500 Pulse Oximetry 98 % Beatrice Rogel [facility] Work Phone: Comment on above: Room air 12-01-2015 07:29-0500 Respiratory Rate 17 /min Beatrice Rogel [facility] Work Phone: Comment on above: Pattern: Unlabored 11-24-2015 08:44-0500 BMI (Body Mass Index) 30.82 kg/m2 Beatrice Rogel [facility] Work Phone: 11-24-2015 08:44-0500 Body Temperature 98.6 [degF] Beatrice Rogel [facility] Work Phone: 11-24-2015 08:44-0500 Body weight 78.93 kg Beatrice Rogel [facility] Work Phone: 11-24-2015 08:44-0500 BP Diastolic 78 mm[Hg] Beatrice Rogel [facility] Internal Medicine Work Phone: Comment on above: Patient Position: Sitting; Cuff Location : Left Arm; Cuff Size: Standard 11-24-2015 08:44-0500 BP Systolic 124 mm[Hg] Beatrice Rogel [facility] Internal Medicine Work Phone: Comment on above: Patient Position: Sitting; Cuff Location : Left Arm; Cuff Size: Standard 11-24-2015 08:44-0500 BSA (Body Surface Area) 1.82 m2 Beatrice Rogel [facility] Internal Medicine Work Phone: 11-24-2015 08:44-0500 Height 160.02 cm Beatrice Rogel [facility] Internal Medicine Work Phone: 11-24-2015 08:44-0500 Pulse (Heart Rate) 113 /min [facility] Work Phone: Comment on above: Pattern: Regular 11-24-2015 08:44-0500 Pulse Oximetry 98 % Beatrice Rogel [facility] Work Phone: Comment on above: Room air 11-24-2015 08:44-0500 Respiratory Rate 17 /min Beatrice Rogel [facility] Work Phone: Comment on above: Pattern: Unlabored 09-22-2015 12:11-0500 BMI (Body Mass Index) 30.82 kg/m2 Beatrice Rogel [facility] Work Phone: 09-22-2015 12:11-0500 Body Temperature 98.2 [degF] Beatrice Rogel [facility] Internal Medicine Work Phone: Comment on above: Method: Temporal 09-22-2015 [id number] Body weight 78.93 kg Beatrice Rogel [facility] Internal Medicine Work Phone: 09-22-2015 12:11-0500 BP Diastolic 80 mm[Hg] Beatrice Rogel [facility] Work Phone: Comment on above: Patient Position: Sitting; Cuff Location : Left Arm; Cuff Size: Large 09-22-2015 12:11-0500 BP Systolic 120 mm[Hg] Beatrice Rogel [facility] Work Phone: Comment on above: Patient Position: Sitting; Cuff Location : Left Arm; Cuff Size: Large 09-22-2015 12:11-0500 BSA (Body Surface Area) 1.82 m2 Beatrice Rogel [facility] Work Phone: 09-22-2015 12:11-0500 Height 160.02 cm Beatrice Rogel [facility] Work Phone: 09-22-2015 12:11-0500 Pulse (Heart Rate) 118 /min Beatrice [facility] Work Phone: Comment on above: Pattern: Regular 09-22-2015 12:11-0500 Pulse Oximetry 98 % Beatrice Rogel [facility] Work Phone: Comment on above: Room air 09-22-2015 12:11-0500 Respiratory Rate 18 /min Beatrice Rogel [facility] Internal Medicine Work Phone: Comment on above: Pattern: Unlabored 09-15-2015 07:29-0400 BMI (Body Mass Index) 31.58 kg/m2 Beatrice Rogel [facility] Internal Medicine Work Phone: 09-15-2015 07:29-0400 Body Temperature 97.8 [degF] Beatrice Rogel [facility] Medicine Work Phone: 09-15-2015 07:29-0400 Body weight 80.85 kg Beatrice Rogel [facility] Internal Medicine Work Phone: 09-15-2015 07:29-0400 BP Diastolic 86 mm[Hg] Beatrice Rogel [facility] Internal Medicine Work Phone: Comment on above: Patient Position: Sitting; Cuff Location : Left Arm; Cuff Size: Standard 09-15-2015 07:29-0400 BP Systolic 132 mm[Hg] Beatrice Rogel [facility] Internal Medicine Work Phone: Comment on above: Patient Position: Sitting; Cuff Location : Left Arm; Cuff Size: Standard 09-15-2015 07:29-0400 BSA (Body Surface Area) 1.84 m2 Beatrice Rogel [facility] Medicine Work Phone: 09-15-2015 07:29-0400 Height 160.02 cm Beatrice Rogel [facility] Medicine Work Phone: 09-15-2015 07:29-0400 Pulse (Heart Rate) 124 /min Beatrice Rogel [facility] Medicine Work Phone: Comment on above: Pattern: Regular 09-15-2015 07:29-0400 Pulse Oximetry 98 % Beatrice Rogel [facility] Medicine Work Phone: Comment on above: Room air 09-15-2015 07:29-0400 Respiratory Rate 16 /min Beatrice Rogel [facility] Medicine Work Phone: Comment on above: Pattern: Unlabored 09-12-2015 15:54-0400 BMI (Body Mass Index) 31.58 kg/m2 [facility] Work Phone: 09-12-2015 15:54-0400 Body Temperature 97.2 [degF] Beatrice Rogel [facility] Medicine Work Phone: 09-12-2015 15:54-0400 Body weight 80.85 kg Beatrice Rogel [facility] Medicine Work Phone: 09-12-2015 15:54-0400 BP Diastolic 82 mm[Hg] Beatrice Rogel [facility] Medicine Work Phone: Comment on above: Patient Position: Sitting; Cuff Location : Left Arm; Cuff Size: Standard 09-12-2015 15:54-0400 BP Systolic 130 mm[Hg] Beatrice Rogel [facility] Medicine Work Phone: Comment on above: Patient Position: Sitting; Cuff Location : Left Arm; Cuff Size: Standard 09-12-2015 15:54-0400 BSA (Body Surface Area) 1.84 m2 Beatrice Rogel [facility] Medicine Work Phone: 09-12-2015 15:54-0400 Height 160.02 cm Beatrice Rogel [facility] Medicine Work Phone: 09-12-2015 15:54-0400 Pulse (Heart Rate) 115 /min Beatrice [facility] Work Phone: Comment on above: Pattern: Regular 09-12-2015 15:54-0400 Pulse Oximetry 98 % Beatrice Rogel [facility] Medicine Work Phone: Comment on above: Room air 09-12-2015 15:54-0400 Respiratory Rate 18 /min [facility] Work Phone: Comment on above: Pattern: Unlabored 07-06-2015 06:58-0400 BMI (Body Mass Index) 31.22 kg/m2 Beat[facility] Work Phone: 07-06-2015 06:58-0400 Body weight 79.95 kg Beatrice Rogel [facility] Medicine Work Phone: 07-06-2015 06:58-0400 BP Diastolic 80 mm[Hg] Beat[facility] Work Phone: Comment on above: Patient Position: Sitting; Cuff Location : Left Arm; Cuff Size: Standard 07-06-2015 06:58-0400 BP Systolic 122 mm[Hg] Beatrice Rogel [facility] Work Phone: Comment on above: Patient Position: Sitting; Cuff Location : Left Arm; Cuff Size: Standard 07-06-2015 06:58-0400 BSA (Body Surface Area) 1.83 m2 Beatrice Rogel [facility] Work Phone: 07-06-2015 06:58-0400 Height 160.02 cm Beatrice Rogel [facility] Medicine Work Phone: 07-06-2015 06:58-0400 Pulse (Heart Rate) 71 /min Beatrice Rogel [facility] Medicine Work Phone: Comment on above: Pattern: Regular 07-06-2015 06:58-0400 Pulse Oximetry 97 % Beatrice Rogel [facility] Medicine Work Phone: Comment on above: Room air 07-06-2015 06:58-0400 Respiratory Rate 18 /min Beatrice Rogel [facility] Medicine Work Phone: Comment on above: Pattern: Unlabored 06-23-2015 07:31-0400 BMI (Body Mass Index) 31.58 kg/m2 Beatrice Rogel [facility] Work Phone: 06-23-2015 07:31-0400 Body Temperature 98.2 [degF] Beatrice Rogel [facility] Work Phone: 06-23-2015 07:31-0400 Body weight 80.85 kg Beatrice Rogel [facility] Work Phone: 06-23-2015 07:31-0400 BP Diastolic 82 mm[Hg] Beatrice Rogel [facility] Medicine Work Phone: Comment on above: Patient Position: Sitting; Cuff Location : Left Arm; Cuff Size: Standard 06-23-2015 07:31-0400 BP Systolic 124 mm[Hg] Beatrice Rogel [facility] Work Phone: Comment on above: Patient Position: Sitting; Cuff Location : Left Arm; Cuff Size: Standard 06-23-2015 07:31-0400 BSA (Body Surface Area) 1.84 m2 Beatrice Rogel [facility] Work Phone: 06-23-2015 07:31-0400 Height 160.02 cm Beatrice Rogel [facility] Work Phone: 06-23-2015 07:31-0400 Pulse (Heart Rate) 101 /min Beatrice Rogel [facility] Work Phone: Comment on above: Pattern: Regular 06-23-2015 07:31-0400 Pulse Oximetry 99 % Beatrice Rogel [facility] Work Phone: Comment on above: Room air 06-23-2015 07:31-0400 Respiratory Rate 18 /min Beatrice Rogel [facility] Work Phone: Comment on above: Pattern: Unlabored 06-08-2015 10:56-0400 BMI (Body Mass Index) 31.89 kg/m2 Beatrice Rogel [facility] Work Phone: 06-08-2015 10:56-0400 Body Temperature 97.8 [degF] Beatrice Rogel [facility] Work Phone: Comment on above: Method: Temporal 06-08-2015 10:56-0400 Body weight 81.65 kg Beatrice Rogel [facility] Work Phone: 06-08-2015 10:56-0400 BP Diastolic 78 mm[Hg] Beatrice Rogel [facility] Work Phone: Comment on above: Patient Position: Sitting; Cuff Location : Left Arm; Cuff Size: Large 06-08-2015 10:56-0400 BP Systolic 124 mm[Hg] Beatrice Rogel [facility] Work Phone: Comment on above: Patient Position: Sitting; Cuff Location : Left Arm; Cuff Size: Large 06-08-2015 10:56-0400 BSA (Body Surface Area) 1.85 m2 Beatrice Henley [facility] Work Phone: 06-08-2015 10:56-0400 Height 160.02 cm Beatrice Henley [facility] Work Phone: 06-08-2015 10:56-0400 Pulse (Heart Rate) 110 /min Beatrice Henley [facility] Work Phone: Comment on above: Pattern: Regular 06-08-2015 10:56-0400 Pulse Oximetry 98 % Beatrice Rogel [facility] Work Phone: Comment on above: Room air 06-08-2015 10:56-0400 Respiratory Rate 18 /min Beatrice Henley [facility] Work Phone: Comment on above: Pattern: Unlabored 05-08-2015 16:33-0400 BMI (Body Mass Index) 33.21 kg/m2 Beatrice Rogel [facility] Work Phone: 05-08-2015 16:33-0400 Body weight 85.05 kg Beatrice Rogel [facility] Work Phone: 05-08-2015 16:33-0400 BP Diastolic 84 mm[Hg] Beat[facility] Work Phone: Comment on above: Patient Position: Sitting; Cuff Location : Left Arm; Cuff Size: Large 05-08-2015 16:33-0400 BP Systolic 120 mm[Hg] Beatrice Rogle [facility] Work Phone: Comment on above: Patient Position: Sitting; Cuff Location : Left Arm; Cuff Size: Large 05-08-2015 16:33-0400 BSA (Body Surface Area) 1.88 m2 Beatrice Henley [facility] Work Phone: 05-08-2015 16:33-0400 Height 160.02 cm Beatrice Henley [facility] Work Phone: 05-08-2015 16:33-0400 Pulse (Heart Rate) 109 /min Beatrice Henley [facility] Work Phone: Comment on above: Pattern: Regular 05-08-2015 16:33-0400 Pulse Oximetry 99 % Beatrice Rog[facility] Work Phone: Comment on above: Room air 05-08-2015 16:33-0400 Respiratory Rate 18 /min Beatrice Rogel [facility] Work Phone: Comment on above: Pattern: Unlabored 04-20-2015 07:00-0400 BMI (Body Mass Index) 34.39 kg/m2 Beatrice Rogel [facility] Work Phone: 04-20-2015 07:00-0400 Body weight 88.06 kg Beatrice Rogel [facility] Work Phone: 04-20-2015 07:00-0400 BP Diastolic 72 mm[Hg] Beatrice Rogel [facility] Work Phone: Comment on above: Patient Position: Sitting; Cuff Location : Left Arm; Cuff Size: Large 04-20-2015 07:00-0400 BP Systolic 120 mm[Hg] Beatrice Rogel [facility] Work Phone: Comment on above: Patient Position: Sitting; Cuff Location : Left Arm; Cuff Size: Large 04-20-2015 07:00-0400 BSA (Body Surface Area) 1.91 m2 Beatrice Rogel [facility] Work Phone: 04-20-2015 07:00-0400 Height 160.02 cm Beatrice Rogel [facility] Work Phone: 04-20-2015 07:00-0400 Pulse (Heart Rate) 100 /min Beatrice Rogel [facility] Work Phone: Comment on above: Pattern: Regular 04-20-2015 07:00-0400 Pulse Oximetry 98 % Beatrice Rogel [facility] Work Phone: Comment on above: Room air 04-20-2015 07:00-0400 Respiratory Rate 18 /min Beatrice Rogel [facility] Work Phone: Comment on above: Pattern: Unlabored 10-12-2014 07:14-0500 BMI (Body Mass Index) 35.11 kg/m2 Beatrice [facility] Work Phone: 10-12-2014 07:14-0500 Body Temperature 99 [degF] Beatrice Rogel [facility] Work Phone: Comment on above: Method: Oral 10-12-2014 07:14-0500 Body weight 89.9 kg Beatrice Rogel [facility] Work Phone: 10-12-2014 07:14-0500 BP Diastolic 80 mm[Hg] Beatrice Rogel [facility] Work Phone: Comment on above: Patient Position: Sitting; Cuff Location : Left Arm; Cuff Size: Large 10-12-2014 07:14-0500 BP Systolic 124 mm[Hg] Beat[facility] Work Phone: Comment on above: Patient Position: Sitting; Cuff Location : Left Arm; Cuff Size: Large 10-12-2014 07:14-0500 BSA (Body Surface Area) 1.93 m2 Beatrice Rogel [facility] Work Phone: 10-12-2014 07:14-0500 Height 160.02 cm Beatrice Rogel [facility] Work Phone: 10-12-2014 07:14-0500 Pulse (Heart Rate) 107 /min Beatrice Rogel [facility] Work Phone: Comment on above: Pattern: Regular 10-12-2014 07:14-0500 Pulse Oximetry 98 % Beatrice Rogel [facility] Work Phone: Comment on above: Room air 10-12-2014 07:14-0500 Respiratory Rate 18 /min Beatrice Rogel [facility] Work Phone: Comment on above: Pattern: Unlabored 01-06-2014 07:26-0500 BMI (Body Mass Index) 35.12 kg/m2 Beatrice Rogel [facility] Work Phone: 01-06-2014 07:26-0500 Body Temperature 98.6 [degF] Beatrice Rogel [facility] Work Phone: Comment on above: Method: Oral 01-06-2014 07:26-0500 Body weight 89.93 kg Beatrice Rogel [facility] Work Phone: 01-06-2014 07:26-0500 BP Diastolic 78 mm[Hg] Beatrice Rogel [facility] Work Phone: Comment on above: Patient Position: Sitting; Cuff Location : Left Arm; Cuff Size: Large 01-06-2014 07:26-0500 BP Systolic 120 mm[Hg] Beatrice Rogel [facility] Work Phone: Comment on above: Patient Position: Sitting; Cuff Location : Left Arm; Cuff Size: Large 01-06-2014 07:26-0500 BSA (Body Surface Area) 1.93 m2 Beatrice Rogel [facility] Work Phone: 01-06-2014 07:26-0500 Height 160.02 cm Beatrice Rogel [facility] Work Phone: 01-06-2014 07:26-0500 Pulse (Heart Rate) 118 /min Beatrice Rogel [facility] Work Phone: Comment on above: Pattern: Regular 01-06-2014 07:26-0500 Pulse Oximetry 98 % Beatrice Rogel [facility] Work Phone: Comment on above: Room air 01-06-2014 07:26-0500 Respiratory Rate 18 /min Beatrice Rogel [facility] Work Phone: Comment on above: Pattern: Unlabored 08-13-2013 07:54-0400 BMI (Body Mass Index) 34.75 kg/m2 Beatrice Rogel [facility] Work Phone: 08-13-2013 07:54-0400 Body weight 88.99 kg Beatrice Rogel [facility] Work Phone: 08-13-2013 07:54-0400 BP Diastolic 80 mm[Hg] Beatrice Rogel [facility] Work Phone: Comment on above: Patient Position: Sitting; Cuff Location : Left Arm; Cuff Size: Large 08-13-2013 07:54-0400 BP Systolic 138 mm[Hg] Beatrice Rogel [facility] Work Phone: Comment on above: Patient Position: Sitting; Cuff Location : Left Arm; Cuff Size: Large 08-13-2013 07:54-0400 BSA (Body Surface Area) 1.92 m2 Beatrice Rogel [facility] Work Phone: 08-13-2013 07:54-0400 Height 160.02 cm Beatrice Rogel [facility] Work Phone: 08-13-2013 07:54-0400 Pulse (Heart Rate) 64 /min Beatrice Rogel [facility] Work Phone: Comment on above: Pattern: Regular 08-13-2013 07:54-0400 Respiratory Rate 18 /min Beatrice Rogel [facility] Work Phone: Comment on above: Pattern: Unlabored 07-23-2013 09:43-0400 BMI (Body Mass Index) 34.79 kg/m2 Beatrice Rogel [facility] Work Phone: 07-23-2013 09:43-0400 Body Temperature 98.6 [degF] Beatrice Rogel [facility] Work Phone: Comment on above: Method: Oral 07-23-2013 09:43-0400 Body weight 89.08 kg Beatrice Rogel [facility] Work Phone: 07-23-2013 09:43-0400 BP Diastolic 78 mm[Hg] Beatrice Rogel [facility] Work Phone: Comment on above: Patient Position: Sitting; Cuff Location : Left Arm; Cuff Size: Large 07-23-2013 09:43-0400 BP Systolic 122 mm[Hg] Beatrice Rogel [facility] Work Phone: Comment on above: Patient Position: Sitting; Cuff Location : Left Arm; Cuff Size: Large 07-23-2013 09:43-0400 BSA (Body Surface Area) 1.92 m2 Beatrice Rogel [facility] Work Phone: 07-23-2013 09:43-0400 Height 160.02 cm Beatrice Rogel [facility] Work Phone: 07-23-2013 09:43-0400 Pulse (Heart Rate) 60 /min Beatrice Rogel [facility] Work Phone: Comment on above: Pattern: Regular 07-23-2013 09:43-0400 Respiratory Rate 20 /min Beatrice Rogel [facility] Work Phone: Comment on above: Pattern: Unlabored Encounters Encounter Date Encounter Type Care Provider Facility Start: 09-02-2025 ambulatory [facility] Facility :[facility] Start: 06-07-2025 ambulatory PENNYHUSSAIN BEE Facilit y:[facility] Start: 06-07-2025 End: 06-07-2025 Subsequent hospital visit by physician [facility] Work Phone: Radiology Comment on above: Intrauterine contrac eptive device threads lost, initial encounter [T83.32XA] Start: 06-06-2025 End: 06-06-2025 Patient encounter procedure Penny Bee APRN.CNM Work Phone: OB/Gynecology Comment on above: Intrauterine contrac eptive device threads lost, initial encounter (Primary Dx); Sensation of heaviness; Pelvic cramping Start: 06-06-2025 End: 06-06-2025 ambulatory PENNY BEE Facility:[facility] Start: 05-19-2025 End: 05-19-2025 Emergency department patient visit Dr. Yahir Raygoza MD Work Phone: -Emergency Department Work Phone: Start: 05-18-2025 End: 05-18-2025 Telephone encounter Emil Gruber PA-C Work Phone: Urology Comment on above: Appointment Start: 03-07-2025 End: 03-07-2025 Patient encounter procedure Penny Bee APRNDaronCNGavino Work Phone: OB/Gynecology Comment on above: Encounter for gyneco logical examination (general) (routine) without abnormal findings (Primary Dx); Encounter for screening mammogram for breast cancer; Adenomyosis Start: 03-07-2025 End: 03-07-2025 Patient encounter status Penny Bee APRN.CNM Work Phone: [facility] Start: 03-07-2025 End: 03-07-2025 [facility] Start: 03-07-2025 Encounter for gynecological examination (general) (routine) without abnormal findings PENNY BEE [facility] Start: 02-01-2025 End: 04-03-2025 Follow-up encounter Lorenza Mitchell APRN.BIOSOLIDS MANAGEMENT TECHNICIAN Work Phone: Internal Medicine [place] Start: 02-01-2025 End: 02-01-2025 ambulatory [facility] Facility:[facility] Start: 02-01-2025 End: 02-01-2025 Subsequent hospital visit by physician [facility] Comment on above: Pain of both breasts [N64.4] Axillary mass, left [R22.32] Start: 11-20-2024 End: 11-20-2024 [facility] Facility:[facility] Start: 11-16-2024 End: 11-16-2024 [facility] Facility:[facility] Start: 11-16-2024 End: 11-16-2024 Office outpatient visit 25 minutes Lorenza Mitchell APRN.BIOSOLIDS MANAGEMENT TECHNICIAN Work Phone: Internal Medicine [place] Comment on above: Hydronephrosis with urinary obstruction due to renal calculus (Primary Dx); Elevated serum creatinine; Gastroesophageal reflux disease, unspecified whether esophagitis present; Class 3 severe obesity without serious comorbidity with body mass index (BMI) of 40.0 to 44.9 in adult, unspecified obesity type (HCC) Start: 11-12-2024 End: 11-12-2024 Emergency department patient visit Ben Bobo Facility:[facility] Start: 11-02-2024 End: 11-02-2024 ambulatory [facility] Facility:[facility] Start: 10-09-2024 End: 10-09-2024 ambulatory [facility] Facility:[facility] Start: 10-09-2024 End: 10-09-2024 Patient encounter procedure Efren Putnam APRN.FLOOR SPACE ALLOCATOR Work Phone: [facility] Comment on above: Bacterial sinusitis (Primary Dx) Start: 09-06-2024 End: 09-07-2024 ambulatory Lorenza Mitchell [employer] CONTRACTS ASSISTANT.BIOSOLIDS MANAGEMENT TECHNICIAN Work Phone: Internal Medicine [place] Comment on above: Upcoming Mammogram o n 09/28 Start: 07-26-2024 End: 07-26-2024 ambulatory LORENZA MITCHELL Facility:[facility] Start: 07-26-2024 End: 07-26-2024 Office outpatient visit 15 minutes Lorenzajoselyn Chaudhrys [employer]S ASSISTANT.BIOSOLIDS MANAGEMENT TECHNICIAN Work Phone: Internal Medicine [place] Comment on above: Axillary mass, left (Primary Dx); Family history of breast cancer Start: 06-15-2024 End: 06-15-2024 ambulatory YAHIR RAYGOZA Facility:[facility] Start: 06-15-2024 End: 06-15-2024 Patient encounter procedure Jasmin Martinez [employer] AND CONTRACTS ASSISTANT.FLOOR SPACE ALLOCATOR Work Phone: [facility] Comment on above: Tick bite of other p art of neck, initial encounter (Primary Dx) Start: 02-07-2024 End: 02-07-2024 Patient encounter procedure Ivana Little [employer] AND CONTRACTS ASSISTANT.FLOOR SPACE ALLOCATOR Work Phone: [facility] Comment on above: Rhinosinusitis (Prim hayde Dx) Start: 10-26-2023 ambulatory Holly rodriguez MD Work Phone: OB/Gynecology Comment on above: Scheduled IUD placem ent and Ultrasound Start: 10-16-2023 End: 10-16-2023 Patient encounter procedure Holly La MD Work Phone: OB/Gynecology Comment on above: Menorrhagia with reg ular cycle (Primary Dx); Dysmenorrhea; Encounter for screening mammogram for malignant neoplasm of breast Start: 06-08-2023 End: 06-08-2023 Emergency department patient visit [facility]-Emergency Department Work Phone: Start: 03-21-2023 ambulatory Yahir Stubbs Work Phone: Internal Medicine [place] Comment on above: CT Scan Results Start: 01-31-2023 End: 01-31-2023 ambulatory [facility] Work Phone: Start: 01-31-2023 End: 01-31-2023 Patient encounter procedure [facility]-Outpatient Breast Imaging Start: 01-21-2023 End: 01-21-2023 Patient encounter procedure Mildred Jason APRN.CNP Work Phone: [facility] Comment on above: Throat pain (Primary Dx); Strep throat Start: 01-08-2023 End: 01-08-2023 ambulatory [facility] Work Phone: Start: 01-08-2023 End: 01-08-2023 Patient encounter procedure [facility]-Laboratory, [place] 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 control 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 Off Start: 01-01-2023 End: 01-01-2023 Patient encounter procedure Yahir Raygoza MD Work Phone: Internal Medicine [place] Comment on above: Anxiety (Primary Dx) ; Panic attacks; Screening for HIV (human immunodeficiency virus); Special screening examination for viral disease; Elevated platelet count Start: 12-10-2022 End: 12-10-2022 Patient encounter procedure Mannie ALANIS Work Phone: [facility] Comment on above: Sore throat (Primary Dx) Start: 11-27-2022 End: 11-27-2022 Patient encounter procedure Yahir Ragyoza MD Work Phone: [facility] Comment on above: Thrombocythemia (Suad loco Dx); Obesity without serious comorbidity, unspecified classification, unspecified obesity type Start: 11-21-2022 ambulatory Yahir Stubbs Work Phone: [facility] Comment on above: Blood Test Start: 10-29-2022 End: 10-29-2022 Patient encounter procedure Yahir Raygoza MD Work Phone: [facility] Comment on above: Obesity without seri ous comorbidity, unspecified classification, unspecified obesity type (Primary Dx); Biliary dyskinesia Start: 10-22-2022 End: 10-22-2022 Admission to [facility] Work Phone: [facility] Start: 10-22-2022 End: 10-22-2022 ambulatory [facility] 2 Work Phone: Pre Anesthesia Comment on above: Pre-op evaluation (P rimary Dx); Obesity due to excess calories without serious comorbidity, unspecified classification Start: 10-22-2022 End: 10-22-2022 Preprocedural examination done [facility] 2 Work Phone: Pre Anesthesia Start: 09-14-2022 End: 09-14-2022 Patient encounter procedure Yahir Raygoza MD Work Phone: [facility] Comment on above: Special screening ex amination for viral disease (Primary Dx); Screening for HIV (human immunodeficiency virus); RUQ abdominal pain Start: 09-07-2022 Telephone encounter Yahir pérez MD Work Phone: [facility] [place] Comment on above: Patient Update Start: 09-01-2022 End: 09-01-2022 Patient encounter procedure Ade Jonatan [employer]ACE [employer]OCATOR Work Phone: [facility] Comment on above: Acute non-recurrent pansinusitis (Primary Dx); Feared condition not demonstrated Start: 08-21-2022 ambulatory Yahir Stubbs Work Phone: [facility] [place] Comment on above: Question regarding C BC + DIFF Start: 08-19-2022 Get Medical Advice Yahir becker MD Work Phone: [facility] [place] Comment on above: Bloodwork Order Start: 08-19-2022 Patient encounter procedure Yahir Raygoza MD Work Phone: [facility] [place] Start: 05-15-2022 ambulatory Yahir Stubbs Work Phone: [facility] [place] Start: 05-13-2022 End: 05-13-2022 Patient encounter procedure Hector Black MD Work Phone: [facility] Comment on above: Toxic effect of veno m of other arthropod, accidental (unintentional), initial encounter (Primary Dx) Start: 05-03-2022 End: 05-03-2022 Patient encounter procedure Carol Montoya MD Work Phone: General Surgery Comment on above: RUQ abdominal pain ( Primary Dx); Abnormal biliary HIDA scan Start: 05-01-2022 End: 05-01-2022 Patient encounter procedure Yahir Raygoza MD Work Phone: [facility] [place] Comment on above: Acquired cyst of kid hussain; Cholecystitis Start: 04-28-2022 End: 04-28-2022 Emergency department patient visit [facility]-Emergency Department Start: 04-18-2022 Telephone encounter Mildred Brown [employer] CONTRACTS ASSISTANT.FLOOR SPACE ALLOCATOR Work Phone: [facility] Comment on above: Results Start: 04-16-2022 End: 04-16-2022 Patient encounter procedure Db Goddard [employer]S ASSISTANT.FLOOR SPACE ALLOCATOR Work Phone: [facility] Comment on above: Urinary frequency (P rimary Dx) Start: 04-09-2022 ambulatory Yahir Stubbs Work Phone: [facility] [place] Comment on above: Question regarding U RINE CULTURE LAB USE ON Start: 04-09-2022 Telephone encounter Uvaldo salvador [employer] AND CONTRACTS ASSISTANT.FLOOR SPACE ALLOCATOR Work Phone: [facility] Comment on above: Results Start: 04-07-2022 End: 04-07-2022 Patient encounter procedure Db Goddard [employer]S ASSISTANT.FLOOR SPACE ALLOCATOR Work Phone: [facility] Comment on above: Urinary frequency (P rimary Dx) Start: 02-14-2022 End: 02-14-2022 Patient encounter procedure Yahir Raygoza MD Work Phone: [facility] [place] Comment on above: Annual physical exam (Primary Dx); Multiple thyroid nodules; Morbid obesity (HCC) Start: 02-12-2022 End: 02-12-2022 Patient encounter procedure [facility]-Laboratory, Specimen Start: 10-30-2021 Patient encounter procedure [facility]-Outpatient Breast Imaging Start: 02-12-2018 End: 02-12-2018 Office outpatient visit 15 minutes Beatrice Henley Internal [facility] Start: 11-21-2017 End: 11-21-2017 Annotation/Addendum Beatrice Henley [facility] Start: 10-31-2017 End: 10-31-2017 Office outpatient visit 15 minutes Beatrice Rogel [facility] Internal Medicine Start: 05-15-2017 End: 05-15-2017 Phone Encounter Beatrice Pebbles [facility] Start: 05-09-2017 End: 05-09-2017 Office outpatient visit 15 minutes Beatrice Henley [facility] Start: 04-28-2017 End: 04-28-2017 Patient encounter procedure Beatrice Rogel [facility] Internal Medicine Start: 04-22-2017 End: 04-22-2017 Office outpatient visit 15 minutes Beatrice Rogel [facility] Internal Medicine Start: 11-08-2016 End: 11-08-2016 Office outpatient visit 25 minutes Beatrice Rogel [facility] Internal Medicine Start: 09-09-2016 End: 09-09-2016 Phone Encounter Beatrice Henley [facility] Start: 08-16-2016 End: 08-16-2016 Phone Encounter Beatrice Henley [facility] Start: 07-12-2016 End: 07-12-2016 Office outpatient visit 15 minutes Beatrice Henley [facility] Start: 04-19-2016 End: 04-19-2016 Phone Encounter Beatrice Pebbles [facility] Start: 04-01-2016 End: 04-01-2016 Phone Encounter Beatrice Henley [facility] Start: 03-28-2016 End: 03-29-2016 Office outpatient visit 25 minutes Beatrice Henley [facility] Start: 03-26-2016 End: 03-26-2016 Phone Encounter Beatrice Henley [facility] Start: 03-19-2016 End: 03-19-2016 Office outpatient visit 10 minutes Beatrice Rogel [facility] Internal Medicine Start: 01-25-2016 End: 01-29-2016 Office outpatient visit 15 minutes Beatrice Henley [facility] Start: 01-03-2016 End: 01-03-2016 Office outpatient visit 15 minutes Beatrice Henley [facility] Start: 12-15-2015 End: 12-15-2015 Office outpatient visit 25 minutes Beatrice Henley [facility] Start: 12-04-2015 End: 12-04-2015 Lab Order Beatrice Henley [facility] Start: 12-01-2015 End: 12-01-2015 Office outpatient visit 15 minutes Beatrice Rogel [facility] Start: 11-24-2015 End: 11-24-2015 Office outpatient visit 15 minutes Beatrice Rogel [facility] Internal Medicine Start: 09-25-2015 End: 09-25-2015 Phone Encounter Beatrice Henley [facility] Start: 09-22-2015 End: 09-22-2015 Office outpatient visit 25 minutes Beatrice Henley [facility] Start: 09-15-2015 End: 09-15-2015 Office outpatient visit 25 minutes Beatrice Rogel [facility] Internal Medicine Start: 09-13-2015 End: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 F 35 From: Mar Cowan MD PCP: Beatrice Rogel DO Status: REG ER Study: Brain/Head without Contrast Date of Exam: 03/18/16 Exam# [id number] Ordering Dr: Sidney Yepez MD STUDY: CT BRAIN WITHOUT CONTRAST REASON FOR EXAM: Female, 35 years old. HUERTAS, VISION CHANGES RADIATION DOSAGE (If Supplied By Facility): CTDIvol = ( 58.46 ) mGy, DLP = ( 1001.19 ) mGycm TECHNIQUE: Transaxial CT imaging of the brain was performed without administration of intravenous contrast material. Individualized dose optimization techniques were used for this CT. COMPARISON: None. FINDINGS: Normal soft tissue structures. Normal calvarium. Normal size ventricles and extra-axial spaces for the patient's age. Normal white matter tracts of the cerebral hemispheres. Normal basal ganglia and thalami. Normal brainstem. Normal cerebellum. There is no intracranial hemorrhage. There are no findings of an acute ischemic infarction. Normal visualized paranasal sinuses. IMPRESSION: Normal unenhanced CT scan of the brain. Electronically Signed: Mar Cowan MD at 22:25 EDT Tel , Service support [phone], CC: Sidney Yepez MD; Beatrice Rogel DO Care Asst: Signed Beatrice Rogel Start: 11-24-2015 End: 11-25-2015 Thyroid Comments: See Note; NOTES: [facility] Imaging Services [address] [place] [address] Verdana 4d Thyroid MR#: [id number] Acct: [id number] Name: RACHEL CHOI Rep #: [id number] : 1980 F 35 From: Altaf Templeton DO PCP: Beatrice Rogel DO Status: REG CLI Study: Thyroid Date of Exam: 11/24/15 Exam# [id number] Ordering Dr: Loco Corona STUDY: THYROID ULTRASOUND REASON FOR EXAM: Female, 35 years old. Thyroid nodules. TECHNIQUE: Ultrasound evaluation of the thyroid was performed with real-time and static lester-scale imaging. COMPARISON: None. FINDINGS: RIGHT LOBE: The right lobe of the thyroid gland measures 4.5 x 1.7 x 1.7 cm. There is a homogeneous echotexture. Multiple small hypoechoic nodules are identified in the right lobe the largest measuring 4 mm in diameter. LEFT LOBE: The left lobe of the thyroid gland measures 5.1 x 1.6 x 1.3 small hypoechoic nodules are identified within the left lobe the largest in the inferior pole measuring 5 mm in diameter. cm. There is a homogeneous echotexture. There are no demonstrated solid, cystic or complex lesions. ISTHMUS: The isthmus measures 3 mm. Small lymph nodes are identified bilaterally. IMPRESSION: Thyroid is at the upper limits of normal in size and contains multiple small nodules bilaterally the largest on the right measuring 4 mm in diameter and on the left 5 mm. One-year followup would be appropriate. Electronically Signed: Sergo Franz DO at 10:05 EST , Service support [phone], CC: Loco Corona; Beatrice Rogel DO Care Asst: Signed Loco Corona Work Phone: Start: 09-12-2015 End: 09-12-2015 Abdomen/Pelvis without Cont Comments: See Note; NOTES: [facility] Imaging Services [address] [place] [address] Verdana 4d Abdomen/Pelvis without Cont MR#: [id number] Acct: [id number] Name: RACHEL CHOI Rep #: [id number] : 1980 F 35 From: Koffi Gaitan MD PCP: Beatrice Rogel DO Status: REG CLI Study: Abdomen/Pelvis without Cont Date of Exam: 09/12/15 Exam# [id number] Ordering Dr: Loco Corona STUDY: CT ABDOMEN AND PELVIS WITHOUT CONTRAST REASON FOR EXAM: Female, 35 years old. Right upper quadrant pain RADIATION DOSAGE (If Supplied By Facility): CTDIvol = ( 14.57 ) mGy, DLP = ( 720.13 ) mGycm TECHNIQUE: Transaxial images were obtained from the dome of the diaphragm to the symphysis pubis without oral contrast, and without intravenous contrast. Sagittal and coronal images were reconstructed. COMPARISON: None. FINDINGS: The visualized lung bases are unremarkable. The visualized portions of the heart are within normal limits. There is hepatomegaly with diffuse hepatic enlargement. Normal gallbladder and extrahepatic biliary system. Normal spleen. Normal pancreas. Normal bilateral adrenal glands. Normal right kidney. Normal left kidney. No stones or hydronephrosis. Normal visualized stomach. Normal small intestine. Normal colon. There are surgical clips in the region of the appendix consistent with a prior appendectomy. Normal abdominal aorta. Normal inferior vena cava. Normal retroperitoneum. Normal urinary bladder. Normal visualized uterus. There is medication ring in the vagina. There is no free fluid in the abdomen or pelvis. Normal abdominal wall. Mild degenerative change at L5-S1. IMPRESSION: No mass or obstruction. No stones or hydronephrosis. Prior appendectomy. Hepatomegaly. No biliary dilatation. Electronically Signed: Koffi Gaitan MD at 17:24 EDT , Service support [phone], CC: Loco Corona; Beatrice Rogel DO Care Asst: Signed Loco Corona Work Phone: Start: 06-08-2015 End: 06-08-2015 No Known Past Surgical History ABIODUN La Start: 03-01-2015 End: 03-01-2015 Emergency Department Summary Comments: See Note; NOTES: [facility] Medical Records Department [address] [place] [address] Emergency Department Summary MR#: [id number] Acct: [id number] Name: RACHEL CHOI Rep #: [id number] : 1980 34 From: Nicola Mclean MD PCP: Beatrice Rogel DO Status: [facility] ER DATE OF SERVICE: 02/26/2015 CHIEF COMPLAINT: Dizziness. HISTORY OF PRESENT ILLNESS: This is a 34-year-old female who 4 hours ago had sudden onset of a sensation of the room spinning, developed nausea. She has had nonbloody, nonbilious emesis and she felt like her chest was tight. She notes that she did take Augmentin, ibuprofen and tramadol earlier today for dental pain, but has been on all these medications previously. She denies any chest pain, weakness, speech difficulty, fevers or recent URI-like illness. PHYSICAL EXAMINATION: VITAL SIGNS: Afebrile. Vital signs stable. GENERAL: Resting comfortably. HEART: Regular rate and rhythm. LUNGS: Clear. ABDOMEN: Soft. NEUROLOGIC: She does have right lateral nystagmus. She had a positive Jordana- Hallpike maneuver on the right and this reproduced severe symptoms. There are no other focal or lateralizing neurological deficits. EMERGENCY DEPARTMENT COURSE: An EKG shows normal sinus rhythm. The patient was treated here with IV fluids, Zofran and oral meclizine. On reevaluation, her nausea has nearly resolved. She has been able to ambulate on her own, although she does complain of some ongoing dizziness. At this time, she has been able to ambulate on her own without vomiting and I felt she is most appropriate for discharge with prescription. She was given prescriptions for Phenergan and meclizine, advised on rest, advised to follow up with her primary care physician as needed or to return for new or worsening symptoms and the patient was discharged home. IMPRESSION: Vertigo. DISPOSITION: Discharge. Dr. Nicola Mclean MD T: NTS JOB: [id number] 03/01/15 0917 <Electronically signed by Nicola Mclean MD> Date Nicola Mclean MD CC: Beatrice Rogel DO Date Dictated: 02/26/158 Date Transcribed: 02/26/152357 Care Asst: Signed Beatrice Rogel Start: 02-27-2015 End: 02-27-2015 12 lead ECG Comments: See Note; NOTES: [facility] Cardiovascular Services [address] [place] [address] 12 Lead EKG [id number] MR#: [id number] Acct: [id number] Name: RACHEL CHOI Rep #: [id number] : 1980 34 From: Neftali Mcgee MD Attending Dr: Status: DEP ER Ordering Dr: Nicola Mclean MD Date: 02/26/15 Location: ED Sex: F C Admitted: Test Reason : CHEST TIGHTNESS Blood Pressure : / mmHG Vent. Rate : 083 BPM Atrial Rate : 083 BPM P-R Int : 122 ms QRS Dur : 076 ms QT Int : 378 ms P-R-T Axes : 054 045 044 degrees QTc Int : 444 ms Normal sinus rhythm with sinus arrhythmia Septal infarct , age undetermined Abnormal ECG Confirmed by NEFTALI MCGEE MD ([id number]), features editor RANDOLPH TANG ([id number]) on 02/27/2015 11:23:29 AM Referred By: GLORIA Confirmed By:NEFTALI MCGEE MD 02/27/15 1123 Date Neftali Mcgee MD CC: Beatrice Rogel DO Date Dictated: 02/26/152332 Date Transcribed: 02/26/152332 Care Asst: Signed Beatrice Rogel Start: 02-26-2015 End: 02-27-2015 Discharge Instruction Comments: See Note; NOTES: [facility] Medical Records Department [address] [place] [address] Discharge Instruction 02/26/15 2357 MR#: [id number] Acct: [id number] Name: RACHEL CHOI Rep #: [id number] : 1980 34 From: Nicola Mclean MD PCP: Beatrice Rogel DO Status: REG ER ED Disposition - Plan for ED Patient: Chief Complaint: Dizziness Instructions: ED Vertigo, Unspecified Prescriptions: ProMETHAzine [Phenergan] 25 mg PO Q6H PRN PRN #10 tablet PRN Reason: Nausea Meclizine HCl [Antivert] 25 mg PO Q8H PRN PRN #20 tablet PRN Reason: Vertigo What to do if you have Problems For any increased pain, shortness of breath, bleeding, nausea or vomiting, chest pain, or any unexpected problems, contact your doctor. Call [facility] ) or report to the closest Emergency Room. Call 911 if necessary. 02/26/15 3697 <Electronically signed by Nicola Mclean MD> Date Nicola Mclean MD Cosigner Signature (If Indicated): Date CC: Beatrice Rogel DO Beatrice Rogel section Osmar santacruz Comment on above: 05-27-2014 Plan of Treatment Date Care Activity Detail Author Start: 01-08-2028 PAP TESTING PAP TESTING [facility] Start: 01-08-2028 Screening for malignant neoplasm of cervix Pap Testing [facility] Start: 10-10-2026 HPV Testing HPV Testing [facility] Start: 10-10-2026 Screening for malignant neoplasm of cervix HPV Testing [facility] Start: 07-17-2026 Colonoscopy COLONOSCOPY [facility] Start: 07-17-2026 COLORECTAL CANCER SCREENING COLORECTAL CANCER SCREENING [facility] Start: 07-17-2026 Screening for malignant neoplasm of colon [facility] Start: 02-01-2026 Screening for malignant neoplasm of breast Mammogram Screening [facility] Start: 01-08-2026 Screening for malignant neoplasm of cervix Cervical Cancer Screening [facility] Start: 2025 Screening for malignant neoplasm of colon [facility] Start: 08-02-2025 End: 08-02-2025 Patient encounter procedure 08/02/2025 8:30 AM EDT Office Visit Urology [address] [place] [address] Emil Gruber PA-C [address] [place] [address] CONSULT: Hydronephrosis- seen in ED 11/12/24 stone passed. [email or web address] message sent. [facility] Urology Comment on above: CONSULT: Hydronephrosis- seen in ED 10/18 06/09 stone passed. [email or web address] message sent. [facility] Start: 07-18-2025 Influenza vaccination Influenza Vaccine (#1) Casey xiong Start: 06-07-2025 End: 06-07-2025 Patient encounter procedure 06/07/2025 7:00 AM EDT Appointment Radiology [address] [place] [address] Intrauterine contraceptive device threads lost, initial encounter [T83.32XA] Radiology Comment on above: Intrauterine contraceptive device thread s lost, initial encounter [T83.32XA] Start: 06-06-2025 End: 06-06-2025 Patient encounter procedure 06/06/2025 2:00 PM EDT Office Visit OB/Gynecology [address] [place] [address] Penny Bee APRN.CNM [address] [place] [address] Cramping exteme OB/Gynecology Comment on above: Cramping exteme Start: 05-24-2025 End: 05-24-2025 Patient encounter procedure 05/24/2025 4:00 PM EDT Office Visit Urology [address] [place] [address] Emil Gruber PA-C [address] [place] [address] Hydronephrosis Urology Comment on above: Hydronephrosis Start: 05-19-2025 [facility] Start: 04-04-2025 End: 04-04-2025 Patient encounter procedure 04/04/2025 8:00 AM EDT Education Nutrition Therapy [address] [place] [address] [place] [address] Referral for weight loss Nutrition Therapy Comment on above: Referral for weight loss Start: 03-07-2025 End: 03-07-2025 Patient encounter procedure 03/07/2025 8:15 AM EDT Office Visit OB/Gynecology [address] [place] [address] Penny Bee APRN.CNM [address] [place] [address] Annual exam OB/Gynecology Comment on above: Annual exam Start: 12-15-2024 End: 12-15-2024 Patient encounter procedure 12/15/2024 5:00 PM EST Office Visit Internal Medicine [place] [address] [facility] [place], [place] [address] Elysia Oneil APRN.FLOOR SPACE ALLOCATOR [address] [place] [address] Physical and weight loss. [facility] [place] Comment on above: Physical and weight loss. Start: 12-08-2024 End: 12-08-2024 Patient encounter procedure Mammogram Comment on above: COMP LT AXILLARY MASS/DUE FOR B/L left breast diag [facility] Start: 12-01-2024 Screening for malignant neoplasm of breast Mammogram Screening [facility] Start: 11-16-2024 End: 02-15-2025 Basic metabolic 2000 panel - Serum or Plasma BASIC METABOLIC PANEL Lab Routine Elevated serum creatinine Expected: 11/16/2024, Expires: 02/15/2025 [facility] Work Phone: Comment on above: Expected: 11/16/2024, Expires: Start: 11-12-2024 End: 11-12-2024 Patient encounter procedure 11/12/2024 1:40 PM EST Office Visit Internal Medicine [place] [address] [place] [address] Yahir Raygoza MD [address] [facility] [place] [address] Physical and weight loss Internal Medicine [place] Comment on above: Physical and weight loss Start: 09-28-2024 End: 09-28-2024 Patient encounter procedure Mammogram Comment on above: COMP LT AXILLARY MASS/DUE FOR B/L left breast diag [facility] Start: 08-11-2024 End: 08-11-2024 Patient encounter procedure 08/11/2024 6:20 PM EDT Office Visit Internal Medicine [place] [address] [place] [address] Desire Da Silva M, [employer]S ASSISTANT.FLOOR SPACE ALLOCATOR [address] [place] [address] Pain left armpit [facility] [place] Comment on above: Pain left armpit Start: 07-18-2024 Covid-19 Vaccine () Covid-19 Vaccine () [facility] Start: 07-18-2024 Covid-19 Vaccine () Covid-19 Vaccine () [facility] Start: 07-18-2024 HPV TESTING HPV TESTING [facility] Start: 07-18-2024 Influenza [facility] Start: 07-18-2024 PAP TESTING PAP TESTING [facility] Start: 06-01-2024 Urine microalbumin profile [facility] Start: 01-31-2024 Mammography [facility] Start: 11-17-2023 Depression Assessment Depression Assessment [facility] Start: 10-16-2023 End: 10-16-2024 PELVIC US WHI PELVIC US I Anc Imaging Routine Menorrhagia with regular cycle Expected: 10/16/2023, Expires: 10/16/2024 [facility] Work Phone: Comment on above: Expected: 10/16/2023, Expires: Start: 07-18-2023 Covid-19 Vaccine () Covid-19 Vaccine () [facility] Start: 05-01-2023 Adult depression screening assessment DEPRESSION SCREENING [facility] Start: 01-01-2023 End: 03-03-2023 CBC W Auto Differential panel - Blood CBC + DIFF Lab Routine Elevated platelet count Expected: 01/01/2023, Expires: 03/03/2023 [facility] Work Phone: Comment on above: Expected: 01/01/2023, Expires: 3 Start: 01-01-2023 End: 03-03-2023 Hepatitis C virus Ab [Presence] in Serum HEP C AB IA W/CONF SCRN Lab Routine Special screening examination for viral disease Expected: 01/01/2023, Expires: 03/03/2023 [facility] Work Phone: Comment on above: Expected: 01/01/2023, Expires: 3 Start: 01-01-2023 End: 03-03-2023 HIV 1+2 Ab [Presence] in Serum or Plasma by Immunoassay HIV 1 2 COMBO(AG/AB),WITH REFLEX TO DIFFERENTIATION Lab Routine Screening for HIV (human immunodeficiency virus) Expected: 01/01/2023, Expires: 03/03/2023 [facility] Work Phone: Comment on above: Expected: 01/01/2023, Expires: 3 Start: 11-27-2022 End: 01-27-2023 CBC W Auto Differential panel - Blood CBC + DIFF Lab Routine Thrombocythemia Expected: 11/27/2022, Expires: 01/27/2023 [facility] Work Phone: Comment on above: Expected: 11/27/2022, Expires: 3 Start: 11-21-2022 End: 01-21-2023 CBC W Auto Differential panel - Blood CBC + DIFF Lab Routine Thrombocythemia Expected: 11/21/2022, Expires: 01/21/2023 [facility] Work Phone: Comment on above: Expected: 11/21/2022, Expires: 3 Start: 11-17-2022 DEPRESSION ASSESSMENT DEPRESSION ASSESSMENT [facility] Start: 09-14-2022 End: 11-14-2022 Hepatitis C virus Ab [Presence] in Serum HEP C AB IA W/CONF SCRN Lab Routine Special screening examination for viral disease Expected: 09/14/2022, Expires: 11/14/2022 [facility] Work Phone: Comment on above: Expected: 09/14/2022, Expires: 2 Start: 09-14-2022 End: 11-14-2022 HIV 1+2 Ab [Presence] in Serum or Plasma by Immunoassay HIV 1 2 COMBO(AG/AB),WITH REFLEX TO DIFFERENTIATION Lab Routine Screening for HIV (human immunodeficiency virus) Expected: 09/14/2022, Expires: 11/14/2022 [facility] Work Phone: Comment on above: Expected: 09/14/2022, Expires: 2 Start: 08-21-2022 End: 10-21-2022 CBC W Auto Differential panel - Blood [facility] Work Phone: Comment on above: Expected: 08/21/2022, Expires: 2 Start: 08-20-2022 End: 10-20-2022 25-hydroxyvitamin D3 [Mass/volume] in Serum or Plasma VITAMIN D 25 HYDROXY Lab Routine Vitamin D deficiency Expected: 08/20/2022, Expires: 10/20/2022 [facility] Work Phone: Comment on above: Expected: 08/20/2022, Expires: 2 Start: 08-19-2022 End: 10-19-2022 CBC W Auto Differential panel - Blood CBC + DIFF Lab Routine Annual physical exam Expected: 08/19/2022, Expires: 10/19/2022 [facility] Work Phone: Comment on above: Expected: 08/19/2022, Expires: 2 Start: 08-19-2022 End: 10-19-2022 Comprehensive metabolic 2000 panel - Serum or Plasma COMP METABOLIC PANEL Lab Routine Annual physical exam Expected: 08/19/2022, Expires: 10/19/2022 [facility] Work Phone: Comment on above: Expected: 08/19/2022, Expires: 2 Start: 08-19-2022 End: 10-19-2022 Lipid 1996 panel - Serum or Plasma LIPID PANEL BASIC Lab Routine Annual physical exam Expected: 08/19/2022, Expires: 10/19/2022 [facility] Work Phone: Comment on above: Expected: 08/19/2022, Expires: 2 Start: 08-19-2022 End: 10-19-2022 Magnesium [Mass/volume] in Serum or Plasma MAGNESIUM BLD Lab Routine Hypomagnesemia Expected: 08/19/2022, Expires: 10/19/2022 [facility] Work Phone: Comment on above: Expected: 08/19/2022, Expires: 2 Start: 08-19-2022 End: 10-19-2022 Thyrotropin [Units/volume] in Serum or Plasma TSH BLD Lab Routine Annual physical exam Expected: 08/19/2022, Expires: 10/19/2022 [facility] Work Phone: Comment on above: Expected: 08/19/2022, Expires: 2 Start: 07-18-2022 Influenza vaccination INFLUENZA (#1) [facility] Start: 02-14-2022 End: 04-16-2022 Basic metabolic 2000 panel - Serum or Plasma BASIC METABOLIC PNL Lab Routine Annual physical exam Expected: 02/14/2022, Expires: 04/16/2022 [facility] Work Phone: Comment on above: Expected: 02/14/2022, Expires: 2 Start: 02-14-2022 End: 04-16-2022 CBC W Auto Differential panel - Blood CBC + DIFF Lab Routine Annual physical exam Expected: 02/14/2022, Expires: 04/16/2022 [facility] Work Phone: Comment on above: Expected: 02/14/2022, Expires: 2 Start: 02-14-2022 End: 04-16-2022 LIPID PANEL BASIC LIPID PANEL BASIC Lab Routine Annual physical exam Expected: 02/14/2022, Expires: 04/16/2022 [facility] Work Phone: Comment on above: Expected: 02/14/2022, Expires: 2 Start: 02-14-2022 End: 04-16-2022 Thyrotropin [Units/volume] in Serum or Plasma TSH BLD Lab Routine Multiple thyroid nodules Expected: 02/14/2022, Expires: 04/16/2022 [facility] Work Phone: Comment on above: Expected: 02/14/2022, Expires: 2 Start: 11-17-2021 DEPRESSION ASSESSMENT DEPRESSION ASSESSMENT [facility] Start: 10-19-2021 COVID-19 VACCINE (3 - Booster for Moderna series) COVID-19 VACCINE (3 - Booster for Moderna series) [facility] Start: 07-14-2021 COVID-19 VACCINE (3 - Booster for Moderna series) COVID-19 VACCINE (3 - Booster for Moderna series) [facility] Start: 2020 Mammography MAMMOGRAM [facility] Start: 02-12-2018 Patient Education Sinusitis *: sinus infection [facility] Work Phone: Start: 02-12-2018 Procedure Education Eprescribed prescriptions (G8553) [facility] Work Phone: Start: 02-12-2018 Provider Instructions for Treatment Follow up if no improvement or if symptoms worsen [facility] Work Phone: Start: 10-31-2017 Procedure Education Eprescribed prescriptions (G8553) [facility] Work Phone: Start: 10-31-2017 Provider Instructions for Treatment [facility] Work Phone: Start: 10-31-2017 Urnls dip stick/tablet reagent auto microscopy URINALYSIS, W/ MICRO (68655) [facility] Work Phone: Start: 10-31-2017 Urine albumin quantitative MICROALBUMIN: CREATININE RATIO (74118) AND (94525) [facility] Work Phone: Start: 10-31-2017 TSH Qn TSH (THYROID STIMULATING HORMONE) (70141) [facility] Work Phone: Start: 10-31-2017 25 hydroxy includes fractions if performed CALCIFEDIOL (70169) [facility] Work Phone: Start: 10-31-2017 Comprehensive metabolic panel METABOLIC PANEL, COMPREHENSIVE (22577) [facility] Work Phone: Start: 10-31-2017 Lipid panel LIPID PANEL (05587) [facility] Work Phone: Start: 10-31-2017 Blood count complete auto&auto difrntl wbc CBC with auto diff (02479) [facility] Work Phone: Start: 05-09-2017 Provider Instructions for Treatment [facility] Work Phone: Start: 04-22-2017 Procedure Education Eprescribed prescriptions (G8553) [facility] Work Phone: Start: 04-22-2017 Provider Instructions for Treatment Follow up after lab work completed [facility] Work Phone: Start: 11-08-2016 Procedure Education Eprescribed prescriptions (G8553) [facility] Work Phone: Start: 11-08-2016 Provider Instructions for Treatment [facility] Work Phone: Start: 07-12-2016 Patient Education Bacteria in Urine, No Symptoms (Asymptomatic Bacteriuria): uti [facility] Work Phone: Start: 07-12-2016 Procedure Education Eprescribed prescriptions (G8553) [facility] Work Phone: Start: 03-28-2016 Provider Instructions for Treatment [facility] Work Phone: Start: 01-25-2016 Provider Instructions for Treatment Follow up in 5weeks [facility] Work Phone: Start: 01-03-2016 Provider Instructions for Treatment [facility] Work Phone: Start: 12-15-2015 Provider Instructions for Treatment [facility] Work Phone: Start: 12-04-2015 TSH Qn TSH (THYROID STIMULATING HORMONE) (95838) [facility] Work Phone: Start: 12-04-2015 Free T3 [Mass/Vol] T3, FREE (TRIDOTHYRONINE) (33127) [facility] Work Phone: Start: 12-04-2015 Free T4 [Mass/Vol] T4, FREE (THYROXINE) (82463) [facility] Work Phone: Start: 11-24-2015 Provider Instructions for Treatment [facility] Work Phone: Start: 10-23-2015 Comprehensive metabolic panel Metabolic Panel, Comprehensive (55527) [facility] Work Phone: Start: 10-23-2015 Hepatic function panel HEPATIC FUNCTION PANEL (21504) [facility] Work Phone: Start: 09-22-2015 Patient Education Hematuria (Blood in Urine): blood [facility] Work Phone: Start: 09-22-2015 Provider Instructions for Treatment Reviewed Lab [facility] Work Phone: Start: 09-15-2015 Provider Instructions for Treatment [facility] Work Phone: Start: 09-12-2015 Blood count complete auto&auto difrntl wbc CBC, Platelets & Auto Diff (49852) [facility] Work Phone: Start: 09-12-2015 Basic metabolic panel calcium total Metabolic Panel, Basic (28832) [facility] Work Phone: Start: 09-12-2015 Provider Instructions for Treatment Follow up in 3 days [facility] Work Phone: Start: 07-06-2015 Provider Instructions for Treatment [facility] Work Phone: Start: 06-23-2015 Provider Instructions for Treatment [facility] Work Phone: Start: 06-08-2015 Procedure Education Eprescribed prescriptions (G8553) [facility] Work Phone: Start: 05-08-2015 Procedure Education Eprescribed prescriptions (G8553) [facility] Work Phone: Start: 05-08-2015 Provider Instructions for Treatment Follow up in 1 month [facility] Work Phone: Start: 04-20-2015 Provider Instructions for Treatment Reviewed Temperature Regulator Letter [facility] Work Phone: Start: 08-13-2013 Cul bact xcpt urine blood/stool aerobic isol MARZENA CULTURE-OTHER (69113) [facility] Work Phone: Start: 07-23-2013 Provider Instructions for Treatment Follow up in 1 year [facility] Work Phone: Start: 1999 Hepatitis B Vaccine (1 of 3 - 19+ 3-dose series) Hepatitis B Vaccine (1 of 3 - 19+ 3-dose series) [facility] Start: 1999 ONE PNEUMOVAX PRIOR TO AGE 65 ONE PNEUMOVAX PRIOR TO AGE 65 [facility] Start: 1998 Anxiety Screening Anxiety Screening [facility] Start: 1998 Depression Screening Depression Screening [facility] Start: 1998 HEPATITIS C SCREENING HEPATITIS C SCREENING [facility] Start: 1998 Hepatitis C screening Hepatitis C Screening [facility] Start: 1998 HIV SCREENING HIV SCREENING [facility] Start: 1998 HIV screening HIV Screening [facility] Start: 1992 Adult depression screening assessment DEPRESSION SCREENING [facility] Start: 1980 HEPATITIS B (1 of 3 - 3-dose series) HEPATITIS B (1 of 3 - 3-dose series) [facility] Start: 1980 Hepatitis B Vaccine (1 of 3 - 3-dose series) Hepatitis B Vaccine (1 of 3 - 3-dose series) [facility] 25-hydroxyvitamin D3 [Mass/volume] in Serum or Plasma VITAMIN D 25 HYDROXY Lab Routine Vitamin D deficiency 08/21/2022 7:33 AM EDT [facility] Work Phone: Bacteria identified in Urine by Culture URINE CULTURE Microbiology Routine Urinary frequency Ordered: 04/07/2022 [facility] Work Phone: Comment on above: Ordered: 04/07/2022 Bacteria identified in Urine by Culture URINE CULTURE Microbiology Routine Urinary frequency Ordered: 04/16/2022 [facility] Work Phone: Comment on above: Ordered: 04/16/2022 Comprehensive metabo lic 2000 panel - Serum or Plasma COMP METABOLIC PANEL Lab Routine Annual physical exam 08/21/2022 7:33 AM EDT [facility] Work Phone: End: 05-31-2023 Ct abdomen w/o & w/contrast material CT KIDNEY WO/W IVCON Radiology Routine Acquired cyst of kidney 1 Occurrences starting 05/01/2022 until 05/31/2023 [facility] Work Phone: Comment on above: 1 Occurrences starting 05/01/2022 until 05/31/2023 End: 04-06-2026 DBT Breast - bilateral screening MILLA SCREENING W TONJA Radiology Routine Encounter for gynecological examination (general) (routine) without abnormal findings Encounter for screening mammogram for breast cancer 1 Occurrences starting 03/07/2025 until 04/06/2026 [facility] Work Phone: Comment on above: 1 Occurrences starting 03/07/2025 until 04/06/2026 Endometrial bx w/wo endocervix bx w/o dilat spx ENDOMETRIAL BIOPSY Procedures Routine Menorrhagia with regular cycle Ordered: 10/16/2023 [facility] Work Phone: Comment on above: Ordered: 10/16/2023 Insertion intrauteri ne device iud INSERT INTRAUTERINE DEVICE Procedures Routine Menorrhagia with regular cycle Ordered: 10/16/2023 [facility] Work Phone: Comment on above: Ordered: 10/16/2023 Lipid 1996 panel - Serum or Plasma LIPID PANEL BASIC Lab Routine Annual physical exam 08/21/2022 7:33 AM [facility] Work Phone: Magnesium [Mass/volu me] in Serum or Plasma MAGNESIUM BLD Lab Routine Hypomagnesemia 08/21/2022 7:33 AM [facility] Work Phone: End: 11-14-2024 MILLA SCREENING W TONJA MILLA SCREENING W TONJA Radiology Routine Encounter for screening mammogram for malignant neoplasm of breast 1 Occurrences starting 10/16/2023 until 11/14/2024 [facility] Work Phone: Comment on above: 1 Occurrences starting 10/16/2023 until 11/14/2024 End: 10-07-2025 MG Breast - bilateral Diagnostic MILLA DIAGNOSTIC BILATERAL Radiology Routine Pain of both breasts 1 Occurrences starting 09/07/2024 until 10/07/2025 [facility] Work Phone: Comment on above: 1 Occurrences starting 09/07/2024 until 10/07/2025 End: 08-25-2025 MG Breast - left Diagnostic for implant MILLA DIAGNOSTIC LEFT Radiology Routine Axillary mass, left Family history of breast cancer 1 Occurrences starting 07/26/2024 until 08/25/2025 [facility] Work Phone: Comment on above: 1 Occurrences starting 07/26/2024 until 08/25/2025 Patient Education [facility] Work Phone: Patient referral [facility] Work Phone: End: 06-14-2023 Screening mammography bi 2-view breast inc cad MILLA SCREENING Radiology Routine Encounter for screening mammogram for breast cancer 1 Occurrences starting 05/15/2022 until 06/14/2023 [facility] Work Phone: Comment on above: 1 Occurrences starting 05/15/2022 until 06/14/2023 Thyrotropin [Units/volume] in Serum or Plasma TSH BLD Lab Routine Annual physical exam 08/21/2022 7:33 AM EDT [facility] Work Phone: End: 08-25-2025 US Breast - left limited US BREAST LTD LEFT Radiology Routine Axillary mass, left Family history of breast cancer 1 Occurrences starting 07/26/2024 until 08/25/2025 [facility] Comment on above: 1 Occurrences starting 07/26/2024 until 08/25/2025 End: 07-07-2026 US Pelvis transvaginal US FEMALE PELVIS TRANSVAG Radiology Routine Intrauterine contraceptive device threads lost, initial encounter 1 Occurrences starting 06/06/2025 until 07/07/2026 [facility] Work Phone: Comment on above: 1 Occurrences starting 06/06/2025 until 07/07/2026 US Pelvis transvaginal US FEMALE PELVIS TRANSVAG Radiology Routine Intrauterine contraceptive device threads lost, initial encounter 06/07/2025 7:44 AM EDT [facility] Work Phone: [facility] Work Phone: [facility] Work Phone: [facility] Work Phone: [facility] Work Phone: [facility] Work Phone: [facility] Work Phone: [facility] Work Phone: [facility] Work Phone: [facility] Work Phone: [facility] Work Phone: [facility] Work Phone: [facility] Work Phone: [facility] Work Phone: [facility] Work Phone: [facility] Work Phone: [facility] Immunizations Immunization Date Immunization Notes Care Provider [facility] 07-31-2024 influenza virus vaccine, unspecified formulation Emil Gruber PA-C Work Phone: [facility] 08-09-2023 influenza virus vaccine, unspecified formulation Holly La MD Work Phone: [facility] 07-27-2023 Influenza, injectabl e, Madin Rosie Canine Kidney, preservative free, quadrivalent Holly La MD Work Phone: [facility] 09-14-2022 influenza, injectabl e, quadrivalent, preservative free Holly La MD Work Phone: [facility] 09-08-2021 influenza, injectabl e, quadrivalent, contains preservative Yahir Raygoza MD Work Phone: [facility] 08-31-2020 Influenza virus vaccine [facility] 08-31-2020 influenza, seasonal, injectable Holly La MD Work Phone: [facility] Work Phone: 08-31-2020 influenza, seasonal, injectable, preservative free Holly La MD Work Phone: [facility] 08-26-2020 influenza, injectabl e, quadrivalent, contains preservative Yahir Raygoza MD Work Phone: [facility] 09-04-2019 influenza, injectabl e, quadrivalent, preservative free Yahir Raygoza MD Work Phone: [facility] 08-15-2018 influenza, injectabl e, quadrivalent, contains preservative Yahir Raygoza MD Work Phone: [facility] Work Phone: 09-20-2017 influenza, injectabl e, quadrivalent, contains preservative Yahir Raygoza MD Work Phone: [facility] Work Phone: 09-22-2014 influenza, live, intranasal, quadrivalent Yahir Raygoza MD Work Phone: [facility] 06-01-2014 tetanus toxoid, redu kaya diphtheria toxoid, and acellular pertussis vaccine, adsorbed Yahir Raygoza MD Work Phone: [facility] Payers Date Payer Category Payer Private Health Insurance [employer] PPO [id number] 2024 Unknown [id number] 2024 Self-pay [id number] 2024 Unknown [id number] 2021 [employer] BLUE ACCE SS PPO [id number] 2021 Unknown 2021 Unknown GUSTAVO SHOKO ACCE SS PPO [id number] 2021-Present [phone] [place] [address] PPO [id number] 2013 Unknown [id number] Unknown [id number] Unknown [id number] Unknown 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 Exercise History: Exercise History: [facility] Work Phone: Living Situation: Living Situation: [facility] Work Phone: Pets/Animals: Pets/Animals: [facility] Work Phone: Tobacco use: Tobacco use: [facility] Work Phone: Start: 11-25-2019 End: 07-26-2024 Tobacco smoking status NHIS Ex-smoker [facility] Start: 02-23-2014 End: 02-23-2019 History of tobacco use Current smoker [facility] Start: 02-23-2014 End: 02-23-2019 History of tobacco use Cigarette Smoker [facility] Start: 11-25-2019 End: 07-26-2024 Tobacco use and exposure Smokeless tobacco non-user [facility] Start: 02-14-2022 End: 03-07-2025 Alcohol intake Current non-drinker of alcohol (finding) [facility] Start: 09-16-2016 End: 09-01-2022 Tobacco Comment Currently smoking 1cigarette a day [facility] Start: 1980 Sex Assigned At Not on file [facility] Start: 03-21-2021 End: 06-08-2023 Tobacco smoking status [facility] Unknown if ever smoked [facility] Start: 1980 Sex Assigned At Female W [facility] Start: 04-06-2022 End: 09-14-2022 Exposure to SARS-CoV-2 (event) Not sure [facility] Work Phone: Start: 05-01-2022 End: 10-29-2022 History SDOH Alcohol Frequency 1 [facility] Start: 05-01-2022 History SDOH Alcohol Std Drinks 98 [facility] Start: 05-01-2022 End: 10-29-2022 History SDOH Social Connections Phone 5 [facility] Start: 05-01-2022 End: 10-29-2022 History SDOH Social Connections Get Together 2 [facility] Start: 05-01-2022 End: 10-29-2022 History SDOH Social Connections Taoism 3 [facility] Start: 05-01-2022 End: 10-29-2022 History SDOH Physical Activity MPS 4 [facility] Start: 10-29-2022 History SDOH Alcohol Std Drinks 0 [facility] Start: 10-29-2022 End: 03-19-2023 Social connection and isolation panel [facility] Do you belong to any clubs or organizations such as yazdanism groups, unions, fraternal or athletic groups, or school groups? No [facility] Are you now , , , , never or living with a partner? [facility] How often to you hav e a drink containing alcohol? Never [facility] How many standard drinks containing alcohol do you have on a typical day? Patient does not drink [facility] How hard is it for y ou to pay for the very basics like food, housing, medical care, and heating Not very hard [facility] Do you feel stress - tense, restless, nervous, or anxious, or unable to sleep at night because your mind is troubled all the time - these days [OSQ] Only a little [facility] (I/We) worried wheth er (my/our) food would run out before (I/we) got money to buy more. Never true [facility] Do you feel stress - tense, restless, nervous, or anxious, or unable to sleep at night because your mind is troubled all the time - these days [OSQ] Not at all [facility] Start: 05-19-2025 [facility] NEGATED: Highlighted row [facility] NEGATED: Highlighted row Not [facility] Functional Status Date Assessment Result Facility 04-17-2015 Are you deaf, or do you have serious difficulty hearing No 04/17/2015 5:08 PM EDT Millie Beatty LPN No [facility] 04-17-2015 Are you blind, or do you have serious difficulty seeing, even when wearing glasses No 04/17/2015 5:08 PM EDT Millie Beatty LPN No [facility] 04-17-2015 Do you have serious difficulty walking or climbing stairs No 04/17/2015 5:08 PM EDT Millie Beatty LPN No [facility] 04-17-2015 Do you have difficul ty dressing or bathing No 04/17/2015 5:08 PM EDT Millie Beatty LPN No [facility] 04-17-2015 Because of a physica l, mental, or emotional condition, do you have difficulty doing errands alone such as visiting a physician's office or shopping No 04/17/2015 5:08 PM EDT Millie Beatty LPN No [facility] Mental Status Date Assessment Result Facility 04-17-2015 Because of a physica l, mental, or emotional condition, do you have serious difficulty concentrating, remembering, or making decisions No 04/17/2015 5:08 PM EDT Millie Beatty LPN No [facility] Clinical Notes 02-12-2022 to 06-07-2025 Jasmin Durant RDMS - 06/07/2025 7:00 AM Penny Urias APRN.COSMO - 06/06/2025 1:51 PM EDT Note Date & Type Note Facility 06-07-2025 History of Present illness Narrative Radiology Service Progress Note PATIENT NAME: Rachel Choi DATE OF SERVICE: June 07, 2025 TIME: 2:42 PM PATIENT IDENTITY VERIFICATION COMPLETED USING TWO (2) IDENTIFIERS: Name and Date of confirmed by patient verbally. FALL SCREENING: Has the patient had 2 falls in the last year or 1 fall with injury or currently using an Ambulatory Assistive Device (Walker, Cane, Wheelchair, Crutches, etc.)? No PATIENT GENDER DATA: Assigned female at . status: : No status: NO. PATIENT RELEVANT IMPLANT DATA REVIEWED: Not Applicable PATIENT PRESENTS WITH AN IMPLANTABLE OR ATTACHED WEBSPHERE COMMERCE CONSULTANT: No RADIOLOGY DEPARTMENT: Ultrasound PERIPHERAL IV DATA: Not applicable SIGNED BY: Jasmin Durant RDMS RVT June 07, 2025 2:42 PM documented in this encounter [facility] 06-07-2025 Note HNO ID: [id number] Author: JASMIN DURANT RDMS Service: ? Author Type: Chemist Pharmaceutical Type: Progress Notes Filed: 06/07/2025 14:42 Note Text: Radiology Service Progress Note PATIENT NAME: Rachel Choi DATE OF SERVICE: June 07, 2025 TIME: 2:42 PM PATIENT IDENTITY VERIFICATION COMPLETED USING TWO (2) IDENTIFIERS: Name and Date of confirmed by patient verbally. FALL SCREENING: Has the patient had 2 falls in the last year or 1 fall with injury or currently using an Ambulatory Assistive Device (Walker, Cane, Wheelchair, Crutches, etc.)? No PATIENT GENDER DATA: Assigned female at . status: : No status: NO. PATIENT RELEVANT IMPLANT DATA REVIEWED: Not Applicable PATIENT PRESENTS WITH AN IMPLANTABLE OR ATTACHED WEBSPH[employer]ER[employer] CONSULTANT: No RADIOLOGY DEPARTMENT: Ultrasound PERIPHERAL IV DATA: Not applicable SIGNED BY: Jasmin Durant RDMS RVT June 07, 2025 2:[address] [facility] 06-06-2025 Note HNO ID: [id number] Author: PENNY BEE APRN.CNM Service: ? Author Type: Supervisor Coffee Type: Progress Notes Filed: 06/06/2025 14:43 Note Text: Debt Collector offered: Patient declines. Rachel Choi is a 44 year old female who presents for problem visit extreme cramping for 3 week(s). Was seen at [facility] ED for possible prolapse. Had a "lump" vaginal exam at ER was wnl. IUD still in place per ER physician. No pelvic US completed while in ER. Not currently having any pain or discomfort but things feel "bigger" down there. Feels like there "is a ball/ bulge/ heaviness in vaginal area. 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 Comments: Sexual Activity: Yes; Male Contraception: Tubal Ligation PAST MEDICAL HISTORY Diagnosis Date Adenomyosis Allergic rhinitis Class 3 severe obesity without serious comorbidity with body mass index (BMI) of 40.0 to 44.9 in adult, unspecified obesity type (HCC) Colon polyps Constipation during Endometriosis Gastroesophageal reflux disease, unspecified whether esophagitis present History of colposcopy 05/14/2021 with ECC-normal Hydronephrosis with urinary obstruction due to renal calculus 11/16/2024 Multiple thyroid nodules Obesity Psychiatric disorder ANXIETY Psychiatric disorder anxiety Tobacco abuse Uterine fibroid PAST SURGICAL HISTORY Procedure Laterality Date DELIVERY ONLY , low transverse DELIVERY ONLY 2020 COLONOSCOPY 06/2019 COLONOSCOPY FLX DX W/COLLJ SPEC WHEN PFRMD 03/22/2015 Colonoscopy ESOPHAGOGASTRODUODENOSCOPY TRANSORAL DIAGNOSTIC 03/22/2015 EGD LAPAROSCOPIC APPENDECTOMY 1995 w/ lysis of adhesions LIGATE FALLOPIAN TUBE Bilateral 03/21/2021 PAST SURGICAL HISTORY OF 2001 laparoscopy with lysis of adhesions. FAMILY HISTORY Problem Relation Age of Onset Anxiety disorder Mother other (ulcers) Mother Breast Cancer Mother hers-2 other (ulcers) Father hiatal hernia other (acid reflux) Sister other (IBS) Brother digestive issues Diabetes Maternal Grandmother Cancer Maternal Grandfather lung Cancer Paternal Grandmother lung cancer Cancer Paternal Grandfather bladder cancer No Known Problems Son Breast Cancer Maternal Aunt hers-2 Anesthesia Problems No Family History Social History Tobacco Use Smoking status: Former Current packs/day: 0.00 Types: Cigarettes Start date: 02/23/2014 Quit date: 02/23/2019 Years since quittin.2 Smokeless tobacco: Never Tobacco comments: Currently smoking 1cigarette a day Vaping Use Vaping status: Some Days Substances: Nicotine Devices: Pre-filled or refillable cartridge, Juul 3% Substance Use Topics Alcohol use: No Drug use: No Current Outpatient Medications Medication Sig omeprazole (PRILOSEC) 20 mg capsule Take 1 capsule by mouth daily before breakfast. levonorgestrel (MIRENA) 21 mcg/24 hours (8 yrs) 52 mg IUD 1 Each by INTRAUTERINE route as directed. Magnesium Glycinate 100 mg tab Take 500 mg by mouth as needed. Takes up to 500mg prn fluticasone (FLONASE) 50 mcg/actuation nasal spray Use 2 Sprays in each nostril once daily. Rinse mouth after use. CETIRIZINE HCL (ZYRTEC ORAL) Take 10 mg by mouth as needed (allergies). Multivitamin capsule Take 1 capsule by mouth once daily. No current facility-administered medications for this visit. Allergies As of Date: 06/06/2025 Allergen Noted Reaction CODEINE 09/04/2016 Other: See Comments and Unknown ERYTHROMYCIN 01/12/2013 Hives PERCOCET [OXYCODONE-ACETAMINOPHEN] 013 Vomiting SEASONAL ALLERGIES 08/31/2012 Other: See Comments Fully Assessed 03/07/2025 REVIEW OF SYSTEMS Abdomen: No bloating, early satiety, indigestion, or increased flatulence. No abdominal pain, nausea, vomiting, diarrhea, or constipation. Bladder: No dysuria, gross hematuria, urinary frequency, urinary urgency, or incontinence. Breast: No breast lumps, nipple d/c, overlying skin changes, redness or skin retraction. Expanded ROS: N/A Allergies and current medication updated:Yes SENSITIVE EXAM: The sensitive examination was discussed with the Patient or Patient's Authorized Soft Metals Hand Engraver. As applicable, any other physician, advance practice provider, medical student, or other health professional student that will be observing or involved in the sensitive examination for educational or training purposes was discussed with the Patient or Authorized Soft Metals Hand Engraver. The Patient or Authorized Soft Metals Hand Engraver has agreed to proceed with the sensitive examination. (Sensitive examination includes inspection and/or palpation of the breasts, pelvis, prostate and anorectal regions). EXAM: LMP 06/15/2024 GENERAL: pleasant, female in no apparent distress HEENT: Normocephalic and atraumatic NECK: Supple and full range of motion DERMATOLOGY: Normal BREAST: deferr (more content not included)... [facility] 06-06-2025 History of Present illness Narrative Debt Collector offered: Patient declines. Rachel Choi is a 44 year old female who presents for problem visit extreme cramping for 3 week(s). Was seen at [facility] ED for possible prolapse. Had a "lump" vaginal exam at ER was wnl. IUD still in place per ER physician. No pelvic US completed while in ER. Not currently having any pain or discomfort but things feel "bigger" down there. Feels like there "is a ball/ bulge/ heaviness in vaginal area. 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 Comments: Sexual Activity: Yes; Male Contraception: Tubal Ligation PAST MEDICAL HISTORY Diagnosis Date Adenomyosis Allergic rhinitis Class 3 severe obesity without serious comorbidity with body mass index (BMI) of 40.0 to 44.9 in adult, unspecified obesity type (HCC) Colon polyps Constipation during Endometriosis Gastroesophageal reflux disease, unspecified whether esophagitis present History of colposcopy 05/14/2021 with ECC-normal Hydronephrosis with urinary obstruction due to renal calculus 11/16/2024 Multiple thyroid nodules Obesity Psychiatric disorder ANXIETY Psychiatric disorder anxiety Tobacco abuse Uterine fibroid PAST SURGICAL HISTORY Procedure Laterality Date DELIVERY ONLY , low transverse DELIVERY ONLY 2020 COLONOSCOPY 06/2019 COLONOSCOPY FLX DX W/COLLJ SPEC WHEN PFRMD 03/22/2015 Colonoscopy ESOPHAGOGASTRODUODENOSCOPY TRANSORAL DIAGNOSTIC 03/22/2015 EGD LAPAROSCOPIC APPENDECTOMY 1995 w/ lysis of adhesions LIGATE FALLOPIAN TUBE Bilateral 03/21/2021 PAST SURGICAL HISTORY OF 2001 laparoscopy with lysis of adhesions. FAMILY HISTORY Problem Relation Age of Onset Anxiety disorder Mother other (ulcers) Mother Breast Cancer Mother hers-2 other (ulcers) Father hiatal hernia other (acid reflux) Sister other (IBS) Brother digestive issues Diabetes Maternal Grandmother Cancer Maternal Grandfather lung Cancer Paternal Grandmother lung cancer Cancer Paternal Grandfather bladder cancer No Known Problems Son Breast Cancer Maternal Aunt hers-2 Anesthesia Problems No Family History Social History Tobacco Use Smoking status: Former Current packs/day: 0.00 Types: Cigarettes Start date: 02/23/2014 Quit date: 02/23/2019 Years since quittin.2 Smokeless tobacco: Never Tobacco comments: Currently smoking 1cigarette a day Vaping Use Vaping status: Some Days Substances: Nicotine Devices: Pre-filled or refillable cartridge, Juul 3% Substance Use Topics Alcohol use: No Drug use: No Current Outpatient Medications Medication Sig omeprazole (PRILOSEC) 20 mg capsule Take 1 capsule by mouth daily before breakfast. levonorgestrel (MIRENA) 21 mcg/24 hours (8 yrs) 52 mg IUD 1 Each by INTRAUTERINE route as directed. Magnesium Glycinate 100 mg tab Take 500 mg by mouth as needed. Takes up to 500mg prn fluticasone (FLONASE) 50 mcg/actuation nasal spray Use 2 Sprays in each nostril once daily. Rinse mouth after use. CETIRIZINE HCL (ZYRTEC ORAL) Take 10 mg by mouth as needed (allergies). Multivitamin capsule Take 1 capsule by mouth once daily. No current facility-administered medications for this visit. Allergies As of Date: 06/06/2025 Allergen Noted Reaction CODEINE 09/04/2016 Other: See Comments and Unknown ERYTHROMYCIN 01/12/2013 Hives PERCOCET [OXYCODONE-ACETAMINOPHEN] 013 Vomiting SEASONAL ALLERGIES 08/31/2012 Other: See Comments Fully Assessed 03/07/2025 REVIEW OF SYSTEMS Abdomen: No bloating, early satiety, indigestion, or increased flatulence. No abdominal pain, nausea, vomiting, diarrhea, or constipation. Bladder: No dysuria, gross hematuria, urinary frequency, urinary urgency, or incontinence. Breast: No breast lumps, nipple d/c, overlying skin changes, redness or skin retraction. Expanded ROS: N/A Allergies and current medication updated:Yes SENSITIVE EXAM: The sensitive examination was discussed with the Patient or Patient's Authorized Soft Metals Hand Engraver. As applicable, any other physician, advance practice provider, medical student, or other health professional student that will be observing or involved in the sensitive examination for educational or training purposes was discussed with the Patient or Authorized Soft Metals Hand Engraver. The Patient or Authorized Soft Metals Hand Engraver has agreed to proceed with the sensitive examination. (Sensitive examination includes inspection and/or palpation of the breasts, pelvis, prostate and anorectal regions). EXAM: LMP 06/15/2024 GENERAL: pleasant, female in no apparent distress HEENT: Normocephalic and atraumatic NECK: Supple and full range of motion DERMATOLOGY: Normal BREAST: deferred CHEST: Normal inspiratory effort ABDOMEN: soft, non-tender, and no masses PELVIC: external genitalia normal, normal Bartholin's glands, urethra, [place]'s glands, no vulvar lesions, no cervical lesions, good vaginal support, physiologic discharge present, NO IUD STRINGS VISIBLE BIMANUAL: uterus normal size, shape and consistency, no adnexal masses, non-tender, and no cervical motion tenderness NEURO: alert and oriented x3,exam grossly non-focal EXTREMITIES: normal ASSESSMENT AND PLAN: Assessment & Plan Intrauterine contraceptive device threads lost, initial encounter Orders: US FEMALE PELVIS TRANSVAG; Future Sensation of heaviness Pelvic cramping - Mirena IUD placed 11/04/2023 - IUD strings visible during visit on 03/07/25 - Discussed that IUD strings are no longer visible today on exam - Possible slight cervical prolapse felt during exam - Pelvic US ordered and will follow up after results returned. Penny Plotts, GRANTS AND CONTRACTS ASSISTANT.CNM documented in this encounter [facility] 05-19-2025 Discharge summary [facility] 05-19-2025 Discharge summary Note Date/Time May 19, 2025 11:28pm [facility] Medical Records Department [address] [place] [address] Emergency Department Summary 05/19/25 MR#: [id number] Acct: [id number] Name: RACHEL CHOI Rep #:[id number] : 1980 44 From: Rod Bates MD PCP: Dr. Yahir Raygoza MD Status:REG E R Location: ED HPI HPI - Female History of Present Illness Chief Complaint: Female C/O Informant: patient Pain Pain: Positive for Pelvic Pain Current Severity: Mild Maximum Severity: Mild Bleeding Issue: Negative for Vaginal bleeding Associated Symptoms Associated Symptoms: Negative for Dysuria, Frequency, Urgency or Hematuria Narrative Narrative: 44-year-old female history of tubal ligation, appendectomy and C-sections x 2. States on Friday night she picked up her dog weighs about 40 pounds felt discomfort in her lower abdomen. The next day she had some cramping. Denies any vaginal bleeding or discharge. Denies any dysuria or hematuria or urinary frequency. Denies any fever. No nausea, vomiting or diarrhea. Normal bowel movements. Prior similar symptoms: No Recent Illness/Hospitalization: No PFSH PFSH Medical History Gestational diabetes Maternal anemia in , antepartum Spontaneous rupture of amiotic membranes Home Medications ?Medication ?Instructions ?Recorded ?Last Taken ?Type elderberry fruit 200 mg capsule PO DAILY supplement 03/20/21 History magnesium 500 mg tablet 500 mg PO DAILY migraine pre vention 03/21/21 03/19/21 History hydrocodone-acetaminophen 5-325mg 1 tab PO Q4H PRN PRN Pain 2 days 04/28/22 Unknown Rx 5mg-325mg #10 TABLETS lorazepam 0.5 mg tablet (Ativan) 0.5 mg PO TID PRN Anx iety 04/28/22 Unknown History ondansetron 4 mg disintegrating 4 mg PO Q8H PRN PRN Na usea #10 tabs 04/28/22 Unknown Rx tablet hydrocodone-acetaminophen 5-325mg 1 tab PO Q6H PRN PRN Pain 3 days 06/08/23 Unknown Rx 5mg-325mg #12 TABLETS ibuprofen 800 mg tablet 800 mg PO Q8H PRN pain #20 t abs 06/08/23 Unknown Rx ondansetron 4 mg disintegrating 4 mg PO Q8H PRN PRN Na usea #10 tabs 06/08/23 Unknown Rx tablet tamsulosin 0.4 mg capsule (Flomax) 0.4 mg PO DAILY #10 caps 06/08/23 Unknown Rx hydrocodone-acetaminophen 5-325mg 1 tab PO Q6H PRN PRN Pain 3 days 11/12/24 Unknown Rx 5mg-325mg #10 TABLETS ondansetron 4 mg disintegrating 4 mg PO Q8H PRN PRN Na usea #10 tabs 11/12/24 Unknown Rx tablet tamsulosin 0.4 mg capsule (Flomax) 0.4 mg PO DAILY #7 caps 11/12/24 Unknown Rx Allergy/AdvReac Type Severity Reaction Status Date / Time codeine AdvReac Nausea/Vom/ Verified 05/19/25 19:45 Diarrhea oxycodone HCl (From Percocet) AdvReac Nausea/Vom/ Verified 05/19/25 19:45 Diarrhea Surgical History H/O bilateral salpingectomy Previous section Social History Smoking Status: Current every day smoker tobacco type: e-cigarettes ROS ROS ED ROS Narrative Lower abdominal pelvic pain. Constitutional Constitutional ED: Denies fever(s) Eyes Eyes: Denies blurry vision ENT ENT ED: Denies ear pain Cardiovascular Cardiovascular: Denies chest pain Respiratory/Chest Respiratory/Chest: Denies cough or dyspnea Gastrointestinal Gastrointestinal: Reports abdominal pain; Denies constipation, diarrhea, melena,nausea or vomiting Genitourinary Genitourinary ED: Denies dysuria or hematuria Musculoskeletal Musculoskeletal: Denies arthralgias Integumentary Denies abscess Neurologic Neurologic: Denies headache(s) Psychiatric Psychiatric: Denies anxiety Endocrine Endocrinology: Denies heat intolerance Hematologic/Lymphatic Hematologic/Lymphatic: Denies easy bleeding, easy bruising or lymphadenopathy Allergic/Immunologic Allergic/Immunologic ED: Denies mouth swelling, tongue swelling or urticaria EXAM Physical Exam Narrative Exam Narrative: 44-year-old female vital signs stable afebrile. Initial blood pressure 113. H EENT exam pupils round react light. Mytrex members. Neck nontenderno JVD. No lymphadenopathy. Lungs clear to auscultation bilateral. Heart tachycardic 110 no murmur. Chest wall and ribs nontender. Abdomen soft, nontender, nondistended normal bowel sounds without peritoneal signs. She has no abdominal or suprapubic tenderness. There is no bruising. No hernia or mass. Right upper and right lower quadrant are nontender. No obstruction. Moving all 4 extremities. Normal strength. Normal range of motion. When she lifts both her legs up when she is doing the leg lift she has no abdominal pain. Neurologically she is awake alert. Answer questions following commands. Back nontender. Very benign exam completely nontender abdomen. Const Vital Signs: 05/19/25 19:46 05/19/25 21:45 05/19/25 23:00 Temperature 97.6 F L Temperature Source Temporal Pulse Rate 122 H 108 H Respiratory Rate 24 H 18 Blood Pressure 184/113 H 166/87 H 139/86 H Blood Pressure Mean 136 113 102 Pulse Ox 99 96 96 Oxygen Delivery Method Room Air Positive well nourished and well developed; Negative for cachectic, contracturesor unkempt General Appearance ED: well developed and NAD; Negative for unkempt, cachectic, contractures or pallor Nutritional Appearance: Negative for cachectic HEENT Reports moist mucous membranes Eyes PERRL and EOMs intact bilaterally Neck no lymphadenopathy, supple and no JVD Chest Wall inspection of chest normal and palpation of chest normal Resp normal respiratory effort and clear to auscultation bilaterally Cardio regular rhythm, S1 normal heart sound, no murmurs and no JVD; Negative for regular rate Rate: tachycardic GI normal to inspection, nondistended, normoactive bowel sounds, soft to palpation,non-tender, non-distended and no masses GI Narrative: Completely nontender. Auscultation: normoactive bowel sounds Palpation: Negative for tender, guarding, rigid, hepatomegaly, splenomegaly, mass or other Back/Spine no CVA tenderness General Back: Negative for CVA tenderness Cervical Spine: Negative for cervical spine tenderness Thoracic Spine / Upper Back: Negative for thoracic spinal tenderness Lumbar Spine / Lower Back: Negative for lumbar spinal tenderness Sacrum: Negative for other Extremity normal to inspection and full ROM Neuro oriented x3 and CN's II-XII intact bilaterally Sensorium / Orientation: alert, oriented to person, oriented to place and oriented to time Motor Exam: strength 5/5 throughout Psych mental status grossly normal Appearance: Negative for unkempt Skin no rashes or lesions noted and no wounds General Skin Exam: Negative for jaundice or pallor Rashes: No rashes noted Trauma: Negative for other MDM MDM MDM Narrative Medical decision making narrative: 44-year-old female prior appendectomy and tubal ligation. Lifted a dog and had abdominal pain on Friday and into getting cramping on Friday. Denies any other symptoms. No fever no dysuria. No diarrhea or constipation. Abdominal exam is completely benign and nontender. She is concerned she sees "a lump in her vaginal area. I do not think she needs any labs or CAT scan her abdomen is completely benign. Will do a pelvic exam. Her urine grossly looks clean and she is having no urinary symptoms I do not think a UA is necessary. Repeat exam done at 11:20 PM. Nurse present in room. Pelvic exam was benign. There is no vaginal bleeding or discharge. Cervical os in place and closed. Believe I am seeing the string of the IUD. She has no uterine or adnexal pain on bimanual exam. The vaginal area appears normal. There is no signs of any type of prolapse. Repeat exam the abdomen is completely benign and nontender. She sat up without any difficulty or pain. She will be discharged home she has a follow-up appointment to see her PACK TRAIN DRIVER in 2 to 3 weeks. History & Record Review Discussion w/independent historian: Patient Additional record(s) reviewed:: Prior inpatient record, Prior outpatient record,Prior ED visit and Prior labs Discharge Plan Triage Chief Complaint: Female C/O ED Provider: Rod Bates Dx/Rx/DC Orders Clinical Impression: Pelvic pain Instructions: ED Pain, Acute, Uncertain Cause Prescriptions: No Action magnesium 500 mg Tablet 500 mg PO DAILY elderberry fruit 200 mg Capsule PO DAILY lorazepam [Ativan] 0.5 mg Tablet 0.5 mg PO TID PRN (Reason: Anxiety) hydrocodone-acetaminophen [hydrocodone-acetaminophen] 1 TABLET tablet 1 tab PO Q4H PRN PRN (Reason: Pain) 2 Days Qty: 10 0RF ondansetron [ondansetron] 4 MG tablet 4 mg PO Q8H PRN PRN (Reason: Nausea) Qty: 10 0RF ibuprofen 800 mg tablet 800 mg PO Q8H PRN (Reason: pain) Qty: 20 0RF hydrocodone-acetaminophen 5-325 mg tablet 1 tab PO Q6H PRN PRN (Reason: Pain) 3 Days Qty: 12 0RF ondansetron 4 mg tablet,disintegrating 4 mg PO Q8H PRN PRN (Reason: Nausea) Qty: 10 0RF tamsulosin [Flomax] 0.4 mg capsule 0.4 mg PO DAILY Qty: 10 0RF hydrocodone-acetaminophen 5-325 mg tablet 1 tab PO Q6H PRN PRN (Reason: Pain) 3 Days Qty: 10 0RF tamsulosin [Flomax] 0.4 mg capsule 0.4 mg PO DAILY Qty: 7 0RF ondansetron 4 mg tablet,disintegrating 4 mg PO Q8H PRN PRN (Reason: Nausea) Qty: 10 0RF Primary Care Provider: Yahir Raygoza Referrals: Yahir Raygoza MD [Primary Care Provider] - Holly La MD [Med Staff - Active Staff] - As soon as possible Activity Restrictions/Additional Instructions: Motrin and Tylenol for any pain. 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 Return if increasing pain, fever or feeling worse. Currently her exam is benign. Print Language: Citizen Of [place] Disposition Disposition: Home, Self Care What to do if you have Problems For any increased pain, shortness of breath, bleeding, nausea or vomiting, chestpain, or any unexpected problems, contact your Primary Care Provider. Call [facility] ([phone]) or report to the closest Emergency Room. Call 911 if necessary. 05/19/259 <Electronically signed by Rod Bates MD> Cosigner Signature (if applicable): CC: Dr. Yahir Raygoza MD ~ Signed [facility] Work Phone: [phone]) 233-857107-02-2025 Telephone encounter Note* Telephone Encounter - Manisha Burgess LPN - 05/18/2025 9:14 AM EDT Called patient. No answer- left message and informed sending MyChart message. Manisha Burgess LPN [facility]07-02-2025 Miscellaneous Notes* Telephone Encounter - Manisha Burgess LPN - 05/18/2025 9:14 AM EDT Called patient. No answer- left message and informed sending MyChart message. Manisha Burgess LPN [facility] NoteHNO ID: [id number] Author: PENNY BEE APRN.COSMO Service: ? Author Type: Supervisor Coffee Type: Progress Notes Filed: 03/07/2025 08:39 Note Text: Debt Collector offered: Patient declines. Ramos is a 44 year old who presents for an annual gynecologic exam with complaints, cramping no better since IUD placement 11/04/2023 . Periods / bleeding has stopped since Mirena IUD placed. Menses: no menses - Mirena IUD Period symptoms: N/A Sexually active: Yes Contraception: IUD and Tubal Ligation HPV vaccine: No HPV:negative Last pap smear: 02/05/2023 History of abnormal pap: No Bothersome pelvic pain: extreme cramping Last mammogram: 2024normal OB History Gravida3 Para2 Term0 Preterm0 AB1 Living0 SAB1 IAB0 Ectopic0 Multiple0 Live Births0 Problem Relation Age of Onset Anxiety disorder Mother other (ulcers) Mother other (ulcers) Father hiatal hernia other (acid reflux) Sister other (IBS) Brother digestive issues Diabetes Maternal Grandmother Cancer Maternal Grandfather lung Cancer Paternal Grandmother lung cancer Cancer Paternal Grandfather bladder cancer No Known Problems Son Anesthesia Problems No Family History SOCIAL HISTORY Social History Tobacco Use Smoking status: Former Current packs/day: 0.00 Types: Cigarettes Start date: 02/23/2014 Quit date: 02/23/2019 Years since quittin.0 Smokeless tobacco: Never Tobacco comments: Currently smoking 1cigarette a day Vaping Use Vaping status: Some Days Substances: Nicotine Devices: Pre-filled or refillable cartridge, Juul 3% Substance Use Topics Alcohol use: No Drug use: No REVIEW OF SYSTEMS Abdomen: No abdominal pain, nausea, vomiting, diarrhea, or constipation. No bloating, early satiety, indigestion, or increased flatulence. Bladder: No dysuria, gross hematuria, urinary frequency, urinary urgency, or incontinence. Breast: No breast lumps, nipple d/c, overlying skin changes, redness or skin retraction. Allergies and current medication updated:Yes SENSITIVE EXAM: The sensitive examination was discussed with the Patient or Patient's Authorized Soft Metals Hand Engraver. As applicable, any other physician, advance practice provider, medical student, or other health professional student that will be observing or involved in the sensitive examination for educational or training purposes was discussed with the Patient or Authorized Soft Metals Hand Engraver. The Patient or Authorized Soft Metals Hand Engraver has agreed to proceed with the sensitive examination. (Sensitive examination includes inspection and/or palpation of the breasts, pelvis, prostate and anorectal regions). EXAM: BP 134/88 Ht 5' 2" (1.58m) Wt 239 lb (108.4kg) LMP 06/15/2024 BMI 43.70 kg/(m2). GENERAL: pleasant, female in no apparent distress HEENT: Normocephalic, atraumatic, mucus membranes moist, and no lesions NECK: Supple and full range of motion DERMATOLOGY: Normal, without lesions, non-icteric, and non-hirsute BREAST: soft, non-tender, symmetric, no dominant mass, normal nipple-areolar complex, no lymphadenopathy, no nipple discharge, and fibrocystic changes CHEST: Normal inspiratory effort ABDOMEN: soft, non-tender, and no masses PELVIC: external genitalia normal, normal Bartholin's glands, urethra, [place]'s glands, no vulvar lesions, no cervical lesions, good vaginal support, physiologic discharge present, normal appearing perineal body and perianal region, IUD strings visible BIMANUAL: uterus normal size, shape and consistency, no adnexal masses, non-tender, and no cervical motion tenderness RECTOVAGINAL: deferred. NEURO: alert and oriented x3,exam grossly non-focal EXTREMITIES: normal ASSESSMENT/PLAN: 1) Health maintenance: Pap/HPV up to date. Mammogram up to date . Lipids/glucose: followed by PCP 2) Contraception: IUD- Mirena 3) STD screening: Declined STD check. 4) Discussed diagnosis of adenomyosis- Patient hand out provided and questions answered. Patient aware only treatment is hysterectomy. Pleased with current IUD. Follow up one year or sooner as needed Penny Bee APRN.[facility]04-21-2025 History of Present illness Narrative* Penny Bee APRN.[facility] - 03/07/2025 7:39 AM EDT Debt Collector offered: Patient declines. Rachel is a 44 year old who presents for an annual gynecologic exam with complaints, cramping no better since IUD placement 11/04/2023 . Periods / bleeding has stopped since Mirena IUD placed. Menses: no menses - Mirena IUD Period symptoms: N/A Sexually active: Yes Contraception: IUD and Tubal Ligation HPV vaccine: No HPV:negative Last pap smear: 02/05/2023 History of abnormal pap: No Bothersome pelvic pain: extreme cramping Last mammogram: 2024normal OB History Gravida3 Para2 Term0 Preterm0 AB1 Living0 SAB1 IAB0 Ectopic0 Multiple0 Live Births0 Problem Relation Age of Onset Anxiety disorder Mother other (ulcers) Mother other (ulcers) Father hiatal hernia other (acid reflux) Sister other (IBS) Brother digestive issues Diabetes Maternal Grandmother Cancer Maternal Grandfather lung Cancer Paternal Grandmother lung cancer Cancer Paternal Grandfather bladder cancer No Known Problems Son Anesthesia Problems No Family History SOCIAL HISTORY Social History Tobacco Use Smoking status: Former Current packs/day: 0.00 Types: Cigarettes Start date: 02/23/2014 Quit date: 02/23/2019 Years since quittin.0 Smokeless tobacco: Never Tobacco comments: Currently smoking 1cigarette a day Vaping Use Vaping status: Some Days Substances: Nicotine Devices: Pre-filled or refillable cartridge, Juul 3% Substance Use Topics Alcohol use: No Drug use: No REVIEW OF SYSTEMS Abdomen: No abdominal pain, nausea, vomiting, diarrhea, or constipation. No bloating, early satiety, indigestion, or increased flatulence. Bladder: No dysuria, gross hematuria, urinary frequency, urinary urgency, or incontinence. Breast: No breast lumps, nipple d/c, overlying skin changes, redness or skin retraction. Allergies and current medication updated:Yes SENSITIVE EXAM: The sensitive examination was discussed with the Patient or Patient's Authorized Soft Metals Hand Engraver. As applicable, any other physician, advance practice provider, medical student, or other health professional student that will be observing or involved in the sensitive examination for educational or training purposes was discussed with the Patient or Authorized Soft Metals Hand Engraver. The Patient or Authorized Soft Metals Hand Engraver has agreed to proceed with the sensitive examination. (Sensitive examination includes inspection and/or palpation of the breasts, pelvis, prostate and anorectal regions). EXAM: BP 134/88 Ht 5' 2" (1.58m) Wt 239 lb (108.4kg) LMP 06/15/2024 BMI 43.70 kg/(m^2). GENERAL: pleasant, female in no apparent distress HEENT: Normocephalic, atraumatic, mucus membranes moist, and no lesions NECK: Supple and full range of motion DERMATOLOGY: Normal, without lesions, non-icteric, and non-hirsute BREAST: soft, non-tender, symmetric, no dominant mass, normal nipple-areolar complex, no lymphadenopathy, no nipple discharge, and fibrocystic changes CHEST: Normal inspiratory effort ABDOMEN: soft, non-tender, and no masses PELVIC: external genitalia normal, normal Bartholin's glands, urethra, [place]'s glands, no vulvar lesions, no cervical lesions, good vaginal support, physiologic discharge present, normal appearing perineal body and perianal region, IUD strings visible BIMANUAL: uterus normal size, shape and consistency, no adnexal masses, non- tender, and no cervicalmotion tenderness RECTOVAGINAL: deferred. NEURO: alert and oriented x3,exam grossly non-focal EXTREMITIES: normal ASSESSMENT/PLAN: 1) Health maintenance: Pap/HPV up to date. Mammogram up to date . Lipids/glucose: followed by PCP 2) Contraception: IUD- Mirena 3) STD screening: Declined STD check. 4) Discussed diagnosis of adenomyosis- Patient hand out provided and questions answered. Patient aware only treatment is hysterectomy. Pleased with current IUD. Follow up one year or sooner as needed Penny Bee APRN.[facility]M [facility] History of Present illness Narrative* Jasmin Durant RDMS - 02/01/2025 8:30 AM EDT Radiology Service Progress Note PATIENT NAME: Rachel Choi DATE OF SERVICE: February 01, 2025 TIME: 2:02 PM PATIENT IDENTITY VERIFICATION COMPLETED USING TWO (2) IDENTIFIERS: Name and Date of confirmedby patient verbally. FALL SCREENING: Has the patient had 2 falls in the last year or 1 fall with injury or currently using an Ambulatory Assistive Device (Walker, Cane, Wheelchair, Crutches, etc.)? No PATIENT GENDER DATA: Assigned female at . status: : No status:NO. PATIENT RELEVANT IMPLANT DATA REVIEWED: Not Applicable PATIENT PRESENTS WITH AN IMPLANTABLE OR ATTACHED WEBSPHERE COMMERCE CONSULTANT: No RADIOLOGY DEPARTMENT: Ultrasound PERIPHERAL IV DATA: Not applicable SIGNED BY: Jasmin Durant RDMS RVT February 01, 2025 2:02 PM documented in this encounter[facility]25 NoteHNO ID: [id number] Author: JASMIN DURANT RDMS Service: ? Author Type: Chemist Pharmaceutical Type: Progress Notes Filed: 02/01/2025 14:02 Note Text: Radiology Service Progress Note PATIENT NAME: Rachel Choi DATE OF SERVICE: February 01, 2025 TIME: 2:02 PM PATIENT IDENTITY VERIFICATION COMPLETED USING TWO (2) IDENTIFIERS: Name and Date of confirmed by patient verbally. FALL SCREENING: Has the patient had 2 falls in the last year or 1 fall with injury or currently using an Ambulatory Assistive Device (Walker, Cane, Wheelchair, Crutches, etc.)? No PATIENT GENDER DATA: Assigned female at . status: : No status: NO. PATIENT RELEVANT IMPLANT DATA REVIEWED: Not Applicable PATIENT PRESENTS WITH AN IMPLANTABLE OR ATTACHED WEBSPHERE COMMERCE CONSULTANT: No RADIOLOGY DEPARTMENT: Ultrasound PERIPHERAL IV DATA: Not applicable SIGNED BY: Jasmin Durant RDMS RVT February 01, 2025 2:02 [facility]03-18-2025 History of Present illness Narrative* Andrew Henriquez Mammo Tech - 02/01/2025 8:00 AM EDT Radiology Service Progress Note PATIENT NAME: Rachel Choi DATE OF SERVICE: February 01, 2025 TIME: 8:30 AM PATIENT IDENTITY VERIFICATION COMPLETED USING TWO (2) IDENTIFIERS: Name and Date of confirmedby patient verbally. FALL SCREENING: Has the patient had 2 falls in the last year or 1 fall with injury or currently using an Ambulatory Assistive Device (Walker, Cane, Wheelchair, Crutches, etc.)? No PATIENT GENDER DATA: Assigned female at . status: : No status:NO. PATIENT RELEVANT IMPLANT DATA REVIEWED: Not Applicable PATIENT PRESENTS WITH AN IMPLANTABLE OR ATTACHED WEBSPHERE COMMERCE CONSULTANT: No RADIOLOGY DEPARTMENT: Mammography PERIPHERAL IV DATA: Not applicable SIGNED BY: Jim Gomes February 01, 2025 8:30 AM documented in this encounterSelect [facility]-2025 NoteHNO ID: [id number] Author: ANDREW HENRIQUEZ Mammo Tech Service: ? Author Type: Change Release Manager Type: Progress Notes Filed: 02/01/2025 08:30 Note Text: Radiology Service Progress Note PATIENT NAME: Rachel Choi DATE OF SERVICE: February 01, 2025 TIME: 8:30 AM PATIENT IDENTITY VERIFICATION COMPLETED USING TWO (2) IDENTIFIERS: Name and Date of confirmed by patient verbally. FALL SCREENING: Has the patient had 2 falls in the last year or 1 fall with injury or currently using an Ambulatory Assistive Device (Walker, Cane, Wheelchair, Crutches, etc.)? No PATIENT GENDER DATA: Assigned female at . status: : No status: NO. PATIENT RELEVANT IMPLANT DATA REVIEWED: Not Applicable PATIENT PRESENTS WITH AN IMPLANTABLE OR ATTACHED WEBSPHERE COMMERCE CONSULTANT: No RADIOLOGY DEPARTMENT: Mammography PERIPHERAL IV DATA: Not applicable SIGNED BY: Jim Gomes February 01, 2025 8:30 [facility]12-31-2024 NoteHNO ID: [id number] Author: LORENZA MITCHELL APRN.BIOSOLIDS MANAGEMENT TECHNICIAN Service: ? Author Type: Nurse Specialist Type: Progress Notes Filed: 11/16/2024 08:04 Note Text: SUBJECTIVE: Depression Screening Never done Anxiety Screening Never done Hepatitis C Screening Never done HIV Screening Never done Hepatitis B Vaccine(1 of 3 - 19+ 3-dose series) Never done DTaP,Tdap,Td Vaccine(2 - Td or Tdap) due on 06/01/2024 Covid-19 Vaccine( season) due on 07/18/2024 Mammogram Screening due on 12/01/2024 HPI Rachel Choi is a 44 year old female. PMH significant for ACTIVE PROBLEM LIST Acute Atopic Conjunctivitis Allergic Rhinitis, Cause Unspecified Migraine, Menstrual Fontaine's Palsy Uses Oral Contraception Tobacco Abuse Obesity Nausea Alone Abdominal Pain, Unspecified Site Hematuria Frequency Urinary Tract Infection Associated With Catheterization of Urinary Tract (Hcc) (Hcc) Frequency of Micturition Dysuria Presents today regarding GERD. Notes for the last couple of months having GERD related sugary foods and increased breads 1-2 times per week, awakening from sleep with this. Taking aloe vera extract 2oz, repeat through day up to 8 oz/day. Seems to help somewhat. Heartburn: yes Reflux: yes at night a couple of times per week awakening her from sleep Abdominal pain: epigastric pain noted Nausea: no Vomiting: no Diarrhea: no Constipation:no BRBPR: no Black tarry: no On arrival notes that she was seen at [facility] 11/12/2024 for renal calculus. She presented with flank pain with radiation to abdomen and nause 2 hours prior to arrival. Notes prior renal calculus ~1.[address] abdomen pelvis showed bilaterl renal calculus with left proximal ureteral stone with hydronephrosis. Mild leukocytosis on labs,creatinine increased at 1.12. Urinalysis was negative. Treated with Basom, Flomax and nausea mediction.She reports that the kidney stone passed while in the ER. Reports that the stone was sent for analysis at the hospital. She was advised to follow-up with urology, Dr. Bain. She reports no dysuria urgency frequency hematuria or flank pain. Not taking flomax o other medications due to not needing them. Review of Systems Constitutional: Negative. Hematological: Negative for adenopathy. Objective BP 130/82 Pulse 93 Resp 16 Wt 106 kg (233 lb 11 oz) LMP 06/15/2024 (Exact Date) BMI 42.74 kg/m? Physical Exam Vitals and nursing note reviewed. Constitutional: Appearance: Normal appearance. HENT: Head: Normocephalic and atraumatic. Eyes: Conjunctiva/sclera: Conjunctivae normal. Cardiovascular: Rate and Rhythm: Normal rate. Pulmonary: Effort: Pulmonary effort is normal. Musculoskeletal: Right lower leg: No edema. Left lower leg: No edema. Skin: General: Skin is warm and dry. Neurological: General: No focal deficit present. Mental Status: She is alert and oriented to person, place, and time. ALLERGIES Allergen Reactions Codeine Other: See Comments, Unknown Erythromycin Hives Percocet [Oxycodone* Vomiting Seasonal Allergies Other: See Comments Cats Dogs Dust mites trees (January, February and March) weeds (June, July and August) ragweed (June, July and August) Medications levonorgestrel (MIRENA) 21 mcg/24 hours (8 yrs) 52 mg IUD 1 Each by INTRAUTERINE route as directed. Magnesium Glycinate 100 mg tab Take 500 mg by mouth as needed. Takes up to 500mg prn fluticasone (FLONASE) 50 mcg/actuation nasal spray Use 2 Sprays in each nostril once daily. Rinse mouth after use. (Patient taking differently: Use 2 Sprays in each nostril as needed for cold/allergy symptoms. Rinse mouth after use.) CETIRIZINE HCL (ZYRTEC ORAL) Take 10 mg by mouth as needed (allergies). Multivitamin capsule Take 1 capsule by mouth once daily. doxycycline (VIBRA-TABS) 100 mg tablet Take 2 tablets by mouth once daily. (Patient not taking: Reported on 07/26/2024) PAST MEDICAL HISTORY Diagnosis Date Allergic rhinitis Colon polyps Constipation during Endometriosis History of colposcopy 05/14/2021 with ECC-normal Multiple thyroid nodules Obesity Psychiatric disorder ANXIETY Psychiatric disorder anxiety Tobacco abuse Uterine fibroid Social History Tobacco Use Smoking status: Former Current packs/day: 0.00 Types: Cigarettes Start date: 02/23/2014 Quit date: 02/23/2019 Years since quittin.7 Smokeless tobacco: Never Tobacco comments: Currently smoking 1cigarette a day Vaping Use Vaping status: Some Days Substances: Nicotine Devices: Pre-filled or refillable cartridge, Juul 3% Substance Use Topics Alcohol use: No Drug use: No ASSESSMENT/PLAN: 1. Hydronephrosis with urinary obstruction due to renal calculus - ICD9: 591, 592.0, ICD10: N13.2 (primary diagnosis) Notes resolution of symptoms. Provided with information to help prevent stones. Referred to urology, prefers Drr. Bain (more content not included)...[facility]12-31-2024 History of Present illness Narrative* Lorenza Mitchell APRN.BIOSOLIDS MANAGEMENT TECHNICIAN - 11/16/2024 7:02 AM EST SUBJECTIVE: Depression Screening Never done Anxiety Screening Never done Hepatitis C Screening Never done HIV Screening Never done Hepatitis B Vaccine(1 of 3 - 19+ 3-dose series) Never done DTaP,Tdap,Td Vaccine(2 - Td or Tdap) due on 06/01/2024 Covid-19 Vaccine(2023- season) due on 07/18/2024 Mammogram Screening due on 12/01/2024 HPI Rachel Choi is a 44 year old female. PMH significant for ACTIVE PROBLEM LIST Acute Atopic Conjunctivitis Allergic Rhinitis, Cause Unspecified Migraine, Menstrual Fontaine's Palsy Uses Oral Contraception Tobacco Abuse Obesity Nausea Alone Abdominal Pain, Unspecified Site Hematuria Frequency Urinary Tract Infection Associated With Catheterization of Urinary Tract (Hcc) (Hcc) Frequency of Micturition Dysuria Presents today regarding GERD. Notes for the last couple of months having GERD related sugary foodsand increased breads 1-2 times per week, awakening from sleep with this. Taking aloe vera extract 2oz, repeat through day up to 8 oz/day. Seems to help somewhat. Heartburn: yes Reflux: yes at night a couple of times per week awakening her from sleep Abdominal pain: epigastric pain noted Nausea: no Vomiting: no Diarrhea: no Constipation:no BRBPR: no Black tarry: no On arrival notes that she was seen at [facility] 11/12/2024 for renal calculus. She presented with flank pain with radiation to abdomen and nause 2 hours prior to arrival. Notes prior renal calculus ~1.[address] abdomen pelvis showed bilaterl renal calculus with left proximal ureteral stone with hydronephrosis. Mild leukocytosis on labs,creatinine increased at 1.12. Urinalysis was negative. Treatedwith Basom, Flomax and nausea mediction.She reports that the kidney stone passed while in the ER. Reports that the stone was sent for analysis at the hospital. She was advised to follow-up with urology, Dr. Bain. She reports no dysuria urgency frequency hematuria or flank pain. Not taking flomax o other medications due to not needing them. Review of Systems Constitutional: Negative. Hematological: Negative for adenopathy. Objective BP 130/82 Pulse 93 Resp 16 Wt 106 kg (233 lb 11 oz) LMP 06/15/2024 (Exact Date) BMI 42.74kg/m Physical Exam Vitals and nursing note reviewed. Constitutional: Appearance: Normal appearance. HENT: Head: Normocephalic and atraumatic. Eyes: Conjunctiva/sclera: Conjunctivae normal. Cardiovascular: Rate and Rhythm: Normal rate. Pulmonary: Effort: Pulmonary effort is normal. Musculoskeletal: Right lower leg: No edema. Left lower leg: No edema. Skin: General: Skin is warm and dry. Neurological: General: No focal deficit present. Mental Status: She is alert and oriented to person, place, and time. ALLERGIES Allergen Reactions Codeine Other: See Comments, Unknown Erythromycin Hives Percocet [Oxycodone* Vomiting Seasonal Allergies Other: See Comments Cats Dogs Dust mites trees (January, February and March) weeds (June, July and August) ragweed (June, July and August) Medications levonorgestrel (MIRENA) 21 mcg/24 hours (8 yrs) 52 mg IUD 1 Each by INTRAUTERINE route as directed. Magnesium Glycinate 100 mg tab Take 500 mg by mouth as needed. Takes up to 500mg prn fluticasone (FLONASE) 50 mcg/actuation nasal spray Use 2 Sprays in each nostril once daily. Rinse mouth after use. (Patient taking differently: Use 2 Sprays in each nostril as needed for cold/allergysymptoms. Rinse mouth after use.) CETIRIZINE HCL (ZYRTEC ORAL) Take 10 mg by mouth as needed (allergies). Multivitamin capsule Take 1 capsule by mouth once daily. doxycycline (VIBRA-TABS) 100 mg tablet Take 2 tablets by mouth once daily. (Patient not taking: Reported on 07/26/2024) PAST MEDICAL HISTORY Diagnosis Date Allergic rhinitis Colon polyps Constipation during Endometriosis History of colposcopy 05/14/2021 with ECC-normal Multiple thyroid nodules Obesity Psychiatric disorder ANXIETY Psychiatric disorder anxiety Tobacco abuse Uterine fibroid Social History Tobacco Use Smoking status: Former Current packs/day: 0.00 Types: Cigarettes Start date: 02/23/2014 Quit date: 02/23/2019 Years since quittin.7 Smokeless tobacco: Never Tobacco comments: Currently smoking 1cigarette a day Vaping Use Vaping status: Some Days Substances: Nicotine Devices: Pre-filled or refillable cartridge, Juul 3% Substance Use Topics Alcohol use: No Drug use: No ASSESSMENT/PLAN: 1. Hydronephrosis with urinary obstruction due to renal calculus - ICD9: 591, 592.0, ICD10: N13.2 (primary diagnosis) Notes resolution of symptoms. Provided with information to help prevent stones. Referred to urology, prefers Drr. Bain. - CONSULT TO UROLOGY 2. Elevated serum creatinine - ICD9: 790.99, ICD10: R79.89 Recommend recheck now that sone has passed, elevted creatinine in ER. - BASIC METABOLIC PANEL 3. Gastroesophageal reflux disease, unspecified whether esophagitis present - ICD9: 530.81, ICD10: K21.9 - Discussed lifestyle modifications including losing weight, limiting caffeine, no meals three hours before sleep, and head of bed elevation - Begin treatment with Prilosec 20 mg QD - OMEPRAZOLE 20 MG CAPSULE,DELAYED RELEASE 4. Class 3 severe obesity without serious comorbidity with body mass index (BMI) of 40.0 to 44.9 inadult, unspecified obesity type (HCC) - ICD9: 278.01, V85.41, ICD10: E66.813, E66.01, Z68.41 stable, notes intolerance of phentermine in past. Endorse portion control, daily exercise. Referred to golf cart repairer. - CONSULT TO NUTRITION THERAPY Lorenza Mitchell APRN.BIOSOLIDS MANAGEMENT TECHNICIAN Medical Decision Making: Problems: Moderate: 1+ chronic illnesses with change Data: Unique source(s) for external note(s) reviewed: 1 Unique test result(s) reviewed: 3+ Risk: Moderate: Drug management Medical Decision Making Level: 4 - Moderate documented in this encounterSelect [facility]24 NoteHNO ID: [id number] Author: EFREN PUTNAM APRN.FLOOR SPACE ALLOCATOR Service: ? Author Type: Nurse Practitioner Type: Progress Notes Filed: 10/09/2024 08:32 Note Text: This note was created using [employer]. Subjective Rachel Choi is a 44 year old female. HPI About twice a year pt develops a sinus infection. She starts using Zyrtec and Flonase. She developed symptoms about two weeks ago. Including sinus congestion, ear pressure, and sore throat. She follow with ENT who will see her in about two weeks. Review of Systems Constitutional: Negative for fever. HENT: Positive for ear pain, sinus pressure, sinus pain and sore throat. Neurological: Positive for headaches. Objective BP 134/82 Pulse 118 Temp 37 ?C (98.6 ?F) Resp 18 Wt 104.9 kg (231 lb 4.2 oz) LMP 06/15/2024 (Exact Date) SpO2 99% BMI 42.30 kg/m? Physical Exam Vitals and nursing note reviewed. Constitutional: General: She is not in acute distress. Appearance: Normal appearance. She is not ill-appearing. HENT: Head: Normocephalic. Right Ear: Tympanic membrane normal. Left Ear: Tympanic membrane normal. Mouth/Throat: Mouth: Mucous membranes are moist. Pharynx: No oropharyngeal exudate or posterior oropharyngeal erythema. Eyes: Conjunctiva/sclera: Conjunctivae normal. Cardiovascular: Rate and Rhythm: Normal rate and regular rhythm. Pulmonary: Effort: Pulmonary effort is normal. Breath sounds: Normal breath sounds. Musculoskeletal: General: Normal range of motion. Cervical back: Normal range of motion. Skin: General: Skin is warm and dry. Neurological: General: No focal deficit present. Mental Status: She is alert. Psychiatric: Mood and Affect: Mood normal. Behavior: Behavior normal. Assessment and Plan ASSESSMENT/PLAN: 1. Bacterial sinusitis - ICD9: 473.9, 041.9, ICD10: J32.9, B96.89 - Will begin treatment with as per antibiotic as written, see orders - The patient should also be given warm salt water gargles, throat lozenges and/or OTC throat spray as needed and will continue to use her home Flonase and antihistamine for the first 5-7 days of treatment. - Supportive care with plenty of fluids, rest, and analgesia prn. - AMOXICILLIN 875 MG-POTASSIUM CLAVULANATE 125 MG TABLET - PREDNISONE 50 MG TABLET Efren Putnam APRN.[facility] History of Present illness Narrative* Efren Putnam APRN.GRACE - 10/09/2024 8:25 AM EST This note was created using [employer]. Subjective Rachel Choi is a 44 year old female. HPI About twice a year pt develops a sinus infection. She starts using Zyrtec and Flonase. She developed symptoms about two weeks ago. Including sinus congestion, ear pressure, and sore throat. She follow with ENT who will see her in about two weeks. Review of Systems Constitutional: Negative for fever. HENT: Positive for ear pain, sinus pressure, sinus pain and sore throat. Neurological: Positive for headaches. Objective BP 134/82 Pulse 118 Temp 37 C (98.6 F) Resp 18 Wt 104.9 kg (231 lb 4.2 oz) LMP 06/15/2024(Exact Date) SpO2 99% BMI 42.30 kg/m Physical Exam Vitals and nursing note reviewed. Constitutional: General: She is not in acute distress. Appearance: Normal appearance. She is not ill-appearing. HENT: Head: Normocephalic. Right Ear: Tympanic membrane normal. Left Ear: Tympanic membrane normal. Mouth/Throat: Mouth: Mucous membranes are moist. Pharynx: No oropharyngeal exudate or posterior oropharyngeal erythema. Eyes: Conjunctiva/sclera: Conjunctivae normal. Cardiovascular: Rate and Rhythm: Normal rate and regular rhythm. Pulmonary: Effort: Pulmonary effort is normal. Breath sounds: Normal breath sounds. Musculoskeletal: General: Normal range of motion. Cervical back: Normal range of motion. Skin: General: Skin is warm and dry. Neurological: General: No focal deficit present. Mental Status: She is alert. Psychiatric: Mood and Affect: Mood normal. Behavior: Behavior normal. Assessment and Plan ASSESSMENT/PLAN: 1. Bacterial sinusitis - ICD9: 473.9, 041.9, ICD10: J32.9, B96.89 - Will begin treatment with as per antibiotic as written, see orders - The patient should also be given warm salt water gargles, throat lozenges and/or OTC throat sprayas needed and will continue to use her home Flonase and antihistamine for the first 5-7 days of treatment. - Supportive care with plenty of fluids, rest, and analgesia prn. - AMOXICILLIN 875 MG-POTASSIUM CLAVULANATE 125 MG TABLET - PREDNISONE 50 MG TABLET Efren Putnam APRN.[facility]ACE documented [facility] NoteHNO ID: [id number] Author: LORENZA MITCHELL APRN.BIOSOLIDS MANAGEMENT TECHNICIAN Service: ? Author Type: Nurse Specialist Type: Progress Notes Filed: 07/26/2024 07:34 Note Text: SUBJECTIVE: Depression Screening Never done Anxiety Screening Never done Hepatitis C Screening Never done HIV Screening Never done Hepatitis B Vaccine(1 of 3 - 19+ 3-dose series) Never done DTaP,Tdap,Td Vaccine(2 - Td or Tdap) due on 06/01/2024 Covid-19 Vaccine( - 2022- season) due on 07/18/2024 Influenza Vaccine(1) due on 07/18/2024 Mammogram Screening due on 12/01/2024 [facility] Rachel Choi is a 43 year old female. PMH significant for ACTIVE PROBLEM LIST Acute Atopic Conjunctivitis Allergic Rhinitis, Cause Unspecified Migraine, Menstrual Fontaine's Palsy Uses Oral Contraception Tobacco Abuse Obesity Nausea Alone Abdominal Pain, Unspecified Site Hematuria Frequency Urinary Tract Infection Associated With Catheterization of Urinary Tract (Hcc) (Hcc) Frequency of Micturition Dysuria Presents today noting pain and small mass in the left axilla this weekend. No recent illness or injury reported. No breast masses noted. She notes changing from deodorant antiperspirant about 1 month ago. Notes mother has recently diagnosed breast cancer, HER2+. She is undergoing additional genetic testing. She is concerned about possible breast cancer. Screening mammogram November 2023 was benign. Review of Systems Constitutional: Negative. Hematological: Negative for adenopathy. Objective BP 127/79 Pulse 98 Resp 16 Wt 105 kg (231 lb 7.7 oz) LMP 06/15/2024 (Exact Date) BMI 42.34 kg/m? Physical Exam Vitals and nursing note reviewed. Constitutional: Appearance: Normal appearance. HENT: Head: Normocephalic and atraumatic. Eyes: Conjunctiva/sclera: Conjunctivae normal. Cardiovascular: Rate and Rhythm: Normal rate. Pulmonary: Effort: Pulmonary effort is normal. Chest: Comments: No mass appreciated left breast, breast tissue left upper outer breast left axilla area palpated at left axilla, no palpable mass Musculoskeletal: Right lower leg: No edema. Left lower leg: No edema. Skin: General: Skin is warm and dry. Neurological: General: No focal deficit present. Mental Status: She is alert and oriented to person, place, and time. ALLERGIES Allergen Reactions Codeine Other: See Comments, Unknown Erythromycin Hives Percocet [Oxycodone* Vomiting Seasonal Allergies Other: See Comments Cats Dogs Dust mites trees (January, February and March) weeds (June, July and August) ragweed (June, July and August) levonorgestrel (MIRENA) 21 mcg/24 hours (8 yrs) 52 mg IUD 1 Each by INTRAUTERINE route as directed. Magnesium Glycinate 100 mg tab Take 500 mg by mouth as needed. Takes up to 500mg prn CETIRIZINE HCL (ZYRTEC ORAL) Take 10 mg by mouth as needed (allergies). Multivitamin capsule Take 1 capsule by mouth once daily. doxycycline (VIBRA-TABS) 100 mg tablet Take 2 tablets by mouth once daily. (Patient not taking: Reported on 07/26/2024) fluticasone (FLONASE) 50 mcg/actuation nasal spray Use 2 Sprays in each nostril once daily. Rinse mouth after use. (Patient taking differently: Use 2 Sprays in each nostril as needed for cold/allergy symptoms. Rinse mouth after use.) PAST MEDICAL HISTORY No date: Allergic rhinitis No date: Colon polyps No date: Constipation Comment: during No date: Endometriosis 05/14/2021: History of colposcopy Comment: with ECC-normal No date: Multiple thyroid nodules No date: Obesity No date: Psychiatric disorder Comment: ANXIETY No date: Psychiatric disorder Comment: anxiety No date: Tobacco abuse No date: Uterine fibroid Social History Tobacco Use Smoking status: Former Current packs/day: 0.00 Types: Cigarettes Start date: 02/23/2014 Quit date: 02/23/2019 Years since quittin.4 Smokeless tobacco: Never Tobacco comments: Currently smoking 1cigarette a day Vaping Use Vaping status: Some Days Substances: Nicotine Devices: Pre-filled or refillable cartridge, Juul 3% Substance Use Topics Alcohol use: No Drug use: No ASSESSMENT/PLAN: 1. Axillary mass, left - ICD9: 782.2, ICD10: R22.32 (primary diagnosis) - [facility] - US BREAST LTD LEFT 2. Family history of breast cancer - ICD9: V16.3, ICD10: Z80.3 - [facility] - US BREAST LTD LEFT Endorse completing a diagnostic mammogram and ultrasound left breast at her earliest convenience to exclude breast cancer. Lorenza Mitchell APRN.BIOSOLIDS MANAGEMENT TECHNICIAN Medical Decision Making: Problems: Low: Acute, uncomplicated illness or injury Data: Unique test(s) ordered: 2 Medical Decision Making Level: 3 - Low[facility] History of Present illness Narrative* Lorenza Mitchell APRN.BIOSOLIDS MANAGEMENT TECHNICIAN - 07/26/2024 7:07 AM EDT SUBJECTIVE: Depression Screening Never done Anxiety Screening Never done Hepatitis C Screening Never done HIV Screening Never done Hepatitis B Vaccine(1 of 3 - 19+ 3-dose series) Never done DTaP,Tdap,Td Vaccine(2 - Td or Tdap) due on 06/01/2024 Covid-19 Vaccine(3 - 2022- season) due on 07/18/2024 Influenza Vaccine(1) due on 07/18/2024 Mammogram Screening due on 12/01/2024 [facility] Rachel Choi is a 43 year old female. PMH significant for ACTIVE PROBLEM LIST Acute Atopic Conjunctivitis Allergic Rhinitis, Cause Unspecified Migraine, Menstrual Fontaine's Palsy Uses Oral Contraception Tobacco Abuse Obesity Nausea Alone Abdominal Pain, Unspecified Site Hematuria Frequency Urinary Tract Infection Associated With Catheterization of Urinary Tract (Hcc) (Hcc) Frequency of Micturition Dysuria Presents today noting pain and small mass in the left axilla this weekend. No recent illness or injury reported. No breast masses noted. She notes changing from deodorant antiperspirant about 1 monthago. Notes mother has recently diagnosed breast cancer, HER2+. She is undergoing additional genetictesting. She is concerned about possible breast cancer. Screening mammogram November 2023 was benign. Review of Systems Constitutional: Negative. Hematological: Negative for adenopathy. Objective BP 127/79 Pulse 98 Resp 16 Wt 105 kg (231 lb 7.7 oz) LMP 06/15/2024 (Exact Date) BMI 42.34 kg/m Physical Exam Vitals and nursing note reviewed. Constitutional: Appearance: Normal appearance. HENT: Head: Normocephalic and atraumatic. Eyes: Conjunctiva/sclera: Conjunctivae normal. Cardiovascular: Rate and Rhythm: Normal rate. Pulmonary: Effort: Pulmonary effort is normal. Chest: Comments: No mass appreciated left breast, breast tissue left upper outer breast left axilla area palpated at left axilla, no palpable mass Musculoskeletal: Right lower leg: No edema. Left lower leg: No edema. Skin: General: Skin is warm and dry. Neurological: General: No focal deficit present. Mental Status: She is alert and oriented to person, place, and time. ALLERGIES Allergen Reactions Codeine Other: See Comments, Unknown Erythromycin Hives Percocet [Oxycodone* Vomiting Seasonal Allergies Other: See Comments Cats Dogs Dust mites trees (January, February and March) weeds (June, July and August) ragweed (June, July and August) levonorgestrel (MIRENA) 21 mcg/24 hours (8 yrs) 52 mg IUD 1 Each by INTRAUTERINE route as directed. Magnesium Glycinate 100 mg tab Take 500 mg by mouth as needed. Takes up to 500mg prn CETIRIZINE HCL (ZYRTEC ORAL) Take 10 mg by mouth as needed (allergies). Multivitamin capsule Take 1 capsule by mouth once daily. doxycycline (VIBRA-TABS) 100 mg tablet Take 2 tablets by mouth once daily. (Patient not taking: Reported on 07/26/2024) fluticasone (FLONASE) 50 mcg/actuation nasal spray Use 2 Sprays in each nostril once daily. Rinse mouth after use. (Patient taking differently: Use 2 Sprays in each nostril as needed for cold/allergysymptoms. Rinse mouth after use.) PAST MEDICAL HISTORY No date: Allergic rhinitis No date: Colon polyps No date: Constipation Comment: during No date: Endometriosis 05/14/2021: History of colposcopy Comment: with ECC-normal No date: Multiple thyroid nodules No date: Obesity No date: Psychiatric disorder Comment: ANXIETY No date: Psychiatric disorder Comment: anxiety No date: Tobacco abuse No date: Uterine fibroid Social History Tobacco Use Smoking status: Former Current packs/day: 0.00 Types: Cigarettes Start date: 02/23/2014 Quit date: 02/23/2019 Years since quittin.4 Smokeless tobacco: Never Tobacco comments: Currently smoking 1cigarette a day Vaping Use Vaping status: Some Days Substances: Nicotine Devices: Pre-filled or refillable cartridge, Juul 3% Substance Use Topics Alcohol use: No Drug use: No ASSESSMENT/PLAN: 1. Axillary mass, left - ICD9: 782.2, ICD10: R22.32 (primary diagnosis) - [facility] - US BREAST LTD LEFT 2. Family history of breast cancer - ICD9: V16.3, ICD10: Z80.3 - [facility] - US BREAST LTD LEFT Endorse completing a diagnostic mammogram and ultrasound left breast at her earliest convenience toexclude breast cancer. Lorenza Mitchell APRN.CNS Medical Decision Making: Problems: Low: Acute, uncomplicated illness or injury Data: Unique test(s) ordered: 2 Medical Decision Making Level: 3 - Low documented in [facility] encounter[facility]24 NoteHNO ID: [id number] Author: JASMIN MARTINEZ APRN.CNP Service: ? Author Type: Nurse Practitioner Type: Progress Notes Filed: 06/15/2024 12:02 Note Text: This note was created using NoteWriter. Subjective Rachel Choi is a 43 year old female. 43 year old female with PMH [place] Palsy presents for insect bite. Acute onset this morning. Nape of neck Endorses that she pulled off a tick +redness at bite sight +tenderness Unsure of how long tick has been present for. " I feel feverish inside" but denies fever. Denies chills. Denies malaise or fatigue Denies skin rash or lesions. 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 States "worried about Lyme disease" The history is provided by the patient. No foreign language interpreter was used. Trauma This is a new problem. The current episode started today. The problem occurs constantly. The problem has been unchanged. Pertinent negatives include no abdominal pain, anorexia, arthralgias, change in bowel habit, chest pain, chills, congestion, coughing, diaphoresis, fatigue, fever, headaches, joint swelling, myalgias, nausea, neck pain, numbness, rash, sore throat, swollen glands, urinary symptoms, vertigo, visual change, vomiting or weakness. Nothing aggravates the symptoms. She has tried nothing for the symptoms. The treatment provided no relief. PAST MEDICAL HISTORY Diagnosis Date Allergic rhinitis Colon polyps Constipation during Endometriosis History of colposcopy 05/14/2021 with ECC-normal Multiple thyroid nodules Obesity Psychiatric disorder ANXIETY Psychiatric disorder anxiety Tobacco abuse Uterine fibroid PAST SURGICAL HISTORY Procedure Laterality Date DELIVERY ONLY , low transverse DELIVERY ONLY 2020 COLONOSCOPY 06/2019 COLONOSCOPY FLX DX W/COLLJ SPEC WHEN PFRMD 03/22/2015 Colonoscopy ESOPHAGOGASTRODUODENOSCOPY TRANSORAL DIAGNOSTIC 03/22/2015 EGD LAPAROSCOPIC APPENDECTOMY 1995 w/ lysis of adhesions LIGATE FALLOPIAN TUBE Bilateral 03/21/2021 PAST SURGICAL HISTORY OF 2001 laparoscopy with lysis of adhesions. ALLERGIES Codeine, Erythromycin, Percocet [Oxycodone-Acetaminophen], and Seasonal Allergies MEDICATIONS levonorgestrel (MIRENA) 21 mcg/24 hours (8 yrs) 52 mg IUD 1 Each by INTRAUTERINE route as directed. Magnesium Glycinate 100 mg tab Take 500 mg by mouth as needed. Takes up to 500mg prn fluticasone (FLONASE) 50 mcg/actuation nasal spray Use 2 Sprays in each nostril once daily. Rinse mouth after use. (Patient taking differently: Use 2 Sprays in each nostril as needed for cold/allergy symptoms. Rinse mouth after use.) CETIRIZINE HCL (ZYRTEC ORAL) Take 10 mg by mouth as needed (allergies). Multivitamin capsule Take 1 capsule by mouth once daily. doxycycline (VIBRA-TABS) 100 mg tablet Take 2 tablets by mouth once daily. FAMILY HISTORY Problem Relation Age of Onset Anxiety disorder Mother other (ulcers) Mother other (ulcers) Father hiatal hernia other (acid reflux) Sister other (IBS) Brother digestive issues Diabetes Maternal Grandmother Cancer Maternal Grandfather lung Cancer Paternal Grandmother lung cancer Cancer Paternal Grandfather bladder cancer No Known Problems Son Anesthesia Problems No Family History Social History Tobacco Use Smoking status: Former Years: 5 Types: Cigarettes Quit date: 02/23/2019 Years since quittin.3 Smokeless tobacco: Never Tobacco comments: Currently smoking 1cigarette a day Vaping Use Vaping Use: Some days Substances: Nicotine Devices: Pre-filled or refillable cartridge, Juul 3% Substance Use Topics Alcohol use: No Drug use: No Review of Systems Constitutional: Negative for activity change, appetite change, chills, diaphoresis, fatigue and fever. HENT: Negative for congestion and sore throat. Eyes: Negative for photophobia, pain, discharge, redness and itching. Respiratory: Negative for apnea, cough, choking and chest tightness. Cardiovascular: Negative for chest pain, palpitations and leg swelling. Gastrointestinal: Negative for abdominal pain, anorexia, change in bowel habit, diarrhea, nausea and vomiting. Musculoskeletal: Negative for arthralgias, back pain, gait problem, joint swelling, myalgias and neck pain. Skin: Negative for color change, pallor, rash and wound. Allergic/Immunologic: Negative for environmental allergies, food allergies and immunocompromised state. Neurological: Negative for dizziness, vertigo, facial asymmetry, weakness, light-headedness, numbness and headaches. Hematological: Negative for adenopathy. Does not bruise/bleed easily. Psychiatric/Behavioral: Negative for agitation and behavioral problems. Objective BP 147/86 Pulse 112 Temp 36.9 ?C (98.4 ?F) Resp 18 Wt 106 kg (233 lb 11 oz) LMP 06/15/2024 (Exact Date) SpO2 99% BMI 42.74 kg/m? Physical Exam Vitals and nursing note reviewed. Constitutional: General: She is no (more content not included)...[facility] 06-15-2024 History of Present illness Narrative* Jasmin Martinez APRN.[facility] - 06/15/2024 10:13 AM EDT This note was created using NoteWriter. Subjective Rachel Choi is a 43 year old female. 43 year old female with PMH [place] Palsy presents for insect bite. Acute onset this morning. Nape of neck Endorses that she pulled off a tick +redness at bite sight +tenderness Unsure of how long tick has been present for. " I feel feverish inside" but denies fever. Denies chills. Denies malaise or fatigue Denies skin rash or lesions. 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 States "worried about Lyme disease" The history is provided by the patient. No foreign language interpreter was used. Trauma This is a new problem. The current episode started today. The problem occurs constantly. The problem has been unchanged. Pertinent negatives include no abdominal pain, anorexia, arthralgias, change in bowel habit, chest pain, chills, congestion, coughing, diaphoresis, fatigue, fever, headaches, joint swelling, myalgias, nausea, neck pain, numbness, rash, sore throat, swollen glands, urinary symptoms, vertigo, visual change, vomiting or weakness. Nothing aggravates the symptoms. She has tried nothing for the symptoms. The treatment provided no relief. PAST MEDICAL HISTORY Diagnosis Date Allergic rhinitis Colon polyps Constipation during Endometriosis History of colposcopy 05/14/2021 with ECC-normal Multiple thyroid nodules Obesity Psychiatric disorder ANXIETY Psychiatric disorder anxiety Tobacco abuse Uterine fibroid PAST SURGICAL HISTORY Procedure Laterality Date DELIVERY ONLY , low transverse DELIVERY ONLY 2020 COLONOSCOPY 06/2019 COLONOSCOPY FLX DX W/COLLJ SPEC WHEN PFRMD 03/22/2015 Colonoscopy ESOPHAGOGASTRODUODENOSCOPY TRANSORAL DIAGNOSTIC 03/22/2015 EGD LAPAROSCOPIC APPENDECTOMY 1995 w/ lysis of adhesions LIGATE FALLOPIAN TUBE Bilateral 03/21/2021 PAST SURGICAL HISTORY OF 2001 laparoscopy with lysis of adhesions. ALLERGIES Codeine, Erythromycin, Percocet [Oxycodone-Acetaminophen], and Seasonal Allergies MEDICATIONS levonorgestrel (MIRENA) 21 mcg/24 hours (8 yrs) 52 mg IUD 1 Each by INTRAUTERINE route as directed. Magnesium Glycinate 100 mg tab Take 500 mg by mouth as needed. Takes up to 500mg prn fluticasone (FLONASE) 50 mcg/actuation nasal spray Use 2 Sprays in each nostril once daily. Rinse mouth after use. (Patient taking differently: Use 2 Sprays in each nostril as needed for cold/allergysymptoms. Rinse mouth after use.) CETIRIZINE HCL (ZYRTEC ORAL) Take 10 mg by mouth as needed (allergies). Multivitamin capsule Take 1 capsule by mouth once daily. doxycycline (VIBRA-TABS) 100 mg tablet Take 2 tablets by mouth once daily. FAMILY HISTORY Problem Relation Age of Onset Anxiety disorder Mother other (ulcers) Mother other (ulcers) Father hiatal hernia other (acid reflux) Sister other (IBS) Brother digestive issues Diabetes Maternal Grandmother Cancer Maternal Grandfather lung Cancer Paternal Grandmother lung cancer Cancer Paternal Grandfather bladder cancer No Known Problems Son Anesthesia Problems No Family History Social History Tobacco Use Smoking status: Former Years: 5 Types: Cigarettes Quit date: 02/23/2019 Years since quittin.3 Smokeless tobacco: Never Tobacco comments: Currently smoking 1cigarette a day Vaping Use Vaping Use: Some days Substances: Nicotine Devices: Pre-filled or refillable cartridge, Juul 3% Substance Use Topics Alcohol use: No Drug use: No Review of Systems Constitutional: Negative for activity change, appetite change, chills, diaphoresis, fatigue and fever. HENT: Negative for congestion and sore throat. Eyes: Negative for photophobia, pain, discharge, redness and itching. Respiratory: Negative for apnea, cough, choking and chest tightness. Cardiovascular: Negative for chest pain, palpitations and leg swelling. Gastrointestinal: Negative for abdominal pain, anorexia, change in bowel habit, diarrhea, nausea and vomiting. Musculoskeletal: Negative for arthralgias, back pain, gait problem, joint swelling, myalgias and neck pain. Skin: Negative for color change, pallor, rash and wound. Allergic/Immunologic: Negative for environmental allergies, food allergies and immunocompromised state. Neurological: Negative for dizziness, vertigo, facial asymmetry, weakness, light-headedness, numbness and headaches. Hematological: Negative for adenopathy. Does not bruise/bleed easily. Psychiatric/Behavioral: Negative for agitation and behavioral problems. Objective BP 147/86 Pulse 112 Temp 36.9 C (98.4 F) Resp 18 Wt 106 kg (233 lb 11 oz) LMP 06/15/2024 (Exact Date) SpO2 99% BMI 42.74 kg/m Physical Exam Vitals and nursing note reviewed. Constitutional: General: She is not in acute distress. Appearance: Normal appearance. She is normal weight. She is not ill-appearing, toxic-appearing or diaphoretic. HENT: Head: Normocephalic and atraumatic. Right Ear: Ear canal and external ear normal. Left Ear: Ear canal and external ear normal. Nose: Nose normal. No congestion or rhinorrhea. Mouth/Throat: Mouth: Mucous membranes are moist. Pharynx: No oropharyngeal exudate or posterior oropharyngeal erythema. Eyes: General: Right eye: No discharge. Left eye: No discharge. Extraocular Movements: Extraocular movements intact. Conjunctiva/sclera: Conjunctivae normal. Pupils: Pupils are equal, round, and reactive to light. Cardiovascular: Rate and Rhythm: Normal rate and regular rhythm. Pulses: Normal pulses. Heart sounds: Normal heart sounds. No murmur heard. No friction rub. Pulmonary: Effort: Pulmonary effort is normal. No respiratory distress. Breath sounds: Normal breath sounds. No stridor. No wheezing, rhonchi or rales. Chest: Chest wall: No tenderness. Abdominal: General: Abdomen is flat. There is no distension. Palpations: Abdomen is soft. There is no mass. Tenderness: There is no abdominal tenderness. There is no right CVA tenderness, left CVA tenderness, guarding or rebound. Hernia: No hernia is present. Musculoskeletal: General: No swelling, tenderness, deformity or signs of injury. Normal range of motion. Cervical back: Normal range of motion and neck supple. No rigidity. Right lower leg: No edema. Left lower leg: No edema. Lymphadenopathy: Cervical: No cervical adenopathy. Skin: General: Skin is warm and dry. Capillary Refill: Capillary refill takes less than 2 seconds. Coloration: Skin is not jaundiced or pale. Findings: Erythema and rash present. No bruising or lesion. Comments: Nape of neck with irregular pechanga like, raised tender nodule. Area of center inoculation No crepitus. No red streaking. Neurological: General: No focal deficit present. Mental Status: She is alert and oriented to person, place, and time. Cranial Nerves: No cranial nerve deficit. Sensory: No sensory deficit. Motor: No weakness. Coordination: Coordination normal. Gait: Gait normal. Psychiatric: Mood and Affect: Mood normal. Behavior: Behavior normal. Thought Content: Thought content normal. Judgment: Judgment normal. Assessment and Plan ASSESSMENT/PLAN: 1. Tick bite of other part of neck, initial encounter - ICD9: 910.4, E906.4, ICD10: S10.86XA, W57.XXXA Noted the tick this morning. 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 Jasmin Martinez APRN.GRACE documented [facility] - [place]03-23-[place]24 History of Present illness Narrative* Ivana Little APRN.GRACE - 02/07/2024 3:09 PM EDT CC: Patient presents with: Sinus Problem: X8 days, sinus pain and pressure, flonase, zyrtec Has been having sinus pressure and drainage for 8 days. Patient has history of eustachian tube dysfunction and is reporting "fullness in L ear" Tried to get in with ENT but was unable to do so today. HPI: Rachel Choi is a 43 year old female who presents to the office with complaint of head congestion and ear symptoms for 8 days. Symptoms are staying the same. Associated symptoms includes nasal congestion, facial pain/pressure, ear pressure , and cough. Denies headache, body aches, fever, and dyspnea. Treatments tried include OTC cold medicine and Pseudoephedrine with partial relief of symptoms. Sick contacts: no. History of asthma, frequent episodes of bronchitis, chronic bronchitis, bronchiectasis or COPD: No Smoker: No Seasonal/environmental allergies: Yes The ROS is otherwise negative. The patient's pmh, medications, allergies, and past visits are reviewed. PHYSICAL EXAM: BP 158/86 Pulse 111 Temp 36.4 C (97.5 F) Resp 20 Wt 106.9 kg (235 lb 10.8 oz) LMP 12/01/2023 (Exact Date) SpO2 98% BMI 43.10 kg/m General appearance: alert, cooperative, pleasant, in no acute distress Head: Normocephalic Eyes: PERRLA, EOM's intact, conjunctiva pink and moist, no icterus, sclera white, non-injected Ears: Right ear: External ear/canal- Normal, TM - clear with good landmarks. Left ear: External ear/canal- Normal, TM - clear with good landmarks Nose: clear. Oropharynx:moist without lesions, mild erythema, without exudates present Neck:supple and no adenopathy Heart: Negative. RRR without obvious murmur, gallop, or rubs. No ectopy. Lungs: clear to auscultation, without rales or wheeze, good air exchange PAST MEDICAL HISTORY Diagnosis Date Allergic rhinitis Colon polyps Constipation during Endometriosis History of colposcopy 05/14/2021 with ECC-normal Multiple thyroid nodules Obesity Psychiatric disorder ANXIETY Psychiatric disorder anxiety Tobacco abuse Uterine fibroid PAST SURGICAL HISTORY Procedure Laterality Date DELIVERY ONLY , low transverse DELIVERY ONLY 2020 COLONOSCOPY 06/2019 COLONOSCOPY FLX DX W/COLLJ SPEC WHEN PFRMD 03/22/2015 Colonoscopy ESOPHAGOGASTRODUODENOSCOPY TRANSORAL DIAGNOSTIC 03/22/2015 EGD LAPAROSCOPIC APPENDECTOMY 1995 w/ lysis of adhesions LIGATE FALLOPIAN TUBE Bilateral 03/21/2021 PAST SURGICAL HISTORY OF 2001 laparoscopy with lysis of adhesions. ALLERGIES Codeine, Erythromycin, Percocet [Oxycodone-Acetaminophen], and Seasonal Allergies MEDICATIONS levonorgestrel (MIRENA) 21 mcg/24 hours (8 yrs) 52 mg IUD 1 Each by INTRAUTERINE route as directed. Magnesium Glycinate 100 mg tab Take 500 mg by mouth as needed. Takes up to 500mg prn fluticasone (FLONASE) 50 mcg/actuation nasal spray Use 2 Sprays in each nostril once daily. Rinse mouth after use. CETIRIZINE HCL (ZYRTEC ORAL) Take 10 mg by mouth once daily. Multivitamin capsule Take 1 capsule by mouth once daily. amoxicillin-clavulanate potassium (AUGMENTIN) 875-125 mg per tablet Take 1 tablet by mouth two times a day for 7 days. predniSONE (DELTASONE) 20 mg tablet Take 1 tablet by mouth once daily for 5 days. FAMILY HISTORY Problem Relation Age of Onset Anxiety disorder Mother other (ulcers) Mother other (ulcers) Father hiatal hernia other (acid reflux) Sister other (IBS) Brother digestive issues Diabetes Maternal Grandmother Cancer Maternal Grandfather lung Cancer Paternal Grandmother lung cancer Cancer Paternal Grandfather bladder cancer No Known Problems Son Anesthesia Problems No Family History Social History Tobacco Use Smoking status: Former Years: 5 Types: Cigarettes Quit date: 02/23/2019 Years since quittin.9 Smokeless tobacco: Never Tobacco comments: Currently smoking 1cigarette a day Vaping Use Vaping Use: Some days Substances: Nicotine Devices: Pre-filled or refillable cartridge, Juul 3% Substance Use Topics Alcohol use: No Drug use: No DATA REVIEWED: No new labs ASSESSMENT/PLAN: 1. Rhinosinusitis - ICD9: 473.9, ICD10: J32.9 - Will begin treatment with as per antibiotic as written, see orders - The patient should also be given OTC decongestants prn for the first 5-7 days of treatment. - Supportive care with plenty of fluids, rest, and analgesia prn. - Patient provided prednisone at her request to help with Eustachian tube dysfunction symptoms - AMOXICILLIN 875 MG-POTASSIUM CLAVULANATE 125 MG TABLET - PREDNISONE 20 MG TABLET Prescription instructions reviewed with patient. Potential red flag symptoms discussed with the patient. Reviewed appropriate action plan to take if red flag symptoms occur. Patient agreeable to treatment plan. Laura Gaffney Supervising provider was present and guided the care of the patient for the entire session on this date. All documentation was reviewed and agreed upon. Ivana Little APRN.FLOOR SPACE ALLOCATOR documented [facility] [place] Miscellaneous Notes* Telephone Encounter - Holly La MD - 10/27/2023 4:55 PM EST Got it. No can't do EMB if heavier than spotting. Ok to move themto the and schedule US another day. Holly La MD * Telephone Encounter - Yesika Houston RN - 10/27/2023 4:33 PM EST Patients main concern is that she started her period and she will be on day 3 of period when she comes in on 10/29 for EMB, IUD insertion and ultrasound. Do you prefer patient reschedule d/t bleeding? Are you able to do EMB with heavy bleeding? Yesika Houston RN * Telephone Encounter - Holly La MD - 10/27/2023 4:18 PM EST ok to do emb and IUD one day and annual another. Let her know may not be able to get US same day. Needs annual as well b/c I believe she is due for pap as well. Holly La MD * Telephone Encounter - Rachel Burgos RN - 10/27/2023 11:00 AM EST She has a pelvic US before seeing you for EMB and IUD or 10/29. No openings for an US on 11/04. documented in this encounterSelect [facility] [place]11-30-[facility] History of Present illness Narrative* Holly La MD - 10/16/2023 2:50 PM EST Rachel Choi is a 43 year old female who presents for problem visit for menstrual issues. HPI: 43 YOF w/ long standing history of menstural dysfunction. Had ovarian cysts. Had 3 laparoscopies in the past. Told she had endometriosis. Was on lupron 2 courses in the past in her 20s. Had a lot of cramping. Has been on control in between. After of her first child was placed on pro gesterone cream for low progesterone. Then had second child. Had second c/s and bilateral salpingectomy. Now having very heavy menses. Days 2-3 of her cycles ultratampon and pad b/c of heavy bleeding. Feels like she will pass out b/c she gets week and lightheaded. Cycles farily regular, 35 days. Lasts 7-10 days. Pain starts about a week before menses. Has migraine HUERTAS usually before her menses. No aura. HUERTAS she takes aleve or other NSAID, usually doesn't take pain meds for heat. 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 LMP: 09/27/2023 (Exact Date), Having periods Age at Menarche: Age at First : Age at Menopause: 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 Comments: Sexual Activity: Yes; Male Contraception: Tubal Ligation PAST MEDICAL HISTORY Diagnosis Date Allergic rhinitis Colon polyps Constipation during Endometriosis History of colposcopy 05/14/2022 with ECC-normal Multiple thyroid nodules Obesity Psychiatric disorder ANXIETY Psychiatric disorder anxiety Tobacco abuse Uterine fibroid PAST SURGICAL HISTORY Procedure Laterality Date DELIVERY ONLY , low transverse DELIVERY ONLY 2020 COLONOSCOPY 06/2019 COLONOSCOPY FLX DX W/COLLJ SPEC WHEN PFRMD 03/22/2015 Colonoscopy ESOPHAGOGASTRODUODENOSCOPY TRANSORAL DIAGNOSTIC 03/22/2015 EGD LAPAROSCOPIC APPENDECTOMY 1995 w/ lysis of adhesions LIGATE FALLOPIAN TUBE Bilateral 03/21/2021 PAST SURGICAL HISTORY OF 2001 laparoscopy with lysis of adhesions. FAMILY HISTORY Problem Relation Age of Onset Anxiety disorder Mother other (ulcers) Mother other (ulcers) Father hiatal hernia other (acid reflux) Sister other (IBS) Brother digestive issues Diabetes Maternal Grandmother Cancer Maternal Grandfather lung Cancer Paternal Grandmother lung cancer Cancer Paternal Grandfather bladder cancer No Known Problems Son Anesthesia Problems No Family History Social History Tobacco Use Smoking status: Former Years: 5 Types: Cigarettes Quit date: 02/23/2019 Years since quittin.6 Smokeless tobacco: Never Tobacco comments: Currently smoking 1cigarette a day Vaping Use Vaping Use: Some days Substances: Nicotine Devices: Pre-filled or refillable cartridge, Juul 3% Substance Use Topics Alcohol use: No Drug use: No Current Outpatient Medications Medication Sig therapeutic multivitamin (THERA) tablet Take 1 tablet by mouth once daily. Magnesium Glycinate 100 mg tab Take 500 mg by mouth as needed. Takes up to 500mg prn fluticasone (FLONASE) 50 mcg/actuation nasal spray Use 2 Sprays in each nostril once daily. Rinse mouth after use. CETIRIZINE HCL (ZYRTEC ORAL) Take 10 mg by mouth once daily. Multivitamin capsule Take 1 capsule by mouth once daily. LACTOBACILLUS ACIDOPHILUS (PROBIOTIC ORAL) Take by mouth. 500 million bacillius coagulans takes 4 daily No current facility-administered medications for this visit. Allergies As of Date: 10/16/2023 Allergen Noted Reaction CODEINE 09/04/2016 Other: See Comments and Unknown ERYTHROMYCIN 01/12/2013 Hives PERCOCET [OXYCODONE-ACETAMINOPHEN]01/12/2013 Vomiting SEASONAL ALLERGIES 08/31/2012 Other: See Comments Fully Assessed 03/18/2023 REVIEW OF SYSTEMS Abdomen: No bloating, early satiety, indigestion, or increased flatulence. No abdominal pain, nausea, vomiting, diarrhea, or constipation. Bladder: No dysuria, gross hematuria, urinary frequency, urinary urgency, or incontinence. Allergies and current medication updated:Yes EXAM: BP 144/86 Ht 5' 2" (1.58m) Wt 232 lb (105.2kg) LMP 09/27/2023 BMI 42.42 kg/(m^2). GENERAL: pleasant, female in no apparent distress ASSESSMENT AND PLAN: 43 YOF w/ h/o endometriosis, dysmenorhea, menorrhagia and has completed child bearing. Has been on many treatments int he past. D/w her options. Declines combined hormonal contraceptives. Offered oral progesterone, Mirena IUD or consult w/ pelvic pain clinic. Recommend EMB and pelvic US repeat. D/wher would be hesitant to do endometrial ablation as likely has adenomyosis and might actually have more pain after ablation even if bleeding less. Mirena clinically most likely to help w/ pain and bleeding and good option for endometriosis and adenomyosis. Questions answered and she is in agreementw./ plan. screening mammo ordered last pap neg Holly La MD documented in this encounterSelect [facility] [place]03-[facility] History of Present illness Narrative* Mildred Jason, [employer]S [employer] CONTRACTS ASSISTANT.FLOOR SPACE ALLOCATOR - 01/21/2023 7:55 AM EST Subjective HPI Rachel Choi is a 42 year old female who presents with a sore throat, headache and ear pain for the past 5 days. She has recently been exposed to strep. She has had chills and some nausea. She has taken ibuprofen for her pain. Review of Systems Constitutional: Positive for chills. Negative for fever. HENT: Positive for ear pain and sore throat. Negative for congestion. Respiratory: Negative for cough. Cardiovascular: Negative. Gastrointestinal: Positive for nausea. Negative for diarrhea and vomiting. Neurological: Positive for headaches. BP 136/80 Pulse (!) 129 Temp 37.1 C (98.8 F) (Tympanic) Resp 18 Wt 102.3 kg (225 lb 9.6 oz) LMP 01/10/2023 (Exact Date) SpO2 99% BMI 41.26 kg/m PAST MEDICAL HISTORY Diagnosis Date Allergic rhinitis Colon polyps Constipation during Multiple thyroid nodules Obesity Psychiatric disorder ANXIETY Psychiatric disorder anxiety Tobacco abuse PAST SURGICAL HISTORY Procedure Laterality Date DELIVERY ONLY , low transverse DELIVERY ONLY 2020 COLONOSCOPY 06/2019 COLONOSCOPY FLX DX W/COLLJ SPEC WHEN PFRMD 03/22/2015 Colonoscopy ESOPHAGOGASTRODUODENOSCOPY TRANSORAL DIAGNOSTIC 03/22/2015 EGD LAPAROSCOPIC APPENDECTOMY 1995 w/ lysis of adhesions PAST SURGICAL HISTORY OF 2001 laparoscopy with lysis of adhesions. ALLERGIES Codeine, Erythromycin, Percocet [Oxycodone-Acetaminophen], and Seasonal Allergies MEDICATIONS LORazepam (ATIVAN) 0.5 mg Take 1 tablet by mouth twice daily as needed for up to 90 days. therapeutic multivitamin (THERA) tablet Take 1 tablet by mouth once daily. Magnesium Glycinate 100 mg tab Take 500 mg by mouth as needed. Takes up to 500mg prn fluticasone (FLONASE) 50 mcg/actuation nasal spray Use 2 Sprays in each nostril once daily. Rinse mouth after use. CETIRIZINE HCL (ZYRTEC ORAL) Take 10 mg by mouth once daily. Multivitamin capsule Take 1 capsule by mouth once daily. LACTOBACILLUS ACIDOPHILUS (PROBIOTIC ORAL) Take by mouth. 500 million bacillius coagulans takes 4 daily amoxicillin (POLYMOX, AMOXIL) 500 mg capsule Take 1 capsule by mouth twice daily for 10 days. FAMILY HISTORY Problem Relation Age of Onset Anxiety disorder Mother other (ulcers) Mother other (ulcers) Father hiatal hernia other (acid reflux) Sister other (IBS) Brother digestive issues No Known Problems Son Cancer Maternal Grandfather lung Cancer Paternal Grandmother lung cancer Cancer Paternal Grandfather bladder cancer Anesthesia Problems No Family History Social History Tobacco Use Smoking status: Former Years: 5.00 Types: Cigarettes Quit date: 02/23/2019 Years since quittin.9 Smokeless tobacco: Never Tobacco comments: Currently smoking 1cigarette a day Vaping Use Vaping Use: Some days Substances: Nicotine Devices: Pre-filled or refillable cartridge, Juul 3% Substance Use Topics Alcohol use: No Drug use: No Objective Physical Exam Vitals and nursing note reviewed. Constitutional: General: She is not in acute distress. Appearance: She is obese. She is not toxic-appearing. HENT: Right Ear: Tympanic membrane, ear canal and external ear normal. Left Ear: Tympanic membrane, ear canal and external ear normal. Nose: Nose normal. Mouth/Throat: Pharynx: Uvula midline. Posterior oropharyngeal erythema present. No oropharyngeal exudate. Tonsils: Tonsillar exudate present. 2+ on the right. 2+ on the left. Cardiovascular: Rate and Rhythm: Normal rate and regular rhythm. Heart sounds: Normal heart sounds. Pulmonary: Effort: Pulmonary effort is normal. No respiratory distress. Breath sounds: Normal breath sounds. No wheezing or rales. Musculoskeletal: Cervical back: Neck supple. Lymphadenopathy: Cervical: Cervical adenopathy present. Skin: General: Skin is warm and dry. Findings: No erythema or rash. Neurological: Mental Status: She is alert. ASSESSMENT/PLAN: 1. Throat pain - ICD9: 784.1, ICD10: R07.0 (primary diagnosis) - STREP A MOLECULAR (POC) 2. Strep throat - ICD9: 034.0, ICD10: J02.0 - Alere Strep Test positive, no culture pending - Discussed supportive care treatment with fluids, rest and analgesia. - Contagious dz precautions discussed- including considered contagious until on antibiotics for 24 hours - AMOXICILLIN 500 MG CAPSULE - Follow-up with your PCP in 3-5 days if symptoms have not improved or sooner if symptoms worsen - Discussed red flags and need for immediate medical evaluation if any occur. - Discussed supportive care treatment with fluids, rest and analgesia. - Discussed expected course of illness Mildred Jason APRN.GRACE documented in this encounterSelect [facility] [place]03-07-[facility]23 Instructions* Patient Instructions* Mildred Jason APRN.CNP - 01/21/2023 7:54 AM EST ASSESSMENT/PLAN: 1. Throat pain - ICD9: 784.1, ICD10: R07.0 (primary diagnosis) - STREP A MOLECULAR (POC) 2. Strep throat - ICD9: 034.0, ICD10: J02.0 - Alere Strep Test positive, no culture pending - Discussed supportive care treatment with fluids, rest and analgesia. - Contagious dz precautions discussed- including considered contagious until on antibiotics for 24 hours - AMOXICILLIN 500 MG CAPSULE - Follow-up with your PCP in 3-5 days if symptoms have not improved or sooner if symptoms worsen - Discussed red flags and need for immediate medical evaluation if any occur. - Discussed supportive care treatment with fluids, rest and analgesia. - Discussed expected course of illness Mildred Jason APRN.FLOOR SPACE ALLOCATOR What is strep throat? Strep throat is an infection caused by a specific type of bacteria, Streptococcus. When your child has a strep throat, the tonsils are usually very inflamed, and the inflammation may affect the surrounding part of the throat as well. Symptoms Strep throat is caused by a bacterium called Streptococcus pyogenes. To some extent, the symptoms of strep throat depend on the child s age. Infants with strep infections may have only a low fever and a thickened or bloody nasal discharge. Toddlers (ages one to three) also may have a thickened or bloody nasal discharge with a fever. Suchchildren are usually quite cranky, have no appetite, and often have swollen glands in the neck. Sometimes toddlers will complain of tummy pain instead of a sore throat. Children over three years of age with strep are often more ill; they may have an extremely painful throat, fever over 102 degrees Fahrenheit (38.9 degrees Celsius), swollen glands in the neck, and pus on the tonsils. It s important to be able to distinguish a strep throat from a viral sore throat, because strep infections are treated with antibiotics. When to call the cook mayonnaise If your child has a sore throat that persists (not one that goes away after her first drink in the morning), whether or not it is accompanied by fever, headache, stomachache, or extreme fatigue, you should call your cook mayonnaise. That call should be made even more urgently if your child seems extremely ill, or if she has difficulty breathing or extreme trouble swallowing (causing her to drool). This may indicate a more serious infection. Treatment If the strep test shows that your child does have strep throat, your cook mayonnaise will prescribe anantibiotic to be taken by mouth or by injection. If your child is given the oral medication, it s very important that she take it for the full course, as prescribed, even if the symptoms get better or go away. If a child s strep throat is not treated with antibiotics, or if she doesn t complete the treatment, the infection may worsen or spread to other parts of her body, leading to conditions such as abscesses of the tonsils or kidney problems. Untreated strep infections also can lead to rheumatic fever, a disease that affects the heart. However, rheumatic fever is rare in the [place] and in children under five years old. Prevention Most types of throat infections are contagious, being passed primarily through the air on droplets of moisture or on the hands of infected children or adults. For that reason, it makes sense to keep your child away from people who have symptoms of this condition. However, most people are contagious before their first symptoms appear, so often there sreally no practical way to prevent your child from anabel the disease. In the past when a child had several sore throats, her tonsils might have been removed in an attempt to prevent further infections. But this operation, called a tonsillectomy, is recommended today only for the most severely affected children. Even in difficult cases, where there is repeated strep throat, antibiotic treatment is usually the best solution. documented in this encounterSelect [facility] [place]02-22-2023 NotePap Smear Specimen AdequacyFebruary 2022 4:10pmComment.Satisfactory for evaluation. Endocervical and/or squamous metaplasticcells (endocervical component)are present.[facility] INTERFACED A#[id number] Health [facility] HospitalCommclaren [facility] on above: Satisfactory for evaluation. Endocervical and/or squamous metaplasticcells (endocervical component)are present.01-08-2023 NotePap Smear Specimen Adequacy January 08, 2023 5:10pmComment.Satisfactory for evaluation. Endocervical and/or squamous metaplasticcells (endocervical component)are present.[facility] INTERFACED A#[id number] [facility] on above:Satisfactory for evaluation. Endocervical and/or squamous metaplasticcells (endocervical component)are present.01-01-2023 History of Present illness Narrative* Yahir Raygoza MD - 01/01/2023 5:30 PM EST Reason for Visit Patient presents with: Follow Up: adipex but d/c'd x 3 weeks due to anxiety Rachel Choi is a 42 year old female who presents here today for Above Complaints.. Health Maintenance HEPATITIS B(1 of 3 - 3-dose series) HEPATITIS C SCREENING HIV SCREENING MAMMOGRAM COVID-19 VACCINE(3 - Booster for Moderna series) HPI Stopped phentermine as it did cause some anxiety. Patient notes that she has been having some issues and there is a lot going on right now with her family, and marriage and personal therapy, it was not the right time to get on the medication. Patient had an anxiety attack last Friday and it was a very very hard time the patient had. Would like her lorazepam for panic attacks No problem-specific Assessment & Plan notes found for this encounter. PAST MEDICAL HISTORY Diagnosis Date Allergic rhinitis Colon polyps Constipation during Multiple thyroid nodules Obesity Psychiatric disorder ANXIETY Psychiatric disorder anxiety Tobacco abuse PAST SURGICAL HISTORY Procedure Laterality Date DELIVERY ONLY , low transverse DELIVERY ONLY 2020 COLONOSCOPY 06/2019 COLONOSCOPY FLX DX W/COLLJ SPEC WHEN PFRMD 03/22/2015 Colonoscopy ESOPHAGOGASTRODUODENOSCOPY TRANSORAL DIAGNOSTIC 03/22/2015 EGD LAPAROSCOPIC APPENDECTOMY 1995 w/ lysis of adhesions PAST SURGICAL HISTORY OF 2001 laparoscopy with lysis of adhesions. FAMILY HISTORY Problem Relation Age of Onset Anxiety disorder Mother other (ulcers) Mother other (ulcers) Father hiatal hernia other (acid reflux) Sister other (IBS) Brother digestive issues No Known Problems Son Cancer Maternal Grandfather lung Cancer Paternal Grandmother lung cancer Cancer Paternal Grandfather bladder cancer Anesthesia Problems No Family History Social History Tobacco Use Smoking status: Former Years: 5.00 Types: Cigarettes Quit date: 02/23/2019 Years since quittin.8 Smokeless tobacco: Never Tobacco comments: Currently smoking 1cigarette a day Vaping Use Vaping Use: Some days Substances: Nicotine Devices: Pre-filled or refillable cartridge, Juul 3% Substance Use Topics Alcohol use: No Drug use: No Past medical history, appointments, medications, allergies reviewed. Pertinent Lab/Diagnostic Studies are reviewed and discussed today Current Outpatient Medications: LORazepam (ATIVAN) 0.5 mg therapeutic multivitamin (THERA) tablet Magnesium Glycinate 100 mg tab fluticasone (FLONASE) 50 mcg/actuation nasal spray CETIRIZINE HCL (ZYRTEC ORAL) Multivitamin capsule LACTOBACILLUS ACIDOPHILUS (PROBIOTIC ORAL) Review of Systems CONSTITUTIONAL: No fevers, chills night sweats, unintended weight loss CARDIOVASCULAR: No chest pain, dyspnea, palpitations, orthopnea, PND, ankle edema. PULM: No dyspnea, unexplained cough. GI: No dysphagia/odynophagia, problematic reflux, constipation, diarrhea, changes in stool habits, hematochezia, melena. : No new urinary complaints, including dysuria, gross hematuria or pyuria. NEURO: No new balance problems, peripheral weakness/paresthesias or numbness of concern. Physical Exam BP 130/74 (BP Site: Left Arm, BP Position: Sitting, BP Cuff Size: Large Adult) Pulse 105 Temp 36.9 C (98.5 F) Resp 12 Ht 157.5 cm (5' 2") Wt 102.5 kg (226 lb) LMP 01/29/2022 (Exact Date) SpO2 98% BMI 41.34 kg/m General appearance: Well appearing, alert, in no acute distress, well nourished. Skin: Skin color, texture, turgor normal, no suspicious rashes or lesions Head: Normocephalic, no masses, lesions, tenderness or abnormalities Eyes: Anicteric sclera. Pupils are equally round and reactive to light. Extraocular movements are intact. Lungs: Lungs clear to auscultation. No wheezing, rhonchi, rales Heart: RRR without murmur, gallop, or rubs. Extremities: No deformities, edema, skin discoloration, clubbing or cyanosis. Good capillary refill. ASSESSMENT/PLAN: 1. Anxiety - ICD9: 300.00, ICD10: F41.9 (primary diagnosis) - LORAZEPAM 0.5 MG TABLET 2. Panic attacks - ICD9: 300.01, ICD10: F41.0 - LORAZEPAM 0.5 MG TABLET 3. Screening for HIV (human immunodeficiency virus) - ICD9: V73.89, ICD10: Z11.4 - HIV 1 2 COMBO(AG/AB),WITH REFLEX TO DIFFERENTIATION 4. Special screening examination for viral disease - ICD9: V73.99, ICD10: Z11.59 - HEP C AB IA W/CONF SCRN 5. Elevated platelet count - ICD9: 790.6, ICD10: R79.89 - CBC + DIFF Yahir Raygoza MD documented [facility] Instructions* Patient Instructions* ANNABELLE Simmons - 12/10/2022 9:02 AM EST PHARYNGITIS PATIENT INSTRUCTIONS DESCRIPTION: Inflammation and infection of the pharynx that can be caused by a variety of germs. SIGNS AND SYMPTOMS: -Sore throat. -Swallowing difficulty. -Tickle or "lump" in the throat. -Fever. -Swollen glands in the neck (sometimes). -Throat may be red or covered with a grayish membrane (sometimes). -Generalized aching. CAUSES: Infection from bacteria, viruses or fungi. PREVENTIVE MEASURES: -Avoid close contact with anyone with a sore throat. -Keep immunizations, including diphtheria, up to date. TREATMENT: -Laboratory throat culture and blood count may be done to determine type of infection. -Home care is usually sufficient. -Use gargles to relieve throat pain. Prepare double strength tea, hot or cold, or a salt-water solution (1 teaspoon salt in 8 oz. warm water). Use to gargle as often as you wish. -Use a cool-mist ultrasonic humidifier to increase air moisture. This will relieve the dry, tight feeling in the throat. Clean humidifier daily. -If the glands are large and tender, apply moist, warm soaks at least 4 times a day for 30 to 60 minutes. The compresses will be more effective if they are kept warm. Be careful not to burn the skin. -Replace your toothbrush. It may be harboring germs. -Until infection is gone, don't share washcloths; or food. MEDICATIONS: -For minor discomfort you may use non-prescription drugs such as acetaminophen. Don't give aspirin to a child for any viral illness. -Non-prescription throat lozenges may help ease discomfort. -Antibiotics or antifungal agents to fight bacterial or fungal infections. Be sure to finish entirecourse of prescribed antibiotics to avoid complications. ACTIVITY: Limited activity is necessary until symptoms disappear. DIET: Extra fluids are necessary. Drink at least 8 glasses of fluid daily, more for high fevers. If swallowing solid food is painful, try a liquid or soft diet for a few days. NOTIFY OFFICE: -The following occur during treatment: Breathing or swallowing difficulty. Fever; severe headache. Thick mucus drainage from the nose. Productive cough that is discolored. Skin rash. Dark urine. Chest pain. documented in this encounterSelect [facility] History of Present illness Narrative* ANNABELLE Simmons - 12/10/2022 8:54 AM EST This note was created using [employer]. Subjective Rachel Choi is a 42 year old female. HPI 42-year-old female presents for sore throat and feeling feverish. Patient started getting a sore throat yesterday. Son was having similar symptoms and he tested positive for strep this morning. Patient states she did not take her temperature at home, but was feeling feverish. She has had some nasal congestion as well. No cough. No chest pain or shortness of breath. No difficulty swallowing oreating. PAST MEDICAL HISTORY Diagnosis Date Allergic rhinitis Colon polyps Constipation during Multiple thyroid nodules Obesity Psychiatric disorder ANXIETY Psychiatric disorder anxiety Tobacco abuse PAST SURGICAL HISTORY Procedure Laterality Date DELIVERY ONLY , low transverse DELIVERY ONLY 2020 COLONOSCOPY 06/2019 COLONOSCOPY FLX DX W/COLLJ SPEC WHEN PFRMD 03/22/2015 Colonoscopy ESOPHAGOGASTRODUODENOSCOPY TRANSORAL DIAGNOSTIC 03/22/2015 EGD LAPAROSCOPIC APPENDECTOMY 1995 w/ lysis of adhesions PAST SURGICAL HISTORY OF 2001 laparoscopy with lysis of adhesions. ALLERGIES Erythromycin, Percocet [Oxycodone-Acetaminophen], and Seasonal Allergies MEDICATIONS Phentermine HCl (ADIPEX-P) 37.5 mg tablet Take 1 tablet by mouth once daily for 30 days. LORazepam (ATIVAN) 0.5 mg Take 1 tablet by mouth as needed. therapeutic multivitamin (THERA) tablet Take 1 tablet by mouth once daily. Magnesium Glycinate 100 mg tab Take 500 mg by mouth as needed. Takes up to 500mg prn fluticasone (FLONASE) 50 mcg/actuation nasal spray Use 2 Sprays in each nostril once daily. Rinse mouth after use. CETIRIZINE HCL (ZYRTEC ORAL) Take 10 mg by mouth once daily. Multivitamin capsule Take 1 capsule by mouth once daily. LACTOBACILLUS ACIDOPHILUS (PROBIOTIC ORAL) Take by mouth. 500 million bacillius coagulans takes 4 daily FAMILY HISTORY Problem Relation Age of Onset Anxiety disorder Mother other (ulcers) Mother other (ulcers) Father hiatal hernia other (acid reflux) Sister other (IBS) Brother digestive issues No Known Problems Son Cancer Maternal Grandfather lung Cancer Paternal Grandmother lung cancer Cancer Paternal Grandfather bladder cancer Anesthesia Problems No Family History Social History Tobacco Use Smoking status: Former Years: 5.00 Types: Cigarettes Quit date: 02/23/2019 Years since quittin.7 Smokeless tobacco: Never Tobacco comments: Currently smoking 1cigarette a day Vaping Use Vaping Use: Some days Substances: Nicotine Devices: Pre-filled or refillable cartridge, Juul 3% Substance Use Topics Alcohol use: No Drug use: No Review of Systems Constitutional: Positive for fever (tactile). Negative for chills. HENT: Positive for congestion and sore throat. Negative for ear pain. Respiratory: Negative for cough and shortness of breath. Cardiovascular: Negative for chest pain. Gastrointestinal: Negative for diarrhea and vomiting. Objective BP 122/80 Pulse 105 Temp 36.3 C (97.4 F) (Tympanic) Resp 18 Wt 102.2 kg (225 lb 6.4 oz) LMP 01/29/2022 (Exact Date) SpO2 98% BMI 41.23 kg/m Physical Exam Vitals and nursing note reviewed. Constitutional: General: She is not in acute distress. Appearance: Normal appearance. She is not toxic-appearing. HENT: Right Ear: Tympanic membrane and ear canal normal. Left Ear: Tympanic membrane and ear canal normal. Nose: Nose normal. Mouth/Throat: Mouth: Mucous membranes are moist. Pharynx: Uvula midline. Posterior oropharyngeal erythema present. No oropharyngeal exudate. Tonsils: No tonsillar exudate or tonsillar abscesses. 1+ on the right. 1+ on the left. Eyes: Conjunctiva/sclera: Conjunctivae normal. Cardiovascular: Rate and Rhythm: Normal rate and regular rhythm. Pulmonary: Effort: Pulmonary effort is normal. Breath sounds: Normal breath sounds. Neurological: Mental Status: She is alert. Assessment and Plan ASSESSMENT/PLAN: 1. Sore throat - ICD9: 462, ICD10: J02.9 - suspect viral - Alere Strep Test negative, no culture pending - Discussed supportive care treatment with fluids, rest and analgesia. - STREP A MOLECULAR (POC) Diagnosis and treatment plan were discussed and questions were answered to the patient's satisfaction. Pt acknowledged understanding of concepts and follow up plan. Specific signs and symptoms that would indicate the need for higher level of care were discussed in detail warranting prompt ER evaluation. ANNABELLE Simmons documented in this encounterSelect [facility] History of Present illness Narrative* Yahir Raygoza MD - 11/27/2022 5:15 PM EST Reason for Visit Patient presents with: Follow Up: 1 month adipex- on hold due to ATB usage but still needs refill Rachel Choi is a 42 year old female who presents here today for Above Complaints.. Health Maintenance HEPATITIS B(1 of 3 - 3-dose series) HEPATITIS C SCREENING HIV SCREENING MAMMOGRAM COVID-19 VACCINE(3 - Booster for Moderna series) DEPRESSION ASSESSMENT HPI Was started on phentermine last visit, she did get a little energy and felt a little over the top. So started taking half a pill. Recently though she was started on abx cefdinir, so stopped the medication. Patient notes her 10 days on this abx is done on Friday and she will restart the medication. It was a huge appetite suppressant and she is drinking a lot more water. No problem-specific Assessment & Plan notes found for this encounter. PAST MEDICAL HISTORY Diagnosis Date Allergic rhinitis Colon polyps Constipation during Multiple thyroid nodules Obesity Psychiatric disorder ANXIETY Psychiatric disorder anxiety Tobacco abuse PAST SURGICAL HISTORY Procedure Laterality Date DELIVERY ONLY , low transverse DELIVERY ONLY 2020 COLONOSCOPY 06/2019 COLONOSCOPY FLX DX W/COLLJ SPEC WHEN PFRMD 03/22/2015 Colonoscopy ESOPHAGOGASTRODUODENOSCOPY TRANSORAL DIAGNOSTIC 03/22/2015 EGD LAPAROSCOPIC APPENDECTOMY 1995 w/ lysis of adhesions PAST SURGICAL HISTORY OF 2001 laparoscopy with lysis of adhesions. FAMILY HISTORY Problem Relation Age of Onset Anxiety disorder Mother other (ulcers) Mother other (ulcers) Father hiatal hernia other (acid reflux) Sister other (IBS) Brother digestive issues No Known Problems Son Cancer Maternal Grandfather lung Cancer Paternal Grandmother lung cancer Cancer Paternal Grandfather bladder cancer Anesthesia Problems No Family History Social History Tobacco Use Smoking status: Former Years: 5.00 Types: Cigarettes Quit date: 02/23/2019 Years since quittin.7 Smokeless tobacco: Never Tobacco comments: Currently smoking 1cigarette a day Vaping Use Vaping Use: Some days Substances: Nicotine Devices: Pre-filled or refillable cartridge, Juul 3% Substance Use Topics Alcohol use: No Drug use: No Past medical history, appointments, medications, allergies reviewed. Pertinent Lab/Diagnostic Studies are reviewed and discussed today Current Outpatient Medications: Phentermine HCl (ADIPEX-P) 37.5 mg tablet LORazepam (ATIVAN) 0.5 mg therapeutic multivitamin (THERA) tablet Magnesium Glycinate 100 mg tab fluticasone (FLONASE) 50 mcg/actuation nasal spray CETIRIZINE HCL (ZYRTEC ORAL) Multivitamin capsule LACTOBACILLUS ACIDOPHILUS (PROBIOTIC ORAL) Review of Systems CONSTITUTIONAL: No fevers, chills night sweats, unintended weight loss CARDIOVASCULAR: No chest pain, dyspnea, palpitations, orthopnea, PND, ankle edema. PULM: No dyspnea, unexplained cough. GI: No dysphagia/odynophagia, problematic reflux, constipation, diarrhea, changes in stool habits, hematochezia, melena. : No new urinary complaints, including dysuria, gross hematuria or pyuria. NEURO: No new balance problems, peripheral weakness/paresthesias or numbness of concern. Physical Exam BP 136/74 (BP Site: Left Arm, BP Position: Sitting, BP Cuff Size: Large Adult) Pulse 106 Temp 37.1 C (98.7 F) Resp 14 Ht 157.5 cm (5' 2") Wt 102.5 kg (226 lb) LMP 01/29/2022 (Exact Date) SpO2 96% BMI 41.34 kg/m General appearance: Well appearing, alert, in no acute distress, well nourished. Skin: Skin color, texture, turgor normal, no suspicious rashes or lesions Head: Normocephalic, no masses, lesions, tenderness or abnormalities Eyes: Anicteric sclera. Pupils are equally round and reactive to light. Extraocular movements are intact. Lungs: Lungs clear to auscultation. No wheezing, rhonchi, rales Heart: RRR without murmur, gallop, or rubs. Extremities: No deformities, edema, skin discoloration, clubbing or cyanosis. Good capillary refill. ASSESSMENT/PLAN: 1. Thrombocythemia - ICD9: 238.71, ICD10: D75.839 (primary diagnosis) Reassured and asked her to recheck her levels - CBC + DIFF 2. Obesity without serious comorbidity, unspecified classification, unspecified obesity type - ICD9: 278.00, ICD10: E66.9 Stable - Continue current medications - PHENTERMINE 37.5 MG TABLET Yahir Raygoza MD documented in this encounterSelect [facility]23 Miscellaneous Notes* Telephone Encounter - Elysia Oniel APRN.CNP - 11/22/2022 3:25 PM EST Noted. Elysia Oneil APRN.CNP documented in this encounterSelect [facility]12-13-2022 History of Present illness Narrative* Yahir Raygoza MD - 10/29/2022 3:51 PM EST Reason for Visit No chief complaint on file. Rachel Choi is a 42 year old female who presents here today for Above Complaints.. Health Maintenance HEPATITIS B(1 of 3 - 3-dose series) HEPATITIS C SCREENING HIV SCREENING MAMMOGRAM COVID-19 VACCINE(3 - Booster for Moderna series) DEPRESSION ASSESSMENT HPI Conflicted about gall bladder surgery- removal for biliary dyskinesia She has been doing her own research and took some antibiotics and bile medication and felt her painwas much better. Her pain is not chronic but she has debilitating pain as flares and that is beginning to annoy her but she is not ready she thinks for surgery. Her weight is an issue., she is sticking to lean meats and increase in vegetables, brocolli, brusses sprouts, Diet recall- bf is oatmeal and half fruit. Lunch was a hard boiled egg, Kimchi and olives Dinner:chicken and asparagus and quinoa. 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 She sleeps well 4 to 5 hours of sleeps.she feels rested some mornings when she wakes on most days. Has a couple kids. Vaping on occasion. No problem-specific Assessment & Plan notes found for this encounter. PAST MEDICAL HISTORY Diagnosis Date Allergic rhinitis Colon polyps Constipation during Multiple thyroid nodules Obesity Psychiatric disorder ANXIETY Psychiatric disorder anxiety Tobacco abuse PAST SURGICAL HISTORY Procedure Laterality Date DELIVERY ONLY , low transverse DELIVERY ONLY 2020 COLONOSCOPY 06/2019 COLONOSCOPY FLX DX W/COLLJ SPEC WHEN PFRMD 03/22/2015 Colonoscopy ESOPHAGOGASTRODUODENOSCOPY TRANSORAL DIAGNOSTIC 03/22/2015 EGD LAPAROSCOPIC APPENDECTOMY 1995 w/ lysis of adhesions PAST SURGICAL HISTORY OF 2001 laparoscopy with lysis of adhesions. FAMILY HISTORY Problem Relation Age of Onset Anxiety disorder Mother other (ulcers) Mother other (ulcers) Father hiatal hernia other (acid reflux) Sister other (IBS) Brother digestive issues No Known Problems Son Cancer Maternal Grandfather lung Cancer Paternal Grandmother lung cancer Cancer Paternal Grandfather bladder cancer Anesthesia Problems No Family History Social History Tobacco Use Smoking status: Former Years: 5.00 Types: Cigarettes Quit date: 02/23/2019 Years since quittin.6 Smokeless tobacco: Never Tobacco comments: Currently smoking 1cigarette a day Vaping Use Vaping Use: Some days Substances: Nicotine Devices: Pre-filled or refillable cartridge, Juul 3% Substance Use Topics Alcohol use: No Drug use: No Past medical history, appointments, medications, allergies reviewed. Pertinent Lab/Diagnostic Studies are reviewed and discussed today Current Outpatient Medications: LORazepam (ATIVAN) 0.5 mg therapeutic multivitamin (THERA) tablet Magnesium Glycinate 100 mg tab fluticasone (FLONASE) 50 mcg/actuation nasal spray CETIRIZINE HCL (ZYRTEC ORAL) Multivitamin capsule LACTOBACILLUS ACIDOPHILUS (PROBIOTIC ORAL) Review of Systems CONSTITUTIONAL: No fevers, chills night sweats, unintended weight loss CARDIOVASCULAR: No chest pain, dyspnea, palpitations, orthopnea, PND, ankle edema. PULM: No dyspnea, unexplained cough. GI: No dysphagia/odynophagia, problematic reflux, constipation, diarrhea, changes in stool habits, hematochezia, melena. : No new urinary complaints, including dysuria, gross hematuria or pyuria. NEURO: No new balance problems, peripheral weakness/paresthesias or numbness of concern. Physical Exam BP 140/76 (BP Site: Left Arm, BP Position: Sitting, BP Cuff Size: Large Adult) Pulse 115 Temp 37.2 C (99 F) Resp 14 Ht 157.5 cm (5' 2") Wt 102.5 kg (226 lb) LMP 01/29/2022 (Exact Date) SpO2 97% BMI 41.34 kg/m General appearance: Well appearing, alert, in no acute distress, well nourished. Skin: Skin color, texture, turgor normal, no suspicious rashes or lesions Head: Normocephalic, no masses, lesions, tenderness or abnormalities Eyes: Anicteric sclera. Pupils are equally round and reactive to light. Extraocular movements are intact. Lungs: Lungs clear to auscultation. No wheezing, rhonchi, rales Heart: RRR without murmur, gallop, or rubs. Extremities: No deformities, edema, skin discoloration, clubbing or cyanosis. Good capillary refill. ASSESSMENT/PLAN: 1. Obesity without serious comorbidity, unspecified classification, unspecified obesity type - ICD9: 278.00, ICD10: E66.9 (primary diagnosis) Stable Discussed Contraindications, went over each one and over side effects. tolerance, continuity of medication, controlled medication so cannot be replaced if stolen or if lost. Advised exercising along with this will really help the patient reach her goal of loosing weight. Short term use of this med was discussed. Negative for all the following :Hypersensitivity or idiosyncrasy to phentermine or other sympathomimetic amines or any component of the formulation; history of cardiovascular disease (arrhythmias, congestive heart failure, coronary artery disease, stroke, uncontrolled hypertension); hyperthyroidism, glaucoma, agitated states, history of drug abuse; use during or within 14 days following MAO inhibi tor therapy; , breast-feeding - PHENTERMINE 37.5 MG TABLET 2. Biliary dyskinesia - ICD9: 575.8, ICD10: K82.8 She is in 2 minds about surgery, so we advice her to not have surgery Yahir Raygoza MD documented in this encounterSelect [facility]12-06-2022 Instructions* Patient Instructions* Kalyani Madden APRN.FLOOR SPACE ALLOCATOR - 10/22/2022 12:56 PM EST PATIENT PREOPERATIVE INSTRUCTIONS Altaf Williamson MD has scheduled you for your procedure at this surgery center: [facility]: [phone] -- [address] [address]. Arrival Time for Surgery: - The Surgery Center or hospital where you are having surgery will call the afternoon before surgery (or Friday for Friday surgery) with a scheduled arrival time. - If you have not heard by 4 pm, please contact the surgery center above. Please be aware that emergency situations arise, which may delay or change your surgical time. If this happens, we will notify you as soon as possible and regret any inconvenience. Please read below carefully for your personalized instructions. Dietary Restrictions: - No solid food after midnight. - You may have 12 ounces of clear liquids (water, clear juices such as apple juice or gatorade, carbonated beverages, clear tea, black coffee, jello) until 2 hours before scheduled arrival at facility. - Do not drink any alcohol after midnight the night before your surgery. Medications: Unless instructed differently below, stay on all of your medications until your surgery. Approved medications to take the morning of surgery with a sip of water: None If you start any new medications after today's visit, please contact the surgeon's office. Blood Thinning Medications: - Stop NSAIDS (Ibuprofen, Advil, Aleve, Motrin, Celebrex, Mobic, etc.) 7 days before surgery, as directed by your surgeon. - Stop Aspirin 7 days before surgery, as directed by your surgeon. - Stop Vitamin E, ALL multi-vitamins, herbals and dietary supplements 7 days before surgery. - You may take Tylenol (Acetaminophen) or any of your pain medications that do not contain aspirin or NSAIDS as needed. Important Reminders: - Candy, mints, and tobacco products are NOT permitted the morning of surgery. - Hearing aids, dentures and glasses may be worn the morning of surgery. - NO jewelry, body piercings, makeup, hairpins or contacts are to be worn the day of surgery. If you develop symptoms such as a fever, cold, or flu, or have other changes to your health within TWO DAYS of scheduled surgery or the morning of surgery, please contact the surgery center above. Personal Belongings: -Please have photo ID and insurance cards. -If you do not have a copy of advance directives on file with us, please bring a copy with you on the day of surgery. - Leave ALL valuables and money at home or with family members. For Outpatient Procedures: - YOU MUST HAVE A RESPONSIBLE PRIVATE BRANCH EXCHANGE SERVICE ADVISOR TAKE YOU HOME. A EDUCATIONAL FUNDRAISING DIRECTOR OR OCEAN TRANSPORTATION INTERMEDIARY CANNOT BE MADE A RESPONSIBLE PRIVATE BRANCH EXCHANGE SERVICE ADVISOR. - We recommend that a responsible person stays with you overnight to take care of you. - You cannot stay in a hotel alone after outpatient surgery. You will not be permitted to have yoursurgery, if you do not have someone to take care of you. If you already have an Advance Directive, please fax a copy to [phone] or email to for it to be added to your chart. If you do not have an Advance Directive, you can find the appropriate form and more information at [email or web address]. We recommend that youcomplete the Advance Directive form found on the website and bring it with you the day of your surgery. It can be witnessed and scanned into your chart that day. Kalyani Madden APRN.CNP documented in this encounterSelect [facility]12-[facility]-2022 History and physical note * Kalyani Madden APRN.CNP - 10/22/2022 12:55 PM EST PREANESTHESIA CONSULT CLINIC TELEHEALTH VISIT Patient has been identified by name and date of : Yes This is a virtual visit using [employer] video visit. It require patient-provider interaction for the medical decision making as documented below. Reason for contact: PACC visit Accompanied by: Self Scheduled Surgery: LAPAROSCOPIC CHOLECYSTECTOMY with Altaf Williamson MD on 11/06/2022 Subjective CHIEF COMPLAINT: Patient presents with: Pre-Op Visit HPI: This is a 42 year old female who presents with chronic right abdominal pain associated with biliary dyskinesia. Conservative measures have been ineffective. Patient has opted to proceed with above reccommended surgery and is here today for preanesthesia consultation. ACTIVE PROBLEM LIST Acute Atopic Conjunctivitis Allergic Rhinitis, Cause Unspecified Migraine, Menstrual Fontaine's Palsy Uses Oral Contraception Tobacco Abuse Obesity Nausea Alone Abdominal Pain, Unspecified Site Hematuria Frequency Urinary Tract Infection Associated With Catheterization of Urinary Tract (Hcc) Frequency of Micturition Dysuria PAST MEDICAL HISTORY Diagnosis Date Allergic rhinitis Colon polyps Constipation during Multiple thyroid nodules Obesity Psychiatric disorder ANXIETY Psychiatric disorder anxiety Tobacco abuse PAST SURGICAL HISTORY Procedure Laterality Date DELIVERY ONLY , low transverse DELIVERY ONLY 2020 COLONOSCOPY 06/2019 COLONOSCOPY FLX DX W/COLLJ SPEC WHEN PFRMD 03/22/2015 Colonoscopy ESOPHAGOGASTRODUODENOSCOPY TRANSORAL DIAGNOSTIC 03/22/2015 EGD LAPAROSCOPIC APPENDECTOMY 1995 w/ lysis of adhesions PAST SURGICAL HISTORY OF 2001 laparoscopy with lysis of adhesions. FAMILY HISTORY Problem Relation Age of Onset Anxiety disorder Mother other (ulcers) Mother other (ulcers) Father hiatal hernia other (acid reflux) Sister other (IBS) Brother digestive issues No Known Problems Son Cancer Maternal Grandfather lung Cancer Paternal Grandmother lung cancer Cancer Paternal Grandfather bladder cancer Anesthesia Problems No Family History Social History Tobacco Use Smoking status: Former Years: 5.00 Types: Cigarettes Quit date: 02/23/2019 Years since quittin.6 Smokeless tobacco: Never Tobacco comments: Currently smoking 1cigarette a day Vaping Use Vaping Use: Some days Devices: Pre-filled or refillable cartridge, Juul 3% Substance Use Topics Alcohol use: No Drug use: No ALLERGIES Allergen Reactions Erythromycin Hives Percocet [Oxycodone* Vomiting Seasonal Allergies Other: See Comments Cats Dogs Dust mites trees (January, February and March) weeds (June, July and August) ragweed (June, July and August) MEDICATIONS: Current Outpatient Medications Medication Sig LORazepam (ATIVAN) 0.5 mg Take 1 tablet by mouth as needed. therapeutic multivitamin (THERA) tablet Take 1 tablet by mouth once daily. Magnesium Glycinate 100 mg tab Take 500 mg by mouth as needed. Takes up to 500mg prn fluticasone (FLONASE) 50 mcg/actuation nasal spray Use 2 Sprays in each nostril once daily. Rinse mouth after use. CETIRIZINE HCL (ZYRTEC ORAL) Take 10 mg by mouth once daily. Multivitamin capsule Take 1 capsule by mouth once daily. LACTOBACILLUS ACIDOPHILUS (PROBIOTIC ORAL) Take by mouth. 500 million bacillius coagulans takes 4 daily No current facility-administered medications for this visit. Covid Immunization Dates Overdue - COVID-19 VACCINE (3 - Booster for Moderna series) Overdue since 07/14/2021 05/19/2021 Imm Admin: COVID-19 original vaccine, full dose, monovalent (MODERNA) 04/16/2021 Imm Admin: COVID-19 original vaccine, full dose, monovalent (MODERNA) REVIEW OF SYSTEMS: Pain Assessment: General: No weight loss, malaise or fevers. Neuro: No history of TIA's, stroke, BIOSOLIDS MANAGEMENT TECHNICIAN tumor, impaired sensorium, hemiplegia, paraplegia or quadraplegia. No neurological symptoms or problems. Respiratory: No history of current cough or dyspnea, or pneumonia in the past 6 weeks. No history of respiratory/pulmonary symptoms or problems. Cardiovascular: No history of HTN requiring medication, no history of angina, CHF, PA, cardiac surgery or stents. Denies rest pain, gangrene or revascularization/amputation for PVD. No history of cardiovascular symptoms or problems. GI: No history of GI symptoms or problems. No history of esophageal varices, recent ascites, or ETOH greater than 2 drinks per day. : No history of dysuria, frequency or incontinence,, stones or chronic kidney disease STOCK SORTER: Negative for abnormal vaginal bleeding, abnormal vaginal discharge. : Denies, Patient's last menstrual period was 01/29/2022 (exact date). Endocrine: No history of diabetes. Has not taken steroids within the past 30 days. No history of endocrinological symptoms or problems. Hematology: No history of bleeding or clotting disorder. Pt is not taking anti- coagulation or platelet medications. No history of hematological symptoms or problems. Oncology: No history of CA metastasis, chemo within 30 days, or radiotherapy within 90 days. Has not lost 10% of body wt in 6 months. No history of oncological symptoms or problems. Psych: No history of psychiatric symptoms or problems. Musculoskeletal: Negative for joint pain or swelling, back pain or muscle pain. Skin: Negative for lesions, rash and itching. Objective PHYSICAL EXAM: Wt 164 lb (74.4kg) LMP 01/29/2022 VIDEO EXAM: (if completed, performed via video enabled technology) GENERAL: alert and appropriate, in no distress, well-hydrated, well nourished, and happy, smiling, interactive SKIN: no rash noted HEAD: normocephalic, no abnormality or lesion noted OROPHARYNX: moist mucus membranes NECK: full ROM, no cervical LNs noted RESPIRATORY: breathing non-labored CHEST: equal chest rise with normal respiratory effort HEART: Appears well perfused, cap refill immediate ABDOMEN: mild TTP noted in the RUQ and RLQ EXTREMITIES: Denies edema NEUROLOGIC: no obvious deficit Diagnostic tests reviewed for today's visit: Lab Value Units Date High Low HB 13.1 g/dL 08/21/2022 15.5 11.5 HCT 42.5 % 08/21/2022 46.0 36.0 WBC 7.26 k/uL 08/21/2022 11.00 3.70 PLT 429 k/uL 08/21/2022 400 150 NA 138 mmol/L 08/21/2022 144 136 K 4.6 mmol/L 08/21/2022 5.1 3.7 GLUC 91 mg/dL 08/21/2022 99 74 BUN 12 mg/dL 08/21/2022 21 7 CREAT 0.68 mg/dL 08/21/2022 0.96 0.58 PTSEC No results within date range. INR No results within date range. APTT No results within date range. ALT 16 U/L 08/21/2022 38 7 AST 21 U/L 08/21/2022 35 13 TBILI 0.2 mg/dL 08/21/2022 1.3 0.2 TSH 0.661 mIU/L 08/21/2022 4.200 0.270 Lab Value Units Date High Low HCGQT No results within date range. UHCG No results within date range. HCG, BODY* No results within date range. Lab Value Units Date High Low ABORHD No results within date range. ABSCREEN No results within date range. No results found for: HBA1C Most recent EKG: No results found for this or any previous visit (from the past 8760 hour(s)). Most recent Echo No results found for this or any previous visit (from the past 94656 hour(s)). Most recent stress test Most recent PFT's Impression/Recommendations ASSESSMENT: Obesity Assessment: Body mass index is 30 kg/m . METS: Walk indoors, such as around the house (1.75 METs) Do light work around the house, such as dusting or washing dishes (2.70 METs) Take care of self; that is eating, dressing, bathing, using the toilet (2.75 METs) Climb a flight of stairs or walk up a hill (5.50 METs) Patient denies any chest pain or undue shortness of breath with the above physical activity. ASA Class: 3 ANESTHESIA FINDINGS: Intubation History: No history of difficult intubation Significant Anesthesia Considerations: None Airway Exam: General: Normal appearance Mallampati Score is CLASS I ULBT: Class II - Lower incisors can bite the upper lip below the roby line Neck: Normal appearance and function, Distance from hyoid to mentum during neck extension is at least 3 finger breaths Mouth: Normal tongue size and Mouth opening greater than 2 finger breaths Dentition: Intact and Caps/crowns Airway History: No abnormal airway history STOP BANG Score: Criteria: None Score = 0 PLAN: Pt optimally prepared for surgery, pending day of surgery CONSULTS: Patient does not require consults for optimization at this time. The Following Tests/Procedures Have Been Initiated: Labs not indicated per [facility] protocol, EKG not indicated per [facility] protocol Planned Anesthetic: General Instructions Given to Patient: Patient given verbal instructions and voices comprehension and compliance. Copy sent electronically via My Chart, email, or mobile device. This is a virtual visit. It required patient-provider interaction for the medical decision making as documented above. SIGNATURE: Kalyani Madden APRN.CNP PATIENT NAME: Rachel Choi DATE: 10/22/2022 TIME: 1:15 PM PAGER/CONTACT #: documented [facility] History of Present illness Narrative* Yahir Raygoza MD - 09/14/2022 8:58 AM EDT Reason for Visit Patient presents with: Follow Up: needs to discuss preservative free flu shot Rachel Choi is a 42 year old female who presents here today for Above Complaints.. Health Maintenance HEPATITIS B(1 of 3 - 3-dose series) HEPATITIS C SCREENING HIV SCREENING MAMMOGRAM COVID-19 VACCINE(3 - Booster for Moderna series) DEPRESSION ASSESSMENT INFLUENZA(1) HPI Patient has a headache and feels really ill after a regular flu shot. It is a solid migraine after the shot, with a rash on the body and hands and she gets very nauseous and achy. All these symptoms last a few days. Her 2 children has the exact symptoms. She should get the preservative free as it does not bother it much after that. Reviewed her blood work and it is all normal. The lipids are normal and so is the mag and vit d. RUQ pain on and off is still present she is seeing Dr Cardona who is going to have the surgery donein october No problem-specific Assessment & Plan notes found for this encounter. PAST MEDICAL HISTORY Diagnosis Date Allergic rhinitis Colon polyps Constipation during Multiple thyroid nodules Obesity Psychiatric disorder ANXIETY Psychiatric disorder anxiety Tobacco abuse PAST SURGICAL HISTORY Procedure Laterality Date DELIVERY ONLY , low transverse DELIVERY ONLY 2020 COLONOSCOPY 06/2019 COLONOSCOPY FLX DX W/COLLJ SPEC WHEN PFRMD 03/22/2015 Colonoscopy ESOPHAGOGASTRODUODENOSCOPY TRANSORAL DIAGNOSTIC 03/22/2015 EGD LAPAROSCOPIC APPENDECTOMY 1995 w/ lysis of adhesions PAST SURGICAL HISTORY OF 2001 laparoscopy with lysis of adhesions. FAMILY HISTORY Problem Relation Age of Onset other (IBS) Brother digestive issues Anxiety disorder Mother other (ulcers) Mother other (ulcers) Father hiatal hernia other (acid reflux) Sister Cancer Maternal Grandfather lung Cancer Paternal Grandmother lung cancer Cancer Paternal Grandfather bladder cancer No Known Problems Son Social History Tobacco Use Smoking status: Former Years: 5.00 Types: Cigarettes Quit date: 02/23/2019 Years since quittin.5 Smokeless tobacco: Never Tobacco comments: Currently smoking 1cigarette a day Vaping Use Vaping Use: Some days Devices: Pre-filled or refillable cartridge, Juul 3% Substance Use Topics Alcohol use: No Drug use: No Past medical history, appointments, medications, allergies reviewed. Pertinent Lab/Diagnostic Studies are reviewed and discussed today Current Outpatient Medications: LORazepam (ATIVAN) 0.5 mg Magnesium Glycinate 100 mg tab PROGESTERONE 10% (100 MG/ML) CREAM loratadine (CLARITIN) 10 mg tablet fluticasone (FLONASE) 50 mcg/actuation nasal spray CETIRIZINE HCL (ZYRTEC ORAL) FLUTICASONE PROPIONATE (FLONASE NASAL) vortioxetine (BRINTELLIX) 10 mg tab phenazopyridine (PYRIDIUM, GERIDIUM) 200 mg tablet tolterodine ER (DETROL LA) 4 mg 24 hr capsule OTC PRODUCT OTC NUTRITIONAL SUPPLEMENT Multivitamin capsule Ascorbic Acid 1,000 mg tablet Herbal Complex No.174 (ECHINACEA & GOLDENSEAL) 450 mg cap LACTOBACILLUS ACIDOPHILUS (PROBIOTIC ORAL) Review of Systems CONSTITUTIONAL: No fevers, chills night sweats, unintended weight loss CARDIOVASCULAR: No chest pain, dyspnea, palpitations, orthopnea, PND, ankle edema. PULM: No dyspnea, unexplained cough. GI: No dysphagia/odynophagia, problematic reflux, constipation, diarrhea, changes in stool habits, hematochezia, melena. : No new urinary complaints, including dysuria, gross hematuria or pyuria. NEURO: No new balance problems, peripheral weakness/paresthesias or numbness of concern. Physical Exam BP 128/80 (BP Site: Left Arm, BP Position: Sitting, BP Cuff Size: Large Adult) Pulse 107 Temp 37.1 C (98.8 F) Resp 12 Ht 157.5 cm (5' 2") Wt 74.4 kg (164 lb) LMP 01/29/2022 (Exact Date) SpO2 95% BMI 30.00 kg/m General appearance: Well appearing, alert, in no acute distress, well nourished. Skin: Skin color, texture, turgor normal, no suspicious rashes or lesions Head: Normocephalic, no masses, lesions, tenderness or abnormalities Eyes: Anicteric sclera. Pupils are equally round and reactive to light. Extraocular movements are intact. ASSESSMENT/PLAN: 1. Special screening examination for viral disease - ICD9: V73.99, ICD10: Z11.59 (primary diagnosis) - HEP C AB IA W/CONF SCRN 2. Screening for HIV (human immunodeficiency virus) - ICD9: V73.89, ICD10: Z11.4 - HIV 1 2 COMBO(AG/AB),WITH REFLEX TO DIFFERENTIATION 3. RUQ abdominal pain - ICD9: 789.01, ICD10: R10.11 Etiology unclear conor be having a gall bladder removed. Yahir Raygoza MD ' documented in this encounterSelect [facility]10-[facility]22 Miscellaneous Notes* Telephone Encounter - Ami Hernandez Ma - 09/10/2022 2:40 PM EDT LM notifying patient we do not have these available. * Telephone Encounter - Marlin Clemens Pss - 09/07/2022 8:53 AM EDT Patient turned away from [facility] on 09/07 due to needing a preservative free flu shot. Patient asking to have this done on 09/14 during office visit with Dr. Raygoza. Please make sure we have preservative free available that day. Thank you documented in this encounterSelect [facility]10-16-[facility]22 History of Present illness Narrative* Ade Cheung APRN.GRACE - 09/01/2022 8:23 AM EDT Subjective The history is provided by the patient. No foreign language interpreter was used. HPI Rachel Choi is a 42 year old female who presents today for CC of sinus pressure and congestion for 2 weeks. Also complain of ear pain/pressure radiation down neck Treatment: sudafed, flonase elias pot - minimal relief H/o sinusitis, seasonal allergies. Sees ENT for allergies/sinusitis Requesting fluconazole, used before without problems - develops yeast infection with antibiotic tx. BP 128/80 Pulse 115 Temp 36.3 C (97.4 F) Resp 21 Wt 103.3 kg (227 lb 12.8 oz) LMP 01/29/2022 (Exact Date) SpO2 98% BMI 41.67 kg/m Social History Tobacco Use Smoking status: Former Years: 5.00 Types: Cigarettes Quit date: 02/23/2019 Years since quittin.5 Smokeless tobacco: Never Tobacco comments: Currently smoking 1cigarette a day Vaping Use Vaping Use: Some days Devices: Pre-filled or refillable cartridge, Juul 3% Substance Use Topics Alcohol use: No Drug use: No PAST MEDICAL HISTORY Diagnosis Date Allergic rhinitis Colon polyps Constipation during Multiple thyroid nodules Obesity Psychiatric disorder ANXIETY Psychiatric disorder anxiety Tobacco abuse I have confirmed and edited as necessary, the [facility] Review of Systems Constitutional: Negative for chills, fever and malaise/fatigue. HENT: Positive for congestion, ear pain and sinus pain. Negative for sore throat. Respiratory: Negative for cough, sputum production, shortness of breath and wheezing. Cardiovascular: Negative for chest pain. Gastrointestinal: Negative for abdominal pain, diarrhea, nausea and vomiting. Musculoskeletal: Negative for myalgias. Neurological: Positive for headaches (sinus). Objective Physical Exam Vitals and nursing note reviewed. HENT: Head: Normocephalic and atraumatic. Right Ear: Tympanic membrane, ear canal and external ear normal. Left Ear: Tympanic membrane, ear canal and external ear normal. Nose: Mucosal edema, congestion and rhinorrhea present. Right Sinus: Maxillary sinus tenderness and frontal sinus tenderness present. Left Sinus: Maxillary sinus tenderness and frontal sinus tenderness present. Mouth/Throat: Pharynx: Uvula midline. No oropharyngeal exudate or posterior oropharyngeal erythema. Cardiovascular: Rate and Rhythm: Normal rate and regular rhythm. Heart sounds: Normal heart sounds. Pulmonary: Effort: Pulmonary effort is normal. Breath sounds: Normal breath sounds. Lymphadenopathy: Head: Right side of head: No submental, submandibular or tonsillar adenopathy. Left side of head: No submental, submandibular or tonsillar adenopathy. Cervical: No cervical adenopathy. Skin: General: Skin is warm and dry. Neurological: Mental Status: She is alert. Psychiatric: Mood and Affect: Affect normal. ASSESSMENT/PLAN: 1. Acute non-recurrent pansinusitis - ICD9: 461.8, ICD10: J01.40 (primary diagnosis) - Will begin treatment with Augmentin 875 mg PO BID for 7 days - Supportive care with plenty of fluids, rest, and analgesia prn. - Follow up in one week if symptoms persist or worsen. - Prednisone as needed for ear/sinus inflammation 2. Feared condition not demonstrated - ICD9: V65.5, ICD10: Z71.1 Fluconazole as discussed Diagnosis and treatment plan were discussed and questions were answered to the patient's satisfaction. Pt acknowledged understanding of concepts and follow up plan. Specific signs and symptoms that would indicate the need for higher level of care were discussed indetail warranting prompt ER evaluation. Ade Cheung APRN.CNP * Ade Cheung APRN.CNP - 09/01/2022 8:21 AM EDT documented in this encounterSelect [facility]10-16-2022 Instructions* Patient Instructions* Ade Cheung APRN.CNP - 09/01/2022 8:23 AM EDT -Increase fluid intake. --Rest as much as possible. - Nasal saline spray, elias pot, flonase Take the entire course of antibiotics as prescribed. DO NOT stop taking it early, even if you are feeling better. -Monitor for signs of worsening infection: increased temperature, pain in face, ear pain or headaches or increase in nasal congestion/mucous that is not improving. -Educated patient on side effects of medication. Fluconazole as needed for development of yeast infection * Prednisone 40 mg (2 tablets) per day for 5 days, take in morning or early in day * Do not NSAIDs during this 5 day course (ibuprofen, naproxen, Motrin, Aleve, Advil) Tylenol only during prednisone use * Follow up with primary care provider if no improvement with treatment * Seek medical care immediately, call 911, go to ER if you have chest pain, difficulty breathing, shortness of breath, inability to swallow. documented in this encounterSelect [facility]10-06-2022 Miscellaneous Notes* Telephone Encounter - Yolis Royal Ma - 08/22/2022 7:56 AM EDT Appointment previously scheduled for 09/14. * Telephone Encounter - Yahir Raygoza MD - 08/21/2022 9:48 PM EDT Staff, Please take apt in 3 months for patient to see me Regards, Yahir Raygoza MD documented in this encounterSelect [facility]10-05-2022 Miscellaneous Notes* Telephone Encounter - Ami Hernandez Ma - 08/21/2022 8:29 AM EDT Labs in process documented in this encounterSelect [facility]06-27-2022 History of Present illness Narrative* Hector Black MD - 05/13/2022 5:39 PM EDT Patient presents with: Insect Bite: R lower leg x5 days HPI: Skin Lesion: Location: Right leg upper sandhu Duration: Madill a bite and brushed something off while cleaning up fallen trees in her yard 4 days ago. Pruritis/Pain: Little itchy, slight firmness, a little tender to press on Change: Enlarging and darker Drainage/blister/pustule/ulceration: red Treatment: tea tree oil MEDICATIONS: Magnesium Glycinate 100 mg tab Take 500 mg by mouth as needed. Takes up to 500mg prn PROGESTERONE 10% (100 MG/ML) CREAM Apply to affected area. Compounded Rx taking Days 3-11 taking 30mg, days 12/ taking 60mg loratadine (CLARITIN) 10 mg tablet Take 1 tablet by mouth once daily as needed. fluticasone (FLONASE) 50 mcg/actuation nasal spray Use 2 Sprays in each nostril once daily. Rinse mouth after use. CETIRIZINE HCL (ZYRTEC ORAL) Take 10 mg by mouth once daily. FLUTICASONE PROPIONATE (FLONASE NASAL) Use in the nose. vortioxetine (BRINTELLIX) 10 mg tab Take by mouth. phenazopyridine (PYRIDIUM, GERIDIUM) 200 mg tablet Take 1 tablet by mouth three times daily as needed (for urinary irritation). tolterodine ER (DETROL LA) 4 mg 24 hr capsule Take 1 capsule by mouth once daily. OTC PRODUCT 2 capsules twice daily. Minchex OTC NUTRITIONAL SUPPLEMENT 2 tablets twice daily. Symplex-F Multivitamin capsule Take 1 capsule by mouth once daily. Ascorbic Acid (VITAMIN C) 1,000 mg tablet Take 1,000 mg by mouth as needed. Herbal Complex No.174 (ECHINACEA & GOLDENSEAL) 450 mg cap Take by mouth twice daily. LACTOBACILLUS ACIDOPHILUS (PROBIOTIC ORAL) Take by mouth. 500 million bacillius coagulans takes 4 daily ALLERGIES: ALLERGIES Allergen Reactions Erythromycin Hives Percocet [Oxycodone* Vomiting Seasonal Allergies Other: See Comments Cats Dogs Dust mites trees (January, February and March) weeds (June, July and August) ragweed (June, July and August) VITALS: BP 128/82 Pulse 105 Temp 36.4 C (97.6 F) Resp 20 Wt 100.4 kg (221 lb 6.4 oz) LMP 01/29/2022 (Exact Date) SpO2 97% BMI 40.49 kg/m PE: Pleasant, in no acute distress. Right lecm circular non-blanching red lesion upper sandhu. There is trace induration and tenderness, central <1mm papule/defect near the center. ASSESSMENT/PLAN: 1. Toxic effect of venom of other arthropod, accidental (unintentional), initial encounter - ICD9: 989.5, E905.5, ICD10: T63.481A Bite or sting from undetermined source. Treat with steroid cream and expectant management. - TRIAMCINOLONE ACETONIDE 0.1 % TOPICAL CREAM Follow up with significant increasing redness, swelling, pain, or ulceration. Hector Black MD documented in this encounterSelect [facility]06-17-2022 History of Present illness Narrative* Carol Montoya MD - 05/03/2022 4:41 PM EDT Rachel Choi 1980 REFERRING PHYSICIAN: Self CHIEF COMPLAINT: Hospital Follow Up (ER [facility] for gallbladder pain) HPI: The patient is a 41 year old female presents with RUQ abdominal pain. She was seen at [place] [facility] on April 28 for RUQ abdominal pain. She has known biliary dyskinesia. She was seen by me in Nov 2019 for consideration of surgery and patient deferred. PAST MEDICAL HISTORY Diagnosis Date Allergic rhinitis Colon polyps Constipation during Multiple thyroid nodules Obesity Psychiatric disorder ANXIETY Psychiatric disorder anxiety Tobacco abuse PAST SURGICAL HISTORY Procedure Laterality Date DELIVERY ONLY , low transverse DELIVERY ONLY 2020 COLONOSCOPY 06/2019 COLONOSCOPY FLX DX W/COLLJ SPEC WHEN PFRMD 03/22/2015 Colonoscopy ESOPHAGOGASTRODUODENOSCOPY TRANSORAL DIAGNOSTIC 03/22/2015 EGD LAPAROSCOPIC APPENDECTOMY 1995 w/ lysis of adhesions PAST SURGICAL HISTORY OF 2001 laparoscopy with lysis of adhesions. Current Outpatient Medications Medication Sig Magnesium Glycinate 100 mg tab Take 500 mg by mouth as needed. Takes up to 500mg prn fluticasone (FLONASE) 50 mcg/actuation nasal spray Use 2 Sprays in each nostril once daily. Rinse mouth after use. CETIRIZINE HCL (ZYRTEC ORAL) Take 10 mg by mouth once daily. Multivitamin capsule Take 1 capsule by mouth once daily. Ascorbic Acid (VITAMIN C) 1,000 mg tablet Take 1,000 mg by mouth as needed. PROGESTERONE 10% (100 MG/ML) CREAM Apply to affected area. Compounded Rx taking Days 3- taking 30mg, days 11/13 taking 60mg (Patient not taking: Reported on 02/14/2022 ) loratadine (CLARITIN) 10 mg tablet Take 1 tablet by mouth once daily as needed. (Patient not taking: Reported on 08/12/2021 ) FLUTICASONE PROPIONATE (FLONASE NASAL) Use in the nose. (Patient not taking: Reported on 05/03/2022 ) vortioxetine (BRINTELLIX) 10 mg tab Take by mouth. (Patient not taking: Reported on 08/12/2021 ) phenazopyridine (PYRIDIUM, GERIDIUM) 200 mg tablet Take 1 tablet by mouth three times daily as needed (for urinary irritation). (Patient not taking: Reported on 02/14/2022 ) tolterodine ER (DETROL LA) 4 mg 24 hr capsule Take 1 capsule by mouth once daily. (Patient not taking: Reported on 02/14/2022 ) OTC PRODUCT 2 capsules twice daily. Minchex (Patient not taking: Reported on 02/14/2022 ) OTC NUTRITIONAL SUPPLEMENT 2 tablets twice daily. Symplex-F (Patient not taking: Reported on 02/14/2022 ) Herbal Complex No.174 (ECHINACEA & GOLDENSEAL) 450 mg cap Take by mouth twice daily. (Patient not taking: Reported on 02/14/2022 ) LACTOBACILLUS ACIDOPHILUS (PROBIOTIC ORAL) Take by mouth. 500 million bacillius coagulans takes 4 daily (Patient not taking: Reported on 02/14/2022 ) ALLERGIES: Erythromycin, Percocet [Oxycodone-Acetaminophen], and Seasonal Allergies PERSONAL HISTORY: Social History Tobacco Use Smoking status: Former Smoker Years: 5.00 Types: Cigarettes Quit date: 02/23/2019 Years since quittin.1 Smokeless tobacco: Never Used Tobacco comment: Currently smoking 1cigarette a day Vaping Use Vaping Use: Some days Devices: Pre-filled or refillable cartridge, Juul 3% Substance Use Topics Alcohol use: No Drug use: No FAMILY HISTORY Problem Relation Age of Onset other (IBS) Brother digestive issues Anxiety disorder Mother other (ulcers) Mother other (ulcers) Father hiatal hernia other (acid reflux) Sister Cancer Maternal Grandfather lung Cancer Paternal Grandmother lung cancer Cancer Paternal Grandfather bladder cancer No Known Problems Son The review of systems data was entered by the nurse and reviewed by fl Nursing Notes: Loco Mars LPN 05/03/2022 3:44 PM Signed REVIEW OF SYSTEMS: General: The patient denies fatigue, denies weight loss, denies weight gain, denies feeling hot, and denies feelings of cold. Eyes: The patient denies glaucoma, denies eye injury/surgery, wears glasses or contacts. Ear/Nose/Throat: The patient notes allergies, denies hayfever, denies ear infections, and denies bloody noses. Cardiovascular: The patient denies chest pain, denies heart disease, denies high blood pressure,denies cardiac stent, denies prior heart attack, denies irregular heart beat, denies high cholesterol, denies poor circulation, denies heart failure, other cardiac issues, denies claudication, denies cold feet, denies peripheral arterial stent. Respiratory: The patient denies tuberculosis, denies pneumonia, denies frequent cough, denies pulmonary embolism, denies shortness of breath, and denies coughing up blood. Gastrointestinal: The patient denies difficulty swallowing, denies acid reflux, denies ulcers, denies vomiting, denies jaundice/hepatitis, notes gallbladder problems, denies black or tarry stools, denies hemorrhoids, denies bleeding from rectum, denies diverticulitis, denies constipation, denies diarrhea, denies loss of stool control, and denies hernias. Kidney/Bladder: The patient denies kidney stones, denies urine infections, and denies bloody urine. Skin: The patient denies a history of skin cancer, denies bleeding/changing moles, and denies a history of skin rash. Neurologic: The patient denies a history of epilepsy/convulsions, denies headaches, denies head/spinal injuries, and denies stroke/TIA. Psychiatric: The patient denies psychiatric medications, denies depression, and denies voices, denies substance abuse. Endocrine: The patient denies thyroid disorders, denies diabetes, and denies hormonal problems. Hematologic: The patient denies a history of bruising, denies bleeding, and denies anemia, denies blood clots. Infections: The patient denies a history of measles and mumps, denies rheumatic fever, and denies sexually transmitted diseases. Musculoskeletal: The patient denies back pain/injury, denies back problems, denies sciatica, deniesknee/foot trouble, denies arthritis, or denies gout. When was patient's last Mammogram screening? 2021 Last Colonoscopy: 2019 Loco Mars LPN PHYSICAL EXAMINATION: General: The patient is 41 year old female, well nourished, well hydrated in no acute distress. Thepatient is oriented to time, place, and person. VITALS: Blood pressure 132/74, pulse 111, temperature 36.6 C (97.9 F), height 157.5 cm (5' 2"), weight 101.2 kg (223 lb), last menstrual period 01/29/2022, SpO2 99 %. Body mass index is 40.79 kg/m . Head: Normal cephalic, atraumatic Eyes: pupils are equally round, sclera are clear/anicteric Neck is supple with no tracheal deviation Respiratory: Normal respiratory excursion and pattern. Abdominal exam: benign Extremities: no clubbing, cyanosis or edema. Neuro: non focal Psych: normal mood Assessment IMPRESSION: RUQ abdominal pain, abnormal HIDA scan PLAN: I have discussed the above with the patient. I have recommended laparoscopic cholecystectomy possible cholangiograms I have explained the procedure to the patient. I have counseled the patient as to the risks of the procedure, including but not limited to: infection, bleeding, injury to any blood vessels/nerves, scar tissue, injury to any intrabdominal organs, injury to bowel/bladder, injury to the common bile duct/biliary tree, bile leakage, intraabdominal abscess/bleeding, hernias at incisional sites, wound infections, complications of anesthesia, etc. the patient understands. To be scheduled in [place] with either Dr. Williamson or Dr. Cardona The patient wishes to proceed. I have answered all questions to the patient s satisfaction and the patient has no further questions. I have confirmed and edited as necessary, the PFSH and ROS obtained by others. . Diagnoses: (R10.11) RUQ abdominal pain (primary encounter diagnosis) (R94.8) Abnormal biliary HIDA scan Return to Clinic: The patient is instructed to follow-up in the clinic after the procedure. . I spent a total of 21 minutes on the date of the service which included preparing to see the patient with review of any pertinent laboratory studies/radiological imaging/medical records from other medical facilities such as [facility], [id number] patient care, obtaining oral medical history from the patient in this encounter, and completing appropriate medical documentation. Carol Monotya MD documented in this encounter[facility] Nurse Note* Loco MadisynFILIBERTO - 05/03/2022 3:43 PM EDT REVIEW OF SYSTEMS: General: The patient denies fatigue, denies weight loss, denies weight gain, denies feeling hot, and denies feelings of cold. Eyes: The patient denies glaucoma, denies eye injury/surgery, wears glasses or contacts. Ear/Nose/Throat: The patient notes allergies, denies hayfever, denies ear infections, and denies bloody noses. Cardiovascular: The patient denies chest pain, denies heart disease, denies high blood pressure,denies cardiac stent, denies prior heart attack, denies irregular heart beat, denies high cholesterol, denies poor circulation, denies heart failure, other cardiac issues, denies claudication, denies cold feet, denies peripheral arterial stent. Respiratory: The patient denies tuberculosis, denies pneumonia, denies frequent cough, denies pulmonary embolism, denies shortness of breath, and denies coughing up blood. Gastrointestinal: The patient denies difficulty swallowing, denies acid reflux, denies ulcers, denies vomiting, denies jaundice/hepatitis, notes gallbladder problems, denies black or tarry stools, denies hemorrhoids, denies bleeding from rectum, denies diverticulitis, denies constipation, denies diarrhea, denies loss of stool control, and denies hernias. Kidney/Bladder: The patient denies kidney stones, denies urine infections, and denies bloody urine. Skin: The patient denies a history of skin cancer, denies bleeding/changing moles, and denies a history of skin rash. Neurologic: The patient denies a history of epilepsy/convulsions, denies headaches, denies head/spinal injuries, and denies stroke/TIA. Psychiatric: The patient denies psychiatric medications, denies depression, and denies voices, denies substance abuse. Endocrine: The patient denies thyroid disorders, denies diabetes, and denies hormonal problems. Hematologic: The patient denies a history of bruising, denies bleeding, and denies anemia, denies blood clots. Infections: The patient denies a history of measles and mumps, denies rheumatic fever, and denies sexually transmitted diseases. Musculoskeletal: The patient denies back pain/injury, denies back problems, denies sciatica, deniesknee/foot trouble, denies arthritis, or denies gout. When was patient's last Mammogram screening? 2021 Last Colonoscopy: 2018 Loco Mars LPN documented in this encounterSelect [facility]22 History of Present illness Narrative* Yahir Raygoza MD - 05/01/2022 4:02 PM EDT Reason for Visit Patient presents with: Established Patient: follow up to ER 04/28/2022- flank pain Rachel Choi is a 41 year old female who presents here today for Above Complaints.. Health Maintenance HEPATITIS C SCREENING HIV SCREENING MAMMOGRAM COVID-19 VACCINE(3 - Booster for Moderna series) HPI 2016 After her first child she had low ef of 12 percent of her gall bladder . She was told that shecould have attracts and when she decides to she could have the gall bladder removed. She had severe pain in the RUQ on Friday afternoon and slowly worsening till it got really severeand they had to go to the ER. There the ruq exam gave her severe pain, she had a US which showed nogall stones. And a possible renal cyst. She is going to see Dr montoya next year. No problem-specific Assessment & Plan notes found for this encounter. PAST MEDICAL HISTORY Diagnosis Date Allergic rhinitis Colon polyps Constipation during Multiple thyroid nodules Obesity Psychiatric disorder ANXIETY Psychiatric disorder anxiety Tobacco abuse PAST SURGICAL HISTORY Procedure Laterality Date DELIVERY ONLY , low transverse COLONOSCOPY 06/2019 COLONOSCOPY FLX DX W/COLLJ SPEC WHEN PFRMD 03/22/15 Colonoscopy ESOPHAGOGASTRODUODENOSCOPY TRANSORAL DIAGNOSTIC 03/22/15 EGD LAPAROSCOPIC APPENDECTOMY 1995 w/ lysis of adhesions PAST SURGICAL HISTORY OF 2001 laparoscopy with lysis of adhesions. FAMILY HISTORY Problem Relation Age of Onset other (IBS) Brother digestive issues Anxiety disorder Mother other (ulcers) Mother other (ulcers) Father hiatal hernia other (acid reflux) Sister Cancer Maternal Grandfather lung Cancer Paternal Grandmother lung cancer Cancer Paternal Grandfather bladder cancer No Known Problems Son Social History Tobacco Use Smoking status: Former Smoker Years: 5.00 Types: Cigarettes Quit date: 02/23/2019 Years since quittin.1 Smokeless tobacco: Never Used Tobacco comment: Currently smoking 1cigarette a day Vaping Use Vaping Use: Some days Devices: Pre-filled or refillable cartridge, Juul 3% Substance Use Topics Alcohol use: No Drug use: No Past medical history, appointments, medications, allergies reviewed. Pertinent Lab/Diagnostic Studies are reviewed and discussed today Current Outpatient Medications: Magnesium Glycinate 100 mg tab PROGESTERONE 10% (100 MG/ML) CREAM loratadine (CLARITIN) 10 mg tablet fluticasone (FLONASE) 50 mcg/actuation nasal spray CETIRIZINE HCL (ZYRTEC ORAL) FLUTICASONE PROPIONATE (FLONASE NASAL) vortioxetine (BRINTELLIX) 10 mg tab phenazopyridine (PYRIDIUM, GERIDIUM) 200 mg tablet tolterodine ER (DETROL LA) 4 mg 24 hr capsule OTC PRODUCT OTC NUTRITIONAL SUPPLEMENT Multivitamin capsule Ascorbic Acid (VITAMIN C) 1,000 mg tablet Herbal Complex No.174 (ECHINACEA & GOLDENSEAL) 450 mg cap LACTOBACILLUS ACIDOPHILUS (PROBIOTIC ORAL) Review of Systems CONSTITUTIONAL: No fevers, chills night sweats, unintended weight loss CARDIOVASCULAR: No chest pain, dyspnea, palpitations, orthopnea, PND, ankle edema. PULM: No dyspnea, unexplained cough. GI: No dysphagia/odynophagia, problematic reflux, constipation, diarrhea, changes in stool habits, hematochezia, melena. : No new urinary complaints, including dysuria, gross hematuria or pyuria. NEURO: No new balance problems, peripheral weakness/paresthesias or numbness of concern. Physical Exam BP 122/72 (BP Site: Left Arm, BP Position: Sitting, BP Cuff Size: Large Adult) Pulse (!) 122 Temp 36.4 C (97.6 F) Resp 14 Ht 157.5 cm (5' 2") Wt 101.6 kg (224 lb) LMP 01/29/2022 (Exact Date) SpO2 98% BMI 40.97 kg/m General appearance: Well appearing, alert, in no acute distress, well nourished. Skin: Skin color, texture, turgor normal, no suspicious rashes or lesions Head: Normocephalic, no masses, lesions, tenderness or abnormalities Eyes: Anicteric sclera. Pupils are equally round and reactive to light. Extraocular movements are intact. Lungs: Lungs clear to auscultation. No wheezing, rhonchi, rales Heart: RRR without murmur, gallop, or rubs. Extremities: No deformities, edema, skin discoloration, clubbing or cyanosis. Good capillary refill. ASSESSMENT/PLAN: 1. Acquired cyst of kidney - ICD9: 593.2, ICD10: N28.1 - CT KIDNEY WO/W IVCON 2. Cholecystitis - ICD9: 575.10, ICD10: K81.9 - NM HEPATOBILIARY W EF AND/OR RX Yahir Raygoza MD documented in this encounterSelect [facility]06-[facility]-2022 Miscellaneous Notes* Telephone Encounter - Baylee Pastrana LPN - 04/18/2022 9:53 AM EDT Phone call placed patient advised (see prior provider encounter) Patient verbalized understanding, agreed with plan of care. Baylee Pastrana LPN * Telephone Encounter - Baylee Pastrana LPN - 04/18/2022 9:39 AM EDT ----- Message from Mildred Jason APRN.[employer] sent at 04/18/2022 8:57 AM EDT ----- Urine culture did not show clear evidence of infection. However it appears the sample may have beencontaminated during collection. Recommend follow up with PCP to ensure hematuria has resolved. Mildred Jason CNP documented in this encounterSelect [facility]05-31-2022 History of Present illness Narrative* Db Goddard APRN.FLOOR SPACE [employer]OCATOR - 04/16/2022 5:44 PM EDT Subjective HPI A nontoxic appearing female presents to urgent care with chief complaint of possible UTI. Duration of symptoms today. Associated symptoms dysuria, frequency, and urgency. Patient has history of UTIs in past with similar signs and symptoms. Was seen by me on 04-07 . Urine culture positive S. Saprophyticus. Patient was placed on Keflex. Patient denies the use of any [id number] medications or home remedies for symptom management. Patient states pain is a 3/10. Patient denies any fevers, flankpain, abdominal pain, nausea, vomiting, vaginal discharge, chance of STDs, chance of , or urological abnormalities. Past medical history prescription medication use allergies reviewed. .Patient presents with: Urinary Frequency: burning with urination x today, finished keflex friday PAST MEDICAL HISTORY Diagnosis Date Allergic rhinitis Colon polyps Constipation during Multiple thyroid nodules Obesity Psychiatric disorder ANXIETY Psychiatric disorder anxiety Tobacco abuse PAST SURGICAL HISTORY Procedure Laterality Date DELIVERY ONLY , low transverse COLONOSCOPY 06/2019 COLONOSCOPY FLX DX W/COLLJ SPEC WHEN PFRMD 03/22/15 Colonoscopy ESOPHAGOGASTRODUODENOSCOPY TRANSORAL DIAGNOSTIC 03/22/15 EGD LAPAROSCOPIC APPENDECTOMY 1995 w/ lysis of adhesions PAST SURGICAL HISTORY OF 2001 laparoscopy with lysis of adhesions. ALLERGIES Erythromycin, Percocet [Oxycodone-Acetaminophen], and Seasonal Allergies MEDICATIONS Magnesium Glycinate 100 mg tab Take 200 mg by mouth DAILY AT 6 PM. Takes up to 400mg prn fluticasone (FLONASE) 50 mcg/actuation nasal spray Use 2 Sprays in each nostril once daily. Rinse mouth after use. CETIRIZINE HCL (ZYRTEC ORAL) Take by mouth. FLUTICASONE PROPIONATE (FLONASE NASAL) Use in the nose. Multivitamin capsule Take 1 capsule by mouth once daily. Ascorbic Acid (VITAMIN C) 1,000 mg tablet Take 1,000 mg by mouth once daily. nitrofurantoin monohydrate and macrocrystal (MACROBID) 100 mg capsule Take 1 capsule by mouth twicedaily with meals for 7 days. PROGESTERONE 10% (100 MG/ML) CREAM Apply to affected area. Compounded Rx taking Days 3- taking 30mg, days 11/13 taking 60mg loratadine (CLARITIN) 10 mg tablet Take 1 tablet by mouth once daily as needed. vortioxetine (BRINTELLIX) 10 mg tab Take by mouth. phenazopyridine (PYRIDIUM, GERIDIUM) 200 mg tablet Take 1 tablet by mouth three times daily as needed (for urinary irritation). tolterodine ER (DETROL LA) 4 mg 24 hr capsule Take 1 capsule by mouth once daily. OTC PRODUCT 2 capsules twice daily. Minchex OTC NUTRITIONAL SUPPLEMENT 2 tablets twice daily. Symplex-F Herbal Complex No.174 (ECHINACEA & GOLDENSEAL) 450 mg cap Take by mouth twice daily. LACTOBACILLUS ACIDOPHILUS (PROBIOTIC ORAL) Take by mouth. 500 million bacillius coagulans takes 4 daily FAMILY HISTORY Problem Relation Age of Onset other (IBS) Brother digestive issues Anxiety disorder Mother other (ulcers) Mother other (ulcers) Father hiatal hernia other (acid reflux) Sister Cancer Maternal Grandfather lung Cancer Paternal Grandmother lung cancer Cancer Paternal Grandfather bladder cancer No Known Problems Son Social History Tobacco Use Smoking status: Former Smoker Years: 5.00 Types: Cigarettes Quit date: 02/23/2019 Years since quittin.1 Smokeless tobacco: Never Used Tobacco comment: Currently smoking 1cigarette a day Vaping Use Vaping Use: Some days Devices: Pre-filled or refillable cartridge, Juul 3% Substance Use Topics Alcohol use: No Drug use: No BP 122/72 Pulse 110 Temp 36.9 C (98.5 F) Resp 18 Wt 102.1 kg (225 lb) LMP 01/29/2022 (Exact Date) SpO2 97% BMI 40.27 kg/m Hr 98 Review of Systems Constitutional: Negative for chills, fever and malaise/fatigue. HENT: Negative for congestion, ear discharge, ear pain, sinus pain and sore throat. Eyes: Negative for blurred vision, pain, discharge and redness. Respiratory: Negative for cough, hemoptysis, sputum production, shortness of breath, wheezing and stridor. Cardiovascular: Negative for chest pain. Gastrointestinal: Negative for abdominal pain, diarrhea, nausea and vomiting. Genitourinary: Positive for dysuria, frequency and urgency. Negative for flank pain and hematuria. Musculoskeletal: Negative for myalgias. Skin: Negative for itching and rash. Neurological: Negative for dizziness and headaches. Objective Physical Exam Constitutional: General: She is not in acute distress. Appearance: She is not diaphoretic. HENT: Head: Normocephalic. Eyes: Conjunctiva/sclera: Conjunctivae normal. Pupils: Pupils are equal, round, and reactive to light. Cardiovascular: Rate and Rhythm: Normal rate and regular rhythm. Heart sounds: Normal heart sounds. Pulmonary: Effort: Pulmonary effort is normal. No tachypnea, accessory muscle usage or respiratory distress. Breath sounds: Normal breath sounds. No stridor. Abdominal: Palpations: Abdomen is soft. Tenderness: There is no abdominal tenderness. There is no right CVA tenderness or left CVA tenderness. Musculoskeletal: Cervical back: Normal range of motion and neck supple. No rigidity or tenderness. Lymphadenopathy: Cervical: No cervical adenopathy. Skin: General: Skin is warm and dry. Neurological: Mental Status: She is alert and oriented to person, place, and time. ASSESSMENT/PLAN: 1. Urinary frequency - ICD9: 788.41, ICD10: R35.0 - UA DIP, URINE (POC) - URINE CULTURE Macrobid Urine positive for blood. No leukocytes noted. With patient's previous history of UTIs patient willtake Macrobid that was called in by PCP today. Patient was educated on supportive therapies. Patient will follow up with primary care provider as needed. Patient was instructed to immediately proceedto emergency room for any new, worsening, or symptoms lasting longer than anticipated. The patient's clinical presentation is otherwise unremarkable at this time. Based on exam and clinical finding, the patient is stable for discharge. Plan of care was discussed with patient. Patient verbalizes understanding and agrees to plan of care. This note was generated using [employer] software. It may containerrors in wording, punctuation, or spelling. Db Goddard APRN.CNP documented in this encounterSelect [facility]05-24-2022 Miscellaneous Notes* Telephone Encounter - Baylee Pastrana LPN - 04/09/2022 3:51 PM EDT Phone call placed patient advised (see prior provider encounter) Patient verbalized understanding, agreed with plan of care. Baylee Pastrana LPN * Telephone Encounter - Kalpana Serna LPN - 04/09/2022 7:49 AM EDT Unable to reach patient-try later.Kalpana Serna LPN * Telephone Encounter - Uvaldo Rocha APRN.CNP - 04/09/2022 7:31 AM EDT Please notify that urine culture showed uti. The atb should work. F/u for continued/worsening s/s. documented in this encounterSelect [facility]05-22-[facility]22 History of Present illness Narrative* Db Goddard APRN.CNP - 04/07/2022 8:39 AM EDT Subjective HPI A nontoxic appearing female presents to urgent care with chief complaint of possible UTI. Duration of symptoms 1 day. Associated symptoms dysuria, frequency, and urgency. Patient has history of UTIs in past with similar signs and symptoms. Patient denies the use of any [id number]-mps-[id number] medications or home remedies for symptom management. Patient states pain is a 3/10. Patient denies any fevers, flank pain, abdominal pain, nausea, vomiting, vaginal discharge, chance of STDs, chance of ,or urological abnormalities. Past medical history prescription medication use allergies reviewed. .Patient presents with: Urinary Frequency: burning with urination x 1 day PAST MEDICAL HISTORY Diagnosis Date Allergic rhinitis Colon polyps Constipation during Multiple thyroid nodules Obesity Psychiatric disorder ANXIETY Psychiatric disorder anxiety Tobacco abuse PAST SURGICAL HISTORY Procedure Laterality Date DELIVERY ONLY , low transverse COLONOSCOPY 06/2019 COLONOSCOPY FLX DX W/COLLJ SPEC WHEN PFRMD 03/22/15 Colonoscopy ESOPHAGOGASTRODUODENOSCOPY TRANSORAL DIAGNOSTIC 03/22/15 EGD LAPAROSCOPIC APPENDECTOMY 1995 w/ lysis of adhesions PAST SURGICAL HISTORY OF 2001 laparoscopy with lysis of adhesions. ALLERGIES Erythromycin, Percocet [Oxycodone-Acetaminophen], and Seasonal Allergies MEDICATIONS Magnesium Glycinate 100 mg tab Take 200 mg by mouth DAILY AT 6 PM. Takes up to 400mg prn fluticasone (FLONASE) 50 mcg/actuation nasal spray Use 2 Sprays in each nostril once daily. Rinse mouth after use. CETIRIZINE HCL (ZYRTEC ORAL) Take by mouth. FLUTICASONE PROPIONATE (FLONASE NASAL) Use in the nose. Multivitamin capsule Take 1 capsule by mouth once daily. Ascorbic Acid (VITAMIN C) 1,000 mg tablet Take 1,000 mg by mouth once daily. PROGESTERONE 10% (100 MG/ML) CREAM Apply to affected area. Compounded Rx taking Days 3-11 taking 30mg, days 11/13 taking 60mg loratadine (CLARITIN) 10 mg tablet Take 1 tablet by mouth once daily as needed. vortioxetine (BRINTELLIX) 10 mg tab Take by mouth. phenazopyridine (PYRIDIUM, GERIDIUM) 200 mg tablet Take 1 tablet by mouth three times daily as needed (for urinary irritation). tolterodine ER (DETROL LA) 4 mg 24 hr capsule Take 1 capsule by mouth once daily. OTC PRODUCT 2 capsules twice daily. Minchex OTC NUTRITIONAL SUPPLEMENT 2 tablets twice daily. Symplex-F Herbal Complex No.174 (ECHINACEA & GOLDENSEAL) 450 mg cap Take by mouth twice daily. LACTOBACILLUS ACIDOPHILUS (PROBIOTIC ORAL) Take by mouth. 500 million bacillius coagulans takes 4 daily FAMILY HISTORY Problem Relation Age of Onset other (IBS) Brother digestive issues Anxiety disorder Mother other (ulcers) Mother other (ulcers) Father hiatal hernia other (acid reflux) Sister Cancer Maternal Grandfather lung Cancer Paternal Grandmother lung cancer Cancer Paternal Grandfather bladder cancer No Known Problems Son Social History Tobacco Use Smoking status: Former Smoker Years: 5.00 Types: Cigarettes Quit date: 02/23/2019 Years since quittin.1 Smokeless tobacco: Never Used Tobacco comment: Currently smoking 1cigarette a day Vaping Use Vaping Use: Some days Devices: Pre-filled or refillable cartridge, Juul 3% Substance Use Topics Alcohol use: No Drug use: No BP 118/78 Pulse 112 Temp 36.7 C (98.1 F) Resp 16 Wt 101.2 kg (223 lb) LMP 01/29/2022 (Exact Date) SpO2 98% BMI 39.91 kg/m Hr 91 Review of Systems Constitutional: Negative for chills, fever and malaise/fatigue. HENT: Negative for congestion, ear discharge, ear pain, sinus pain and sore throat. Eyes: Negative for blurred vision, pain, discharge and redness. Respiratory: Negative for cough, hemoptysis, sputum production, shortness of breath, wheezing and stridor. Cardiovascular: Negative for chest pain. Gastrointestinal: Negative for abdominal pain, diarrhea, nausea and vomiting. Genitourinary: Positive for dysuria, frequency and urgency. Negative for flank pain and hematuria. Musculoskeletal: Negative for myalgias. Skin: Negative for itching and rash. Neurological: Negative for dizziness and headaches. Objective Physical Exam Constitutional: General: She is not in acute distress. Appearance: She is not diaphoretic. HENT: Head: Normocephalic. Eyes: Conjunctiva/sclera: Conjunctivae normal. Pupils: Pupils are equal, round, and reactive to light. Cardiovascular: Rate and Rhythm: Normal rate and regular rhythm. Heart sounds: Normal heart sounds. Pulmonary: Effort: Pulmonary effort is normal. No tachypnea, accessory muscle usage or respiratory distress. Breath sounds: Normal breath sounds. No stridor. Abdominal: Palpations: Abdomen is soft. Tenderness: There is no abdominal tenderness. There is no right CVA tenderness or left CVA tenderness. Musculoskeletal: Cervical back: Normal range of motion and neck supple. No rigidity or tenderness. Lymphadenopathy: Cervical: No cervical adenopathy. Skin: General: Skin is warm and dry. Neurological: Mental Status: She is alert and oriented to person, place, and time. ASSESSMENT/PLAN: 1. Urinary frequency - ICD9: 788.41, ICD10: R35.0 - UA DIP, URINE (POC) - URINE CULTURE Urine positive for blood and leukocytes. History of UTIs with similar symptoms. Patiently placed onKeflex. Urine culture pending. Patient was educated on supportive therapies. Patient will follow upwith primary care provider as needed. Patient was instructed to immediately proceed to emergency room for any new, worsening, or symptoms lasting longer than anticipated. The patient's clinical presentation is otherwise unremarkable at this time. Based on exam and clinical finding, the patient is stable for discharge. Plan of care was discussed with patient. Patient verbalizes understanding and agrees to plan of care. This note was generated using [employer] software. It may contain errors in wording, punctuation, or spelling. Db Goddard APRN.GRACE documented in this encounterSelect Medical [facility]03-31-[facility]22 History of Present illness Narrative* Yahir Raygoza MD - 02/14/2022 8:28 AM EDT Reason for Visit Patient presents with: Yearly Exam: establish with pcp Rachel Hernandez Deon is a 41 year old female who presents here today for CPE. Health Maintenance DEPRESSION SCREENING HEPATITIS C SCREENING HIV SCREENING ONE PNEUMOVAX PRIOR TO AGE 65 MAMMOGRAM COVID-19 VACCINE(3 - Booster for Moderna series) HPI Has a 7 year old son and a 10 month old son. 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 Had a mammogram in Nov,. No problem-specific Assessment & Plan notes found for this encounter. PAST MEDICAL HISTORY Diagnosis Date Allergic rhinitis Colon polyps Constipation during Multiple thyroid nodules Obesity Psychiatric disorder ANXIETY Psychiatric disorder anxiety Tobacco abuse PAST SURGICAL HISTORY Procedure Laterality Date DELIVERY ONLY , low transverse COLONOSCOPY 06/2019 COLONOSCOPY FLX DX W/COLLJ SPEC WHEN PFRMD 03/22/15 Colonoscopy ESOPHAGOGASTRODUODENOSCOPY TRANSORAL DIAGNOSTIC 03/22/15 EGD LAPAROSCOPIC APPENDECTOMY 1995 w/ lysis of adhesions PAST SURGICAL HISTORY OF 2001 laparoscopy with lysis of adhesions. FAMILY HISTORY Problem Relation Age of Onset other (IBS) Brother digestive issues Anxiety disorder Mother other (ulcers) Mother other (ulcers) Father hiatal hernia other (acid reflux) Sister Cancer Maternal Grandfather lung Cancer Paternal Grandmother lung cancer Cancer Paternal Grandfather bladder cancer No Known Problems Son Social History Tobacco Use Smoking status: Former Smoker Years: 5.00 Types: Cigarettes Quit date: 02/23/2019 Years since quittin.9 Smokeless tobacco: Never Used Tobacco comment: Currently smoking 1cigarette a day Vaping Use Vaping Use: Some days Devices: Pre-filled or refillable cartridge, Juul 3% Substance Use Topics Alcohol use: No Drug use: No Past medical history, appointments, medications, allergies reviewed. Pertinent Lab/Diagnostic Studies are reviewed and discussed today Current Outpatient Medications: Magnesium Glycinate 100 mg tab fluticasone (FLONASE) 50 mcg/actuation nasal spray CETIRIZINE HCL (ZYRTEC ORAL) Multivitamin capsule Ascorbic Acid (VITAMIN C) 1,000 mg tablet PROGESTERONE 10% (100 MG/ML) CREAM loratadine (CLARITIN) 10 mg tablet FLUTICASONE PROPIONATE (FLONASE NASAL) vortioxetine (BRINTELLIX) 10 mg tab phenazopyridine (PYRIDIUM, GERIDIUM) 200 mg tablet tolterodine ER (DETROL LA) 4 mg 24 hr capsule OTC PRODUCT OTC NUTRITIONAL SUPPLEMENT Herbal Complex No.174 (ECHINACEA & GOLDENSEAL) 450 mg cap LACTOBACILLUS ACIDOPHILUS (PROBIOTIC ORAL) Review of Systems CONSTITUTIONAL: No fevers, chills, nightsweats, unintended weight loss HEENT: Denies frequent or severe heaches, nasal congestion/sinus symptoms, problematic allergy problems. EYES: No diplopia or blurry vision. CARDIOVASCULAR: No chest pain, dyspnea, palpitations, orthopnea, PND, ankle edema. PULM: No dyspnea, unexplained cough. GI: No dysphagia/odynophagia, problematic reflux, constipation, diarrhea, changes in stool habits, hematochezia, melena. : No new urinary complaints, including dysuria, gross hematuria or pyuria. NEURO: No new balance problems, peripheral weakness/paresthesias or numbness of concern. MUSC-SKEL: No new joint pain, swelling, or erythema. PSY: No concerns regarding depression, anxiety or panic. INTEGUMENTARY: No new skin changes (rash, new or changing mole, new growth) Physical Exam BP 124/82 Pulse 89 Temp 36.7 C (98 F) Resp 16 Ht 159.2 cm (5' 2.68") Wt 102.1 kg (225 lb) LMP 01/29/2022 (Exact Date) SpO2 99% BMI 40.27 kg/m General appearance: Well appearing, alert, in no acute distress, well-hydrated, well nourished. Skin: Skin color, texture, turgor normal, no suspicious rashes or lesions Head: Normocephalic, no masses, lesions, tenderness or abnormalities Eyes: Anicteric sclera. Pupils are equally round and reactive to light. Extraocular movements are intact. Ears: External ears normal, canals clear Nose/Sinuses: Nares normal, septum midline, mucosa normal, no drainage or sinus tenderness Oropharynx: Lips, mucosa, and tongue normal, teeth and gums normal, oropharynx normal Neck: Supple, no adenopathy; thyroid symmetric, normal size, no bruits Back: Normal exam Lungs: Lungs clear to auscultation. No wheezing, rhonchi, rales Heart: RRR without murmur, gallop, or rubs. No ectopy Abdomen: Normal abdominal exam, Abdomen soft, non-tender. Bowel sounds normal. No masses, organomegaly Extremities: No deformities, edema, skin discoloration, clubbing or cyanosis. Good capillary refill. Musculoskeletal: No joint swelling, deformity, or tenderness Peripheral pulses: Normal Neuro: Gait normal. Reflexes normal and symmetric. Sensation grossly intact. ASSESSMENT/PLAN: 1. Annual physical exam - ICD9: V70.0, ICD10: Z00.00 (primary diagnosis) - Counseled on healthy diet and regular exercise - Calcium intake with supplements or by diet of 1000 mg/day for under 50, 1200- 1500 mg/day for 50+ - LIPID PANEL BASIC - BASIC METABOLIC PNL - CBC + DIFF 2. Multiple thyroid nodules - ICD9: 241.1, ICD10: E04.2 - TSH BLD 3. Morbid obesity (HCC) - ICD9: 278.01, ICD10: E66.01 Stable - Medical nutrition therapy with dietitian Yahir Raygoza MD [facility]22 NotePap Smear QC Review February 12, 2022 3:15pmCommentMillie Taylor, Supervisory Special Crimes Investigator (ASCP)[facility] A#[id number] Work Phone: Comment on above:Millie Taylor, Supervisory Special Crimes Investigator (ASCP)02-12-2022 NotePap Smear QC ReviewGalion Hospital 2021 3:15pm CommentLorjoselyn Taylor, Supervisory Special Crimes Investigator (ASCP)[facility] A#[id number] Work Phone: Comment on above:Millie Taylor, Supervisory Special Crimes Investigator (ASCP)Discharge summary Author Rachel Ward [facility] June 08, 2023 7:02am Note Date/Time June 08, 2023 5:16 am [facility] Medical Records Department [address] [place] [id number] Emergency Department Summary 06/08/23 MR#: [id number] Acct: [id number] Name: RACHEL CHOI Rep #:[id number] : 1980 42 From: Rachel Ward MD PCP: Dr. Yahir Raygoza MD Status:REG E R Location: ED HPI History of Present Illness Chief Complaint: Flank Pain Detail of Chief Complaint: Right flank pain Informant: patient Onset/Context/Timing Onset: Today Context: Sudden Onset Timing: Waxes and wanes Current Severity: Severe Maximum Severity: Severe Narrative Narrative: Patient presents with right-sided back pain. She got up at 2 AM to do some workin her kitchen. She had sudden onset of nausea and severe pain to her right flank region. She had nausea but no vomiting. She took 2 Aleve and try to takea hot bath without improvement. She denies history of kidney stone. [facility] Medical History (Updated 06/08/23 @ 06:[address] Rachel Ward MD) Gestational diabetes Maternal anemia in , antepartum Spontaneous rupture of amiotic membranes Home Medications elderberry fruit 200 mg capsule PO DAILY supplement 03/21/21 [History Last Taken 03/20/21] magnesium 500 mg tablet 500 mg PO DAILY migraine prevention 03/21/21 [History Last Taken 03/19/21] hydrocodone-acetaminophen 5-325mg 5mg-325mg 1 tab PO Q4H PRN PRN Pain 2 days #10TABLETS 04/28/22 [Rx Last Taken Unknown] lorazepam 0.5 mg tablet (Ativan) 0.5 mg PO TID PRN Anxiety 04/28/22 [History Last Taken Unknown] ondansetron 4 mg disintegrating tablet 4 mg PO Q8H PRN PRN Nausea #10 tabs 04/28/22 [Rx Last Taken Unknown] hydrocodone-acetaminophen 5-325mg 5mg-325mg 1 tab PO Q6H PRN PRN Pain 3 days #12TABLETS 06/08/23 [Rx Last Taken Unknown] ibuprofen 800 mg tablet 800 mg PO Q8H PRN pain #20 tabs 06/08/23 [Rx Last Taken Unknown] ondansetron 4 mg disintegrating tablet 4 mg PO Q8H PRN PRN Nausea #10 tabs 06/08/23 [Rx Last Taken Unknown] tamsulosin 0.4 mg capsule (Flomax) 0.4 mg PO DAILY #10 caps 06/08/23 [Rx Last Taken Unknown] Allergy/AdvReac Type Severity Reaction Status Date / Time codeine AdvReac Nausea/Vom/ Verified 06/08/23 05:08 Diarrhea oxycodone HCl [From Percocet] AdvReac Nausea/Vom/ Verified 06/08/23 05:08 Diarrhea Surgical History (Updated 06/08/23 @ 05:[address] Rachel Ward MD) H/O bilateral salpingectomy Previous section Social History Smoking Status: Former smoker ROS ROS ED Constitutional Constitutional ED: Denies chills or fever(s) Eyes Eyes: Denies change in vision or discharge from eye(s) ENT ENT ED: Denies discharge from eye(s), rhinorrhea or sore throat Cardiovascular Cardiovascular: Denies chest pain or palpitations Respiratory/Chest Respiratory/Chest: Denies cough or dyspnea Gastrointestinal Gastrointestinal: Reports nausea; Denies abdominal pain or vomiting Genitourinary Genitourinary ED: Denies dysuria Musculoskeletal Musculoskeletal: Reports back pain; Denies extremity pain Integumentary Denies Abrasions or rash Neurologic Neurologic: Denies headache(s) or weakness Psychiatric Psychiatric: Denies anxiety or depression Allergic/Immunologic Allergic/Immunologic ED: Denies lip swelling or urticaria EXAM Physical Exam Const Vital Signs: 06/08/23 05:05 Temperature 98.1 F Temperature Source Oral Pulse Rate 99 Respiratory Rate 18 Blood Pressure 155/88 H Blood Pressure Mean 110 Pulse Ox 99 Oxygen Delivery Method Room Air Positive well nourished and well developed General Appearance ED: well developed HEENT Reports moist mucous membranes Eyes PERRL and EOMs intact bilaterally Neck no lymphadenopathy Chest Wall inspection of chest normal and palpation of chest normal Resp normal respiratory effort and clear to auscultation bilaterally Cardio regular rate and regular rhythm GI non-tender Auscultation: hypoactive bowel sounds Palpation: soft Back/Spine General Back: CVA tenderness right Extremity normal to inspection Neuro oriented x3 and no sensory deficits noted Motor Exam: strength 5/5 throughout Psych mental status grossly normal Skin no rashes or lesions noted MDM MDM MDM Narrative Medical decision making narrative: Patient is given Dilaudid, Toradol, Zofran, IV fluids. Labwork obtained to evaluate for leukocytosis, anemia, and electrolyte derangement. Urinalysis obtained to evaluate for infection/hematuria. CT flank obtained to evaluate forkidney stone. Lab Data Attestation: I reviewed the patient's lab results. Labs: Laboratory Results - last 24 hr 06/08/23 06/08/23 05:21 05:29 WBC 8.2 RBC 4.51 Hgb 12.2 Hct 37.4 MCV 82.9 MCH 27.1 MCHC 32.6 RDW Std Deviation 44.9 H RDW Coeff of Kelsey 14.9 H Plt Count 349 MPV 9.7 Immature Gran % (Auto) 0.500 Neut % (Auto) 62.8 Lymph % (Auto) 22.5 Butts % (Auto) 11.6 H Eos % (Auto) 2.1 Baso % (Auto) 0.5 Absolute Neuts (auto) 5.1 Absolute Lymphs (auto) 1.84 Nucleated RBC % 0 Sodium 139 Potassium 4.1 Chloride 109 H Carbon Dioxide 25.0 Anion Gap 5 BUN 15 Creatinine 0.81 Estim Creat Clear Calc 71.56 Est GFR (MDRD) Af Amer 100 Est GFR (MDRD) Non-Af 82 BUN/Creatinine Ratio 18.6 Glucose 108 H Calcium 8.9 Urine Color Yellow Urine Clarity Clear Urine pH 7.0 Ur Specific [place] 1.005 Urine Protein Negative Urine Glucose (UA) Normal Urine Ketones Negative Urine Occult Blood 250 H Urine Nitrite Negative Urine Bilirubin Negative Urine Urobilinogen Normal Ur Leukocyte Esterase Negative Urine RBC 0-5 SEEN Urine WBC 0 SEEN Ur Squamous Epith Cells 0-5 SEEN Urine Bacteria RARE Urine Mucus 0 SEEN Radiography Diagnostic Testing: Clinical Impression(s) from Imaging Studies Abdomen/Pelvis CT 06/08/23 05:14 IMPRESSION: 1. Slight acute right hydronephrosis to the level of a 3.6 mm stone in the proximal right ureter. The stone was previously in the right upper pole kidney. 2. Left nephrolithiasis, stable. 3. Stable hepatomegaly. Appendectomy. Mild degenerative spine changes. Electronically Signed: Henny Mix MD at 6:16 EDT Reading Location ID and State: [facility] / [place] Tel , Service support , Treatment and Re-Evaluation :: CBC was normal white count 8.2 with a hemoglobin of 12.2. Chemistry studies unremarkable with normal renal function. Urinalysis reveals no evidence of infection. 0-5 red cells noted on microscopic exam. CT scan of flank reveals a3.6 mm stone in the proximal right ureter with slight hydronephrosis. On repeat evaluation patient resting comfortably. Test results discussed with patient and at bedside. She will be given prescriptions for ibuprofen, Basom, Zofran, and Flomax. She will be referred to Dr. Winter for follow-up asneeded. Return instructions are given. Discharge Plan Triage Chief Complaint: Flank Pain ED Provider: Rachel Ward Dx/Rx/DC Orders Clinical Impression: Kidney stone on right side Instructions: ED Kidney Stone w/ Colic Prescriptions: New ibuprofen 800 mg tablet 800 mg PO Q8H PRN (Reason: pain) Qty: 20 0RF hydrocodone-acetaminophen 5-325 mg tablet 1 tab PO Q6H PRN PRN (Reason: Pain) 3 Days Qty: 12 0RF ondansetron 4 mg tablet,disintegrating 4 mg PO Q8H PRN PRN (Reason: Nausea) Qty: 10 0RF tamsulosin [Flomax] 0.4 mg capsule 0.4 mg PO DAILY Qty: 10 0RF No Action magnesium 500 mg Tablet 500 mg PO DAILY elderberry fruit 200 mg Capsule PO DAILY lorazepam [Ativan] 0.5 mg Tablet 0.5 mg PO TID PRN (Reason: Anxiety) hydrocodone-acetaminophen [hydrocodone-acetaminophen] 1 TABLET tablet 1 tab PO Q4H PRN PRN (Reason: Pain) 2 Days Qty: 10 0RF ondansetron [ondansetron] 4 MG tablet 4 mg PO Q8H PRN PRN (Reason: Nausea) Qty: 10 0RF Primary Care Provider: Yahir Raygoza Referrals: Yahir Raygoza MD [Primary Care Provider] - Bonny Winter MD [Med Staff - Active Staff] - As Needed Disposition Disposition: Home, Self Care What to do if you have Problems For any increased pain, shortness of breath, bleeding, nausea or vomiting, chestpain, or any unexpected problems, contact your Primary Care Provider. Call [facility] ([phone]) or report to the closest Emergency Room. Call 911 if necessary. 06/08/23 0702 <Electronically signed by Rachel Ward MD> Cosigner Signature (if applicable): CC: Dr. Yahir Raygoza MD ~ Signed [facility] Work Phone: Evaluation note* Diagnosis Annual physical exam- Primary Routine general medical examination at a health care facility Multiple thyroid nodules Nontoxic multinodular goiter Morbid obesity (HCC) Morbid obesity documented [facility] this encounter [facility] noteNo assessment information availableWUniversity Hospitals [facility] Work Phone: [facility]* Diagnosis Urinary frequency- Primary [facility] Diagnosis Urinary frequency- Primary documented in this encounter [facility] note* Diagnosis Acquired cyst of kidney Cholecystitis Cholecystitis, unspecified documented in this encounter [facility] note* Diagnosis RUQ abdominal pain- Primary Abdominal pain, right upper quadrant Abnormal biliary HIDA scan Nonspecific abnormal results of other specified function study documented in this encounter [facility] note* Diagnosis Toxic effect of venom of other arthropod, accidental (unintentional), initial encounter- Primary [facility] Diagnosis Encounter for screening mammogram for breast cancer Abdominal pain, right upper quadrant Abnormal biliary HIDA scan Nonspecific abnormal results of other specified function study documented in this encounter [facility] note* Diagnosis Annual physical exam- Primary Routine general medical examination at a health care facility Hypomagnesemia Disorders of magnesium metabolism Vitamin D deficiency Unspecified vitamin D deficiency Abdominal pain, right upper quadrant Abnormal biliary HIDA scan Nonspecific abnormal results of other specified function study documented in this encounter [facility] note* Diagnosis Thrombocythemia- Primary Essential thrombocythemia Abdominal pain, right upper quadrant Abnormal biliary HIDA scan Nonspecific abnormal results of other specified function study documented in this encounter [facility] note* Diagnosis Acute non-recurrent pansinusitis- Primary Feared condition not demonstrated Person with feared complaint in whom no diagnosis was made Abdominal pain, right upper quadrant Abnormal biliary HIDA scan Nonspecific abnormal results of other specified function study documented in this encounter [facility] note* Diagnosis Special screening examination for viral disease- Primary Special screening examination for unspecified viral disease Screening for HIV (human immunodeficiency virus) Special screening examination for other specified viral diseases RUQ abdominal pain Abdominal pain, right upper quadrant Abdominal pain, right upper quadrant Abnormal biliary HIDA scan Nonspecific abnormal results of other specified function study documented in this encounter [facility] note* Diagnosis Pre-op evaluation- Primary Preoperative examination, unspecified Obesity due to excess calories without serious comorbidity, unspecified classification Abdominal pain, right upper quadrant Abnormal biliary HIDA scan Nonspecific abnormal results of other specified function study documented in this encounter [facility] note* Diagnosis Obesity without serious comorbidity, unspecified classification, unspecified obesity type- Primary Biliary dyskinesia Other specified disorder of gallbladder Abdominal pain, right upper quadrant Abnormal biliary HIDA scan Nonspecific abnormal results of other specified function study documented in this encounter [facility] note* Diagnosis Thrombocythemia- Primary Essential thrombocythemia Obesity without serious comorbidity, unspecified classification, unspecified obesity type documented in this encounter [facility] note* Diagnosis Sore throat- Primary Acute pharyngitis documented in this encounter [facility] note* Diagnosis Anxiety- Primary Anxiety state, unspecified Panic attacks Panic disorder without agoraphobia Screening for HIV (human immunodeficiency virus) Special screening examination for other specified viral diseases Special screening examination for viral disease Special screening examination for unspecified viral disease Elevated platelet count Essential thrombocythemia documented in this encounter [facility] note* Diagnosis Throat pain- Primary Strep throat Streptococcal sore throat documented in this encounter [facility] note* Diagnosis Menorrhagia with regular cycle- Primary Excessive or frequent menstruation Dysmenorrhea Encounter for screening mammogram for malignant neoplasm of breast Other screening mammogram documented in this encounter [facility] note* Diagnosis Rhinosinusitis- Primary Unspecified sinusitis (chronic) documented in this encounter [facility] note* Diagnosis Tick bite of other part of neck, initial encounter- Primary documented in this encounter [facility] note* Diagnosis Pre-op evaluation- Primary Preoperative examination, unspecified Obesity due to excess calories without serious comorbidity, unspecified classification Axillary mass, left- Primary Family history of breast cancer Family history of malignant neoplasm of breast documented in this encounter [facility] note* Diagnosis Pre-op evaluation- Primary Preoperative examination, unspecified Obesity due to excess calories without serious comorbidity, unspecified classification Pain of both breasts- Primary documented in this encounter [facility] note* Diagnosis Pre-op evaluation- Primary Preoperative examination, unspecified Obesity due to excess calories without serious comorbidity, unspecified classification Bacterial sinusitis- Primary Unspecified sinusitis (chronic) documented in this encounter [facility] note* Diagnosis Pre-op evaluation- Primary Preoperative examination, unspecified Obesity due to excess calories without serious comorbidity, unspecified classification Hydronephrosis with urinary obstruction due to renal calculus- Primary Elevated serum creatinine Other nonspecific findings on examination of blood Gastroesophageal reflux disease, unspecified whether esophagitis present Class 3 severe obesity without serious comorbidity with body mass index (BMI) of 40.0 to 44.9 in adult, unspecified obesity type (HCC) documented in this encounter [facility] note* Diagnosis Pre-op evaluation- Primary Preoperative examination, unspecified Obesity due to excess calories without serious comorbidity, unspecified classification Pain of both breasts documented in this encounter [facility] note* Diagnosis Pre-op evaluation- Primary Preoperative examination, unspecified Obesity due to excess calories without serious comorbidity, unspecified classification Axillary mass, left Family history of breast cancer Family history of malignant neoplasm of breast documented in this encounter [facility] note* Diagnosis Pre-op evaluation- Primary Preoperative examination, unspecified Obesity due to excess calories without serious comorbidity, unspecified classification Encounter for gynecological examination (general) (routine) without abnormal findings- Primary Encounter for screening mammogram for breast cancer Adenomyosis Endometriosis of uterus documented in this encounter [facility] note* Diagnosis Pre-op evaluation- Primary Preoperative examination, unspecified Obesity due to excess calories without serious comorbidity, unspecified classification Intrauterine contraceptive device threads lost, initial encounter- Primary Sensation of heaviness Pelvic cramping Unspecified symptom associated with female genital organs documented in this encounter [facility] note* Diagnosis Pre-op evaluation- Primary Preoperative examination, unspecified Obesity due to excess calories without serious comorbidity, unspecified classification Intrauterine contraceptive device threads lost, initial encounter [facility] Discharge instructionsAdditional Instructions Motrin and Tylenol for any pain. 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 Return if increasing pain, fever or feeling worse. Currently her exam is benign. [facility] Work Phone: Reason for referral (narrative)* Diagnostic Procedure Only (Routine) - Pending Review Specialty Diagnoses / Procedures Referred By Manjeet alvarez Referred To Contact [facility] Diagnoses Encounter for screening mammogram for breast cancer Procedures MILLA SCREENING SCREENING MAMMOGRAPHY BI 2-VIEW BREAST INC Yahir Daigle MD [address] [place] [address] [facility] [address] [place] [address] Referral ID Status Reason Start Date Expiration Date Visits Requested Visits Authorized [id number] Pending Review Auto-Generat ed Referral 05/15/2022 06/14/2023 1 1 [facility] for referral (narrative)* Diagnostic Procedure Only (Routine) - Authorized Specialty Diagnoses / Procedures Referred By Manjeet alvarez Referred To Contact [facility] Diagnoses Encounter for screening mammogram for malignant neoplasm of breast Procedures MILLA SCREENING W TONJA SCREENING DIGITAL BREAST TOMOSYNTHESIS BI SCREENING MAMMOGRAPHY BI 2-VIEW BREAST INC CAD Holly La MD [address] [place] [address] [facility] [address] [place] [id number] Referral ID Status Reason Start Date Expiration Date Visits Requested Visits Authorized [id number] Authorized Auto-Generat ed Referral 3 11/14/2024 1 1 * Outpatient Procedure (Routine) - Authorized Specialty Diagnoses / Procedures Referred By Manjeet alvarez Referred To Contact [facility] Diagnoses Menorrhagia with regular cycle Procedures ENDOMETRIAL BIOPSY ENDOMETRIAL BX W/WO ENDOCERVIX BX W/O DILAT SPX Holly La MD [address] [place] [address] [address] Referral ID Status Reason Start Date Expiration Date Visits Requested Visits Authorized [id number] Authorized Auto-Generat ed Referral 3 10/15/2024 1 1 * Outpatient Procedure (Routine) - Pending Review Specialty Diagnoses / Procedures Referred By Manjeet alvarez Referred To Contact [facility] Diagnoses Menorrhagia with regular cycle Procedures INSERT INTRAUTERINE DEVICE LEVONORGESTREL IU 52MG 5 YR INSERT INTRAUTERINE DEVICE Holly La MD [address] [place] [address] [address] Referral ID Status Reason Start Date Expiration Date Visits Requested Visits Authorized [id number] Pending Review Auto-Generat ed Referral 3 10/15/2024 1 1 * Diagnostic Procedure Only (Routine) - Authorized Specialty Diagnoses / Procedures Referred By Manjeet t Referred To Contact [facility] Diagnoses Menorrhagia with regular cycle Procedures PELVIC US WHI US PELVIC NONOBSTETRIC REAL-TIME IMAGE COMPLETE Holly La MD [address] [place] [address] [facility] [address] [place] [address] Referral ID Status Reason Start Date Expiration Date Visits Requested Visits Authorized [id number] Authorized Auto-Generat ed Referral 10/15/2024 1 1 [facility] for referral (narrative)* Diagnostic Procedure Only (Routine) - New Request Specialty Diagnoses / Procedures Referred By Manjeet alvarez Referred To Contact [facility] Diagnoses Axillary mass, left Family history of breast cancer Procedures US BREAST LTD LEFT US BREAST UNI REAL TIME WITH IMAGE LIMITED Lorenza Mitchell, GRANTS AND CONTRACTS ASSISTANT.BIOSOLIDS MANAGEMENT TECHNICIAN [address] [place] [address] [facility] [address] [place] [address] Referral ID Status Reason Start Date Expiration Date Visits Requested Visits Authorized [id number] New Request Auto-Generat ed Referral 07/26/2024 08/25/2025 1 1 * Diagnostic Procedure Only (Routine) - New Request Specialty Diagnoses / Procedures Referred By Manjeet alvarez Referred To Contact [facility] Diagnoses Axillary mass, left Family history of breast cancer Procedures MILLA DIAGNOSTIC LEFT DIAGNOSTIC MAMMOGRAPHY COMPUTER-AIDED DETCJ UNI Lorenza Mitchell, PERICO.BIOSOLIDS MANAGEMENT TECHNICIAN [address] [place] [address] [facility] [address] [place] [address] Referral ID Status Reason Start Date Expiration Date Visits Requested Visits Authorized [id number] New Request Auto-Generat ed Referral 07/26/2024 08/25/2025 1 1 [facility] for referral (narrative)* Diagnostic Procedure Only (Routine) - New Request Specialty Diagnoses / Procedures Referred By Manjeet alvarez Referred To Contact [facility] Diagnoses Pain of both breasts Procedures MILLA DIAGNOSTIC BILATERAL DIAGNOSTIC MAMMOGRAPHY COMPUTER-AIDED DETCJ Maye Calabrese APRN.CNP [address] [place] [address] [facility] [address] [place] [address] Referral ID Status Reason Start Date Expiration Date Visits Requested Visits Authorized [id number] New Request Auto-Generat ed Referral 10/07/2025 1 1 [facility] for referral (narrative)No reason for referral information availableWUniversity [facility] Work Phone: Reason for visit Narrative* Diagnostic Procedure Only (Routine) - Closed Specialty Diagnoses / Procedures Referred By Manjeet alvarez Referred To Contact [facility] Diagnoses Pain of both breasts Procedures MILLA DIAGNOSTIC BILATERAL DIAGNOSTIC MAMMOGRAPHY COMPUTER-AIDED DETCJ BI Maye Valerio APRN.FLOOR SPACE ALLOCATOR [address] [place] [address] Phone: tel: fax: [facility] [address] [place] [address] Referral ID Status Reason Start Date Expiration Date V isits Requested Visits Authorized [id number] Closed Auto-Generate d Referral 09/07/2024 10/07/2025 1 1 [facility] Family History No Family History Records FoundUnknown Family Member Name Dates Details Alcohol Abuse Comments:Maternal Grandfathe r. Status:Active Anxiety Disorder Comments:Mother. Status:Active Bladder Cancer (Renamed from Bladder problems) Comments:Paternal Grandfathe r. Status:Active Lung Cancer Comments:Paternal Grandmothe r. Status:Active Multiple Sclerosis Comments:Father. Status:Active Thyroid problems Comments:Mother. Maternal Gr andmother. Status:Active Instructions Name Dates Details How to access [employer] online Indication:Tobacco abuse Start:12-Feb-2018 Instruction Type:Patient Education How to access health informa tion online - Detail Indication:Tobacco abuse Start:12-Feb-2018 Instruction Type:Patient Education Patient Instructions Indication:Sinus pressure Start:12-Feb-2018 Instruction Type:Provider Instructions for Treatment How to access health informa tion online Indication:Migraine headache Start:31-Oct-2017 Instruction Type:Patient Education How to access health informa tion online - Detail Indication:Migraine headache Start:31-Oct-2017 Instruction Type:Patient Education Patient Instructions Indication:Migraine headache Start:31-Oct-2017 Instruction Type:Provider Instructions for Treatment How to access health informa tion online Indication:Tobacco abuse Start:09-May-2017 Instruction Type:Patient Education How to access health informa tion online - Detail Indication:Tobacco abuse Start:09-May-2017 Instruction Type:Patient Education Patient Instructions Indication:Tobacco abuse Start:09-May-2017 Instruction Type:Provider Instructions for Treatment How to access health informa tion online Indication:Tobacco abuse Start:22-Apr-2017 Instruction Type:Patient Education How to access health informa tion online - Detail Indication:Tobacco abuse Start:22-Apr-2017 Instruction Type:Patient Education Patient Instructions Indication:Tobacco abuse Start:22-Apr-2017 Instruction Type:Provider Instructions for Treatment How to access health informa tion online Indication:BMI 34.0-34.9,adult Start:08-Nov-2016 Instruction Type:Patient Education How to access health informa tion online - Detail Indication:BMI 34.0-34.9,adult Start:08-Nov-2016 Instruction Type:Patient Education Patient Instructions Indication:BMI 34.0-34.9,adult Start:08-Nov-2016 Instruction Type:Provider Instructions for Treatment How to access health informa tion online Indication:UTI (urinary tract infection) Start:12-Jul-2016 Instruction Type:Patient Education How to access health informa tion online - Detail Indication:UTI (urinary tract infection) Start:12-Jul-2016 Instruction Type:Patient Education Patient Instructions Indication:UTI (urinary tract infection) Start:12-Jul-2016 Instruction Type:Provider Instructions for Treatment How to access health informa tion online Indication:Ocular migraine Start:19-Mar-2016 Instruction Type:Patient Education How to access health informa tion online - Detail Indication:Ocular migraine Start:19-Mar-2016 Instruction Type:Patient Education Patient Instructions Indication:Ocular migraine Start:19-Mar-2016 Instruction Type:Provider Instructions for Treatment Patient Instructions Indication:Insulin resistance Start:25-Jan-2016 Instruction Type:Provider Instructions for Treatment How to access health informa tion online Indication:Multiple thyroid nodules Start:15-Dec-2015 Instruction Type:Patient Education How to access health informa tion online - Detail Indication:Multiple thyroid nodules Start:15-Dec-2015 Instruction Type:Patient Education Patient Instructions Indication:Multiple thyroid nodules Start:15-Dec-2015 Instruction Type:Provider Instructions for Treatment How to access health informa tion online Indication:Hematuria Start:22-Sep-2015 Instruction Type:Patient Education How to access health informa tion online - Detail Indication:Hematuria Start:22-Sep-2015 Instruction Type:Patient Education Patient Instructions Indication:Hematuria Start:22-Sep-2015 Instruction Type:Provider Instructions for Treatment Patient Instructions Indication:Hepatomegaly Start:15-Sep-2015 Instruction Type:Provider Instructions for Treatment Patient Instructions Indication:Abdominal pain, acute, right upper quadrant Start:12-Sep-2015 Instruction Type:Provider Instructions for Treatment How to access health informa tion online - Detail Indication:Sinusitis Start:08-Jun-2015 Instruction Type:Patient Education Patient Instructions Indication:Sinusitis Start:08-Jun-2015 Instruction Type:Provider Instructions for Treatment How to access health informa tion online Indication:Weight gain Start:08-May-2015 Instruction Type:Patient Education How to access health informa tion online - Detail Indication:Weight gain Start:08-May-2015 Instruction Type:Patient Education Patient Instructions Indication:Weight gain Start:08-May-2015 Instruction Type:Provider Instructions for Treatment Patient Instructions Indication:Colon polyps Start:20-Apr-2015 Instruction Type:Provider Instructions for Treatment Patient Instructions Indication:Unspecified Diagnosis Start:23-Apr-2013 Instruction Type:Provider Instructions for Treatment Chief Complaint and Reason for Visit Chief Complaint SCREENING Chief Complaint gallbladder Chief Complaint Flank Pain Chief Complaint Admit Date UTERINE PROLAPSE, IUD May 19, 2025 7:4 5pm Advance Directives No Advanced Directives Records Found Advance Directive Response Recorded Date/ Time Living Will No March 21, 2021 5: 39am Power of Spoke Maker No March 21, 2021 5:39am Advance Directive Response Recorded Date/ Time Living Will No April 28, 2022 4:38pm Power of Spoke Maker No April 28 4:38pm Advance Directive Response Recorded Date/ Time Living Will No April 28, 2022 3:38pm Power of Spoke Maker No April 28 3:38pm Advance Directive Response Recorded Date/ Time Living Will No June 08, 2023 5:07am Power of Spoke Maker No June 08 5:07am Advance Directive Response Recorded Date/ Time Do you have a Healthcare Power of Spoke Maker? No May 19, 2025 9:04pm Reason for Referral Specialty Diagnoses / Procedures Referred By Contac t Referred To Contact CT IMAGING Diagnoses Acquired cyst of kidney Procedures CT KIDNEY WO/W IVCON CT ABDOMEN W & W/O CONTRAST Yahir Raygoza MD [address] [place] [address] Ct Imaging Referral ID Status Reason Start Date Expiration Date Visits Requested Visits Authorized [id number] Pending Review Auto-Generat ed Referral 05/01/2022 05/31/2023 1 1 Specialty Diagnoses / Procedures Referred By Contac t Referred To Contact Nutrition Diagnoses Class 3 severe obesity without serious comorbidity with body mass index (BMI) of 40.0 to 44.9 in adult, unspecified obesity type (HCC) Procedures CONSULT TO NUTRITION THERAPY MEDICAL NUTRITION ASSMT&IVNTJ INDIV EACH 15 PA Lorenza Mitchell APRN.BIOSOLIDS MANAGEMENT TECHNICIAN [address] [place] [address] Referral ID Status Reason Start Date Expiration Date Visits Requested Visits Authorized [id number] Authorized PCP Requested Referral 4 11/16/2025 1 4 Specialty Diagnoses / Procedures Referred By Contac t Referred To Contact Urology Diagnoses Hydronephrosis with urinary obstruction due to renal calculus Procedures CONSULT TO UROLOGY OFFICE/OUTPATIENT [facility] MDM 60 MINUTES Lorenza Mitchell, PERICO.BIOSOLIDS MANAGEMENT TECHNICIAN [address] [place] [address] Referral ID Status Reason Start Date Expiration Date Visits Requested Visits Authorized [id number] Authorized PCP Requested Referral 4 11/16/2025 1 1 Summary Purpose Additional Source Comments Source Comments (unrecognize d section and content) In the event this informatio n is protected by the Federal Confidentiality of Alcohol and Drug Abuse Patient Records regulations: The Federal rules restrict any use of the information to criminally investigate or prosecute any alcohol or drug abuse patient.[facility] the event this information is protected by the Federal Confidentiality of Alcohol and Drug Abuse Patient Records regulations: The Federal rules restrict any use of the information to criminally investigate or prosecute any alcohol or drug abuse patient.[facility] the event this information is protected by the Federal Confidentiality of Alcohol and Drug Abuse Patient Records regulations: The Federal rules restrict any use of the information to criminally investigate or prosecute any alcohol or drug abuse patient.[facility] the event this information is protected by the Federal Confidentiality of Alcohol and Drug Abuse Patient Records regulations: The Federal rules restrict any use of the information to criminally investigate or prosecute any alcohol or drug abuse patient.[facility] the event this information is protected by the Federal Confidentiality of Alcohol and Drug Abuse Patient Records regulations: The Federal rules restrict any use of the information to criminally investigate or prosecute any alcohol or drug abuse patient.[facility] the event this information is protected by the Federal Confidentiality of Alcohol and Drug Abuse Patient Records regulations: The Federal rules restrict any use of the information to criminally investigate or prosecute any alcohol or drug abuse patient.[facility] the event this information is protected by the Federal Confidentiality of Alcohol and Drug Abuse Patient Records regulations: The Federal rules restrict any use of the information to criminally investigate or prosecute any alcohol or drug abuse patient.[facility]In the event this information is protected by the Federal Confidentiality of Alcohol and Drug Abuse Patient Records regulations: The Federal rules restrict any use of the information to criminally investigate or prosecute any alcohol or drug abuse patient.[facility]In the event this information is protected by the Federal Confidentiality of Alcohol and Drug Abuse Patient Records regulations: The Federal rules restrict any use of the information to criminally investigate or prosecute any alcohol or drug abuse patient.[facility]In the event this information is protected by the Federal Confidentiality of Alcohol and Drug Abuse Patient Records regulations: The Federal rules restrict any use of the information to criminally investigate or prosecute any alcohol or drug abuse patient.[facility]In the event this information is protected by the Federal Confidentiality of Alcohol and Drug Abuse Patient Records regulations: The Federal rules restrict any use of the information to criminally investigate or prosecute any alcohol or drug abuse patient.[facility]In the event this information is protected by the Federal Confidentiality of Alcohol and Drug Abuse Patient Records regulations: The Federal rules restrict any use of the information to criminally investigate or prosecute any alcohol or drug abuse patient.[facility]In the event this information is protected by the Federal Confidentiality of Alcohol and Drug Abuse Patient Records regulations: The Federal rules restrict any use of the information to criminally investigate or prosecute any alcohol or drug abuse patient.[facility]In the event this information is protected by the Federal Confidentiality of Alcohol and Drug Abuse Patient Records regulations: The Federal rules restrict any use of the information to criminally investigate or prosecute any alcohol or drug abuse patient.[facility]In the event this information is protected by the Federal Confidentiality of Alcohol and Drug Abuse Patient Records regulations: The Federal rules restrict any use of the information to criminally investigate or prosecute any alcohol or drug abuse patient.[facility]In the event this information is protected by the Federal Confidentiality of Alcohol and Drug Abuse Patient Records regulations: The Federal rules restrict any use of the information to criminally investigate or prosecute any alcohol or drug abuse patient.[facility]In the event this information is protected by the Federal Confidentiality of Alcohol and Drug Abuse Patient Records regulations: The Federal rules restrict any use of the information to criminally investigate or prosecute any alcohol or drug abuse patient.[facility]In the event this information is protected by the Federal Confidentiality of Alcohol and Drug Abuse Patient Records regulations: The Federal rules restrict any use of the information to criminally investigate or prosecute any alcohol or drug abuse patient.[facility]In the event this information is protected by the Federal Confidentiality of Alcohol and Drug Abuse Patient Records regulations: The Federal rules restrict any use of the information to criminally investigate or prosecute any alcohol or drug abuse patient.[facility]In the event this information is protected by the Federal Confidentiality of Alcohol and Drug Abuse Patient Records regulations: The Federal rules restrict any use of the information to criminally investigate or prosecute any alcohol or drug abuse patient.[facility]In the event this information is protected by the Federal Confidentiality of Alcohol and Drug Abuse Patient Records regulations: The Federal rules restrict any use of the information to criminally investigate or prosecute any alcohol or drug abuse patient.[facility]In the event this information is protected by the Federal Confidentiality of Alcohol and Drug Abuse Patient Records regulations: The Federal rules restrict any use of the information to criminally investigate or prosecute any alcohol or drug abuse patient.[facility]In the event this information is protected by the Federal Confidentiality of Alcohol and Drug Abuse Patient Records regulations: The Federal rules restrict any use of the information to criminally investigate or prosecute any alcohol or drug abuse patient.[facility]In the event this information is protected by the Federal Confidentiality of Alcohol and Drug Abuse Patient Records regulations: The Federal rules restrict any use of the information to criminally investigate or prosecute any alcohol or drug abuse patient.[facility] the event this information is protected by the Federal Confidentiality of Alcohol and Drug Abuse Patient Records regulations: The Federal rules restrict any use of the information to criminally investigate or prosecute any alcohol or drug abuse patient.[facility] the event this information is protected by the Federal Confidentiality of Alcohol and Drug Abuse Patient Records regulations: The Federal rules restrict any use of the information to criminally investigate or prosecute any alcohol or drug abuse patient.[facility]In the event this information is protected by the Federal Confidentiality of Alcohol and Drug Abuse Patient Records regulations: The Federal rules restrict any use of the information to criminally investigate or prosecute any alcohol or drug abuse patient.[facility] ClinicIn the event this information is protected by the Federal Confidentiality of Alcohol and Drug Abuse Patient Records regulations: The Federal rules restrict any use of the information to criminally investigate or prosecute any alcohol or drug abuse patient.[facility]In the event this information is protected by the Federal Confidentiality of Alcohol and Drug Abuse Patient Records regulations: The Federal rules restrict any use of the information to criminally investigate or prosecute any alcohol or drug abuse patient.[facility]In the event this information is protected by the Federal Confidentiality of Alcohol and Drug Abuse Patient Records regulations: The Federal rules restrict any use of the information to criminally investigate or prosecute any alcohol or drug abuse patient.[facility]In the event this information is protected by the Federal Confidentiality of Alcohol and Drug Abuse Patient Records regulations: The Federal rules restrict any use of the information to criminally investigate or prosecute any alcohol or drug abuse patient.[facility]In the event this information is protected by the Federal Confidentiality of Alcohol and Drug Abuse Patient Records regulations: The Federal rules restrict any use of the information to criminally investigate or prosecute any alcohol or drug abuse patient.[facility]In the event this information is protected by the Federal Confidentiality of Alcohol and Drug Abuse Patient Records regulations: The Federal rules restrict any use of the information to criminally investigate or prosecute any alcohol or drug abuse patient.[facility]In the event this information is protected by the Federal Confidentiality of Alcohol and Drug Abuse Patient Records regulations: The Federal rules restrict any use of the information to criminally investigate or prosecute any alcohol or drug abuse patient.[facility]In the event this information is protected by the Federal Confidentiality of Alcohol and Drug Abuse Patient Records regulations: The Federal rules restrict any use of the information to criminally investigate or prosecute any alcohol or drug abuse patient.[facility]In the event this information is protected by the Federal Confidentiality of Alcohol and Drug Abuse Patient Records regulations: The Federal rules restrict any use of the information to criminally investigate or prosecute any alcohol or drug abuse patient.[facility]In the event this information is protected by the Federal Confidentiality of Alcohol and Drug Abuse Patient Records regulations: The Federal rules restrict any use of the information to criminally investigate or prosecute any alcohol or drug abuse patient.[facility]In the event this information is protected by the Federal Confidentiality of Alcohol and Drug Abuse Patient Records regulations: The Federal rules restrict any use of the information to criminally investigate or prosecute any alcohol or drug abuse patient.[facility]In the event this information is protected by the Federal Confidentiality of Alcohol and Drug Abuse Patient Records regulations: The Federal rules restrict any use of the information to criminally investigate or prosecute any alcohol or drug abuse patient.[facility] Reason for Visit (unrecogniz ed section and content) Reason Comments Yearly Exam establish with pcp Reason Comments Urinary Frequency burning with urinati on x 1 day Reason Comments Results Reason Comments Urinary Frequency burning with urinati on x today, finished keflex friday Reason Comments Established Patient follow up to ER 04/28- flank pain Reason Comments Hospital Follow Up ER [facility] for gallbladd er pain Reason Comments Insect Bite R lower leg x5 days Reason Comments Sinus Problem X 2 weeks Reason Comments Patient Update Reason Comments Follow Up needs to discuss pre servative free flu shot Reason Comments Pre-Op Visit Reason Comments Follow Up 1 month adipex- on h old due to ATB usage but still needs refill Reason Comments Sore Throat ST and fever x 1 day Reason Comments Follow Up adipex but d/c'd x 3 weeks due to anxiety Reason Comments Pain, Throat Pt reported +strep e xposure, ear pain x5 days. Reason Comments Discussion Reason Comments Sinus Problem X8 days, sinus pain and pressure, flonase, zyrtec Reason Comments Trauma Back of neck found t ick this am, redness, fatigue, rash neck, fever x 1 day Reason Comments Pain under L armpit Reason Comments Sinus Problem sinus and ear pressu re x 2 weeks Reason Comments Hospital F/U Reason Comments Radiology US Specialty Diagnoses / Procedures Referred By Manjeet alvarez Referred To Contact [facility] Diagnoses Axillary mass, left Family history of breast cancer Procedures US BREAST LTD LEFT US BREAST UNI REAL TIME WITH IMAGE LIMITED Lorenza Mitchell, GRANTS AND CONTRACTS ASSISTANT.BIOSOLIDS MANAGEMENT TECHNICIAN [address] [place] [address] Phone: tel: fax: [facility] [address] [place] [address] Referral ID Status Reason Start Date Expiration Date V isits Requested Visits Authorized [id number] Closed Auto-Generate d Referral 07/26/2024 08/25/2025 1 1 Reason Comments Well Woman Reason Comments Appointment Reason Comments extreme cramping Reason Comments Radiology US Specialty Diagnoses / Procedures Referred By Contac t Referred To Contact [facility] Diagnoses Intrauterine contraceptive device threads lost, initial encounter Procedures US FEMALE PELVIS TRANSVAG US TRANSVAGINAL Penny Bee APRN.[facility] [address] [facility] [place] [address] Phone: tel: fax: [place] [phone] Referral ID Status Reason Start Date Expiration Date V isits Requested Visits Authorized [id number] Closed Auto-Generate d Referral 06/06/2025 07/06/2026 1 1 Care Teams (unrecognized sec tion and content) Voice Instructor Relationship Specialty Start Date End Date Yahir Raygoza MD [address] [place] [address] PCP - General Internal Medicine 12/21/19 Voice Instructor Relationship Specialty Start Date End Date Yahir Raygoza MD [address] [place] [address] PCP - General Internal Medicine 12/21/19 Voice Instructor Relationship Specialty Start Date End Date Yahir Raygoza MD [address] [place] [address] PCP - General Internal Medicine 12/21/19 Voice Instructor Relationship Specialty Start Date End Date Yahir Raygoza MD [address] [place] [address] PCP - General Internal Medicine 12/21/19 Voice Instructor Relationship Specialty Start Date End Date Yahir Raygoza MD [address] [place] [address] PCP - General Internal Medicine 12/21/19 Voice Instructor Relationship Specialty Start Date End Date Yahir Raygoza MD [address] [place] [address] PCP - General Internal Medicine 12/21/19 Voice Instructor Relationship Specialty Start Date End Date Yahir Raygoza MD [address] [place] [address] PCP - General Internal Medicine 12/21/19 Voice Instructor Relationship Specialty Start Date End Date Yahir Raygoza MD [address] [place] [address] PCP - General Internal Medicine 12/21/19 Voice Instructor Relationship Specialty Start Date End Date Yahir Raygoza MD [address] [place] [address] PCP - General Internal Medicine 12/21/19 Voice Instructor Relationship Specialty Start Date End Date Yahir Raygoza MD [address] [place] [address] PCP - General Internal Medicine 12/21/19 Voice Instructor Relationship Specialty Start Date End Date Yahir Raygoza MD [address] [place] [address] PCP - General Internal Medicine 12/21/19 Voice Instructor Relationship Specialty Start Date End Date Yahir Raygoza MD [address] [place] [address] PCP - General Internal Medicine 12/21/19 Voice Instructor Relationship Specialty Start Date End Date Yahir Raygoza MD [address] [place] [address] PCP - General Internal Medicine 12/21/19 Voice Instructor Relationship Specialty Start Date End Date Yahir Raygoza MD [address] [place] [address] PCP - General Internal Medicine 12/21/19 Voice Instructor Relationship Specialty Start Date End Date Yahir Raygoza MD [address] [place] [address] PCP - General Internal Medicine 12/21/19 Voice Instructor Relationship Specialty Start Date End Date Yahir Raygoza MD [address] [place] [address] PCP - General Internal Medicine 12/21/19 Voice Instructor Relationship Specialty Start Date End Date Yahir Raygoza MD [address] [place] [address] PCP - General Internal Medicine 12/21/19 Team Status: Active Member Role Status Dates Dr. Yahir Raygoza MD Primary Care Provider Active Team Status: Inactive Member Role Status Dates Dr. Yahir Raygoza MD Primary Care Provider Active Dr. Leigh Tang DO Attending Provider Active Team Status: Inactive Member Role Status Dates Dr. Yahir Raygoza MD Primary Care Provider Active Dr. Leigh Tang DO Attending Provider, [facility] Provider Active Voice Instructor Relationship Specialty Start Date End Date Yahir Raygoza MD [address] [place] [address] PCP - General Internal Medicine 12/21/19 Team Status: Inactive Member Role Status Dates Dr. Yahir Raygoza MD Primary Care Provider Active Dr. Rachel Ward MD Emergency Provider Active Voice Instructor Relationship Specialty Start Date End Date Yahir Raygoza MD [address] [place] [address] PCP - General Internal Medicine 12/21/19 Voice Instructor Relationship Specialty Start Date End Date Yahir Raygoza MD [address] [place] [address] PCP - General Internal Medicine 12/21/19 Voice Instructor Relationship Specialty Start Date End Date Yahir Raygoza MD [address] [place] [address] PCP - General Internal Medicine 12/21/19 Voice Instructor Relationship Specialty Start Date End Date Yahir Raygoza MD [address] [place] [address] PCP - General Internal Medicine 12/21/19 Voice Instructor Relationship Specialty Start Date End Date Yahir Raygoza MD [address] [place] [address] PCP - General Internal Medicine 12/21/19 Voice Instructor Relationship Specialty Start Date End Date Yahir Raygoza MD [address] [place] [address] PCP - General Internal Medicine 12/21/19 Voice Instructor Relationship Specialty Start Date End Date Yahir Raygoza MD [address] [place] [address] PCP - General Internal Medicine 12/21/19 Voice Instructor Relationship Specialty Start Date End Date Yahir Raygoza MD [address] [place] [address] PCP - General Internal Medicine 12/21/19 Mamie Jimenes PA-C [address] [place] [address] [employer] Family Medicine 10/24/24 Elysia Oneil APRN.CNP [address] [place], [place] [address] Box [employer] Operator Internal Medicine 10/24/24 Aditi Sanches PA-C [address] [place] [address] Box [employer] Operator Family Medicine 10/24/24 Voice Instructor Relationship Specialty Start Date End Date Yahir Raygoza MD [address] [place], [place] [id number] PCP - General Internal Medicine 12/21/19 Mamie Jimenes PA-C [address] [place] [address] Box Press Operator Family Medicine 10/24/24 Elysia Oneil APRN.FLOOR SPACE ALLOCATOR [address] [place] [address] Box Press Operator Internal Medicine 10/24/24 Aditi Sanches PA-C [address] [place] [address] [facility]/24 Voice Instructor Relationship Specialty Start Date End Date Yahir Raygoza MD [address] [place] [address] PCP - General Internal Medicine 12/21/19 Mamie Jimenes PA-C [address] [place] [address] Box Press Operator Family Medicine 10/24/24 Elysia Oneil APRN.FLOOR SPACE ALLOCATOR [address] [place] [address] Box Press Operator Internal Medicine 10/24/24 Aditi Sanches PA-C [address] [place] [address] [facility] 10/24/24 Voice Instructor Relationship Specialty Start Date End Date Yahir Raygoza MD [address] [place] [address] PCP - General Internal Medicine 12/21/19 Elysia Oneil APRN.FLOOR SPACE ALLOCATOR [address] [place] [address] Box Press Operator Internal Medicine 10/24/24 Voice Instructor Relationship Specialty Start Date End Date Yahir Raygoza MD [address] [place] [address] PCP - General Internal Medicine 12/21/19 Mamie Jimenes PA-C [address] [place] [address] Box Press Operator Family Medicine 10/24/24 02/06/25 Elysia Oneil APRN.FLOOR SPACE ALLOCATOR [address] [place] [address] Box Press Operator Internal Medicine 10/24/24 Aditi Sanches PA-C [address] [place] [address] Box Press Operator Family [facility] 10/24/24 02/06/25 Voice Instructor Relationship Specialty Start Date End Date Yahir Raygoza MD [address] [place], [place] [address] PCP - General Internal Medicine 12/21/19 Elysia Oneil APRN.FLOOR SPACE ALLOCATOR [address] [place] [address] Box Press Operator Internal Medicine 10/24/24 Team Status: Active Member Role/Relationship Status Dates Dr. Yahir Raygoza MD Primary Care Provider Active Team Status: Inactive Member Role/Relationship Status Dates Dr. Yahir Raygoza MD Primary Care Provider Active Start: May 19, 2025 End: May 19, 2025 Dr. Rod Bates MD Referring Provider Active S tart: May 19, 2025 End: May 19, 2025 Dr. Rod Bates MD Emergency Provider Active S tart: May 19, 2025 End: May 19, 2025 Voice Instructor Relationship Specialty Start Date End Date Yahir Raygoza MD [address] [place], [place] [address] PCP - General Internal Medicine 12/21/19 Elysia Oneil APRN.CNP [address] [place] [address] Box Press Operator Internal Medicine 10/24/24 Goals (unrecognized section and content) Goals may be documented in a n alternate sectionGoals may be documented in an alternate sectionGoals may be documented in an alternate sectionGoals may be documented in an alternate sectionGoals may be documented in an alternate sectionGoals may be documented in an alternate section INFORMATION SOURCE (unrecogn ized section and content) DATE CREATED AUTHOR 06/11/[address] [facility] DATE CREATED AUTHOR 'S ORGANIZ ATION 08/26/2025 [facility] FOR RECORDS PERTAINING TO PATIENTS WHO ARE OR HAVE BEEN ENROLLED IN A CHEMICAL DEPENDENCY/SUBSTANCEABUSE PROGRAM, SOME INFORMATION MAY BE OMITTED. This clinical summary was aggregated from multiple sources. Caution should be exercised in using it in the provision of clinical care. This summary normalizes information from multiple sources, and as a consequence, information in this document may materially change the coding, format and clinical context of patient data. In addition, data may be omitted in some cases. CLINICAL DECISIONS SHOULD BE BASED ON THE PRIMARY CLINICAL RECORDS. [employer] provides no warranty or guarantee of the accuracy or completeness of information in this document.
== END | disposition home or self-care (01) ==
LOC: US 07:36
PROVIDERS: PCP Internal Medicine; Referring Provider Internal Medicine Gastroenterology; Visit Provider Internal Medicine Gastroenterology
DX: K76.0 Fatty (change of) liver, not elsewhere classified (principal)
CPT/HCPCS: 76705; 76981